=== PATIENT | male | born 1950 | race Two or more races ===

== ENCOUNTER 2020-08-20 16:53 | Emergency (ER) | payer OTHER, SELFPAY ==
[2020-08-20 17:02] VITALS: BP 143/85; PULSE 83; RESP 22; TEMP 37.1; O2SAT 97; BMI 26.6
--- NOTE | 2020-08-20 18:19 | ECG_ITS ---
Test Reason : SOB Blood Pressure : / mmHG Vent. Rate : 081 BPM Atrial Rate : 081 BPM P-R Int : 140 ms QRS Dur : 086 ms QT Int : 398 ms P-R-T Axes : 046 -18 022 degrees QTc Int : 462 ms Normal sinus rhythm Left axis deviation Nonspecific T wave abnormality Borderline ECG When compared with ECG of 07-APR-2020 18:35, Nonspecific T wave abnormality is new Referred By: Gwen Nagel Electronically Signed By:AHMET GUTIÉRREZ MD
--- NOTE | 2020-08-20 18:19 | XR_ITS ---
EXAMINATION: XR CHEST CLINICAL INFORMATION: Shortness of breath and cough COMPARISON: 04/07/2020 TECHNIQUE: Frontal view of the chest was obtained. FINDINGS: Normal symmetric lung volumes. No parenchymal consolidation. No pleural effusion. No pneumothorax. Cardiomediastinal silhouette and pulmonary vascularity are within normal limits. No acute osseous abnormalities. IMPRESSION: Unremarkable examination.
[2020-08-20] MEDS: methylPREDNISolone Sod Succ/PF 125 MG/2 ML VIAL IVPUSH (18:36)
[2020-08-20] MEDS: Magnesium Sulfate/H2O 2 GM/50 ML PIGGYBACK IV (18:36)
[2020-08-20 18:37] LABS: MANUAL DIFF FLAG NO
--- NOTE | 2020-08-20 18:37 | ED_ITS ---
HPI - SOB/Dyspnea General Chief Complaint: Dyspnea Stated Complaint: asthma Time Seen by Provider: 08/20/20 18:12 Source: patient Mode of arrival: ambulatory History of Present Illness HPI Narrative: 69-year-old male with a PMH asthma c/o asthma exacerbation x2 weeks. Reports nonproductive cough, SOB, intermittent chest discomfort. Denies fever, chills, abdominal pain, nausea /vomiting, LE edema, history of cough, sick contacts MD elicited complaint: shortness of breath and cough Pertinent past history: asthma Onset (ago): week(s) Timing: constant Severity: moderate Known history of: asthma Related Data Previous Rx's Medication Instructions Recorded albuterol sulfate 2 puff INHALATION Q4-6H PRN #6.7 g 08/20/20 albuterol sulfate 2.5 mg INHALATION Q4-6H PRN #75 ml 08/20/20 benzonatate [Tessalon Perles] 100 mg PO BID PRN #14 cap 08/20/20 prednisone 40 mg PO DAILY 5 Days #10 tab 08/20/20 Allergies Allergy/AdvReac Type Severity Reaction Status Date / Time No Known Allergies Allergy Verified 08/20/20 17:02 Review of Systems Review of Systems: Constitutional: No Weight loss, No Fever, No Chills, No Night Sweats, No Fatigue, No Malaise ENT/Mouth: No Ear Pain, No Nasal Congestion, No Sinus Pain, No sore throat, No Rhinorrhea, No Swallowing Difficulty Cardiovascular: + Chest Pain, + SOB, + Dyspnea on Exertion, No Orthopnea, No Edema, No Palpitations Respiratory: + Cough, No Sputum, No Wheezing, + Dyspnea Gastrointestinal: No Nausea, No Vomiting, No Diarrhea, No Constipation, No Abdo corrina pain Genitourinary: No Dysuria, No Urinary Frequency, No Hematuria Skin: No Skin Lesions, No rash PMFSH Past Medical History Attestation statement: The following information was validated with the patient. Social History Social History Alcohol intake: never Smoking Status: Never smoker Use of substances other than those prescribed or required for medical reasons: No Advance Directives: No Advance Directives Information Provided: No Physical Exam Vital Signs: Vital Signs: Vital Signs Temp Pulse Resp BP Pulse Ox 08/20/20 20:31 97 08/20/20 19:31 81 17 134/73 96 08/20/20 17:02 98.7 F 83 22 H 143/85 H 97 Body Mass Index 26.6 Const: General: cooperative and healthy appearing Orientation/consciousness: patient oriented x3 Limitations: no limitations HENMT: Head: Yes normal to inspection Ears: hearing grossly normal bilaterally General nose exam: Normal external nose present Face and sinus: Yes normal facial exam Eyes: General: appearance normal, both eyes and all related structures EOM: EOMs intact bilaterally Neck: Neck: Yes normal visual inspection Resp: Effort & Inspection: Actively coughing and no stridor Auscultation: wheezes expiratory wheezes, inspiratory wheezes and throughout and diminished lung sounds ( bibasilar) Cardio: Rate: regular rate Heart sounds: S1 normal heart sound present and S2 normal heart sound present Peripheral pulses: Peripheral pulses 2+ throughout GI: Inspection: Yes normal to inspection Palpation (GI): Soft to palpation, nontender, no guarding and not rigid : General: Yes no CVA tenderness Back/Spine/Pelvis: Back: no CVA tenderness Skin: Wounds: no wounds Neuro: General: patient oriented x3 Extrem: General: Yes normal to inspection and No edema Course Course Course Narrative: - no leukocytosis, BUN higher than baseline, troponin negative CXR unremarkable - on re-evaluation patient reports symptomatic improvement, lungs CTA. Ambulation with pulse ox patient maintained saturations greater than 92% on room air plan for discharge home with PCP follow-up MDM - SOB/Dyspnea MDM Narrative Medical decision making narrative: 69-year-old male with a H asthma c/o asthma exacerbation x2 weeks. Reports nonproductive cough, SOB, intermittent chest discomfort. On exam tachypneic, inspiratory/ expiratory wheeze with decreased BS bibasilarly. Concern for asthma exacerbation vs pneumonia vs viral syndrome. Low concern for COVID-19 Plan: EKG, Labs, CXR, DuoNeb, Solu-Medrol, magnesium, reassess Differential Diagnosis Differential diagnosis: Likely acute exacerbation of chronic obstructive airways disease, congestive heart failure, pneumonia, asthma with exacerbation and pleural effusion Lab Data Result diagrams: 08/20/20 18:27 08/20/20 18:27 Labs: Lab Results 08/20/20 08/20/20 08/20/20 Range/Units 18:27 18:27 18:27 WBC 7.1 (4.8-10.8) X10*3/uL RBC 4.96 (4.60-5.80) X10*6/uL Hgb 14.9 (14.0-18.0) g/dl Hct 45.7 (42-52) % MCV 92.1 (80-98) fL MCH 30.0 (27.0-33.0) pg MCHC 32.6 (31.0-36.0) g/dl RDW 13.5 (11.0-16.0) % Plt Count 212 (160-400) X10*3/uL MPV 10.4 (9.4-12.4) fL Immature Gran % (Auto) 0.1 (0.0-0.4) % Neut % (Auto) 51.2 (45-73) % Lymph % (Auto) 27.2 (20-40) % [place] % (Auto) 8.8 (2-11) % Eos % (Auto) 11.6 H (0-4) % Baso % (Auto) 1.1 (0-2) % Lymph # (Auto) 1.9 (1.2-4.9) X10*3/uL [place] # (Auto) 0.6 (0.1-1.2) X10*3/uL Eos # (Auto) 0.8 H (0.0-0.4) X10*3/uL Baso # (Auto) 0.1 (0.0-0.2) X10*3/uL Abs Immat Gran (auto) 0.01 (0.00-0.03) X10*3/uL Absolute Neuts (auto) 3.6 (2.0-8.3) X10*3/uL Absolute Nucleated RBC 0.000 (0.0-0.012) X10*3/uL Nucleated RBC % (auto) 0.0 (0.0-0.2) /100WBC Hold Blue Top Sodium 138 (135-145) mmol/L Potassium 4.4 (3.3-5.1) mmol/l Chloride 106 (96-108) mmol/L Carbon Dioxide 25 (22-29) mmol/L Anion Gap 11 L (12-20) BUN 24 H (9-16) mg/dL Creatinine 1.19 (0.5-1.4) mg/dL Estim Creat Clear Calc 52.3 Estimated GFR > 60 Random Glucose 102 (60-115) mg/dL Calcium 9.1 (8.4-10.2) mg/dL Troponin I High Sens < 3.5 (<3.5-35.0) ng/L B-Natriuretic Peptide < 10 (<100) pg/mL 08/20/20 Range/Units 18:27 WBC (4.8-10.8) X10*3/uL RBC (4.60-5.80) X10*6/uL Hgb (14.0-18.0) g/dl Hct (42-52) % MCV (80-98) fL MCH (27.0-33.0) pg MCHC (31.0-36.0) g/dl RDW (11.0-16.0) % Plt Count (160-400) X10*3/uL MPV (9.4-12.4) fL Immature Gran % (Auto) (0.0-0.4) % Neut % (Auto) (45-73) % Lymph % (Auto) (20-40) % [place] % (Auto) (2-11) % Eos % (Auto) (0-4) % Baso % (Auto) (0-2) % Lymph # (Auto) (1.2-4.9) X10*3/uL [place] # (Auto) (0.1-1.2) X10*3/uL Eos # (Auto) (0.0-0.4) X10*3/uL Baso # (Auto) (0.0-0.2) X10*3/uL Abs Immat Gran (auto) (0.00-0.03) X10*3/uL Absolute Neuts (auto) (2.0-8.3) X10*3/uL Absolute Nucleated RBC (0.0-0.012) X10*3/uL Nucleated RBC % (auto) (0.0-0.2) /100WBC Hold Blue Top SEE NOTE Sodium (135-145) mmol/L Potassium (3.3-5.1) mmol/l Chloride (96-108) mmol/L Carbon Dioxide (22-29) mmol/L Anion Gap (12-20) BUN (9-16) mg/dL Creatinine (0.5-1.4) mg/dL Estim Creat Clear Calc Estimated GFR Random Glucose (60-115) mg/dL Calcium (8.4-10.2) mg/dL Troponin I High Sens (<3.5-35.0) ng/L B-Natriuretic Peptide (<100) pg/mL Discharge Plan Discharge Clinical Impression: Asthma with exacerbation Patient Disposition: Home, Self-Care Instructions: Asthma (ED) Additional Instructions: continue using at home asthma medications In addition prednisone as a steroid, take as prescribed Tessalon Perles for cough Follow-up with her primary care doctor If symptoms persist/ worsen, you have fever, chest pain, or shortness of breath return to the ED Prescriptions: New prednisone 20 mg tablet 40 mg PO DAILY 5 Days Qty: 10 RF: 0 albuterol sulfate 2.5 mg /3 mL (0.083 %) solution for nebulization 2.5 mg inhalation Q4-6H PRN (Reason: shortness of breath or wheezing) Qty: 75 RF: 0 benzonatate [Tessalon Perles] 100 mg capsule 100 mg PO BID PRN (Reason: cough) Qty: 14 RF: 0 albuterol sulfate 90 mcg/actuation HFA aerosol inhaler 2 puff inhalation Q4-6H PRN (Reason: shortness of breath or wheezing) Qty: 6.7 RF: 0 Referrals: Toyin Mistry MD [Primary Care Provider] - 2 days Print Language: Cuban
[2020-08-20 18:40] LABS: Basophils Absolute Auto 0.1 X10*3/uL (0.0-0.2); Basophils Percent Auto 1.1 % (0-2); Eosinophils Absolute Auto 0.8 X10*3/uL (0.0-0.4); Eosinophils Percent Auto 11.6 % (0-4); Hematocrit 45.7 % (42-52); Hemoglobin 14.9 g/dl (14.0-18.0); Imm Gran Abs Auto 0.01 X10*3/uL (0.00-0.03); Imm Gran Pct Auto 0.1 % (0.0-0.4); Lymphocytes Absolute Auto 1.9 X10*3/uL (1.2-4.9); Lymphocytes Percent Auto 27.2 % (20-40); Mean Corpuscular HGB Conc 32.6 g/dl (31.0-36.0); Mean Corpuscular Volume 92.1 fL (80-98); Mean Platelet Volume 10.4 fL (9.4-12.4); Monocytes Absolute Auto 0.6 X10*3/uL (0.1-1.2); Monocytes Percent Auto 8.8 % (2-11); Neutrophils Absolute Auto 3.6 X10*3/uL (2.0-8.3); Neutrophils Percent Auto 51.2 % (45-73); Platelet Count 212 X10*3/uL (160-400); Red Blood Count 4.96 X10*6/uL (4.60-5.80); Red Cell Distribution Width 13.5 % (11.0-16.0); White Blood Count 7.1 X10*3/uL (4.8-10.8)
[2020-08-20] MEDS: Albuterol/Iprat 2.5/0.5MG 3 ML AMPUL.NEB 10 ML INHALE (18:42)
[2020-08-20 19:05] LABS: Anion Gap 11 (12-20); Blood Urea Nitrogen 24 mg/dL (9-16); Calcium 9.1 mg/dL (8.4-10.2); Carbon Dioxide 25 mmol/L (22-29); Chloride 106 mmol/L (96-108); Creatinine Clr Calc Pharmacy 52.3; Estimated Glomerular Filt Rate > 60; Glucose Random 102 mg/dL (60-115); Potassium 4.4 mmol/l (3.3-5.1); Sodium 138 mmol/L (135-145)
[2020-08-20 19:08] LABS: B Type Natriuretic Peptide < 10 pg/mL (<100); Troponin-I High Sensitivity < 3.5 ng/L (<3.5-35.0)
--- NOTE | 2020-08-20 19:09 | PC.NURSE ---
PT REPORTING 2 WKS OF SOB R/T ASTHMA, NEBULIZER NOT EFFECTIVE. PT INITIALLY HESITANT TO RECEIVE IV MEDICATION AND STEROIDS FOR THIS ISSUE, EXPLAINED IN DEPTH THE PURPOSE OF THESE, PT ACCEPTED. RT AT BEDSIDE. EXP WHEEZING HEARD THROUGHOUT. SPO2 WNL ON RA. MEDICATED PER EMR.
[2020-08-20 19:31] VITALS: BP 134/73; PULSE 81; RESP 17; O2SAT 96
--- NOTE | 2020-08-20 19:31 | PC.NURSE ---
PT REPORTS SIGNIFICANT IMPROVEMENT W WORK OF BREATHING. LUNG SOUNDS CLEAR THROUGHOUT. EKG AT BEDSIDE. VS WNL.
[2020-08-20 20:31] VITALS: O2SAT 97
--- NOTE | 2020-08-20 20:33 | PC.NURSE ---
PT SPO2 REMAINED 92-97% ON ROOM AIR DURING ROAD TEST. HANNAH PATHAK.
== END 2020-08-20 20:59 | disposition home or self-care (01) ==
PROVIDERS: Physician Assistant; Emergency Provider Emergency Medicine Emergency Medical Services; PCP Family Medicine
DX: J45.901 Unspecified asthma with (acute) exacerbation (principal); Z79.899 Other long term (current) drug therapy
CPT/HCPCS: 36415; 71045; 80048; 83880; 84484; 85025; 93005; 96365; 96375; 99284; J2930; J3475

== ENCOUNTER 2020-12-22 08:57 | Outpatient (REF) | payer OTHER, SELFPAY ==
--- NOTE | ~2020-12-22 | XR_ITS ---
EXAMINATION: XR SHOULDER, BILATERAL CLINICAL INFORMATION: Bilateral shoulder pain. COMPARISON: MRI of 10/01/2019 and right shoulder study of 09/01/2019 and left shoulder study of 01/08/2016. TECHNIQUE: 3 views of each shoulder. FINDINGS: 3 views of the right shoulder do not demonstrate any evidence of acute fracture or dislocation. There is narrowing of the inferior aspect of the glenohumeral joint with some increased sclerosis and spurring and adjacent calcification which could represent calcified labral tear fragment. This shows progression since study of 09/01/2019. There is no widening of the coracoclavicular space. There are a few small regions of calcification about the lateral aspect of the humeral head consistent with calcific tendinitis. No significant acromial spur is appreciated. 3 views of the left shoulder do not demonstrate any evidence of acute fracture or dislocation. Calcific tendinitis is evident at site of insertion of the supraspinatus tendon. There is mild spurring of the glenohumeral joint without significant joint space narrowing. There is no widening of the coracoclavicular space. XR/XR shoulder RT min 2V IMPRESSION: Calcific tendinitis of the shoulders bilaterally. Right glenohumeral joint degenerative change with narrowing and spurring and question labral tear.
--- NOTE | ~2020-12-22 | XR_ITS ---
EXAMINATION: XR SHOULDER, BILATERAL CLINICAL INFORMATION: Bilateral shoulder pain. COMPARISON: MRI of 10/01/2019 and right shoulder study of 09/01/2019 and left shoulder study of 01/08/2016. TECHNIQUE: 3 views of each shoulder. FINDINGS: 3 views of the right shoulder do not demonstrate any evidence of acute fracture or dislocation. There is narrowing of the inferior aspect of the glenohumeral joint with some increased sclerosis and spurring and adjacent calcification which could represent calcified labral tear fragment. This shows progression since study of 09/01/2019. There is no widening of the coracoclavicular space. There are a few small regions of calcification about the lateral aspect of the humeral head consistent with calcific tendinitis. No significant acromial spur is appreciated. 3 views of the left shoulder do not demonstrate any evidence of acute fracture or dislocation. Calcific tendinitis is evident at site of insertion of the supraspinatus tendon. There is mild spurring of the glenohumeral joint without significant joint space narrowing. There is no widening of the coracoclavicular space. XR/XR shoulder LT min 2V IMPRESSION: Calcific tendinitis of the shoulders bilaterally. Right glenohumeral joint degenerative change with narrowing and spurring and question labral tear.
== END 2020-12-22 08:58 | disposition home or self-care (01) ==
LOC: HO.HOSX 08:57
PROVIDERS: Visit Provider Orthopaedic Surgery
DX: M25.311 Other instability, right shoulder (principal); M25.512 Pain in left shoulder
CPT/HCPCS: 20610; 73030; 99212; J1100

== ENCOUNTER → 2021-05-08 10:47 | Outpatient (BNVA) | payer OTHER, SELFPAY | PROVIDERS: Visit Provider Orthopaedic Surgery | DX: M75.102 Unspecified rotator cuff tear or rupture of left shoulder, not specified as traumatic (principal); M75.101 Unspecified rotator cuff tear or rupture of right shoulder, not specified as traumatic | CPT/HCPCS: 20610; 99212; J1100 ==

== ENCOUNTER → 2021-07-27 10:37 | Outpatient (BNVA) | payer OTHER, SELFPAY | PROVIDERS: PCP Family Medicine; Visit Provider Orthopaedic Surgery | DX: M77.12 Lateral epicondylitis, left elbow (principal) | CPT/HCPCS: 20550; 20605; 99212; J1100 ==

== ENCOUNTER → 2021-08-03 11:01 | Outpatient (BNVA) | payer OTHER, SELFPAY | PROVIDERS: PCP Family Medicine; Referring Provider Family Medicine; Visit Provider Nurse Practitioner | DX: Z12.11 Encounter for screening for malignant neoplasm of colon (principal); L67.9 Hair color and hair shaft abnormality, unspecified | CPT/HCPCS: Q3014 ==

== ENCOUNTER 2021-11-07 06:48 | Day surgery (SDC) | payer OTHER, SELFPAY ==
[2021-11-07 07:30] VITALS: BP 129/76; PULSE 67; RESP 16; TEMP 36.7; O2SAT 98; BMI 26.9
--- NOTE | 2021-11-07 07:35 | P.CONAN_ITS ---
[facility] Active Problems Active Problems: All Active Problems (Updated 08/03/21 @ 12:02 by MARICEL Monet) Hypopigmentation of hair (Acute) Colon cancer screening (Acute) Left lateral epicondylitis (Acute) Rotator cuff tear, right (Acute) Rotator cuff tear, left (Acute) Past Medical History Medical History Asthma Depression Hypertension Surgical History Surgical History History of hernia surgery History of Problems with Anesthesia: No Social History Social History Alcohol intake: never Patient Tobacco Use Status: Former Tobacco user Quit Date: quit 15 years ago Tobacco use type: Cigarette Use of substances other than those prescribed or required for medical reasons: No Are you DNR?: No Advance Directives: No Advance Directives Information Provided: Yes Current occupational status: disabled Current occupation: left and right handed Meds Allergies Allergy/AdvReac Type Severity Reaction Status Date / Time No Known Allergies Allergy Verified 08/03/21 11:11 Home Medications Medication Instructions Recorded Confirmed Last Taken Type naproxen 500 mg tablet 500 mg PO BID 12/22/20 Unknown History azithromycin 250 mg tablet 250 mg PO DAILY 05/08/21 Unknown History cholecalciferol (vitamin D3) 25 25 mcg PO DAILY 05/08/21 Unknown History mcg (1,000 unit) capsule clonazepam 2 mg tablet 2 mg PO BEDTIME 05/08/21 Unknown History cyanocobalamin (vitamin B-12) 1,000 mcg PO DAILY 05/08/21 Unknown History 1,000 mcg tablet cyanocobalamin (vitamin B-12) 1,000 mcg IM 05/08/21 Unknown History 1,000 mcg/mL injection solution fluoxetine 20 mg capsule 20 mg PO DAILY 05/08/21 Unknown History fluticasone propionate 220 1 puff PO BID 05/08/21 Unknown History mcg/actuation HFA aerosol inhaler loratadine 10 mg tablet 10 mg PO DAILY 05/08/21 Unknown History omeprazole 20 mg capsule,delayed 20 mg PO DAILY PRN 05/08/21 Unknown History release mirtazapine 15 mg tablet 15 mg PO BEDTIME 08/03/21 Unknown History Exam Exam Date and Time: November 07, 2021 0735 Airway Mallampati Class: II TM Dist: >3cm Neck ROM: Full Loose/Missing/Broken Teeth: No Heart: RRR Lungs: CTA Assessment and Plan Assessment Anesthesia Assessment: Anesthesia Plan Discussed and Chart Reviewed Final Anesthetic Review History of Problems with Anesthesia: No NPO: Yes ASA Class: II Final Preanesthetic Review: Meds/Allgs Chart Reviewed, Consent Obtained/Reviewed and Anes Risks/Benef Reviewed Patient Risk: Low Procedure Risk: Low Anesthetic Plan Anesthetic Plan: MAC: Disposition: Standard PACU
[2021-11-07] MEDS: Lactated Ringers 1,000 ML 50 ML IVCONT (08:15)
--- NOTE | 2021-11-07 08:39 | MHC.SHP ---
Pre-Procedural Eval Section A Date of Service: 11/07/21 The patient is an INPATIENT: No The History & Physical has been completed within 30 days and I have reviewed it.: No Section B Chief Complaint: Screening Details of Present Illness: Colon cancer screening Relevant Family History (Specify if Yes): No Relevant Social History: None Present Medications: see Short Stay Collaborative assessment Medical History: Significant History (Asthma Depression Hypertension) History of Previous Operations: Relevant previous surgery/procedure and date(s) (History of hernia surgery) Allergies: Allergies Allergy/AdvReac Type Severity Reaction Status Date / Time No Known Allergies Allergy Verified 08/03/21 11:11 Review of Systems Sugical H&P ROS: Negative: Constitution, Cardiovascular, Respiratory and Gastrointestinal Exam Surgical H&P Exam: Normal: HEENT, Normal: Heart, Normal: Lungs, Normal: Extremities and Normal: Abdomen Plan Diagnosis/Plan: Unchanged I have reviewed the history and physical and performed a pertinent physical examination on my patient. No changes have occurred unless specified.
--- NOTE | 2021-11-07 08:40 | P.BOP_ITS ---
Brief Operative Note Date of Service: 11/07/21 Pre-op diagnosis: Colon cancer screening Post-op diagnosis: other (Colon polyps, diverticulosis and hemorrhoids) Procedure: COLONOSCOPY TILL CECUM WITH BIOPSIES AND SNARE POLYPECTOMY Consent: Indications for the procedure and potential complications of bleeding, perforation, reaction to medications and missed diagnosis were discussed with the patient and informed consent was obtained. Instrument: Olympus PCF H 190 L variable stiffness pediatric colonoscope Monitoring: Vital signs and clinical assessment, intermittent blood pressure monitoring, continuous EKG monitoring, Pulse oximetry and Carbon Dioxide monitoring were done throughout the procedure. Colon withdrawl time was 23 minutes. Procedure: The patient was placed in the left lateral decubitis position and pre-procedure medications were administered. After a digital rectal examination of the ano-rectum, the video colonoscope was inserted into the rectum and advanced through the colon to the cecum. The colonoscope was slowly withdrawn in a retrograde panoramic fashion and the colon mucosa was carefully examined including a retroflexed view of the rectum. Findings and interventions are described below. Procedure Difficulty: Colon was long and tortuous and there was recurrent loop formation Findings: Terminal Ileum: Not evaluated Cecum: A 4-5 mm diminutive appearing polyp removed with a cold bx. Ascending Colon: A 5-6 mm sessile polyp removed with the cold biopsy. Moderate diverticulosis Transverse Colon: A 10 mm sessile polyp removed with the cold snare and moderate diverticulosis Descending Colon: Moderate diverticulosis Sigmoid Colon: A 10 mm polyp versus inverted diverticulum - biopsied. Moderate diverticulosis Rectum: Normal Ano-rectum: Moderate internal hemorrhoids and perianal skin tags Colon preparation: Good after copious irrigation. Impression and Post Procedure Diagnosis: Colonoscopy Findings: Three small to medium sized polyps removed Moderate diverticulosis seen in the entire colon - right > left Moderate hemorrhoids on retroflexed exam. Plan: Await pathology results Patient has an appointment on 11/21/20 in the GI Clinic with Lor Biggs NP. Repeat Colonoscopy interval based on path results - in 3-5 years if polyps are adenomatous and 10 years if polyps are hyperplastic. Above findings were reviewed with the patient and colon polyps and diverticulosis handouts were given in the discharge area Surgeon: Barbie Collins MD Anesthesia: MAC (Katiana Olivo CRNA) Was an Outpatient Facility Physical Therapist used for this Procedure?: Yes Outpatient Facility Physical Therapist: Maury Dela Cruz Estimated blood loss (mL): 0 Pathology: other (A: TRANSVERSE COLON POLYP B- CECAL POLYP C- ASCENDING COLON POLYP D- BX AT 75CM POLYP VS. FOLD) Condition: stable Disposition: PACU
--- NOTE | 2021-11-07 08:44 | PCN2_ITS ---
Brief Operative Note Date of procedure: 11/07/21 Pre-op diagnosis: Colon cancer screening Post-op diagnosis: other (Colon polyps, diverticulosis, hemorrhoids) Procedure: Procedure:? COLONOSCOPY TILL CECUM WITH BIOPSIES AND SNARE POLYPECTOMY Consent: Indications for the procedure and potential complications of bleeding, perforation, reaction to medications and missed diagnosis were discussed with the patient and informed consent was obtained. Instrument: Olympus PCF H 190 L variable stiffness pediatric colonoscope Monitoring: Vital signs and clinical assessment, intermittent blood pressure monitoring, continuous EKG monitoring, Pulse oximetry and Carbon Dioxide monitoring were done throughout the procedure. Colon withdrawl time was 23 minutes. Procedure: The patient was placed in the left lateral decubitis position and pre-procedure medications were administered. After a digital rectal examination of the ano-rectum, the video colonoscope was inserted into the rectum and advanced through the colon to the cecum. The colonoscope was slowly withdrawn in a retrograde panoramic fashion and the colon mucosa was carefully examined including a retroflexed view of the rectum. Findings and interventions are described below. Procedure Difficulty: Colon was long and tortuous and there was recurrent loop formation Findings: Terminal Ileum: Not evaluated Cecum:? A 4-5 mm diminutive appearing polyp removed with a cold bx. Ascending Colon:? A 5-6 mm sessile polyp removed with the cold biopsy.? Moderate diverticulosis Transverse Colon:? A 10 mm sessile polyp removed with the cold snare and moderate diverticulosis Descending Colon:? Moderate diverticulosis Sigmoid Colon:? A 10 mm polyp versus inverted diverticulum - biopsied. Moderate diverticulosis Rectum:? Normal Ano-rectum:? Moderate internal hemorrhoids and perianal skin tags Colon preparation:? Good after copious irrigation. Impression and Post Procedure Diagnosis: Colonoscopy Findings: Three small to medium sized polyps removed Moderate diverticulosis seen in the entire colon - right > left Moderate hemorrhoids on retroflexed exam. Plan: Await pathology results Patient has an appointment on 11/21/20 in the GI Clinic with? Lor Biggs NP. Repeat Colonoscopy interval based on path results - in 3-5 years if polyps are adenomatous and 10 years if polyps are hyperplastic. Colon polyps and diverticulosis handouts were given in the discharge area Surgeon:?Barbie Collins MD Anesthesia:?MAC (Katiana Olivo CRNA) Anesthesia: MAC Surgeon: Barbie Collins Carbonation Equipment Operator: Maury Dela Cruz Estimated blood loss (mL): 0 Pathology: other (A: TRANSVERSE COLON POLYP? B- CECAL POLYP? C- ASCENDING COLON POLYP? D- BX AT 75CM? POLYP VS. FOLD) Condition: stable Disposition: PACU
[2021-11-07 09:47] VITALS: BP 108/69; PULSE 65; RESP 15; TEMP 36.1; O2SAT 96
[2021-11-07 10:06] VITALS: BP 115/65; PULSE 71; RESP 17; TEMP 36.1; O2SAT 97
== END 2021-11-07 10:40 | disposition home or self-care (01) ==
PROVIDERS: PCP Family Medicine; Visit Provider Internal Medicine Gastroenterology
PROC: 0DJD8ZZ Inspection of Lower Intestinal Tract, Via Natural or Artificial Opening Endoscopic (ICD-10-PCS; CPT 45378; principal; 2021-11-07 08:20)
DX: Z12.11 Encounter for screening for malignant neoplasm of colon (principal); D12.2 Benign neoplasm of ascending colon; D12.3 Benign neoplasm of transverse colon; K51.40 Inflammatory polyps of colon without complications; K63.5 Polyp of colon; K57.30 Diverticulosis of large intestine without perforation or abscess without bleeding; K64.8 Other hemorrhoids; K64.4 Residual hemorrhoidal skin tags; K59.04 Chronic idiopathic constipation; I10 Essential (primary) hypertension; J45.909 Unspecified asthma, uncomplicated; F32.9 Major depressive disorder, single episode, unspecified; L67.9 Hair color and hair shaft abnormality, unspecified; Z79.51 Long term (current) use of inhaled steroids; Z79.899 Other long term (current) drug therapy; Z87.891 Personal history of nicotine dependence
CPT/HCPCS: 45385; 45380; 88305

== ENCOUNTER → 2022-04-02 13:10 | Outpatient (BNVA) | payer OTHER, SELFPAY | PROVIDERS: Visit Provider Orthopaedic Surgery | DX: M75.41 Impingement syndrome of right shoulder (principal); M75.42 Impingement syndrome of left shoulder | CPT/HCPCS: 20610; 99212; J1100 ==

== ENCOUNTER → 2022-04-13 14:46 | Outpatient (BNVA) | payer OTHER, SELFPAY | PROVIDERS: PCP Family Medicine; Referring Provider Family Medicine; Visit Provider Nurse Practitioner | DX: D12.3 Benign neoplasm of transverse colon (principal); D12.2 Benign neoplasm of ascending colon; K57.30 Diverticulosis of large intestine without perforation or abscess without bleeding; K64.9 Unspecified hemorrhoids; Z98.890 Other specified postprocedural states | CPT/HCPCS: 99212 ==

== ENCOUNTER 2022-05-04 14:53 | Outpatient (REF) | payer OTHER, SELFPAY ==
--- NOTE | ~2022-05-04 | MR_ITS ---
EXAMINATION: MR BRAIN WITHOUT CONTRAST CLINICAL INFORMATION: Mild cognitive impairment. COMPARISON: Brain MRI dated 12/17/2019. TECHNIQUE: Multiplanar, multisequence imaging of the brain was performed without contrast. Limited study with motion artifacts. FINDINGS: No diffusion abnormalities are identified to suggest an acute infarct. No evidence of hydrocephalus. No mass effect or midline shift is seen. Minimal scattered white matter signal changes are stable. Degree of generalized parenchymal volume loss with mild ex vacuo dilatation of the ventricles is unchanged. No extra-axial fluid collections are seen. The brainstem and cerebellum are normal. The gradient refocused acquisition demonstrates no pathologic magnetic susceptibility artifact to indicate underlying acute or chronic blood products. The craniovertebral junction, marrow signal, and midline structures are normal. The major intracranial flow voids at the level of the [place] of [place] are preserved. The dural venous sinus flow voids are maintained. The mastoid air cells are well aerated. There is mild mucosal thickening in the paranasal sinuses. MR/MR head/brain wo con IMPRESSION: Limited examination with motion artifacts. No acute process. Stable generalized parenchymal volume loss. No hydrocephalus. Minimal scattered white matter signal changes, which may be due to chronic microangiopathy.
== END 2022-05-04 14:54 | disposition home or self-care (01) ==
LOC: HO.MRI 14:53
PROVIDERS: Visit Provider Family Medicine
DX: F03.90 Unspecified dementia, unspecified severity, without behavioral disturbance, psychotic disturbance, mood disturbance, and anxiety (principal)
CPT/HCPCS: 70551

== ENCOUNTER 2022-05-09 12:41 | Emergency (ER) | payer OTHER, SELFPAY ==
--- NOTE | ~2022-05-09 | XR_ITS ---
EXAMINATION: XR SHOULDER, RIGHT CLINICAL INFORMATION: Right shoulder pain COMPARISON: 12/22/2020 TECHNIQUE: AP external rotation, Grashey, scapular Y, and axillary views of the right shoulder. FINDINGS: No acute fracture or dislocation. Small marginal osteophytes along the glenohumeral and acromioclavicular joints. Labral calcifications versus small osseous [employer] redemonstrated. Calcific rotator cuff tendinopathy redemonstrated. XR/XR shoulder RT min 2V IMPRESSION: No acute fracture or dislocation. Chronic and degenerative changes redemonstrated as described.
[2022-05-09 13:18] VITALS: BP 139/88; PULSE 60; RESP 17; TEMP 36.6; O2SAT 98; BMI 27.4
--- NOTE | 2022-05-09 17:26 | ED.EXTPRO ---
HPI - Extremity Problem General Chief complaint: Extremity Problem Stated complaint: right shoulder pain, left leg pain Time Seen by Provider: 05/09/22 16:50 Source: patient Mode of arrival: ambulatory Limitations: no limitations History of Present Illness HPI Narrative: patient comes to the emergency room complaining of right shoulder pain for 2 days. Patient states it is worse with radiation. Patient denies any injuries. Patient states that he takes naproxen for arthritis, but is not controlling the pain at night. Patient does have history of right rotator cuff tear. Related Data Home Medications Medication Instructions Recorded Confirmed naproxen 500 mg tablet 500 mg PO BID 12/22/20 azithromycin 250 mg tablet 250 mg PO DAILY 05/08/21 cholecalciferol (vitamin D3) 25 25 mcg PO DAILY 05/08/21 mcg (1,000 unit) capsule clonazepam 2 mg tablet 2 mg PO BEDTIME 05/08/21 cyanocobalamin (vitamin B-12) 1,000 mcg PO DAILY 05/08/21 1,000 mcg tablet cyanocobalamin (vitamin B-12) 1,000 mcg IM 05/08/21 1,000 mcg/mL injection solution fluoxetine 20 mg capsule 20 mg PO DAILY 05/08/21 fluticasone propionate 220 1 puff PO BID 05/08/21 mcg/actuation HFA aerosol inhaler loratadine 10 mg tablet 10 mg PO DAILY 05/08/21 omeprazole 20 mg capsule,delayed 20 mg PO DAILY PRN 05/08/21 release mirtazapine 15 mg tablet 15 mg PO BEDTIME 08/03/21 Previous Rx's Medication Instructions Recorded albuterol sulfate 2.5 mg (3 mL) inhalation Q4-6H PRN 08/20/20 shortness of breath or wheezing #75 mL albuterol sulfate 90 mcg/actuation 2 puff inhalation Q4-6H PRN 08/20/20 aerosol inhaler shortness of breath or wheezing #6.7 grams benzonatate 100 mg capsule 100 mg PO BID PRN cough #14 caps 08/20/20 (Tessalon Alex) hydrocortisone 2.5 % topical cream 1 appl [place] BID-QID PRN hemorrhoids 04/13/22 with perineal applicator #30 grams (Proctosol HC) tramadol 50 mg tablet 50 mg PO BEDTIME PRN pain #7 tabs 05/09/22 Allergies Allergy/AdvReac Type Severity Reaction Status Date / Time No Known Allergies Allergy Verified 04/13/22 15:11 Review of Systems Review of Systems: Constitutional : No Weight loss, No Fever, No Chills, No Night Sweats, No Fatigue, No Malaise ENT/Mouth : No Hearing loss, No Ear Pain, No Nasal Congestion, No Sinus Pain, No Hoarseness, No sore throat, No Rhinorrhea, No Swallowing Difficulty Eyes: No Eye Pain, No Swelling, No Redness, No Foreign Body, No Discharge, No Vision Changes Cardiovascular : No Chest Pain, No SOB, No Dyspnea on Exertion, No Orthopnea, No Edema, No Palpitations Respiratory : No Cough, No Sputum, No Wheezing, No Smoke Exposure, No Dyspnea Gastrointestinal : No Nausea, No Vomiting, No Diarrhea, No Constipation, No abdominal Pain, No Hematochezia, No Melena Genitourinary : no irregular bleeding, No Dysuria, No Urinary Frequency, No Hematuria, No Urinary Incontinence, No Urgency, No Flank Pain, No Urinary Flow Changes, No Hesitancy Musculoskeletal : Complaining of right shoulder pain, No Myalgias, No Joint Swelling Skin : No Skin Lesions, No rash Neuro : No Weakness, No Numbness, No Paresthesias, No Loss of Consciousness, No Dizziness, No Headache Psych : No Anxiety/Panic, No Depression, No SI/HI/AH/VH, No Social Issues, Heme/Lymph: No Bruising, No Bleeding,No Lymphadenopathy Endocrine : No Polyuria, No Polydipsia, No Temperature Intolerance PMFSH Past Medical History Medical History Asthma Depression Hypertension Surgical History History of hernia surgery Social History Social History Alcohol intake: never Patient Tobacco Use Status: Former Tobacco user Quit Date: quit 15 years ago Tobacco use type: Cigarette Advance Directives: No Advance Directives Information Provided: No Current occupational status: disabled Current occupation: left and right handed Physical Exam Vital Signs: Vital Signs: Last Vital Signs Temp 97.9 F 05/09/22 13:18 Pulse 60 05/09/22 13:18 Resp 17 05/09/22 13:18 BP 139/88 05/09/22 13:18 Pulse Ox 98 06/29/22 13:18 O2 Del Method 05/09/22 13:18 BMI result Body Mass Index 27.4 Const: Other: Appearance: Alert. Oriented X3. No acute distress. Eyes: Pupils equal, round and reactive to light. ENT: Pharynx normal. Neck: Normal inspection. Neck supple. No lymph nodes noted. No crepitus CVS: Normal heart rate and rhythm. Pulses normal. Normal S1 and S2 Respiratory: No respiratory distress. Breath sounds normal. No Wheezing. No rales Abdomen: Soft and nontender. No rigidity. No distention. Skin: Skin warm and dry. Normal skin color. Normal skin turgor. Extremities: No lower extremity edema. patient has normal range of motion, patient able to abduct and adduct the left markedly arm with normal range of motion. No significant pain on palpation over the shoulder Neuro: Oriented X 3. No motor deficit. No sensory deficit. Moving all extremities. No slurred speech. CN 2 through 12 grossly intact Psych: calm, cooperative, normal affect Course Course Course Narrative: x-ray is negative, patient will likely need an MRI, patient does have history of right rotator cuff tear. Patient taking naproxen without significant pain especially at night. Discharge Plan Discharge Clinical Impression: Pain in right shoulder Patient Disposition: Home, Self-Care Instructions: Shoulder Pain (ED) Additional Instructions: Please follow-up with your primary care physician tomorrow. If you have any worsening or new symptoms, please return to the emergency room or call 911 Prescriptions: New tramadol 50 mg tablet 50 mg PO BEDTIME PRN (Reason: pain) Qty: 7 0RF No Action albuterol sulfate 2.5 mg /3 mL (0.083 %) solution for nebulization 2.5 mg inhalation Q4-6H PRN (Reason: shortness of breath or wheezing) Qty: 75 0RF benzonatate [Tessalon Perles] 100 mg capsule 100 mg PO BID PRN (Reason: cough) Qty: 14 0RF albuterol sulfate 90 mcg/actuation HFA aerosol inhaler 2 puff inhalation Q4-6H PRN (Reason: shortness of breath or wheezing) Qty: 6.7 0RF naproxen 500 mg tablet 500 mg PO BID cyanocobalamin (vitamin B-12) 1,000 mcg/mL solution 1,000 mcg IM clonazepam 2 mg tablet 2 mg PO BEDTIME fluoxetine 20 mg capsule 20 mg PO DAILY fluticasone propionate 220 mcg/actuation HFA aerosol inhaler 1 puff PO BID loratadine 10 mg tablet 10 mg PO DAILY cyanocobalamin (vitamin B-12) 1,000 mcg tablet 1,000 mcg PO DAILY azithromycin 250 mg tablet 250 mg PO DAILY omeprazole 20 mg capsule,delayed release(DR/EC) 20 mg PO DAILY PRN cholecalciferol (vitamin D3) 25 mcg (1,000 unit) capsule 25 mcg PO DAILY mirtazapine 15 mg tablet 15 mg PO BEDTIME hydrocortisone [Proctosol HC] 2.5 % cream with perineal applicator 1 appl [place] BID-QID PRN (Reason: hemorrhoids) Qty: 30 3RF
== END 2022-05-09 17:45 | disposition home or self-care (01) ==
PROVIDERS: Emergency Provider Emergency Medicine; PCP Family Medicine
DX: M25.511 Pain in right shoulder (principal); I10 Essential (primary) hypertension; Z87.891 Personal history of nicotine dependence
CPT/HCPCS: 73030; 99282; 99283

== ENCOUNTER → 2022-07-30 12:34 | Outpatient (BNVA) | payer MEDICARE, SELFPAY | PROVIDERS: PCP Family Medicine; Visit Provider Orthopaedic Surgery | DX: M75.101 Unspecified rotator cuff tear or rupture of right shoulder, not specified as traumatic (principal) | CPT/HCPCS: 20610; 99212; J1100 ==

== ENCOUNTER 2022-08-13 15:00 | Outpatient (REF) | payer MEDICARE, SELFPAY ==
--- NOTE | ~2022-08-13 | MR_ITS ---
EXAMINATION: MR SHOULDER WITHOUT CONTRAST, RIGHT CLINICAL INFORMATION: Right shoulder pain, decreased range of motion. Evaluate for rotator cuff tendon tear. COMPARISON: Right shoulder radiographs dated 05/09/2022 and right shoulder MRI dated 10/01/2019. TECHNIQUE: MRI of the shoulder without contrast was performed on a high-field scanner. FINDINGS: ROTATOR CUFF: Near-complete, full-thickness supraspinatus tendon tear measuring approximately 3.1 x 3.0 cm (AP x ML) with retraction of the torn tendon fibers to the humeral head apex. Findings are increased when compared to the prior examination. There are posterior supraspinatus tendon fibers which remain intact. Infraspinatus tendinosis with anterior articular surface fraying, increased when compared to the prior examination. Subscapularis tendinosis with distal articular surface partial tearing measuring 2.7 cm in ML dimension, increased when compared to the prior examination. No muscle atrophy or fatty infiltration. BICEPS: Linear intrasubstance increased T2 signal within the proximal long head biceps tendon, consistent with tendinosis and linear intrasubstance partial tearing, increased when compared to the prior examination. No transverse tendon tear or tendon retraction. CORACOACROMIAL ARCH: The undersurface of the acromion is curved with subacromial spurring. [id number] acromioclavicular osteoarthritis, similar when compared to the prior examination. LABRUM/CAPSULE: Previously seen undersurface fraying of the superior labrum is less evident when compared to the prior examination. Mild irregularity through the periphery of the posterosuperior labrum which could represent peripheral fraying. GLENOHUMERAL JOINT/MARROW: Mild articular cartilage thinning with tiny marginal osteophytes, unchanged. Degenerative cystic change within the greater tuberosity. Moderate joint effusion with synovitis. MR/MR shoulder RT wo con IMPRESSION: 1. Near-complete, full-thickness supraspinatus tendon tear with a few posterior tendon fibers remaining intact. The torn tendon fibers are retracted to the humeral head apex, and tearing is increased when compared to the prior MRI. 2. Infraspinatus tendinosis with anterior articular surface fraying as well as subscapularis tendinosis with distal articular surface partial tearing, increased when compared to the prior MRI. 3. Proximal long head biceps tendinosis with linear intrasubstance partial tearing, new/increased when compared to the prior MRI. 4. [id number] acromioclavicular osteoarthritis with subacromial spurring, unchanged. 5. Fraying through the periphery of the posterosuperior labrum, similar when compared to the prior MRI. Previously seen undersurface fraying/tearing of the superior labrum is not well visualized on the current examination. 6. Minimal glenohumeral arthrosis, unchanged. Moderate joint effusion with synovitis.
== END 2022-08-13 15:01 | disposition home or self-care (01) ==
LOC: HO.MRI 15:00
PROVIDERS: Visit Provider Family Medicine
DX: M75.101 Unspecified rotator cuff tear or rupture of right shoulder, not specified as traumatic (principal); M19.011 Primary osteoarthritis, right shoulder; M25.511 Pain in right shoulder
CPT/HCPCS: 73221

== ENCOUNTER 2023-01-31 11:19 | Emergency (ER) | payer MEDICARE, SELFPAY ==
--- NOTE | ~2023-01-31 | XR_ITS ---
EXAMINATION: XR CHEST CLINICAL INFORMATION: Pain COMPARISON: Chest radiographs 08/20/2020, 04/07/2020 TECHNIQUE: 2 views of the chest were obtained. FINDINGS: Clear lungs. No pneumothorax, airspace consolidation, groundglass opacity, or effusion. The costophrenic sulci are well-defined. The heart is normal in size. Vascularity is normal. The hilar and mediastinal contours are unremarkable. No acute bony abnormality. XR/XR chest 2V IMPRESSION: Unremarkable examination.
[2023-01-31 11:27] VITALS: BP 126/58; PULSE 72; RESP 16; TEMP 36.7; O2SAT 97; BMI 26.9
--- NOTE | 2023-01-31 11:29 | ED.GENADULT ---
HPI - General Adult General Chief complaint: Upper Respiratory Symptoms <Quoc Wang - Last Filed: 01/31/23 11:30> Stated complaint: Cough/Asthma <Quoc Wang - Last Filed: 01/31/23 11:30> Time Seen by Provider: 01/31/23 11:36 <Quoc Wang - Last Filed: 01/31/23 11:30> Source: patient and family <HANNAH Cheema - Last Filed: 01/31/23 14:59> Mode of arrival: ambulatory <HANNAH Cheema - Last Filed: 01/31/23 14:59> History of Present Illness HPI narrative: 72-year-old male with a past medical history of asthma, depression, hypertension, presenting to the ED complaining of dry cough x3 weeks with associated chest tightness and SOB. Reports generalized fatigue. Admits saw PCP last week was given 3 days worth of prednisone which he finished with some improvement. Denies fever, chills, recent travel, pedal edema, sick contacts, chest pain <HANNAH Cheema - Last Filed: 01/31/23 14:59> Onset (ago): week(s) <HANNAH Cheema - Last Filed: 01/31/23 14:59> Related Data Home medications: Home Medications Medication Instructions Recorded Confirmed naproxen 500 mg tablet 500 mg PO BID 12/22/20 azithromycin 250 mg tablet 250 mg PO DAILY 05/08/21 cholecalciferol (vitamin D3) 25 25 mcg PO DAILY 05/08/21 mcg (1,000 unit) capsule clonazepam 2 mg tablet 2 mg PO BEDTIME 05/08/21 cyanocobalamin (vitamin B-12) 1,000 mcg PO DAILY 05/08/21 1,000 mcg tablet cyanocobalamin (vitamin B-12) 1,000 mcg IM 05/08/21 1,000 mcg/mL injection solution fluoxetine 20 mg capsule 20 mg PO DAILY 05/08/21 fluticasone propionate 220 1 puff PO BID 05/08/21 mcg/actuation HFA aerosol inhaler loratadine 10 mg tablet 10 mg PO DAILY 05/08/21 omeprazole 20 mg capsule,delayed 20 mg PO DAILY PRN 05/08/21 release mirtazapine 15 mg tablet 15 mg PO BEDTIME 08/03/21 Previous Rx's Medication Instructions Recorded albuterol sulfate 2.5 mg/3 mL 2.5 mg (3 mL) inhalation Q4-6H PRN 08/20/20 (0.083 %) solution for nebulization shortness of breath or wheezing #75 mL albuterol sulfate 90 mcg/actuation 2 puff inhalation Q4-6H PRN 08/20/20 aerosol inhaler shortness of breath or wheezing #6.7 grams benzonatate 100 mg capsule 100 mg PO BID PRN cough #14 caps 08/20/20 (Tessalon Alex) hydrocortisone 2.5 % topical cream 1 appl NC BID-QID PRN hemorrhoids 04/13/22 with perineal applicator #30 grams (Proctosol HC) tramadol 50 mg tablet 50 mg PO BEDTIME PRN pain #7 tabs 05/09/22 albuterol sulfate 2.5 mg/0.5 mL 5 mg inhalation Q4H PRN shortness 01/31/23 solution for nebulization of breath or wheezing #30 ea benzonatate 100 mg capsule 100 mg PO TID PRN cough #14 caps 01/31/23 prednisone 20 mg tablet 40 mg PO DAILY 4 days #8 tabs 01/31/23 <Quoc Wang - Last Filed: 01/31/23 11:30> Allergies/adverse reactions: Allergies Allergy/AdvReac Type Severity Reaction Status Date / Time No Known Allergies Allergy Verified 01/31/23 11:30 <Quoc Wang - Last Filed: 01/31/23 11:30> Review of Systems Review of Systems: Constitutional: No Fever, No Chills ENT/Mouth: No Ear Pain, No Nasal Congestion, No Sinus Pain, No Hoarseness, No sore throat, No Rhinorrhea, No Swallowing Difficulty Cardiovascular: No Chest Pain, + SOB Respiratory: + Cough, No Sputum, No Wheezing Gastrointestinal: No Nausea, No Vomiting, No Diarrhea, No Constipation, No Abdominal pain Musculoskeletal: No joint pain, No Myalgias, No Joint Swelling Skin: No Skin Lesions, No rash Neuro: No Weakness <HANNAH Cheema - Last Filed: 01/31/23 14:59> Yes all other systems are reviewed and are negative <HANNAH Cheema Last Filed: 01/31/23 14:59> Constitutional: Constitutional: Reports as per HPI <HANNAH Cheema - Last Filed: 01/31/23 14:59> [facility] Past Medical History Attestation statement: The following information was validated with the patient. <HANNAH Cheema - Last Filed: 01/31/23 14:59> Medical History: Medical History Asthma Depression Hypertension <Quoc Wang - Last Filed: 01/31/23 11:30> Surgical History: Surgical History History of hernia surgery <Quoc Wang - Last Filed: 01/31/23 11:30> Social History Social History: Social History Alcohol intake: never Patient Tobacco Use Status: Former Tobacco user Quit Date: quit 15 years ago Tobacco use type: Cigarette Advance Directives: No Advance Directives Information Provided: Yes Current occupational status: disabled Current occupation: left and right handed <Quoc Wang - Last Filed: 01/31/23 11:30> Physical Exam ED Vital Signs: Vital Signs - 24 hr 01/31/23 11:27 01/31/23 13:37 Temperature 98.0 F Pulse Rate 72 66 Respiratory Rate 16 18 Blood Pressure 126/58 L Pulse Oximetry 97 Oxygen Delivery Method Room Air BMI result Body Mass Index 26.9 <Quoc Wang - Last Filed: 01/31/23 11:30> Vital Signs - 24 hr 01/31/23 11:27 01/31/23 13:37 Temperature 98.0 F Pulse Rate 72 66 Respiratory Rate 16 18 Blood Pressure 126/58 L Pulse Oximetry 97 Oxygen Delivery Method Room Air BMI result Body Mass Index 26.9 <HANNAH Cheema - Last Filed: 01/31/23 14:59> Const General: cooperative, healthy appearing and no acute distress <HANNAH Cheema - Last Filed: 01/31/23 14:59> Orientation/consciousness: patient oriented x3 <HANNAH Cheema - Last Filed: 01/31/23 14:59> Limitations: no limitations <Gwen Roque PA - Last Filed: 01/31/23 14:59> HENMT Head: Yes normal to inspection and Yes atraumatic <Gwen Roque PA - Last Filed: 01/31/23 14:59> Ears: hearing grossly normal bilaterally <Gwen Roque PA - Last Filed: 01/31/23 14:59> General nose exam: Normal external nose present <Gwen Roque PA - Last Filed: 01/31/23 14:59> Face and sinus: Yes normal facial exam <Gwen Roque PA - Last Filed: 01/31/23 14:59> Eyes General: appearance normal, both eyes and all related structures <Gwen Roque PA - Last Filed: 01/31/23 14:59> EOM: EOMs intact bilaterally <Gwen Roque PA - Last Filed: 01/31/23 14:59> Neck Neck: Yes normal visual inspection and Yes no meningeal signs <Gwen Roque PA - Last Filed: 01/31/23 14:59> Resp Effort & Inspection: normal respiratory effort and no respiratory distress <Gwen Roque PA - Last Filed: 01/31/23 14:59> Auscultation: clear to auscultation bilaterally, no rales, no rhonchi and no wheezes <Gwen Roque PA - Last Filed: 01/31/23 14:59> Cardio Rate: regular rate <Gwen Roque PA - Last Filed: 01/31/23 14:59> Heart sounds: S1 normal heart sound present and S2 normal heart sound present <Gwen Roque PA - Last Filed: 01/31/23 14:59> GI Inspection: Yes normal to inspection <Gwen Roque PA - Last Filed: 01/31/23 14:59> Skin Rashes: no rashes <Gwen Roque PA - Last Filed: 01/31/23 14:59> Wounds: no wounds <Gwen Roque PA - Last Filed: 01/31/23 14:59> Neuro General: patient oriented x3, tone normal and no meningeal signs <Gwen Roque PA - Last Filed: 01/31/23 14:59> Gait exam (Neuro): Normal gait present <HANNAH Cheema - Last Filed: 01/31/23 14:59> Extrem General: Yes normal to inspection, Yes no pedal edema and Yes no calf tenderness <HANNAH Cheema - Last Filed: 01/31/23 14:59> Course Course Course Narrative: RME- 72-year-old male with history of asthma presents for evaluation of chest tightness, productive cough. He reports the symptoms started 3 weeks ago. He has expiratory wheeze heard best in the right lung field. A chest x-ray and viral panel will be ordered. Patient's vital signs are stable. <Quoc Wang - Last Filed: 01/31/23 11:30> RME- 72-year-old male with history of asthma presents for evaluation of chest tightness, productive cough. He reports the symptoms started 3 weeks ago. He has expiratory wheeze heard best in the right lung field. A chest x-ray and viral panel will be ordered. Patient's vital signs are stable. -COVID-19/influenza/RSV negative XR chest 2V IMPRESSION: Unremarkable examination. Results discussed with patient including worrisome signs and symptoms and strict return precautions, and when to return to the emergency department. They verbalized understanding and feel safe for discharge at this time. <HANNAH Cheema - Last Filed: 01/31/23 14:59> Medications Administered Discontinued Medications Generic Name Dose Route Start Last Admin Trade Name Freq PRN Reason Stop Dose Admin Albuterol Sulfate 2.5 mg 01/31/23 13:06 01/31/23 13:36 Albuterol Sulfate (0.083%) 2.5 Mg/3 Ml Vial.Neb INHALE 01/31/23 13:07 2.5 mg ONCE ONE Administration Prednisone 40 mg 01/31/23 13:06 01/31/23 13:13 Prednisone 20 Mg Tablet PO 01/31/23 13:07 40 mg ONCE ONE Administration <Quoc Wang - Last Filed: 01/31/23 11:30> Medications Administered Discontinued Medications Generic Name Dose Route Start Last Admin Trade Name Freq PRN Reason Stop Dose Admin Albuterol Sulfate 2.5 mg 01/31/23 13:06 01/31/23 13:36 Albuterol Sulfate (0.083%) 2.5 Mg/3 Ml Vial.Neb INHALE 01/31/23 13:07 2.5 mg ONCE ONE Administration Prednisone 40 mg 01/31/23 13:06 01/31/23 13:13 Prednisone 20 Mg Tablet PO 01/31/23 13:07 40 mg ONCE ONE Administration <HANNAH Cheema - Last Filed: 01/31/23 14:59> Medical Decision Making Medical Decision Making MDM Narrative: 72-year-old male with a past medical history of asthma, depression, hypertension, presenting to the ED complaining of dry cough x3 weeks with associated chest tightness and SOB. On exam vital signs stable, NAD, nontoxic appearing, satting 97% on room air, no respiratory distress, lungs CTA, no pedal edema or calf tenderness. Concern for asthma exacerbation vs bronchitis. Rule out pneumonia. Low suspicion for ACS/PE Plan: EKG, CXR, COVID/flu testing, DuoNeb, p.o. prednisone Please refer to course for remaining clinical decision making, interpretation of labs/imaging results, and discussions with consultants and/or family members. <HANNAH Cheema - Last Filed: 01/31/23 14:59> Differential Diagnosis Differential Diagnoses: The differential diagnosis associated with the presentation includes <HANNAH Cheema - Last Filed: 01/31/23 14:59> As above <HANNAH Cheema - Last Filed: 01/31/23 14:59> Admission/Observation Consideration of admission/observation: Escalation of care including admission/observation considered <HANNAH Cheema - Last Filed: 01/31/23 14:59> Lab Data [facility] Lab Attestation statement: I reviewed the patient's lab results. <HANNAH Cheema - Last Filed: 01/31/23 14:59> Labs: Lab Results 01/31/23 Range/Units 11:45 Influenza Type A (PCR) NEGATIVE (Negative) Influenza Type B (PCR) NEGATIVE (Negative) RSV RNA Qual (PCR) NEGATIVE (Negative) SARS-CoV-2 RNA (RT-PCR) NEGATIVE (Negative) <Quoc Wang - Last Filed: 01/31/23 11:30> Lab Results 01/31/23 Range/Units 11:45 Influenza Type A (PCR) NEGATIVE (Negative) Influenza Type B (PCR) NEGATIVE (Negative) RSV RNA Qual (PCR) NEGATIVE (Negative) SARS-CoV-2 RNA (RT-PCR) NEGATIVE (Negative) <HANNAH Cheema - Last Filed: 01/31/23 14:59> Independent Interpretation I performed an independent interpretation of an: EKG <HANNAH Cheema - Last Filed: 01/31/23 14:59> Interpretation: My interpretation is normal sinus rhythm at a rate of 60. QTC 422. No STEMI. No significant change when compared to priors. QRS 80 <HANNAH Cheema - Last Filed: 01/31/23 14:59> Radiology Impression Discussion of test interpretation with radiology: I have reviewed the radiologist's reading. <HANNAH Cheema - Last Filed: 01/31/23 14:59> External Record Review External record reviewed: Inpatient record, Office record, Outpatient record, Prior outpatient labs, Prior outpatient radiology, Primary care record and Outside ED record <HANNAH Cheema - Last Filed: 01/31/23 14:59> Discharge Plan Discharge Clinical Impression: Bronchitis, Asthma exacerbation <Quoc Wang - Last Filed: 01/31/23 11:30> Patient Disposition: Home, Self-Care <Quoc Wang - Last Filed: 01/31/23 11:30> Instructions: Asthma (DC), Acute Bronchitis (ED) <Quoc Wang - Last Filed: 01/31/23 11:30> Additional Instructions: Your x-ray is unremarkable. He tested negative for COVID, flu, RSV. Continue to use your inhalers and machine at home. In addition prednisone as a steroid please take as prescribed Please have close follow-up with her doctor If symptoms persist or worsen return to the emergency department [facility] radiograf?a no tiene nada especial. Isma negativo para COVID, gripe, RSV. Contin?e usando [place] inhaladores y la m?quina en casa. Adem?s, prednisona antonieta esteroide, t?leslye seg?n lo prescrito. Por favor, tenga un seguimiento cercano con [facility] m?dico. Si los s?ntomas persisten o empeoran, regrese al servicio de urgencias. <Quoc Wang - Last Filed: 01/31/23 11:30> Prescriptions: New benzonatate 100 mg capsule 100 mg PO TID PRN (Reason: cough) Qty: 14 0RF albuterol sulfate 2.5 mg/0.5 mL solution for nebulization 5 mg inhalation Q4H PRN (Reason: shortness of breath or wheezing) Qty: 30 0RF prednisone 20 mg tablet 40 mg PO DAILY 4 Days Qty: 8 0RF No Action albuterol sulfate 2.5 mg /3 mL (0.083 %) solution for nebulization 2.5 mg inhalation Q4-6H PRN (Reason: shortness of breath or wheezing) Qty: 75 0RF benzonatate [Tessalon Perles] 100 mg capsule 100 mg PO BID PRN (Reason: cough) Qty: 14 0RF albuterol sulfate 90 mcg/actuation HFA aerosol inhaler 2 puff inhalation Q4-6H PRN (Reason: shortness of breath or wheezing) Qty: 6.7 0RF tramadol 50 mg tablet 50 mg PO BEDTIME PRN (Reason: pain) Qty: 7 0RF naproxen 500 mg tablet 500 mg PO BID cyanocobalamin (vitamin B-12) 1,000 mcg/mL solution 1,000 mcg IM clonazepam 2 mg tablet 2 mg PO BEDTIME fluoxetine 20 mg capsule 20 mg PO DAILY fluticasone propionate 220 mcg/actuation HFA aerosol inhaler 1 puff PO BID loratadine 10 mg tablet 10 mg PO DAILY cyanocobalamin (vitamin B-12) 1,000 mcg tablet 1,000 mcg PO DAILY azithromycin 250 mg tablet 250 mg PO DAILY omeprazole 20 mg capsule,delayed release(DR/EC) 20 mg PO DAILY PRN cholecalciferol (vitamin D3) 25 mcg (1,000 unit) capsule 25 mcg PO DAILY mirtazapine 15 mg tablet 15 mg PO BEDTIME hydrocortisone [Proctosol HC] 2.5 % cream with perineal applicator 1 appl NC BID-QID PRN (Reason: hemorrhoids) Qty: 30 3RF <Quoc Wang - Last Filed: 01/31/23 11:30> Referrals: Toyin Mistry MD [Primary Care Provider] - 3 days <Quoc Wang - Last Filed: 01/31/23 11:30> Interventions: ED Discharge Assessment Last Done: 01/31/23 14:11 <Quoc Wang - Last Filed: 01/31/23 11:30> Discharge Date/Time: 01/31/23 14:11 <Quoc Wang - Last Filed: 01/31/23 11:30> Print Language: Portuguese <Quoc Wang - Last Filed: 01/31/23 11:30>
[2023-01-31 12:28] LABS: Influenza A PCR NEGATIVE (Negative); Influenza B PCR NEGATIVE (Negative); Resp Syncy Virus RNA Qual PCR NEGATIVE (Negative); SARS COV2 PCR INHOUSE NEGATIVE (Negative)
--- NOTE | 2023-01-31 13:06 | ECG_ITS ---
Test Reason : sob Blood Pressure : / mmHG Vent. Rate : 060 BPM Atrial Rate : 060 BPM P-R Int : 146 ms QRS Dur : 080 ms QT Int : 422 ms P-R-T Axes : -06 -06 041 degrees QTc Int : 422 ms Normal sinus rhythm Nonspecific T wave abnormality Abnormal ECG When compared with ECG of 20-AUG-2020 19:33, No significant change was found Referred By: Gwen Roque Electronically Signed By:MIKE DE LA TORRE MD
[2023-01-31] MEDS: predniSONE 20 MG TABLET 40 MG PO (13:13)
[2023-01-31] MEDS: Albuterol Sulfate (0.083%) 2.5 MG/3 ML VIAL.NEB INHALE (13:36)
[2023-01-31 13:37] VITALS: PULSE 66; RESP 18; O2SAT 99
== END 2023-01-31 14:11 | disposition home or self-care (01) ==
PROVIDERS: Physician Assistant; Emergency Provider Student in an Organized Health Care Education/Training Program; PCP Family Medicine
DX: J40 Bronchitis, not specified as acute or chronic (principal); J45.901 Unspecified asthma with (acute) exacerbation; Z20.822 Contact with and (suspected) exposure to COVID-19; Z20.828 Contact with and (suspected) exposure to other viral communicable diseases; I10 Essential (primary) hypertension; Z87.891 Personal history of nicotine dependence; Z79.899 Other long term (current) drug therapy
CPT/HCPCS: 0241U; 71046; 93005; 94640; 99284

== ENCOUNTER 2023-05-24 08:56 | Outpatient (REF) | payer OTHER, SELFPAY ==
[2023-05-24 09:36] LABS: MANUAL DIFF FLAG NO
[2023-05-24 09:48] LABS: Basophils Absolute Auto 0.1 X10*3/uL (0.0-0.2); Basophils Percent Auto 1.1 % (0-2); Eosinophils Absolute Auto 0.3 X10*3/uL (0.0-0.4); Eosinophils Percent Auto 5.6 % (0-4); Hematocrit 44.5 % (42.0-52.0); Hemoglobin 14.5 g/dl (14.0-18.0); Imm Gran Abs Auto 0.02 X10*3/uL (0.00-0.03); Imm Gran Pct Auto 0.4 % (0.0-0.4); Lymphocytes Absolute Auto 1.3 X10*3/uL (1.2-4.9); Mean Corpuscular HGB Conc 32.6 g/dl (31.0-36.0); Mean Corpuscular Hemoglobin 29.6 pg (27.0-33.0); Mean Corpuscular Volume 90.8 fL (80.0-98.0); Mean Platelet Volume 10.4 fL (9.4-12.4); Monocytes Absolute Auto 0.6 X10*3/uL (0.1-1.2); Monocytes Percent Auto 10.6 % (2-11); Neutrophils Absolute Auto 3.3 x10*3/uL (2.0-8.3); Neutrophils Percent Auto 58.3 % (45-73); Platelet Count 203 X10*3/uL (160-400); Red Cell Distribution Width 13.4 % (11.0-16.0); White Blood Count 5.6 X10*3/uL (4.8-10.8)
[2023-05-24 10:30] LABS: Alanine Aminotransferase 16 U/L (0-40); Albumin Level 4.2 g/dL (3.5-5.0); Alkaline Phosphatase 65 U/L (39-117); Anion Gap 12 (12-20); Aspartate Amino Transferase 24 U/L (5-37); Bilirubin Total 0.8 mg/dL (0.0-1.0); Blood Urea Nitrogen 14 mg/dL (9-16); Calcium 9.6 mg/dL (8.4-10.2); Carbon Dioxide 27 mmol/L (22-29); Chloride 105 mmol/L (96-108); Estimated Glomerular Filt Rate > 60; Glucose Random 113 mg/dL (60-115); Potassium 4.1 mmol/L (3.3-5.1); Sodium 140 mmol/L (135-145); Total Protein 7.8 g/dL (6.5-8.0)
[2023-05-24 10:48] LABS: Cholesterol 154 mg/dL; HDL Cholesterol 35 mg/dL; LDL Cholesterol Calculated 98 mg/dl; Triglycerides 108 mg/dL
[2023-05-24 11:04] LABS: Folate 14.1 ng/mL (> or = 4.0); Vitamin B12 472 pg/mL (200-900)
[2023-05-24 11:06] LABS: Reflex LDLD? No
== END 2023-05-24 08:57 | disposition home or self-care (01) ==
LOC: HO.LAB 08:56
PROVIDERS: PCP Family Medicine; Visit Provider Family Medicine
DX: E53.8 Deficiency of other specified B group vitamins (principal); E78.5 Hyperlipidemia, unspecified
CPT/HCPCS: 36415; 80053; 80061; 82607; 82746; 85025

== ENCOUNTER 2023-07-01 14:21 | Emergency (ER) | payer OTHER, SELFPAY ==
[2023-07-01 15:21] VITALS: BP 142/90; PULSE 67; RESP 18; TEMP 36.2; O2SAT 99; BMI 27.1
--- NOTE | 2023-07-01 15:24 | ED_ITS ---
HPI - Eye Problem General Chief complaint: Eye Problems Stated complaint: swollen eye Time Seen by Provider: 07/01/23 16:00 Source: patient, family, RN notes reviewed and old records reviewed Mode of arrival: ambulatory History of Present Illness HPI Narrative: 72-year-old male with past medical history of hemorrhoids, presenting to the ED complaining of swollen erythematous painful left upper eyelid since yesterday. Admits ring glasses, denies contacts. Denies vision change/loss, blurry vision/double vision, drainage from eye, trauma Related Data Home Medications Medication Instructions Recorded Confirmed naproxen 500 mg tablet 500 mg PO BID 12/22/20 azithromycin 250 mg tablet 250 mg PO DAILY 05/08/21 cholecalciferol (vitamin D3) 25 25 mcg PO DAILY 05/08/21 mcg (1,000 unit) capsule clonazepam 2 mg tablet 2 mg PO BEDTIME 05/08/21 cyanocobalamin (vitamin B-12) 1,000 mcg PO DAILY 05/08/21 1,000 mcg tablet cyanocobalamin (vitamin B-12) 1,000 mcg IM 05/08/21 1,000 mcg/mL injection solution fluoxetine 20 mg capsule 20 mg PO DAILY 05/08/21 fluticasone propionate 220 1 puff PO BID 05/08/21 mcg/actuation HFA aerosol inhaler loratadine 10 mg tablet 10 mg PO DAILY 05/08/21 omeprazole 20 mg capsule,delayed 20 mg PO DAILY PRN 05/08/21 release mirtazapine 15 mg tablet 15 mg PO BEDTIME 08/03/21 Previous Rx's Medication Instructions Recorded albuterol sulfate 2.5 mg/3 mL 2.5 mg (3 mL) inhalation Q4-6H PRN 08/20/20 (0.083 %) solution for nebulization shortness of breath or wheezing #75 mL albuterol sulfate 90 mcg/actuation 2 puff inhalation Q4-6H PRN 08/20/20 aerosol inhaler shortness of breath or wheezing #6.7 grams benzonatate 100 mg capsule 100 mg PO BID PRN cough #14 caps 08/20/20 (Tessalelliott Johnson) hydrocortisone 2.5 % topical cream 1 appl [place] BID-QID PRN hemorrhoids 04/13/22 with perineal applicator #30 grams (Proctosol HC) tramadol 50 mg tablet 50 mg PO BEDTIME PRN pain #7 tabs 05/09/22 albuterol sulfate 2.5 mg/0.5 mL 5 mg inhalation Q4H PRN shortness 01/31/23 solution for nebulization of breath or wheezing #30 ea benzonatate 100 mg capsule 100 mg PO TID PRN cough #14 caps 01/31/23 prednisone 20 mg tablet 40 mg PO DAILY 4 days #8 tabs 01/31/23 Allergies Allergy/AdvReac Type Severity Reaction Status Date / Time No Known Allergies Allergy Verified 07/01/23 15:21 Review of Systems Review of Systems: Constitutional: No Fever, No Chills, No Fatigue, No Malaise ENT/Mouth: No Ear Pain, No Nasal Congestion, No Sinus Pain, No Hoarseness, No sore throat, No Rhinorrhea, No Swallowing Difficulty Eyes: + Eye Pain, + Swelling, + Redness, No Foreign Body, No Discharge, No Vision Changes Cardiovascular: No Chest Pain, No SOB Respiratory: No Cough, No Sputum, No Dyspnea Gastrointestinal: No Nausea, No Vomiting, No Abdominal pain Musculoskeletal: No joint pain, No Myalgias, No Joint Swelling Skin: No Skin Lesions, No rash Neuro: No Weakness, No Dizziness, No Headache Yes all other systems are reviewed and are negative Constitutional: Constitutional: Reports as per [facility] Past Medical History Attestation statement: The following information was validated with the patient. Source: old records reviewed Medical History Asthma Depression Hypertension Surgical History History of hernia surgery Social History Social History Alcohol intake: never Patient Tobacco Use Status: Former Tobacco user Quit Date: quit 15 years ago Tobacco use type: Cigarette Advance Directives: No Advance Directives Information Provided: Yes Current occupational status: disabled Current occupation: left and right handed Physical Exam Vital Signs: Vital Signs: Last Vital Signs Temp 97.2 F 07/01/23 15:21 Pulse 67 07/01/23 15:21 Resp 18 07/01/23 15:21 BP 142/90 H 07/01/23 15:21 Pulse Ox 99 07/01/23 15:21 O2 Del Method Room Air 07/01/23 15:21 BMI result Body Mass Index 27.1 Const: General: cooperative, healthy appearing and no acute distress Orientation/consciousness: patient oriented x3 Limitations: no limitations HEENT: Head: Yes normal to inspection and Yes atraumatic Ears: hearing grossly normal bilaterally and external ears normal General nose exam: Normal external nose present Face and sinus: Yes normal facial exam Throat: Yes posterior oropharynx normal, Yes tonsils normal and Yes uvula midline Eyes: Other: Left upper eyelid with internal hordeolum. Noted erythema and swelling. No warmth. Fluorescein used without uptake. General: appearance normal, both eyes and all related structures Periorbital: periorbital findings normal Conjunctivae: conjunctivae normal Corneas: corneas normal and fluorescein used; normal corneas Pupils: Equal, round and reactive pupils present EOM: EOMs intact bilaterally, EOM normal and no movement deficit Direct Ophthalmoscopy: normal light reflex and no photophobia Neck: Neck: Yes normal visual inspection and Yes no meningeal signs Resp: Effort & Inspection: normal respiratory effort and no respiratory distress Cardio: Rate: regular rate Skin: Rashes: no rashes Wounds: no wounds Neuro: General: patient oriented x3, tone normal and no meningeal signs Cranial nerves: Yes CN's II-XII intact bilaterally and Yes Equal, round and reactive pupils present Gait exam (Neuro): Normal gait present Extrem: General: Yes normal to inspection Course Course Course Narrative: This is an RME: Additional HPI, ROS, PE not included below will be deferred to primary provider. This is a 72-year-old male, the past medical history of asthma, depression, hypertension, presenting to the emergency department with complaints of left eye irritation. Denies visual changes. Denies pain. Patient reports that the eye feels irritated. Likely will need more thorough eye examination. Left upper eyelid ?hordeolum Plan: Eye examination and main emergency department. Medications Administered Discontinued Medications Generic Name Dose Route Start Last Admin Trade Name Willianq PRN Reason Stop Dose Admin Fluorescein Sodium 1 strip 07/01/23 16:01 07/01/23 16:06 Fluorescein Sodium Strip EYE-LEFT 07/01/23 16:02 1 strip ONCE ONE Administration Tetracaine HCl 1 drop 07/01/23 16:01 07/01/23 16:06 Tetracaine Hcl/Pf 0.5% Oph Liad 4 Ml Drops EYE-LEFT 07/01/23 16:02 1 drop ONCE ONE Administration Medical Decision Making Medical Decision Making MDM Narrative: 72-year-old male with past medical history of hemorrhoids, presenting to the ED complaining of swollen erythematous painful left upper eyelid since yesterday. On exam vital signs stable, NAD, nontoxic appearing, physical exam as noted above with left upper eyelid internal hordeolum. fluorescein used without uptake. EOMs intact without entrapment. No evidence of preseptal or septal cellulitis. Plan: Visual acuity, tetracaine/staining, PCP/ophthalmology follow-up Results discussed with patient including worrisome signs and symptoms and strict return precautions, and when to return to the emergency department. They verbalized understanding and feel safe for discharge at this time. Differential Diagnosis Differential Diagnoses: The differential diagnosis associated with the presentation includes As above Independent Historian Clinical information obtained from an independent historian. History obtained from or confirmed by: Spouse External Record Review External record reviewed: Inpatient record, Office record, Outpatient record, Prior outpatient labs, Prior outpatient radiology, Primary care record and Outside ED record Tests considered The following testing was considered but not selected: As above Prescription Management I considered prescription management with: Pain Medication and Antibiotic Discharge Plan Discharge Clinical Impression: Hordeolum Patient Disposition: Home, Self-Care Instructions: [place] (ED) Additional Instructions: Please apply warm compresses and lightly massage the area at home Take Tylenol and Motrin Follow-up with her doctor in Ophthalmology as needed If symptoms persist/worsen you develop vision change/loss, drainage from eye return to the ED Aplique compresas tibias y masajee ligeramente el ?marizol en casa. [place] Tylenol y Motrin Seguimiento con krishna m?dico en Oftalmolog?a seg?n sea necesario Si los s?ntomas persisten/empeoran, desarrolla cambios/p?rdida de la visi?n, el drenaje del yaa regresa al servicio de urgencias. Prescriptions: No Action albuterol sulfate 2.5 mg /3 mL (0.083 %) solution for nebulization 2.5 mg inhalation Q4-6H PRN (Reason: shortness of breath or wheezing) Qty: 75 0RF benzonatate [Tessalon Perles] 100 mg capsule 100 mg PO BID PRN (Reason: cough) Qty: 14 0RF albuterol sulfate 90 mcg/actuation HFA aerosol inhaler 2 puff inhalation Q4-6H PRN (Reason: shortness of breath or wheezing) Qty: 6.7 0RF tramadol 50 mg tablet 50 mg PO BEDTIME PRN (Reason: pain) Qty: 7 0RF benzonatate 100 mg capsule 100 mg PO TID PRN (Reason: cough) Qty: 14 0RF albuterol sulfate 2.5 mg/0.5 mL solution for nebulization 5 mg inhalation Q4H PRN (Reason: shortness of breath or wheezing) Qty: 30 0RF prednisone 20 mg tablet 40 mg PO DAILY 4 Days Qty: 8 0RF naproxen 500 mg tablet 500 mg PO BID cyanocobalamin (vitamin B-12) 1,000 mcg/mL solution 1,000 mcg IM clonazepam 2 mg tablet 2 mg PO BEDTIME fluoxetine 20 mg capsule 20 mg PO DAILY fluticasone propionate 220 mcg/actuation HFA aerosol inhaler 1 puff PO BID loratadine 10 mg tablet 10 mg PO DAILY cyanocobalamin (vitamin B-12) 1,000 mcg tablet 1,000 mcg PO DAILY azithromycin 250 mg tablet 250 mg PO DAILY omeprazole 20 mg capsule,delayed release(DR/EC) 20 mg PO DAILY PRN cholecalciferol (vitamin D3) 25 mcg (1,000 unit) capsule 25 mcg PO DAILY mirtazapine 15 mg tablet 15 mg PO BEDTIME hydrocortisone [Proctosol HC] 2.5 % cream with perineal applicator 1 appl [place] BID-QID PRN (Reason: hemorrhoids) Qty: 30 3RF Referrals: Nickie Diaz PA [Physician [employer] Inspector] - James Villavicencio MD [Physician] - Jasson Brock MD [Physician] - Interventions: ED Discharge Assessment Last Done: 07/01/23 16:27 Discharge Date/Time: 07/01/23 16:27 Print Language: English
[2023-07-01] MEDS: Tetracaine HCl/PF 0.5% Oph Sol 4 ML DROPS 1 DROP EYE-LEFT (16:06)
[2023-07-01] MEDS: Fluorescein Sodium STRIP 1 STRIP EYE-LEFT (16:06)
== END 2023-07-01 16:27 | disposition home or self-care (01) ==
PROVIDERS: Emergency Provider Internal Medicine
DX: H00.014 Hordeolum externum left upper eyelid (principal); H57.12 Ocular pain, left eye; Z79.899 Other long term (current) drug therapy
CPT/HCPCS: 99282; 99283

== ENCOUNTER 2023-07-22 12:19 | Emergency (ER) | payer OTHER, SELFPAY ==
--- NOTE | ~2023-07-22 | XR_ITS ---
EXAMINATION: XR CHEST CLINICAL INFORMATION: Cough COMPARISON: Previous chest x-ray most recent January 2023 TECHNIQUE: 2 views of the chest were obtained. FINDINGS: No significant abnormality is noted involving the heart, lungs, mediastinum, bony thorax or soft tissues. Degenerative changes of the spine. XR/XR chest 2V IMPRESSION: Unremarkable examination.
[2023-07-22 12:52] VITALS: BP 106/82; PULSE 73; RESP 20; TEMP 37.1; O2SAT 97; BMI 26.5
--- NOTE | 2023-07-22 12:54 | ED.GENADULT ---
HPI - General Adult General Chief complaint: General Medical Stated complaint: cough and l eye issue Time Seen by Provider: 07/22/23 16:57 Source: patient Mode of arrival: ambulatory Limitations: no limitations History of Present Illness HPI narrative: this is a 72-year-old male who denies past medical history presents to the emergency department with complaints of painful bump to left eye for the past 2 weeks and upper respiratory symptoms for the past 2-3 weeks. Patient reports cough, without production of sputum, fatigue, malaise, worse at night for the past 2-3 weeks, not improving. Patient denies chest pain, shortness of breath, nausea, vomiting, abdominal pain, vision changes, dizziness, weakness, foreign body sensation in eye, painful vision or pain with eye movements. Related Data Home Medications Medication Instructions Recorded Confirmed naproxen 500 mg tablet 500 mg PO BID 12/22/20 azithromycin 250 mg tablet 250 mg PO DAILY 05/08/21 cholecalciferol (vitamin D3) 25 25 mcg PO DAILY 05/08/21 mcg (1,000 unit) capsule clonazepam 2 mg tablet 2 mg PO BEDTIME 05/08/21 cyanocobalamin (vitamin B-12) 1,000 mcg PO DAILY 05/08/21 1,000 mcg tablet cyanocobalamin (vitamin B-12) 1,000 mcg IM 05/08/21 1,000 mcg/mL injection solution fluoxetine 20 mg capsule 20 mg PO DAILY 05/08/21 fluticasone propionate 220 1 puff PO BID 05/08/21 mcg/actuation HFA aerosol inhaler loratadine 10 mg tablet 10 mg PO DAILY 05/08/21 omeprazole 20 mg capsule,delayed 20 mg PO DAILY PRN 05/08/21 release mirtazapine 15 mg tablet 15 mg PO BEDTIME 08/03/21 Previous Rx's Medication Instructions Recorded albuterol sulfate 2.5 mg/3 mL 2.5 mg (3 mL) inhalation Q4-6H PRN 08/20/20 (0.083 %) solution for nebulization shortness of breath or wheezing #75 mL albuterol sulfate 90 mcg/actuation 2 puff inhalation Q4-6H PRN 08/20/20 aerosol inhaler shortness of breath or wheezing #6.7 grams benzonatate 100 mg capsule 100 mg PO BID PRN cough #14 caps 08/20/20 (Reginald Johnson) hydrocortisone 2.5 % topical cream 1 appl [place] BID-QID PRN hemorrhoids 04/13/22 with perineal applicator #30 grams (Proctosol HC) tramadol 50 mg tablet 50 mg PO BEDTIME PRN pain #7 tabs 05/09/22 albuterol sulfate 2.5 mg/0.5 mL 5 mg inhalation Q4H PRN shortness 01/31/23 solution for nebulization of breath or wheezing #30 ea benzonatate 100 mg capsule 100 mg PO TID PRN cough #14 caps 01/31/23 prednisone 20 mg tablet 40 mg (2 x 20 mg) PO DAILY 4 days 01/31/23 #8 tabs albuterol sulfate 90 mcg/actuation 2 inh inhalation Q4-6H PRN 07/22/23 breath activated powder inhaler shortness of breath or wheezing #1 ea doxycycline hyclate 100 mg capsule 100 mg PO BID 10 days #20 caps 07/22/23 erythromycin 5 mg/gram (0.5 %) eye 1 appl ophthalmic (eye) TID 5 days 07/22/23 ointment #3.5 grams prednisone 20 mg tablet 40 mg (2 x 20 mg) PO DAILY 5 days 07/22/23 #10 tabs Allergies Allergy/AdvReac Type Severity Reaction Status Date / Time No Known Allergies Allergy Verified 07/01/23 15:21 Review of Systems Review of Systems: Constitutional : No Weight loss, No Fever, No Chills, + Fatigue, + Malaise ENT/Mouth : No sore throat, No Rhinorrhea, + bump on eye Eyes: No Eye Pain, No Swelling, No Redness Cardiovascular : No Chest Pain, No SOB, No Dyspnea on Exertion, No Orthopnea, No Edema, No Palpitations Respiratory : + Cough, No Sputum, No Wheezing Gastrointestinal : No Nausea, No Vomiting, No Diarrhea, No Constipation, No abdominal Pain, No Hematochezia, No Melena Genitourinary : No Dysuria, No Urinary Frequency, No Hematuria, Musculoskeletal : No joint pain, No Myalgias, No Joint Swelling Skin : No Skin Lesions, No rash Neuro : No Weakness, No Numbness, No Dizziness, No Headache Psych : No Anxiety/Panic, No Depression All other systems reviewed and are negative Yes all other systems are reviewed and are negative [facility] Past Medical History Attestation statement: The following information was validated with the patient. Source: old records reviewed and nursing notes reviewed Medical History Asthma Depression Hypertension Surgical History History of hernia surgery Social History Social History Alcohol intake: never Patient Tobacco Use Status: Former Tobacco user Quit Date: quit 15 years ago Tobacco use type: Cigarette Advance Directives: No Advance Directives Information Provided: Yes Current occupational status: disabled Current occupation: left and right handed Physical Exam ED Vital Signs: Vital Signs - 24 hr 07/22/23 12:52 Temperature 98.7 F Pulse Rate 73 Respiratory Rate 20 Blood Pressure 106/82 Pulse Oximetry 97 Oxygen Delivery Method Room Air BMI result Body Mass Index 26.5 vss Appearance: Alert.? Oriented X3.? No acute distress.? Head: Normocephalic, atraumatic, no step-offs or deformities Eyes: Pupils equal, round and reactive to light.? Extraocular movements intact and pain-free, upper eyelid with hordeolum noted no abscess. No signs of orbital cellulitis. Conjunctiva on the left side injected. ENT: Pharynx normal.? Neck: Normal inspection.? Neck supple.? CVS: Normal heart rate and rhythm.? Pulses normal.? Respiratory: No respiratory distress.? Breath sounds normal.? Abdomen: Soft and nontender.? Skin: Skin warm and dry.? Normal skin color.? Normal skin turgor.? Extremities: No lower extremity edema.? No calf ttp. 5/5 strength to bilateral upper and lower extremities Neuro: Oriented X 3.? No motor deficit.? No sensory deficit. CN 2-12 intact Course Course Course Narrative: RME - 72 yo Czech speaking, nonsmoker, presents to the ER for evaluation of a month of a dry, hacking cough that has been worse at night and not letting him sleep. describes as a whistle sound. No SOB or chest pain. Also reports left upper eyelid pain, swelling and drainage on/off for the last couple of weeks. no vision changes or FB sensation Lab: CXR, viral studies Reevaluation(s) Reevaluation #1: chest x-ray unremarkable. Negative for influenza, COVID and RSV. Educated patient on diagnosis and treatment plan, answered all question, patient verbalizes understanding. At this time patient will be discharged home, advised to return with new or worsening symptoms. Educated on worrisome signs and symptoms and when to return. At this time I feel comfortable discharge home. Time: 18:32 Medical Decision Making Medical Decision Making [facility] Narrative: 1820 72-year-old male presents with left eye with painful bump to upper eyelid x2 weeks and URI symptoms for the past 2-3 weeks. Physical exam significant for Pupils equal, round and reactive to light.? Extraocular movements intact and pain-free, upper eyelid with hordeolum noted no abscess. there is conjunctivitis noted to left eye. No signs of orbital cellulitis. Regular rate and rhythm. Lungs clear. No lower extremity edema. History and physical exam concerning for left eye hordeolum With conjunctivitis to left eye, no signs of abscess. No signs of orbital or periorbital cellulitis. History and physical exam not consistent with wet macular degeneration or acute closed angle glaucoma. Patient has URI symptoms likely bacterial bronchitis based off length of symptoms, unlikely viral at this time. Unlikely pneumonia, history and physical exam with low suspicion for PE. Unlikely ACS as there is no chest pain. No signs of CHF on my examination. No signs of acute respiratory distress. Plan at this time patient to be discharged home with doxycycline, prednisone and albuterol for bronchitis. Will give him erythromycin ointment as I do suspect short EOM with slight conjunctivitis underlying. Differential Diagnosis Differential Diagnoses: The differential diagnosis associated with the presentation includes History and physical exam concerning for left eye hordeolum With conjunctivitis to left eye, no signs of abscess. No signs of orbital or periorbital cellulitis. History and physical exam not consistent with wet macular degeneration or acute closed angle glaucoma. Patient has URI symptoms likely bacterial bronchitis based off length of symptoms, unlikely viral at this time. Unlikely pneumonia, history and physical exam with low suspicion for PE. Unlikely ACS as there is no chest pain. No signs of CHF on my examination. No signs of acute respiratory distress. Admission/Observation Consideration of admission/observation: Escalation of care including admission/observation considered No indication Lab Data [facility] Lab Attestation statement: I reviewed the patient's lab results. Labs: Lab Results 07/22/23 Range/Units 13:41 Influenza Type A (PCR) NEGATIVE (Negative) Influenza Type B (PCR) NEGATIVE (Negative) RSV RNA Qual (PCR) NEGATIVE (Negative) SARS-CoV-2 RNA (RT-PCR) NEGATIVE (Negative) Independent Interpretation I performed an independent interpretation of an: Plain X-Ray (XR/XR chest 2V IMPRESSION: Unremarkable examination.) Radiology Impression Discussion of test interpretation with radiology: I have reviewed the radiologist's reading. Critical Care Time Critical Care Time Critical Care Time: No Discharge Plan Discharge Clinical Impression: Hordeolum, Conjunctivitis, Bronchitis Patient Disposition: Home, Self-Care Instructions: Stye (ED), Acute Bronchitis (ED), Conjunctivitis (ED) Additional Instructions: Take your medications as prescribed. If you were prescribed antibiotics today, it is important that you take your medication to their entirety, do not skip any doses, do not finish them early. Follow-up with your primary care provider this week. Return to the emergency department with new or worsening symptoms. Such as fevers, chills, chest pain, shortness of breath, nausea, vomiting, dizziness, headache, vision changes, lethargy In case of emergency call 911 Prescriptions: New doxycycline hyclate 100 mg capsule 100 mg PO BID 10 Days Qty: 20 0RF erythromycin 5 mg/gram (0.5 %) ointment 1 appl ophthalmic (eye) TID 5 Days Qty: 3.5 0RF albuterol sulfate 90 mcg/actuation aerosol powdr breath activated 2 inh inhalation Q4-6H PRN (Reason: shortness of breath or wheezing) Qty: 1 0RF prednisone 20 mg tablet 40 mg PO DAILY 5 Days Qty: 10 0RF No Action albuterol sulfate 2.5 mg /3 mL (0.083 %) solution for nebulization 2.5 mg inhalation Q4-6H PRN (Reason: shortness of breath or wheezing) Qty: 75 0RF benzonatate [Tessalon Perles] 100 mg capsule 100 mg PO BID PRN (Reason: cough) Qty: 14 0RF albuterol sulfate 90 mcg/actuation HFA aerosol inhaler 2 puff inhalation Q4-6H PRN (Reason: shortness of breath or wheezing) Qty: 6.7 0RF tramadol 50 mg tablet 50 mg PO BEDTIME PRN (Reason: pain) Qty: 7 0RF benzonatate 100 mg capsule 100 mg PO TID PRN (Reason: cough) Qty: 14 0RF albuterol sulfate 2.5 mg/0.5 mL solution for nebulization 5 mg inhalation Q4H PRN (Reason: shortness of breath or wheezing) Qty: 30 0RF prednisone 20 mg tablet 40 mg PO DAILY 4 Days Qty: 8 0RF naproxen 500 mg tablet 500 mg PO BID cyanocobalamin (vitamin B-12) 1,000 mcg/mL solution 1,000 mcg IM clonazepam 2 mg tablet 2 mg PO BEDTIME fluoxetine 20 mg capsule 20 mg PO DAILY fluticasone propionate 220 mcg/actuation HFA aerosol inhaler 1 puff PO BID loratadine 10 mg tablet 10 mg PO DAILY cyanocobalamin (vitamin B-12) 1,000 mcg tablet 1,000 mcg PO DAILY azithromycin 250 mg tablet 250 mg PO DAILY omeprazole 20 mg capsule,delayed release(DR/EC) 20 mg PO DAILY PRN cholecalciferol (vitamin D3) 25 mcg (1,000 unit) capsule 25 mcg PO DAILY mirtazapine 15 mg tablet 15 mg PO BEDTIME hydrocortisone [Proctosol HC] 2.5 % cream with perineal applicator 1 appl [place] BID-QID PRN (Reason: hemorrhoids) Qty: 30 3RF Referrals: Toyin Misrty MD [Primary Care Provider] - 2 days
[2023-07-22 14:26] LABS: Influenza A PCR NEGATIVE (Negative); Influenza B PCR NEGATIVE (Negative); Resp Syncy Virus RNA Qual PCR NEGATIVE (Negative); SARS COV2 PCR INHOUSE NEGATIVE (Negative)
== END 2023-07-22 18:37 | disposition home or self-care (01) ==
PROVIDERS: Physician Assistant; Emergency Provider Emergency Medicine; PCP Family Medicine
DX: H00.014 Hordeolum externum left upper eyelid (principal); J40 Bronchitis, not specified as acute or chronic; R05.9 Cough, unspecified; H57.12 Ocular pain, left eye; Z20.822 Contact with and (suspected) exposure to COVID-19; Z20.828 Contact with and (suspected) exposure to other viral communicable diseases; Z87.891 Personal history of nicotine dependence; Z79.899 Other long term (current) drug therapy
CPT/HCPCS: 0241U; 71046; 99282; 99283

== ENCOUNTER 2023-09-05 10:52 | Outpatient (AMB) | payer OTHER, SELFPAY ==
[2023-09-05 11:12] VITALS: BMI 26.5
--- NOTE | 2023-09-05 11:12 | MHC.OFFVIS ---
Intake Vital Signs 09/05/23 11:12 Height 5 ft 5 in Weight 159 lb BMI 26.5 Intake Visit Reasons: OV- B/L shoulder pain, last inj 07/30/22 Intake Note: Mark is a 72 year old male who presents today for an MRI follow up of his right shoulder. He last had injection done bilaterally on 04/02/22. Allergies No Known Allergies Allergy (Verified 07/01/23 15:21) HPI OV- B/L shoulder pain, last inj 07/30/22 HPI Details Mark is a 72 year old man with a right shoulder chronic RTC tear. He is here for an MRI review. He complains of pain with daily activity, worse with overhead activity and at night. He was last injected on 07/30/22, with good relief. He had a left shoulder injection on 04/02/22. He would like to repeat today if possible. [facility] Medical History Asthma Depression Hypertension Surgical History History of hernia surgery Social History Alcohol intake: never Patient Tobacco Use Status: Former Tobacco user Quit Date: quit 15 years ago Tobacco use type: Cigarette Current occupational status: disabled Current occupation: left and right handed Review of Systems Const All systems reviewed & are unremarkable except as noted in HPI and below Physical Exam Vital Signs: BMI result Body Mass Index 26.5 Const General: no acute distress, alert and awake Orientation/consciousness: patient oriented x3 HEENT Head: Yes normocephalic and Yes atraumatic Eyes EOM: EOMs intact bilaterally Resp Effort & Inspection: normal respiratory effort and able to speak in complete sentences Cardio Jugular venous distension: no JVD Skin General skin exam: turgor normal Rashes: no rashes Neuro General: patient oriented x3 Extrem Other: 4/5 EC +H/N 30/90/130/L5 Psych Appearance: grossly normal Affect: normal affect Attitude: cooperative Office Procedures Joint Injection/Drain Joint Injection/Drain Details: Injected 1 mL of Decadron and 3 mL 1% lidocaine and 3 mL of 0.25% Marcaine. Site was prepped using aseptic technique. Patient tolerated the procedure well. Primary Site: right shoulder Approach Used: posterolateral Coding 58852 - Large joint Procedure code (CPT) selection complete Results Reviewed Results Reviewed: 09/05/23 11:40 BUPivacaine MPF 0.25 % [Sensorcaine-MPF 0.25% 10 ML] 10 ml .ROUTE .STK-MED ONE Lidocaine HCl 2 % MPF [Xylocaine 2 % MPF] 5 ml .ROUTE .STK-MED ONE dexAMETHasone sod phosphate [Decadron] 4 mg .ROUTE .STK-MED ONE 1. Near-complete, full-thickness supraspinatus tendon tear with a few posterior tendon fibers remaining intact. The torn tendon fibers are retracted to the humeral head apex, and tearing is increased when compared to the prior MRI. 2. Infraspinatus tendinosis with anterior articular surface fraying as well as subscapularis tendinosis with distal articular surface partial tearing, increased when compared to the prior MRI. 3. Proximal long head biceps tendinosis with linear intrasubstance partial tearing, new/increased when compared to the prior MRI. 4. Lfza-xe-[id number] acromioclavicular osteoarthritis with subacromial spurring, unchanged. 5. Fraying through the periphery of the posterosuperior labrum, similar when compared to the prior MRI. Previously seen undersurface fraying/tearing of the superior labrum is not well visualized on the current examination. 6. Minimal glenohumeral arthrosis, unchanged. Moderate joint effusion with synovitis. Assessment & Plan Assessment & Plan (1) Rotator cuff tear, right: Code(s): M75.101 - Unspecified rotator cuff tear or rupture of right shoulder, not specified as traumatic Plan: Mark is a 72 year old man presenting with right RTC tear. He has pain with overhead activity which is worse at night. He has good ROM and decent strength. He was last injected on 07/30/22, with good relief of his symptoms. I discussed treatment options, including surgery. He is hesitant to undergo surgery as he is fairly functional and responding well to injections. I recommend he continue his home exercises and activity as tolerated. I injected his right shoulder today, which he tolerated well. He can follow up prn. Coding Level of Care Code Est Pt Level 4 (74020) Diagnoses Rotator cuff tear, right M75.101 CPT Codes Coding - 85977 Large joint: 28150 - Large joint ([id number])
== END 2023-09-05 11:57 | disposition home or self-care (01) ==
PROVIDERS: PCP Family Medicine; Visit Provider Orthopaedic Surgery
DX: M75.101 Unspecified rotator cuff tear or rupture of right shoulder, not specified as traumatic (principal)
CPT/HCPCS: 20610; 99214

== ENCOUNTER → 2023-09-05 10:52 | Outpatient (BNVA) | payer OTHER, SELFPAY | PROVIDERS: PCP Family Medicine; Visit Provider Orthopaedic Surgery | DX: M75.101 Unspecified rotator cuff tear or rupture of right shoulder, not specified as traumatic (principal) | CPT/HCPCS: 20610; 99212; J1100 ==

== ENCOUNTER 2023-11-21 11:07 | Emergency (ER) | payer OTHER, SELFPAY ==
--- NOTE | ~2023-11-21 | XR_ITS ---
EXAMINATION: XR LUMBOSACRAL SPINE CLINICAL INFORMATION: Fall COMPARISON: None available. TECHNIQUE: 3 views FINDINGS: No acute finding. No listhesis or compression injury. No fracture line is seen. Mild scoliosis convex right apex at L2. Some degenerative changes at the disc level with some loss of disc height and spurring in the endplates. Degenerative changes most noted in the posterior elements at L5-S1 greater than L4-5. XR/XR lumbar spine 2-3V IMPRESSION: No acute finding. Moderate degenerative changes in the lower lumbar spine
--- NOTE | ~2023-11-21 | XR_ITS ---
EXAMINATION: XR CHEST CLINICAL INFORMATION: Fall, rib pain. COMPARISON: Previous dated 07/22/2023. TECHNIQUE: 2 views of the chest were obtained. FINDINGS: There is no evidence for pneumothorax or effusion. The lung reyes are grossly clear and comparable to previous exam. The cardiac silhouette is comparable. The hilar regions do not appear pathologically enlarged. No evidence of acute vertebral compression injury. Kclt-qo-wejwvhue degenerative changes are noted. XR/XR chest 2V IMPRESSION: No acute finding. No pneumothorax or effusion. No obvious displaced fracture.
--- NOTE | 2023-11-21 11:49 | ED_ITS ---
HPI - Fall General Chief Complaint: General Medical Stated Complaint: fall back pain Time Seen by Provider: 11/21/23 12:18 Source: patient and sales manager prearranged funerals Mode of arrival: ambulatory Limitations: no limitations History of Present Illness HPI Narrative: 72 year old male with no significant pmhx presents to the ED for evaluation of left rib and left lower back pain s/p fall off chair 3 days ago. Admits to standing on a rolling chair while changing a light bulb in the kitchen when the chair slipped out from under him. Reports falling into the counter on his left side. Denies head strike or LOC. Not on AC. Rates pain 06/20. States he feels like it's more muscular in nature however would like to make sure he does not have a broken bone. No other complaints at present. Has not taken anything for the pain at home. Denies IVDU. Denies bowel or bladder incontinence, saddle anesthesia, numbness/tingling/weakness of extremities. Denies fever, headache, vision changes, N/V, chest pain, SOB, dyspnea. Related Data Home Medications Medication Instructions Recorded Confirmed naproxen 500 mg tablet 500 mg PO BID 12/22/20 azithromycin 250 mg tablet 250 mg PO DAILY 05/08/21 cholecalciferol (vitamin D3) 25 25 mcg PO DAILY 05/08/21 mcg (1,000 unit) capsule clonazepam 2 mg tablet 2 mg PO BEDTIME 05/08/21 cyanocobalamin (vitamin B-12) 1,000 mcg PO DAILY 05/08/21 1,000 mcg tablet cyanocobalamin (vitamin B-12) 1,000 mcg IM 05/08/21 1,000 mcg/mL injection solution fluoxetine 20 mg capsule 20 mg PO DAILY 05/08/21 fluticasone propionate 220 1 puff PO BID 05/08/21 mcg/actuation HFA aerosol inhaler loratadine 10 mg tablet 10 mg PO DAILY 05/08/21 omeprazole 20 mg capsule,delayed 20 mg PO DAILY PRN 05/08/21 release mirtazapine 15 mg tablet 15 mg PO BEDTIME 08/03/21 Previous Rx's Medication Instructions Recorded albuterol sulfate 2.5 mg/3 mL 2.5 mg (3 mL) inhalation Q4-6H PRN 08/20/20 (0.083 %) solution for nebulization shortness of breath or wheezing #75 mL albuterol sulfate 90 mcg/actuation 2 puff inhalation Q4-6H PRN 08/20/20 aerosol inhaler shortness of breath or wheezing #6.7 grams benzonatate 100 mg capsule 100 mg PO BID PRN cough #14 caps 08/20/20 (Tesjuan m Johnson) hydrocortisone 2.5 % topical cream 1 appl MS BID-QID PRN hemorrhoids 04/13/22 with perineal applicator #30 grams (Proctosol HC) tramadol 50 mg tablet 50 mg PO BEDTIME PRN pain #7 tabs 05/09/22 albuterol sulfate 2.5 mg/0.5 mL 5 mg inhalation Q4H PRN shortness 01/31/23 solution for nebulization of breath or wheezing #30 ea benzonatate 100 mg capsule 100 mg PO TID PRN cough #14 caps 01/31/23 prednisone 20 mg tablet 40 mg (2 x 20 mg) PO DAILY 4 days 01/31/23 #8 tabs albuterol sulfate 90 mcg/actuation 2 inh inhalation Q4-6H PRN 07/22/23 breath activated powder inhaler shortness of breath or wheezing #1 ea doxycycline hyclate 100 mg capsule 100 mg PO BID 10 days #20 caps 07/22/23 erythromycin 5 mg/gram (0.5 %) eye 1 appl ophthalmic (eye) TID 5 days 07/22/23 ointment #3.5 grams prednisone 20 mg tablet 40 mg (2 x 20 mg) PO DAILY 5 days 07/22/23 #10 tabs baclofen 5 mg tablet 5 mg PO BEDTIME PRN muscle spasm 11/21/23 #7 tabs lidocaine 5 % topical patch 1 patch topical DAILY #15 ea 11/21/23 (Lidoderm) Allergies Allergy/AdvReac Type Severity Reaction Status Date / Time No Known Allergies Allergy Verified 07/01/23 15:21 Review of Systems Review of Systems: Constitutional: No fever, chills, fatigue, night sweats, weight changes ENT/Mouth: No ear pain, hearing loss, nasal congestion, sinus pain, rhinorrhea, sore throat Eyes: No eye pain, swelling, redness, vision changes, discharge Cardio: No chest pain, palpitations, OWENS, orthopnea, peripheral edema Pulm: No SOB, cough, sputum, wheezing, dyspnea, hemoptysis GI: No nausea, vomiting, hematemesis, abdominal pain, diarrhea, constipation, hematochezia, melena : No irregular bleeding, dysuria, frequency, urgency, hesitancy, hematuria, flank pain, urinary flow changes, urinary incontinence or retention MSK: +back pain, No neck pain, joint pain, myalgias Skin: No lesions, rashes Neuro: No weakness, numbness, paresthesias, LOC, dizziness, headache All other systems reviewed and are negative. [facility] Past Medical History Attestation statement: The following information was validated with the patient. Onset Date is defined in the Problem List Problems that require an onset date and time if occurred within 24 hrs of arrival to the ED Aortic Dissection and Rupture; Neurologic impairment; Cardiopulmonary Arrest; Endotracheal Intubation; Insertion or Replacement of Mechanical Circulatory Assist Device Medical History Asthma Depression Hypertension Surgical History History of hernia surgery Social History Social History Alcohol intake: never Patient Tobacco Use Status: Former Tobacco user Quit Date: quit 15 years ago Tobacco use type: Cigarette Advance Directives: No Current occupational status: disabled Current occupation: left and right handed Physical Exam Vital Signs: Vital Signs: Last Vital Signs Temp 98 F 11/21/23 11:50 Pulse 74 11/21/23 11:50 Resp 19 11/21/23 11:50 BP 121/84 11/21/23 11:50 Pulse Ox 97 11/21/23 11:50 O2 Del Method Room Air 11/21/23 11:50 BMI result Body Mass Index 26.6 Vital signs stable, afebrile Const: General: cooperative, healthy appearing, comfortable, no acute distress, alert, awake and Physically active Orientation/consciousness: patient oriented x3 HEENT: Head: Yes normal to inspection, Yes No palpable skull fracture present, Yes normocephalic and Yes atraumatic Eyes: General: appearance normal, both eyes and all related structures Pupils: Equal, round and reactive pupils present EOM: EOMs intact bilaterally Neck: Other: + no cervical midline spinous tenderness or step-off deformity. Neck: Yes normal visual inspection, Yes full ROM and Yes no meningeal signs Chest: Chest palpation & inspection: normal inspection of the chest and normal palpation of entire chest wall Resp: Effort & Inspection: normal respiratory effort and able to speak in complete sentences Auscultation: clear to auscultation bilaterally Cardio: Rate: regular rate Rhythm: regular rhythm GI: Inspection: Yes normal to inspection and No abdominal wall ecchymosis Palpation (GI): Soft to palpation and nontender : General: Yes no CVA tenderness Back/Spine/Pelvis: Other: No midline spinous tenderness. No paraspinal muscle tenderness. No step off deformity. + healing abrasion left flank, not TTP Back: no CVA tenderness Skin: General skin exam: no rashes or lesions noted Neuro: Other: Strength 5/5 intact throughout.? No saddle anesthesia.? Sensation intact to light touch.? Neurovascular intact distally.? General: patient oriented x3, gait normal and no meningeal signs Cranial nerves: Yes Equal, round and reactive pupils present Gait exam (Neuro): Normal gait present Course Course Course Narrative: Fell 2 days ago. Fell off a stool when reaching for something. Denies dizziness, headache, lightheadedness prior to falling. No headstrike, LOC, confusion after fall. 8/10 pain left ribs and scapula RME: NAD, A&Ox4, LS CTA, HR RRR, healing abrasion left flank, tenderness to palp: right scapula, posterior/anterior left ribs RME completed by Tung clifton DAY CARE AIDE Reevaluation(s) Reevaluation #1: Lumbar xray showing dgenerativ changes, no fracture or subluxtion. CXR unremarkable. No pneumo or obvious fracture. On re-evaluation, patient reports pain improvement with lido and tylenol. Likely muscle contusion. Will send muscle relaxer and lidocaine patches to pharmacy. Patient has remained stable throughout ED visit today. Discussed strict return precautions. All questions answered at this time. Patient is agreeable with disposition and stable for discharge. Medications Administered Discontinued Medications Generic Name Dose Route Start Last Admin Trade Name Freq PRN Reason Stop Dose Admin Acetaminophen 975 mg 11/21/23 13:13 11/21/23 13:26 Acetaminophen 325 Mg Tablet PO 11/21/23 13:14 975 mg ONCE ONE Administration Lidocaine 1 patch 11/21/23 13:13 11/21/23 13:26 Lidocaine 4 % Patch Adh..Patch TRANSDERMA 11/21/23 13:14 1 patch ONCE ONE Administration Protocol Medical Decision Making Medical Decision Making MDM Narrative: 72 year old male with no significant pmhx presents to the ED for evaluation of left rib and left lower back pain s/p fall off chair 3 days ago. Vital signs stable. Patient is nontoxic appearing and in no acute distress. Vital signs stable. Patient nontoxic appearing and in no acute distress. No midline spinous tenderness or step-off deformity. No paraspinal muscle tenderness to palpation. There is a healing abrasion noted to left flank, not tender to palpation. Exam nonfocal. No saddle anesthesia. Ambulating with steady gait. Overall generally healthy. Concern for MSK sprain/strain, fracture, subluxation. Less likely disc herniation, sciatica. Unlikely cord compression, cauda equina, Guillain-De [place], epidural abscess. Plan for imaging and pain control. Differential Diagnosis Differential Diagnoses: The differential diagnosis associated with the presentation includes as above Admission/Observation Not indicated. Independent Interpretation I performed an independent interpretation of an: Plain X-Ray Interpretation: I personally reviewed x-rays and agree with radiologist's interpretation. Radiology Impression Discussion of test interpretation with radiology: I have reviewed the radiologist's reading. Radiologist Impression: XR lumbar spine 2-3V IMPRESSION: No acute finding. Moderate degenerative changes in the lower lumbar spine XR chest 2V IMPRESSION: No acute finding. No pneumothorax or effusion. No obvious displaced fracture. Independent Historian Clinical information obtained from an independent historian. History obtained from or confirmed by: Spouse External Record Review External record reviewed: Inpatient record Prescription Management I considered prescription management with: Pain Medication and Other (Muscle relaxer, steroid) Social Determinants Patient?s care significantly limited by Social Determinants of Health including: Other Social Determinant of Health Discharge Plan Discharge Clinical Impression: Fall (on)(from) incline, initial encounter, Musculoskeletal back pain Patient Disposition: Home, Self-Care Instructions: Fall Prevention for Older Adults (ED), Back Pain (ED) Additional Instructions: Your imaging studies today did not show acute fracture. Your pain is likely musculoskeletal. Avoid bending, lifting, or twisting. Use ice several times per day for 20 minutes at a time for the next 48 hours and then change to heat. Baclofen is a muscle relaxer. Take this at night as it makes you drowsy. Do not drive, drink alcohol, or operate machinery while taking it. Lidoderm patches are numbing patches. Apply to painful areas. In addition you may take Tylenol or ibuprofen at home for pain or discomfort. Follow up with your primary care provider as needed If your pain worsens, if you develop new numbness, tingling, weakness, loss of bowel or bladder function call 911 or return to the ER immediately for evaluation. Naida estudios de imagen de hoy no mostraron fractura aguda. Es probable que krishna dolor sea musculoesquel?abbie. Evite doblarse, levantarse o torcerse. Use hielo varias veces al d?a oniel 20 minutos a la vez oniel las siguientes 48 horas y luego c?mbielo a calor. El baclofeno es un relajante muscular. T?lopez por la noche ya que le produce rafia?o. No conduzca, pamela alcohol ni opere maquinaria mientras lo est? tomando. Los parches de Lidoderm son parches adormecedores. Aplicar en las zonas dolorosas. Adem?s, puede margarita Tylenol o ibuprofeno en casa para el dolor o el malestar. Erin un seguimiento con krishna proveedor de atenci?n primaria seg?n sea necesario Si krishna dolor empeora, si desarrolla nuevo entumecimiento, hormigueo, debilidad, p?rdida de la funci?n intestinal o vesical, llame al 911 o regrese a la isamar de emergencias de inmediato para carlitos evaluaci?n. Prescriptions: New baclofen 5 mg tablet 5 mg PO BEDTIME PRN (Reason: muscle spasm) Qty: 7 0RF lidocaine [Lidoderm] 5 % adhesive patch,medicated 1 patch topical DAILY Qty: 15 0RF Rx Instructions: leave on most painful area for up to 12 hrs No Action albuterol sulfate 2.5 mg /3 mL (0.083 %) solution for nebulization 2.5 mg inhalation Q4-6H PRN (Reason: shortness of breath or wheezing) Qty: 75 0RF benzonatate [Tessalon Perles] 100 mg capsule 100 mg PO BID PRN (Reason: cough) Qty: 14 0RF albuterol sulfate 90 mcg/actuation HFA aerosol inhaler 2 puff inhalation Q4-6H PRN (Reason: shortness of breath or wheezing) Qty: 6.7 0RF tramadol 50 mg tablet 50 mg PO BEDTIME PRN (Reason: pain) Qty: 7 0RF benzonatate 100 mg capsule 100 mg PO TID PRN (Reason: cough) Qty: 14 0RF albuterol sulfate 2.5 mg/0.5 mL solution for nebulization 5 mg inhalation Q4H PRN (Reason: shortness of breath or wheezing) Qty: 30 0RF prednisone 20 mg tablet 40 mg PO DAILY 4 Days Qty: 8 0RF doxycycline hyclate 100 mg capsule 100 mg PO BID 10 Days Qty: 20 0RF erythromycin 5 mg/gram (0.5 %) ointment 1 appl ophthalmic (eye) TID 5 Days Qty: 3.5 0RF albuterol sulfate 90 mcg/actuation aerosol powdr breath activated 2 inh inhalation Q4-6H PRN (Reason: shortness of breath or wheezing) Qty: 1 0RF prednisone 20 mg tablet 40 mg PO DAILY 5 Days Qty: 10 0RF naproxen 500 mg tablet 500 mg PO BID cyanocobalamin (vitamin B-12) 1,000 mcg/mL solution 1,000 mcg IM clonazepam 2 mg tablet 2 mg PO BEDTIME fluoxetine 20 mg capsule 20 mg PO DAILY fluticasone propionate 220 mcg/actuation HFA aerosol inhaler 1 puff PO BID loratadine 10 mg tablet 10 mg PO DAILY cyanocobalamin (vitamin B-12) 1,000 mcg tablet 1,000 mcg PO DAILY azithromycin 250 mg tablet 250 mg PO DAILY omeprazole 20 mg capsule,delayed release(DR/EC) 20 mg PO DAILY PRN cholecalciferol (vitamin D3) 25 mcg (1,000 unit) capsule 25 mcg PO DAILY mirtazapine 15 mg tablet 15 mg PO BEDTIME hydrocortisone [Proctosol HC] 2.5 % cream with perineal applicator 1 appl MS BID-QID PRN (Reason: hemorrhoids) Qty: 30 3RF Referrals: Toyin Mistry MD [Primary Care Provider] - Interventions: ED Discharge Assessment Last Done: 11/21/23 15:15 Discharge Date/Time: 11/21/23 15:16 Print Language: Turkmen
[2023-11-21 11:50] VITALS: BP 121/84; PULSE 74; RESP 19; TEMP 36.6; O2SAT 97; BMI 26.6
[2023-11-21] MEDS: Acetaminophen 325 MG TABLET 975 MG PO (13:26)
[2023-11-21] MEDS: Lidocaine 4 % Patch ADH..PATCH 1 PATCH TRANSDERMA (13:26)
== END 2023-11-21 15:16 | disposition home or self-care (01) ==
PROVIDERS: Emergency Provider Emergency Medicine; PCP Family Medicine
DX: Z04.3 Encounter for examination and observation following other accident (principal); M79.18 Myalgia, other site; M54.50 Low back pain, unspecified; R07.81 Pleurodynia; Z91.81 History of falling
CPT/HCPCS: 71046; 72100; 99283

== ENCOUNTER 2023-12-02 12:15 | Emergency (ER) | payer OTHER, SELFPAY ==
--- NOTE | ~2023-12-02 | XR_ITS ---
EXAMINATION: XR SHOULDER, LEFT CLINICAL INFORMATION: Fall with shoulder pain COMPARISON: shoulder radiographs 12/22/2020 TECHNIQUE: AP external rotation, Grashey, scapular Y, and axillary views of the left shoulder. FINDINGS: Again seen are some minimal degenerative changes at the glenohumeral joint. No fracture. Glenohumeral and acromioclavicular alignment is anatomic. No abnormal soft tissue calcifications. XR/XR shoulder LT min 2V IMPRESSION: 1. No acute fracture or dislocation. 2. Minimal degenerative changes at the glenohumeral joint.
[2023-12-02 12:20] VITALS: BP 126/68; PULSE 98; RESP 17; TEMP 36.6; O2SAT 98; BMI 26.6
--- NOTE | 2023-12-02 12:21 | ED.GENADULT ---
HPI - General Adult General Chief complaint: Upper Respiratory Symptoms Stated complaint: L shoulder pain arm numbness Time Seen by Provider: 12/02/23 14:40 Source: patient and family Mode of arrival: ambulatory Limitations: no limitations History of Present Illness HPI narrative: Patient is a 73-year-old male presenting to the emergency department with complaint of left shoulder pain after a fall onto outstretched arms 11 days ago. He denies any decreased range of motion. Denies any weakness, numbness, tingling to left arm. Did not strike head at time of fall or lose consciousness. Has intermittently taken [id number] medications with good temporary relief of pain. MD complaint: Left shoulder pain Onset (ago): day(s) Location: left and upper extremity Radiation: non-radiation Severity: moderate Quality: aching Pain Consistency: colicky Relieving factors: rest Exacerbating factors: movement Associated symptoms: denies other symptoms Treatments prior to arrival: NSAID Related Data Home Medications Medication Instructions Recorded Confirmed naproxen 500 mg tablet 500 mg PO BID 12/22/20 azithromycin 250 mg tablet 250 mg PO DAILY 05/08/21 cholecalciferol (vitamin D3) 25 25 mcg PO DAILY 05/08/21 mcg (1,000 unit) capsule clonazepam 2 mg tablet 2 mg PO BEDTIME 05/08/21 cyanocobalamin (vitamin B-12) 1,000 mcg PO DAILY 05/08/21 1,000 mcg tablet cyanocobalamin (vitamin B-12) 1,000 mcg IM 05/08/21 1,000 mcg/mL injection solution fluoxetine 20 mg capsule 20 mg PO DAILY 05/08/21 fluticasone propionate 220 1 puff PO BID 05/08/21 mcg/actuation HFA aerosol inhaler loratadine 10 mg tablet 10 mg PO DAILY 05/08/21 omeprazole 20 mg capsule,delayed 20 mg PO DAILY PRN 05/08/21 release mirtazapine 15 mg tablet 15 mg PO BEDTIME 08/03/21 Previous Rx's Medication Instructions Recorded albuterol sulfate 2.5 mg/3 mL 2.5 mg (3 mL) inhalation Q4-6H PRN //20 (0.083 %) solution for nebulization shortness of breath or wheezing #75 mL albuterol sulfate 90 mcg/actuation 2 puff inhalation Q4-6H PRN 10//20 aerosol inhaler shortness of breath or wheezing #6.7 grams benzonatate 100 mg capsule 100 mg PO BID PRN cough #14 caps 08/20/20 (Tessalon Alex) hydrocortisone 2.5 % topical cream 1 appl [place] BID-QID PRN hemorrhoids 04/13/22 with perineal applicator #30 grams (Proctosol HC) tramadol 50 mg tablet 50 mg PO BEDTIME PRN pain #7 tabs 05/09/22 albuterol sulfate 2.5 mg/0.5 mL 5 mg inhalation Q4H PRN shortness 01/31/23 solution for nebulization of breath or wheezing #30 ea benzonatate 100 mg capsule 100 mg PO TID PRN cough #14 caps 01/31/23 prednisone 20 mg tablet 40 mg (2 x 20 mg) PO DAILY 4 days 01/31/23 #8 tabs albuterol sulfate 90 mcg/actuation 2 inh inhalation Q4-6H PRN 07/22/23 breath activated powder inhaler shortness of breath or wheezing #1 ea doxycycline hyclate 100 mg capsule 100 mg PO BID 10 days #20 caps 07/22/23 erythromycin 5 mg/gram (0.5 %) eye 1 appl ophthalmic (eye) TID 5 days 07/22/23 ointment #3.5 grams prednisone 20 mg tablet 40 mg (2 x 20 mg) PO DAILY 5 days 07/22/23 #10 tabs baclofen 5 mg tablet 5 mg PO BEDTIME PRN muscle spasm 11/21/23 #7 tabs lidocaine 5 % topical patch 1 patch topical DAILY #15 ea 11/21/23 (Lidoderm) lidocaine 5 % topical patch 1 patch topical DAILY #15 ea 12/02/23 naproxen 500 mg tablet 500 mg PO BID PRN pain #20 tabs 12/02/23 Allergies Allergy/AdvReac Type Severity Reaction Status Date / Time No Known Allergies Allergy Verified 12/02/23 12:20 Review of Systems Review of Systems: As per HPI. Yes all other systems are reviewed and are negative Constitutional: Constitutional: Reports as per HPI [facility] Past Medical History Medical History Asthma Depression Hypertension Surgical History History of hernia surgery Social History Social History Alcohol intake: never Patient Tobacco Use Status: Former Tobacco user Quit Date: quit 15 years ago Tobacco use type: Cigarette Advance Directives: No Advance Directives Information Provided: Yes Current occupational status: disabled Current occupation: left and right handed Physical Exam ED Vital Signs: Vital Signs - 24 hr 12/02/23 12:20 Temperature 98 F Pulse Rate 98 Respiratory Rate 17 Blood Pressure 126/68 Pulse Oximetry 98 Oxygen Delivery Method Room Air BMI result Body Mass Index 26.6 Vital signs have been reviewed and appear to be correct. Blood pressure normal. Heart rate normal. Respiratory rate normal. Temperature normal. Oxygen saturation normal. Const General: cooperative, healthy appearing and no acute distress Orientation/consciousness: oriented to person, oriented to place, oriented to time and patient oriented x3 Limitations: no limitations HENMT Head: Yes normocephalic and Yes atraumatic Ears: external ears normal General nose exam: Normal external nose present Face and sinus: Yes face symmetric Mouth: oropharynx normal and moist mucous membranes Throat: Yes uvula midline Eyes Pupils: Equal, round and reactive pupils present Neck Neck: Yes normal visual inspection and Yes supple Resp Effort & Inspection: normal respiratory effort and able to speak in complete sentences Auscultation: clear to auscultation bilaterally Cardio Rate: regular rate Rhythm: regular rhythm Heart sounds: S1 normal heart sound present and S2 normal heart sound present GI Palpation (GI): Soft to palpation and nontender Auscultation: normoactive bowel sounds General: Yes no CVA tenderness Back/Spine/Pelvis Back: no CVA tenderness Skin General skin exam: elasticity normal and turgor normal Neuro General: oriented to person, oriented to place, oriented to time, patient oriented x3, moves all extremities, no focal motor deficits and CN's II-XI intact bilaterally Cranial nerves: Yes Equal, round and reactive pupils present Cognition (Neuro): normal cognition Motor exam (neuro): 5/5 motor strength present throughout, Normal motor muscle tone present throughout and Motor abnormalities not present Extrem General: Yes full ROM, Yes no pedal edema and Yes no calf tenderness Left upper extremity: shoulder/upper arm Details: inspection abnormal, tenderness Location: of the proximal humerus, axillary nerve sensory function normal and normal ROM; no swelling, no ecchymosis, no deformity and no unsual warmth Psych Mental Status: mental status grossly normal Affect: normal affect Thought process: Normal thought process present Course Course Course Narrative: RME performed by Janey Guzman PA-C. Patient is a 73 year old assigned male at presenting to the emergency department with left shoulder pain post fall 11 days ago. Detailed physical exam and review of systems are deferred to the combining machine operator. Imaging ordered. Patient placed back in the waiting room pending room availability and results. Medical Decision Making Medical Decision Making [facility] Narrative: Patient is a 73-year-old male presenting to the emergency department with complaint of left shoulder pain after a fall onto outstretched arms 11 days ago. On exam patient is awake, A+Ox3, VS WNL, afebrile, normal neurological exam without focal deficits, physical exam findings as above. Given reported symptoms and physical exam findings, initial differential includes shoulder strain, sprain, fracture. X-ray notable for no acute fracture or dislocation, minimal degenerative changes glenohumeral joint. My interpretation is in agreement with the radiologist's interpretation. Results discussed with patient and all questions answered. Will prescribe naproxen and lidocaine patches. Instructed patient to follow-up with primary care provider. Will refer to Orthopedics for any ongoing symptoms. Return precautions discussed at bedside. Patient verbalized understanding of and agreement with plan. Differential Diagnosis Differential Diagnoses: The differential diagnosis associated with the presentation includes As per MDM. Independent Interpretation I performed an independent interpretation of an: Plain X-Ray Interpretation: No left shoulder fracture dislocation Radiology Impression Discussion of test interpretation with radiology: I have reviewed the radiologist's reading. Radiologist Impression: XR/XR shoulder LT min 2V IMPRESSION: 1. No acute fracture or dislocation. 2. Minimal degenerative changes at the glenohumeral joint. Independent Historian Clinical information obtained from an independent historian. History obtained from or confirmed by: Spouse External Record Review External record reviewed: Inpatient record, Office record and Outpatient record Prescription Management I considered prescription management with: Pain Medication Discharge Plan Discharge Clinical Impression: Left shoulder strain Patient Disposition: Home, Self-Care Instructions: Muscle Strain (DC), R.I.C.E. Treatment (ED) Additional Instructions: You have been evaluated in the emergency department today for shoulder pain. Your evaluation did not find evidence of medical conditions requiring emergent intervention at this time. Please rest and ice your shoulder and resume normal activities as tolerated. You are being prescribed Naproxen for pain as well as topical lidocaine patches. You can also add 650mg Tylenol every 6 hours as needed for pain. Please schedule an appointment for follow-up with your primary care provider this week. Follow-up with orthopedics for any ongoing symptoms, call their office to schedule an appointment. Return to the emergency department if you experience worsening pain, numbness, tingling, change of color in your arm, or any other concerning symptoms. Prescriptions: New naproxen 500 mg tablet 500 mg PO BID PRN (Reason: pain) Qty: 20 0RF lidocaine 5 % adhesive patch,medicated 1 patch topical DAILY Qty: 15 0RF Rx Instructions: leave on most painful area for up to 12 hrs No Action albuterol sulfate 2.5 mg /3 mL (0.083 %) solution for nebulization 2.5 mg inhalation Q4-6H PRN (Reason: shortness of breath or wheezing) Qty: 75 0RF benzonatate [Tessalon Perles] 100 mg capsule 100 mg PO BID PRN (Reason: cough) Qty: 14 0RF albuterol sulfate 90 mcg/actuation HFA aerosol inhaler 2 puff inhalation Q4-6H PRN (Reason: shortness of breath or wheezing) Qty: 6.7 0RF tramadol 50 mg tablet 50 mg PO BEDTIME PRN (Reason: pain) Qty: 7 0RF benzonatate 100 mg capsule 100 mg PO TID PRN (Reason: cough) Qty: 14 0RF albuterol sulfate 2.5 mg/0.5 mL solution for nebulization 5 mg inhalation Q4H PRN (Reason: shortness of breath or wheezing) Qty: 30 0RF prednisone 20 mg tablet 40 mg PO DAILY 4 Days Qty: 8 0RF baclofen 5 mg tablet 5 mg PO BEDTIME PRN (Reason: muscle spasm) Qty: 7 0RF lidocaine [Lidoderm] 5 % adhesive patch,medicated 1 patch topical DAILY Qty: 15 0RF Rx Instructions: leave on most painful area for up to 12 hrs doxycycline hyclate 100 mg capsule 100 mg PO BID 10 Days Qty: 20 0RF erythromycin 5 mg/gram (0.5 %) ointment 1 appl ophthalmic (eye) TID 5 Days Qty: 3.5 0RF albuterol sulfate 90 mcg/actuation aerosol powdr breath activated 2 inh inhalation Q4-6H PRN (Reason: shortness of breath or wheezing) Qty: 1 0RF prednisone 20 mg tablet 40 mg PO DAILY 5 Days Qty: 10 0RF naproxen 500 mg tablet 500 mg PO BID cyanocobalamin (vitamin B-12) 1,000 mcg/mL solution 1,000 mcg IM clonazepam 2 mg tablet 2 mg PO BEDTIME fluoxetine 20 mg capsule 20 mg PO DAILY fluticasone propionate 220 mcg/actuation HFA aerosol inhaler 1 puff PO BID loratadine 10 mg tablet 10 mg PO DAILY cyanocobalamin (vitamin B-12) 1,000 mcg tablet 1,000 mcg PO DAILY azithromycin 250 mg tablet 250 mg PO DAILY omeprazole 20 mg capsule,delayed release(DR/EC) 20 mg PO DAILY PRN cholecalciferol (vitamin D3) 25 mcg (1,000 unit) capsule 25 mcg PO DAILY mirtazapine 15 mg tablet 15 mg PO BEDTIME hydrocortisone [Proctosol HC] 2.5 % cream with perineal applicator 1 appl MN BID-QID PRN (Reason: hemorrhoids) Qty: 30 3RF
== END 2023-12-02 15:36 | disposition home or self-care (01) ==
PROVIDERS: Emergency Provider Emergency Medicine; PCP Family Medicine
DX: S46.912A Strain of unspecified muscle, fascia and tendon at shoulder and upper arm level, left arm, initial encounter (principal); W18.30XA Fall on same level, unspecified, initial encounter; I10 Essential (primary) hypertension; Y93.9 Activity, unspecified; Y92.9 Unspecified place or not applicable; Y99.9 Unspecified external cause status
CPT/HCPCS: 73030; 99282; 99283

== ENCOUNTER 2023-12-06 10:38 | Outpatient (AMB) | payer OTHER, SELFPAY ==
--- NOTE | 2023-12-06 11:05 | MHC.OFFVIS ---
Intake Vital Signs 12/06/23 11:57 Height 5 ft 5 in Weight 160 lb BMI 26.6 Intake Visit Reasons: ov- OV- B/L shoulder pain, last inj 09/05/23 Intake Note: Mark is a 73 year old male who presents today for a follow up of his left shoulder, last injected 09/05/23. He explains that the left shoulder injection was helpful until he had a fall about 1 month ago. Since this fall he has had increased pain in the shoulder particularly in the shoulder blade. Allergies No Known Allergies Allergy (Verified 12/02/23 12:20) HPI ov- OV- B/L shoulder pain, last inj 09/05/23 HPI Details Mark is a 73 year old man with a right shoulder chronic RTC tear, who presents with complaints of worsening pain. He complains of pain with daily activity, worse with overhead activity and at night. He was last seen, and injected, on 09/05/23, and says this was helpful until he fell onto his right shoulder ~1 month ago. He has had worsening pain since the fall and would like a repeat injection today. He had a left shoulder injection on 04/02/22. [facility] Medical History Asthma Depression Hypertension Surgical History History of hernia surgery Social History Alcohol intake: never Patient Tobacco Use Status: Former Tobacco user Quit Date: quit 15 years ago Tobacco use type: Cigarette Current occupational status: disabled Current occupation: left and right handed Review of Systems Const All systems reviewed & are unremarkable except as noted in HPI and below Physical Exam Vital Signs: BMI result Body Mass Index 26.6 Const General: no acute distress, alert and awake Orientation/consciousness: patient oriented x3 HEENT Head: Yes normocephalic and Yes atraumatic Eyes EOM: EOMs intact bilaterally Resp Effort & Inspection: normal respiratory effort and able to speak in complete sentences Cardio Jugular venous distension: no JVD Skin General skin exam: turgor normal Rashes: no rashes Neuro General: patient oriented x3 Extrem Other: crepiutus with overhead left shoulder motion + h/n Psych Appearance: grossly normal Affect: normal affect Attitude: cooperative Office Procedures Joint Injection/Drain Joint Injection/Drain Details: Injected 1 mL of Decadron and 3 mL 1% lidocaine and 3 mL of 0.25% Marcaine. Site was prepped using aseptic technique. Patient tolerated the procedure well. Primary Site: left shoulder Approach Used: posterolateral Coding 42684 - Large joint Procedure code (CPT) selection complete Assessment & Plan Assessment & Plan (1) Rotator cuff tear, left: Code(s): M75.102 - Unspecified rotator cuff tear or rupture of left shoulder, not specified as traumatic Plan: Left shoulder rtc tear Not a surgical candidate Injected left shoulder Plan Prepared for Barrington Comer MD by Pedro Strickland emergency medical service manager, on 12/06/23 at 12:23 PM, EST. Coding Level of Care Code Est Pt Level 3 (55030) Diagnoses Rotator cuff tear, left M75.102 CPT Codes Coding - Large joint: 25475 - Large joint ([id number])
[2023-12-06 11:57] VITALS: BMI 26.6
== END 2023-12-06 12:55 | disposition home or self-care (01) ==
PROVIDERS: PCP Family Medicine; Visit Provider Orthopaedic Surgery
DX: M75.102 Unspecified rotator cuff tear or rupture of left shoulder, not specified as traumatic (principal)
CPT/HCPCS: 20610; 99213

== ENCOUNTER → 2023-12-06 10:38 | Outpatient (BNVA) | payer OTHER, SELFPAY | PROVIDERS: PCP Family Medicine; Visit Provider Orthopaedic Surgery | DX: M75.102 Unspecified rotator cuff tear or rupture of left shoulder, not specified as traumatic (principal) | CPT/HCPCS: 20610; 99212; J0665; J1100 ==

== ENCOUNTER 2023-12-11 10:22 | Outpatient (AMB) | payer OTHER, SELFPAY ==
--- NOTE | 2023-12-11 10:25 | A.OFFVIS_ITS ---
Intake Vital Signs 12/11/23 10:35 Height 5 ft 5 in Weight 161 lb 4 oz BMI 26.8 BP 138/90 H Blood Pressure Location Lt brachial Position Sitting Respiration 16 Pulse 78 Pulse Source Pulse Oximeter Pulse Oximetry (%) 98 Oxygen Delivery Method Room Air Intake Visit Reasons: Shoulder Pain D/t Tear of (L) Rotator Cuff Intake Note: Patient comes in for initial visit was referred by primary care. Reports pain 9/10. Allergies No Known Allergies Allergy (Verified 12/11/23 10:32) HPI HPI Comments History of Present Illness Details Mark is very pleasant Danish-speaking 73 years old gentleman who is referred to my office by primary care physician with complains on pain on posterior left shoulder in the projection of the left scapula. He was under care of Dr. Comer with suprascapular rotator cuff tear. He refused to go for surgery because of good functionality of the left upper extremity. However he reports significant pain in the shoulder, he reports that injections which Dr. Comer provided for him as intra articular steroid injections helped him only for 1 month. He reports that because of his pain he can not sleep normally can not do activities of daily living he can not take care of himself but he can not function normally. He is retired individual and on permanent disability. He reports that pain is alleviated by heat applications and he states that pain is same all day long with score of 8/10. He reports his pain in terms of tissue damage as burning, scalding searing tingling stinging aching and numbing sensati on. He had several images of the left shoulder joint eye MRI demonstrated suprascapular rotator cuff tear. He never had physical therapy he denies chiropractic manipulations. He received intra-articular shoulder injections. He is suffering from asthma and arthritis, he denies surgeries, he denies smoking cigarettes he denies drinking alcohol he denies recreational drugs. [facility] Medical History Asthma Depression Hypertension Surgical History History of hernia surgery Social History Alcohol intake: never Patient Tobacco Use Status: Former Tobacco user Quit Date: quit 15 years ago Tobacco use type: Cigarette Current occupational status: disabled Current occupation: left and right handed Review of Systems Const Reports as per HPI and Reports no additional complaints Eyes Reports no additional complaints ENT Denies neck pain Card Reports as per HPI and Reports no additional complaints Resp Reports as per HPI and Reports no additional complaints GI Reports as per HPI and Reports no additional complaints Musc Details: Shoulder pain Denies no additional complaints, Denies as per HPI, Denies abnormal gait, Denies back pain, Denies myalgias, Denies atrophy, Denies deformity, Denies arthralgias, Denies joint swelling, Denies limited range of motion, Denies loss of height, Denies muscle cramps, Denies muscle weakness, Denies neck pain, Denies numbness, Denies radiating pain into limb, Denies stiffness, Denies tingling and Reports other (bilateral shoulder) Skin/Breast Reports system reviewed and no additional complaints, except as documented Neuro Denies abnormal gait, Denies numbness and Denies tingling Psych Reports no additional complaints Physical Exam Vital Signs: Last Vital Signs Pulse 78 12/11/23 10:35 Resp 16 12/11/23 10:35 BP 138/90 H 12/11/23 10:35 Pulse Ox 98 12/11/23 10:35 Oxygen Delivery Method Room Air 12/11/23 10:35 BMI result Body Mass Index 26.8 Const General: no acute distress, alert and awake Orientation/consciousness: patient oriented x3 HEENT Head: Yes normocephalic and Yes atraumatic Eyes EOM: EOMs intact bilaterally Resp Effort & Inspection: normal respiratory effort and able to speak in complete sentences Cardio Jugular venous distension: no JVD Skin General skin exam: turgor normal Rashes: no rashes Neuro General: patient oriented x3 Extrem Other: crepiutus with overhead left shoulder motion + h/n Psych Appearance: grossly normal Affect: normal affect Attitude: cooperative Assessment & Plan Assessment & Plan (1) Rotator cuff tear, left: Code(s): M75.102 - Unspecified rotator cuff tear or rupture of left shoulder, not specified as traumatic Plan: I offered this patient left suprascapular nerve block to prepare him for sprint PNS. If we will get good results from suprascapular nerve block I will schedule him for sprint PNS. I will see him after the injection and I will explain sprint PNS in suprascapular position for him if the results are encouraging. (2) Left shoulder pain: Code(s): M25.512 - Pain in left shoulder Plan: (3) Chronic pain syndrome: Code(s): G89.4 - Chronic pain syndrome Plan: Coding Level of Care Code New Pt Level 3 (94101) Diagnoses Rotator cuff tear, left M75.102 Left shoulder pain M25.512 Chronic pain syndrome G89.4
[2023-12-11 10:35] VITALS: BP 138/90; PULSE 78; RESP 16; O2SAT 98; BMI 26.8
== END 2023-12-11 10:40 | disposition home or self-care (01) ==
PROVIDERS: PCP Family Medicine; Referring Provider Family Medicine; Visit Provider Anesthesiology
DX: M75.102 Unspecified rotator cuff tear or rupture of left shoulder, not specified as traumatic (principal); M25.512 Pain in left shoulder; G89.4 Chronic pain syndrome
CPT/HCPCS: 99203

== ENCOUNTER → 2023-12-11 10:22 | Outpatient (BNVA) | payer OTHER, SELFPAY | PROVIDERS: PCP Family Medicine; Referring Provider Family Medicine; Visit Provider Anesthesiology | DX: G89.4 Chronic pain syndrome (principal); M75.102 Unspecified rotator cuff tear or rupture of left shoulder, not specified as traumatic | CPT/HCPCS: 99202 ==

== ENCOUNTER 2023-12-12 08:01 | Outpatient (REF) | payer OTHER, SELFPAY ==
--- NOTE | 2023-12-12 08:11 | EMG_ITS ---
Left median and ulnar motor and sensory studies were performed. Left radial and median and lateral antecubital sensory studies were performed and needle examination was performed. IMPRESSION: 1. 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 2. Mild to moderate left median neuropathy across carpal tunnel. MD GILES Nino/BISHOP / [id number]
== END 2023-12-12 08:02 | disposition home or self-care (01) ==
LOC: HO.NEURO 08:01
PROVIDERS: Visit Provider Emergency Medicine
DX: M75.102 Unspecified rotator cuff tear or rupture of left shoulder, not specified as traumatic (principal); R20.0 Anesthesia of skin
CPT/HCPCS: 95886; 95910

== ENCOUNTER 2023-12-18 10:36 | Outpatient (AMB) | payer OTHER, SELFPAY ==
--- NOTE | 2023-12-18 10:47 | A.OFFVIS_ITS ---
Intake Vital Signs 12/18/23 11:10 Height 5 ft 5 in Weight 161 lb BMI 26.8 BP 132/78 Blood Pressure Location Lt brachial Position Sitting Respiration 18 Pulse 71 Pulse Source Pulse Oximeter Pulse Oximetry (%) 98 Oxygen Delivery Method Room Air Intake Visit Reasons: Increasing Pain in (L) Shoulder Intake Note: Patient comes in for increasing left shoulder pain. Reports pain 10/10. Allergies No Known Allergies Allergy (Verified 12/18/23 11:10) HPI HPI Comments History of Present Illness Details Mark bean is back in my office to complain on severe pain in the left shoulder, level of pain 10/10 and inability to sleep. He is in the process of being scheduled for diagnostic left suprascapular injection with possibility of further treatment with sprint PNS. We unfortunately unable to plan the injection any time soon we are waiting for insurance company response. I offered him to help his pain with small dose tramadol medications but he is concerned about tramadol interactions with fluoxetine. Unlikely this small doses will result in serotonin syndrome however I understand his concerns. I offered him to sign opioid contract in submit UDS to become part of chronic opioid program however patient refused. He does not want to be on strong opioid medications. I offered him to help with night sleep to start him on tizanidine 2 mg t.i.d. out of which she can take 1 or 2 or even 3 pills at night if it is necessary for him to rest better at night. Patient agreed. Prior: very pleasant Czech-speaking 73 years old gentleman who is referred to my office by primary care physician with complains on pain on posterior left shoulder in the projection of the left scapula. He was under care of Dr. Comer with suprascapular rotator cuff tear. He refused to go for surgery because of good functionality of the left upper extremity. However he reports significant pain in the shoulder, he reports that injections which Dr. Comer provided for him as intra articular steroid injections helped him only for 1 month. He had several images of the left shoulder joint - MRI demonstrated suprascapular rotator cuff tear. He never had physical therapy he denies chiropractic manipulations. He received intra-articular shoulder injections. [facility] Medical History Asthma Depression Hypertension Surgical History History of hernia surgery Social History Alcohol intake: never Patient Tobacco Use Status: Former Tobacco user Quit Date: quit 15 years ago Tobacco use type: Cigarette Current occupational status: disabled Current occupation: left and right handed Review of Systems Const All systems reviewed & are unremarkable except as noted in HPI and below Physical Exam Vital Signs: Last Vital Signs Pulse 71 12/18/23 11:10 Resp 18 12/18/23 11:10 BP 132/78 12/18/23 11:10 Pulse Ox 98 12/18/23 11:10 Oxygen Delivery Method Room Air 12/18/23 11:10 BMI result Body Mass Index 26.8 Const General: no acute distress, alert and awake Orientation/consciousness: patient oriented x3 HEENT Head: Yes normocephalic and Yes atraumatic Eyes EOM: EOMs intact bilaterally Resp Effort & Inspection: normal respiratory effort and able to speak in complete sentences Cardio Jugular venous distension: no JVD Skin General skin exam: turgor normal Rashes: no rashes Neuro General: patient oriented x3 Extrem Other: crepiutus with overhead left shoulder motion + h/n Psych Appearance: grossly normal Affect: normal affect Attitude: cooperative Assessment & Plan Assessment & Plan (1) Rotator cuff tear, left: Code(s): M75.102 - Unspecified rotator cuff tear or rupture of left shoulder, not specified as traumatic Plan: Still waiting for insurance approval for left suprascapular nerve block to prepare him for sprint PNS. If we will get good results from suprascapular nerve block I will schedule him for sprint PNS. Muscle relaxant to temporize his pain scheduled as below. If any side effects he is instructed to give us a call with concerns. Membership of opioid program was offered to the patient however he refused. (2) Left shoulder pain: Code(s): M25.512 - Pain in left shoulder Plan: (3) Chronic pain syndrome: Code(s): G89.4 - Chronic pain syndrome Plan: Medications: New tizanidine may take 1 pill QHS, 1&1/2 pills QHS or even 2 pills QHS to improve night sleep. 2 mg PO TID 30 days PRN 90 tabs 2RF muscle spasticity Discontinued baclofen Discontinued Reason: Doctor's Order 5 mg PO BEDTIME PRN 7 tabs 0RF muscle spasm Patient Instructions: I here by testify that I spent 38 minutes in conversation with this patient as well as planning his care, evaluating his prior records, organizing this note. Coding Level of Care Code Est Pt Level 4 (54374) Diagnoses Rotator cuff tear, left M75.102 Left shoulder pain M25.512 Chronic pain syndrome G89.4
[2023-12-18 11:10] VITALS: BP 132/78; PULSE 71; RESP 18; O2SAT 98; BMI 26.8
== END 2023-12-18 11:45 | disposition home or self-care (01) ==
PROVIDERS: PCP Family Medicine; Visit Provider Anesthesiology
DX: M75.102 Unspecified rotator cuff tear or rupture of left shoulder, not specified as traumatic (principal); M25.512 Pain in left shoulder; G89.4 Chronic pain syndrome
CPT/HCPCS: 99214

== ENCOUNTER → 2023-12-18 10:36 | Outpatient (BNVA) | payer OTHER, SELFPAY | PROVIDERS: Visit Provider Anesthesiology | DX: M75.102 Unspecified rotator cuff tear or rupture of left shoulder, not specified as traumatic (principal); M25.512 Pain in left shoulder; G89.4 Chronic pain syndrome | CPT/HCPCS: 99212 ==

== ENCOUNTER 2023-12-24 06:12 | Outpatient (REF) | payer OTHER, SELFPAY ==
--- NOTE | ~2023-12-24 | FL_ITS ---
INDICATION: Intraoperative fluoroscopy. FLUOROSCOPY: Fluoroscopy Time: 0.1 seconds Dose/air kerma: 1.28 mGy Images saved: 2 FINDINGS: Multiple intraoperative fluoroscopic images are submitted during injection of the right shoulder. Correlation with operative report. Evaluation is limited secondary to fluoroscopic technique. IMPRESSION: Intra-operative fluoroscopic imaging provided by radiology during injection of the right shoulder. Please refer to operative note for further information.
== END 2023-12-24 06:13 | disposition home or self-care (01) ==
LOC: CF 06:12
PROVIDERS: Visit Provider Anesthesiology
DX: M75.102 Unspecified rotator cuff tear or rupture of left shoulder, not specified as traumatic (principal); G89.4 Chronic pain syndrome
CPT/HCPCS: 64418; J2795; Q9967

== ENCOUNTER 2023-12-24 12:58 | Outpatient (AMB) | payer OTHER, SELFPAY ==
--- NOTE | 2023-12-24 13:50 | A.OFFVIS_ITS ---
Intake Vital Signs 12/24/23 13:51 12/24/23 13:59 Height 5 ft 5 in 5 ft 5 in Weight 161 lb 161 lb BMI 26.8 26.8 BP 138/79 120/78 Blood Pressure Location Lt brachial Lt brachial Position Sitting Sitting Respiration 16 18 Pulse 60 74 Pulse Source Pulse Oximeter Pulse Oximeter Pulse Oximetry (%) 98 97 Oxygen Delivery Method Room Air Room Air Comment pre-op post-op Intake Visit Reasons: LEFT DIAGNOSTIC SUPRASCRAPULAR NERVE BLOCK Allergies No Known Allergies Allergy (Verified 12/24/23 13:50) PFSH Medical History Asthma Depression Hypertension Surgical History History of hernia surgery Social History Alcohol intake: never Patient Tobacco Use Status: Former Tobacco user Quit Date: quit 15 years ago Tobacco use type: Cigarette Current occupational status: disabled Current occupation: left and right handed Physical Exam Vital Signs: Last Vital Signs Pulse 74 12/24/23 13:59 Resp 18 12/24/23 13:59 BP 120/78 12/24/23 13:59 Pulse Ox 97 12/24/23 13:59 Oxygen Delivery Method Room Air 12/24/23 13:59 BMI result Body Mass Index 26.8 Assessment & Plan Assessment & Plan (1) Rotator cuff tear, left: Code(s): M75.102 - Unspecified rotator cuff tear or rupture of left shoulder, not specified as traumatic Plan: Still waiting for insurance approval for left suprascapular nerve block to prepare him for sprint PNS. If we will get good results from suprascapular nerve block I will schedule him for sprint PNS. Muscle relaxant to temporize his pain scheduled as below. If any side effects he is instructed to give us a call with concerns. Membership of opioid program was offered to the patient however he refused. (2) Left shoulder pain: Code(s): M25.512 - Pain in left shoulder Plan: Diagnostic left shoulder suprascapular nerve block. Informed consent was explained to the patient. All questions were explained and answered. The patient was taken inside of the operating room where he was positioned prone on operating table with the left arm alongside the body.. Time- out was performed delineating patient's name and date of , correct site, side, the nature of the procedure, patient's allergy, preoperative antibiotic if needed, need for VT prophylaxis.. All operating room staff was participating in OR time-out procedure. Left upper back of the patient was prepped with ChloraPrep and draped with sterile towels. C-arm was brought over the operating field and picture of left scapula was demonstrated on the screen. Suprascapular notch was demonstrated on the screen. It was chosen as the target of the injection. After that the skin and subcutaneous tissues was anesthetized with 2% lidocaine 2.5 mL. 22 gauge 3. 5 in long needle was inserted through the skin and advanced to the target. When tip of the needle was positioned in suprascapular notch aspiration was performed demonstrating no intravascular position. Injection of the contrast performed demonstrating no intravascular spread. After that 3 cc of ropivacaine 0.5% was injected into the needle. After that needle was withdrawn and sterile Band-Aid was applied. The patient tolerated procedure very well. (3) Chronic pain syndrome: Code(s): G89.4 - Chronic pain syndrome Plan: Orders: Orders FL guidance in treatment room 12/24/23 M25.512 - Pain in left shoulder Coding Level of Care Code Procedure Only Diagnoses Rotator cuff tear, left M75.102 Left shoulder pain M25.512 Chronic pain syndrome G89.4
[2023-12-24 13:51] VITALS: BP 138/79; PULSE 60; RESP 16; O2SAT 98; BMI 26.8
[2023-12-24 13:59] VITALS: BP 120/78; PULSE 74; RESP 18; O2SAT 97; BMI 26.8
== END 2023-12-24 13:47 | disposition home or self-care (01) ==
LOC: HO.PMCPRC 12:58
PROVIDERS: PCP Family Medicine; Visit Provider Anesthesiology
DX: M75.102 Unspecified rotator cuff tear or rupture of left shoulder, not specified as traumatic (principal); M25.512 Pain in left shoulder; G89.4 Chronic pain syndrome
CPT/HCPCS: 64418; 77002

== ENCOUNTER 2024-01-02 09:08 | Outpatient (AMB) | payer OTHER, SELFPAY ==
--- NOTE | 2024-01-02 09:15 | A.OFFVIS_ITS ---
Intake Vital Signs 01/02/24 09:20 Height 5 ft 5 in Weight 162 lb BMI 27.0 BP 138/72 Blood Pressure Location Lt brachial Position Sitting Respiration 16 Pulse 83 Pulse Source Pulse Oximeter Pulse Oximetry (%) 98 Oxygen Delivery Method Room Air Intake Visit Reasons: LEFT DIAGNOSTIC SUPRASCAPULAR NERVE BLOCK Intake Note: Patient comes in for post-op appointment. Allergies No Known Allergies Allergy (Verified 01/02/24 09:20) HPI HPI Comments History of Present Illness Details Mark bean is back in my office after diagnostic suprascapular nerve block on the left. He reports more than 50% pain improvement. He reports better night sleep. We discussed today possibility of treating his pain with sprint PNS. He reported to me that he is more interested in injections. He reported that his pain is getting little bit stronger but still remains within 5/10 number. I explained to him that the injection will be resulting in few weeks of pain relief while sprint PNS can be effective for 8-10 months. Mobility limitations explained to the patient. 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 I explained to him that as long as he keeps his shoulder square he does not have to worry about mobility limitations. He can flex his wrist he can not move his fingers he can flex his elbow and rotate the arm, however he can not lift the arm or avoid abduct the arm. Prior: to complain on severe pain in the left shoulder, level of pain 10/10 and inability to sleep. He is in the process of being scheduled for diagnostic left suprascapular injection with possibility of further treatment with sprint PNS. We unfortunately unable to plan the injection any time soon we are waiting for insurance company response. I offered him to help his pain with small dose tramadol medications but he is concerned about tramadol interactions with fluoxetine. Unlikely this small doses will result in serotonin syndrome however I understand his concerns. I offered him to sign opioid contract in submit UDS to become part of chronic opioid program however patient refused. He does not want to be on strong opioid medications. I offered him to help with night sleep to start him on tizanidine 2 mg t.i.d. out of which she can take 1 or 2 or even 3 pills at night if it is necessary for him to rest better at night. Patient agreed. Prior: very pleasant Albanian-speaking 73 years old gentleman who is referred to my office by primary care physician with complains on pain on posterior left shoulder in the projection of the left scapula. He was under care of Dr. Comer with suprascapular rotator cuff tear. He refused to go for surgery because of good functionality of the left upper extremity. However he reports significant pain in the shoulder, he reports that injections which Dr. Comer provided for him as intra articular steroid injections helped him only for 1 month. He had several images of the left shoulder joint - MRI demonstrated suprascapular rotator cuff tear. He never had physical therapy he denies chiropractic manipulations. He received intra-articular shoulder injections. [facility] Medical History Asthma Depression Hypertension Surgical History History of hernia surgery Social History Alcohol intake: never Patient Tobacco Use Status: Former Tobacco user Quit Date: quit 15 years ago Tobacco use type: Cigarette Current occupational status: disabled Current occupation: left and right handed Review of Systems Const All systems reviewed & are unremarkable except as noted in HPI and below Physical Exam Vital Signs: Last Vital Signs Pulse 83 01/02/24 09:20 Resp 16 01/02/24 09:20 BP 138/72 01/02/24 09:20 Pulse Ox 98 01/02/24 09:20 Oxygen Delivery Method Room Air 01/02/24 09:20 BMI result Body Mass Index 27.0 Const General: no acute distress, alert and awake Orientation/consciousness: patient oriented x3 HEENT Head: Yes normocephalic and Yes atraumatic Eyes EOM: EOMs intact bilaterally Resp Effort & Inspection: normal respiratory effort and able to speak in complete sentences Cardio Jugular venous distension: no JVD Skin General skin exam: turgor normal Rashes: no rashes Neuro General: patient oriented x3 Extrem Other: crepiutus with overhead left shoulder motion + h/n Psych Appearance: grossly normal Affect: normal affect Attitude: cooperative Assessment & Plan Assessment & Plan (1) Rotator cuff tear, left: Code(s): M75.102 - Unspecified rotator cuff tear or rupture of left shoulder, not spe cified as traumatic Plan: Good results of left suprascapular nerve block to prepare him for sprint PNS. I will schedule him for sprint PNS. Limitations of sprint PNS were explained to the patient. Mobility limitations and avoidance of getting the area of insertion with were explained to the patient. Patient agreed to go for the procedure. In the past Membership of opioid program was offered to the patient , he refused. (2) Left shoulder pain: Code(s): M25.512 - Pain in left shoulder Plan: (3) Chronic pain syndrome: Code(s): G89.4 - Chronic pain syndrome Plan: Patient Instructions: I here by testify that I spent 32 minutes in conversation with this patient as well as planning his care and organizing this note. Coding Level of Care Code Est Pt Level 4 (35137) Diagnoses Rotator cuff tear, left M75.102 Left shoulder pain M25.512 Chronic pain syndrome G89.4
[2024-01-02 09:20] VITALS: BP 138/72; PULSE 83; RESP 16; O2SAT 98; BMI 27.0
== END 2024-01-02 09:34 | disposition home or self-care (01) ==
PROVIDERS: PCP Family Medicine; Visit Provider Anesthesiology
DX: M75.102 Unspecified rotator cuff tear or rupture of left shoulder, not specified as traumatic (principal); M25.512 Pain in left shoulder; G89.4 Chronic pain syndrome
CPT/HCPCS: 99214

== ENCOUNTER → 2024-01-02 09:08 | Outpatient (BNVA) | payer OTHER, SELFPAY | PROVIDERS: PCP Family Medicine; Visit Provider Anesthesiology | DX: M75.102 Unspecified rotator cuff tear or rupture of left shoulder, not specified as traumatic (principal); M25.512 Pain in left shoulder; G89.4 Chronic pain syndrome | CPT/HCPCS: 99212 ==

== ENCOUNTER 2024-01-28 06:29 | Outpatient (REF) | payer OTHER, SELFPAY ==
--- NOTE | ~2024-01-28 | FL_ITS ---
EXAMINATION: XR FLUOROSCOPY WITH IMAGES CLINICAL INFORMATION: Left shoulder pain. COMPARISON: None available. TECHNIQUE: Fluoroscopy Supervised By: Dr. Otto Chapman. Fluoroscopy Time: 0.3 minutes. Cumulative Dose: 0.990 mGy. DAP: 0.0172 mGym2. Images: 1. FINDINGS: The submitted image shows a guidewire overlapping the left scapula. FL/FL guidance in treatment room IMPRESSION: Intraoperative fluoroscopic guidance is provided during left shoulder pain management procedure. Please see the patient's Operative Report for full procedural details.
== END 2024-01-28 06:30 | disposition home or self-care (01) ==
LOC: CF 06:29
PROVIDERS: Visit Provider Anesthesiology
DX: M25.512 Pain in left shoulder (principal); G89.4 Chronic pain syndrome
CPT/HCPCS: 64555; C1778

== ENCOUNTER 2024-01-28 10:04 | Outpatient (AMB) | payer OTHER, SELFPAY ==
[2024-01-28 10:25] VITALS: BP 142/90; PULSE 67; RESP 14; O2SAT 98; BMI 27.0
--- NOTE | 2024-01-28 10:25 | MHC.OFFVIS ---
Intake Vital Signs 01/28/24 10:25 01/28/24 11:15 Height 5 ft 5 in 5 ft 5 in Weight 162 lb 162 lb BMI 27.0 27.0 BP 142/90 H 138/86 Blood Pressure Location Lt brachial Lt brachial Position Sitting Sitting Respiration 14 14 Pulse 67 63 Pulse Source Pulse Oximeter Pulse Oximeter Pulse Oximetry (%) 98 99 Oxygen Delivery Method Room Air Room Air Comment pre-op post-op Intake Visit Reasons: LEFT SUPRASCAPULAR SPRINT PNS TRIAL Allergies No Known Allergies Allergy (Verified 01/28/24 11:16) PFSH Medical History Asthma Depression Hypertension Surgical History History of hernia surgery Social History Alcohol intake: never Patient Tobacco Use Status: Former Tobacco user Quit Date: quit 15 years ago Tobacco use type: Cigarette Current occupational status: disabled Current occupation: left and right handed Physical Exam Vital Signs: Last Vital Signs Pulse 63 01/28/24 11:15 Resp 14 01/28/24 11:15 BP 138/86 01/28/24 11:15 Pulse Ox 99 01/28/24 11:15 Oxygen Delivery Method Room Air 01/28/24 11:15 BMI result Body Mass Index 27.0 Office Procedures Details: Suprascapular nerve PNS left Sprint PNS Device: Sprint PNS Device [id number] Percutaneous Peripheral Neuroelectrode Procedure: 73439 - Percutaneous Peripheral Neuroelectrode Procedure code (CPT) selection complete Assessment & Plan Assessment & Plan (1) Left shoulder pain: Code(s): M25.512 - Pain in left shoulder Plan: Sprint PNS suprascapular nerve on the left. Percutaneous implantation of peripheral nerve stimulation Sprint system. After the risks, benefits and alternatives were discussed with the patient and informed consent was obtained, patient was placed in the prone position and padded to foster comfort. Time out was performed delineating correct site and side of the procedure , name and of the patient, patient participated in time out procedure. Sterily draped C-arm was brought over the operating field and clear picture of the picture of the left scapula was delineated on the screen. The the suprascapular notch on the silhouette of the scapula was chosen as a target of the needle tip insertion . After identifying and marking the intended target, the skin around the planned entry point and the subcutaneous tissues were injected with local anesthetic forming skin wheal.. A percutaneous sleeve and stimulating probe lead introduction system were assembled, inserted and advanced through the skin wheal to the point of interest under C-arm view in tunnel vision fashion, the introducer needle was delivered to a location in proximity to the nerve. Multiple stimulation parameters were used to deliver stimulation to the nerve in concert with stimulating at multiple positions around the nerve. nerve target acquisition was confirmed noting generation of in the corresponding to the nerve being stimulated. Various electrical parameter combinations were tested, and the lead location was adjusted (physically relocated) until the patient indicated overlapping the distribution of the patient?s typical region of pain. The stimulating probe was removed from the introducer and a percutaneous lead was guided through the needle and delivered to a location in similar proximity to the nerve. Final location was verified with electrical stimulation. The introducer needle was removed, and the exposed end of the percutaneous lead was attached to an external stimulator unit. At the end of the case various electrical parameter combinations were again tested until the patient indicated paresthesia or muscle tension overlapping the distribution of the patient?s typical region of pain. After confirming that lead impedance was in the normal range, the external unit was detached, the needle was removed, and the lead was anchored at the skin. The lead was threaded into the connector block and electrical continuity and desired patient response was confirmed. The connector block was attached to the external stimulator unit. The site was covered with a sterile occlusive dressing and a image was taken to document final placement. Upon completion of the procedure the patient was taken outside the OR where she recovered uneventfully he went home without immediate complications (2) Chronic pain syndrome: Code(s): G89.4 - Chronic pain syndrome Plan Orders: Orders FL guidance in treatment room Today M25.512 - Pain in left shoulder Coding Level of Care Code Procedure Only Diagnoses Left shoulder pain M25.512 Chronic pain syndrome G89.4 CPT Codes Sprint PNS - Sprint PNS Device: Sprint PNS Device ([id number]) Sprint PNS - SPRINT: 11971 - Percutaneous Peripheral Neuroelectrode ([id number])
[2024-01-28 11:15] VITALS: BP 138/86; PULSE 63; RESP 14; O2SAT 99; BMI 27.0
== END 2024-01-28 11:12 | disposition home or self-care (01) ==
LOC: HO.PMCPRC 10:04
PROVIDERS: PCP Family Medicine; Visit Provider Anesthesiology
DX: M25.512 Pain in left shoulder (principal); G89.4 Chronic pain syndrome
CPT/HCPCS: 64555

== ENCOUNTER 2024-02-03 10:17 | Outpatient (AMB) | payer OTHER, SELFPAY ==
--- NOTE | 2024-02-03 10:22 | A.OFFVIS_ITS ---
Intake Vital Signs 02/03/24 10:33 Height 5 ft 5 in Weight 162 lb BMI 27.0 BP 138/80 Blood Pressure Location Lt brachial Position Sitting Respiration 14 Pulse 66 Pulse Source Pulse Oximeter Pulse Oximetry (%) 100 Oxygen Delivery Method Room Air Intake Visit Reasons: Left Suprascapular Sprint PNS Intake Note: Patient comes in for s/p left Suprascapular Sprint PNS (01/28/2024). Reports pain 0/10. Allergies No Known Allergies Allergy (Verified 01/28/24 11:16) HPI HPI Comments History of Present Illness Details Mark bean is back in my office after trial of sprint PNS insertion on the left suprascapular notch. He reports absence of pain. He reports better mobility better activities of daily living better social interactions. On the background of great improvement of the left shoulder he reports that he feel more of the pain on the right shoulder. In 2021 he had x-ray of the right shoulder performed demonstrating arthritis and calcification of the glenohumeral joint. He is requesting for me to perform injection into glenohumeral joint on the right shoulder. I told him that we better do it after the completion of the trial of sprint PNS and removal of the of the electrode. He agreed to wait until this is completed. Prior: diagnostic suprascapular nerve block on the left >50% pain improvement. He reports better night sleep. Prior: to complain on severe pain in the left shoulder, level of pain 10/10 and inability to sleep. He is in the process of being scheduled for diagnostic left suprascapular injection with possibility of further treatment with sprint PNS. We unfortunately unable to plan the injection any time soon we are waiting for insurance company response. I offered him to help his pain with small dose tramadol medications but he is concerned about tramadol interactions with fluoxetine. Unlikely this small doses will result in serotonin syndrome however I understand his concerns. I offered him to sign opioid contract in submit UDS to become part of chronic opioid program however patient refused. He does not want to be on strong opioid medications. I offered him to help with night sleep to start him on tizanidine 2 mg t.i.d. out of which she can take 1 or 2 or even 3 pills at night if it is necessary for him to rest better at night. Patient agreed. Prior: very pleasant [place] Citizen-speaking 73 years old gentleman who is referred to my office by primary care physician with complains on pain on posterior left shoulder in the projection of the left scapula. He was under care of Dr. Amanda richard with suprascapular rotator cuff tear. He refused to go for surgery because of good functionality of the left upper extremity. However he reports significant pain in the shoulder, he reports that injections which Dr. Comer provided for him as intra articular steroid injections helped him only for 1 month. He had several images of the left shoulder joint - MRI demonstrated suprascapular rotator cuff tear. He never had physical therapy he denies chiropractic manipulations. He received intra-articular shoulder injections. [facility] Medical History Asthma Depression Hypertension Surgical History History of hernia surgery Social History Alcohol intake: never Patient Tobacco Use Status: Former Tobacco user Quit Date: quit 15 years ago Tobacco use type: Cigarette Current occupational status: disabled Current occupation: left and right handed Review of Systems Const All systems reviewed & are unremarkable except as noted in HPI and below Physical Exam Vital Signs: Last Vital Signs Pulse 66 02/03/24 10:33 Resp 14 02/03/24 10:33 BP 138/80 02/03/24 10:33 Pulse Ox 100 02/03/24 10:33 Oxygen Delivery Method Room Air 02/03/24 10:33 BMI result Body Mass Index 27.0 Const General: no acute distress, alert and awake Orientation/consciousness: patient oriented x3 HEENT Head: Yes normocephalic and Yes atraumatic Eyes EOM: EOMs intact bilaterally Resp Effort & Inspection: normal respiratory effort and able to speak in complete sentences Cardio Jugular venous distension: no JVD Skin General skin exam: turgor normal Rashes: no rashes Neuro General: patient oriented x3 Extrem Other: crepiutus with overhead left shoulder motion + h/n Psych Appearance: grossly normal Affect: normal affect Attitude: cooperative Results Reviewed Results Reviewed: XR SHOULDER, RIGHT 05/09/2022 TECHNIQUE: AP external rotation, Grashey, scapular Y, and axillary views of the right shoulder. FINDINGS: No acute fracture or dislocation. Small marginal osteophytes along the glenohumeral and acromioclavicular joints. Labral calcifications versus small osseous Bankart redemonstrated. Calcific rotator cuff tendinopathy redemonstrated. Assessment & Plan Assessment & Plan (1) Left shoulder pain: Code(s): M25.512 - Pain in left shoulder (2) Chronic pain syndrome: Code(s): G89.4 - Chronic pain syndrome (3) Right shoulder pain: Code(s): M25.511 - Pain in right shoulder (4) Degenerative arthritis of right shoulder region: Code(s): M19.011 - Primary osteoarthritis, right shoulder (5) Degenerative arthritis of left shoulder region: Code(s): M19.012 - Primary osteoarthritis, left shoulder Plan Continue trial sprint PNS. Right shoulder is hurting now more on background of significant alleviation of the pain on the left shoulder. Intra-articular right shoulder injection I preferred to do after we will remove electrodes from the left shoulder suprascapular notch position. Possibility of treatment of the pain with permanent placement of the wire in the suprascapular notch position was discussed with the patient today very briefly. The of the patient will be changing his dressing until the end of the trial. He will come to the office for the trial electrode removal. After that we will decide on the injection in the right shoulder. Patient Instructions: I here by testify that I spent 32 minutes in conversation with this patient as well as evaluating his prior records and images planning his care and organizing his note. Coding Level of Care Code Est Pt Level 4 (00507) Diagnoses Left shoulder pain M25.512 Chronic pain syndrome G89.4 Right shoulder pain M25.511 Degenerative arthritis of right shoulder region M19.011 Degenerative arthritis of left shoulder region M19.012
[2024-02-03 10:33] VITALS: BP 138/80; PULSE 66; RESP 14; O2SAT 100; BMI 27.0
== END 2024-02-03 10:37 | disposition home or self-care (01) ==
PROVIDERS: PCP Family Medicine; Visit Provider Anesthesiology
DX: M25.512 Pain in left shoulder (principal); G89.4 Chronic pain syndrome; M25.511 Pain in right shoulder; M19.011 Primary osteoarthritis, right shoulder; M19.012 Primary osteoarthritis, left shoulder
CPT/HCPCS: 99024

== ENCOUNTER → 2024-02-03 10:17 | Outpatient (BNVA) | payer OTHER, SELFPAY | PROVIDERS: PCP Family Medicine; Visit Provider Anesthesiology | DX: M25.512 Pain in left shoulder (principal); M25.511 Pain in right shoulder; M19.011 Primary osteoarthritis, right shoulder; M19.012 Primary osteoarthritis, left shoulder; G89.4 Chronic pain syndrome | CPT/HCPCS: 99212 ==

== ENCOUNTER 2024-03-23 09:58 | Outpatient (AMB) | payer OTHER, SELFPAY ==
--- NOTE | 2024-03-23 10:18 | A.OFFVIS_ITS ---
Vital Signs 03/23/24 10:35 Height 5 ft 5 in Weight 160 lb 2 oz BMI 26.6 BP 122/70 Blood Pressure Location Lt brachial Position Sitting Respiration 14 Pulse 74 Pulse Source Pulse Oximeter Pulse Oximetry (%) 97 Oxygen Delivery Method Room Air Intake Visit Reasons: LEFT SUPRASCAPULAR SPRINT PNS REMOVAL Intake Note: Patient comes in for Sprint PNS removal. Reports pain 0/10. Allergies No Known Allergies Allergy (Verified 03/23/24 10:37) HPI Comments Details: Mark bean is back in my office after trial of sprint PNS insertion on the left suprascapular notch. He reports absence of pain. He reports better mobility better activities of daily living better social interactions. On the background of great improvement of the left shoulder he reports that he feel more of the pain on the right shoulder. He also inquiring today about the results of his IMG as send him for. He is diagnosed with cubital as well as carpal tunnel. Both of them are on the left. I will schedule him for Dr. Burch hand surgeon appointment. The follow-up about left shoulder pain is discussed with the patient. The conversation was facilitated by special forces warrant officer Vee Lopez. She is certified air pumper. Prior: diagnostic suprascapular nerve block on the left >50% pain improvement. He reports better night sleep. Prior: to complain on severe pain in the left shoulder, level of pain 10/10 and inability to sleep. He is in the process of being scheduled for diagnostic left suprascapular injection with possibility of further treatment with sprint PNS. We unfortunately unable to plan the injection any time soon we are waiting for insurance company response. I offered him to help his pain with small dose tramadol medications but he is concerned about tramadol interactions with fluoxetine. Unlikely this small doses will result in serotonin syndrome however I understand his concerns. I offered him to sign opioid contract in submit UDS to become part of chronic opioid program however patient refused. He does not want to be on strong opioid medications. I offered him to help with night sleep to start him on tizanidine 2 mg t.i.d. out of which she can take 1 or 2 or even 3 pills at night if it is necessary for him to rest better at night. Patient agreed. Prior: very pleasant [place]-speaking 73 years old gentleman who is referred to my office by primary care physician with complains on pain on posterior left shoulder in the projection of the left scapula. He was under care of Dr. Comer with suprascapular rotator cuff tear. He refused to go for surgery because of good functionality of the left upper extremity. However he reports significant pain in the shoulder, he reports that injections which Dr. Comer provided for him as intra articular steroid injections helped him only for 1 month. He had several images of the left shoulder joint - MRI demonstrated suprascapular rotator cuff tear. He never had physical therapy he denies chiropractic manipulations. He received intra-articular shoulder injections. [facility] Medical History Asthma Depression Hypertension Surgical History History of hernia surgery Social History Alcohol intake: never Patient Tobacco Use Status: Former Tobacco user Quit Date: quit 15 years ago Tobacco use type: Cigarette Current occupational status: disabled Current occupation: left and right handed Review of Systems Const All systems reviewed & are unremarkable except as noted in HPI and below Physical Exam Vital Signs: Last Vital Signs Pulse 74 03/23/24 10:35 Resp 14 03/23/24 10:35 BP 122/70 03/23/24 10:35 Pulse Ox 97 03/23/24 10:35 Oxygen Delivery Method Room Air 03/23/24 10:35 BMI result Body Mass Index 26.6 Const General: no acute distress, alert and awake Orientation/consciousness: patient oriented x3 HEENT Head: Yes normocephalic and Yes atraumatic Eyes EOM: EOMs intact bilaterally Resp Effort & Inspection: normal respiratory effort and able to speak in complete sentences Cardio Jugular venous distension: no JVD Skin General skin exam: turgor normal Rashes: no rashes Neuro General: patient oriented x3 Extrem Other: crepiutus with overhead left shoulder motion + h/n Psych Appearance: grossly normal Affect: normal affect Attitude: cooperative Assessment & Plan Assessment & Plan (1) Left shoulder pain: Code(s): M25.512 - Pain in left shoulder Category: Medical (2) Chronic pain syndrome: Code(s): G89.4 - Chronic pain syndrome Category: Medical (3) Right shoulder pain: Code(s): M25.511 - Pain in right shoulder Category: Medical (4) Degenerative arthritis of right shoulder region: Code(s): M19.011 - Primary osteoarthritis, right shoulder Category: Medical (5) Degenerative arthritis of left shoulder region: Code(s): M19.012 - Primary osteoarthritis, left shoulder Category: Medical (6) Carpal tunnel syndrome of left wrist: Code(s): G56.02 - Carpal tunnel syndrome, left upper limb Category: Medical (7) Cubital tunnel syndrome on left: Code(s): G56.22 - Lesion of ulnar nerve, left upper limb Category: Medical Plan Sprint PNS trials are completed. The patient is doing very well with shoulder pain. He was diagnosed with left carpal tunnel and cubital tunnel by EMG with Dr. Denton. I will send him to Dr. Burch for evaluation for possible treatment, possible surgery. Right steroid shoulder injection resulted in good pain relief. The patient will be seen as needed, if pain will come back in 4 months from now we can repeat sprint PNS for the patient. Orders: Referrals Hand Surgery Referral G56.02 - Carpal tunnel syndrome, left upper limb, G56.22 - Lesion of ulnar nerve, left upper limb Patient Instructions: I here by testify that I spent 30 minutes in conversation with this patient as well as planning his care and organizing this note. Coding Level of Care Code Est Pt Level 4 (58730) Diagnoses Left shoulder pain M25.512 Chronic pain syndrome G89.4 Right shoulder pain M25.511 Degenerative arthritis of right shoulder region M19.011 Degenerative arthritis of left shoulder region M19.012 Carpal tunnel syndrome of left wrist G56.02 Cubital tunnel syndrome on left G56.22
[2024-03-23 10:35] VITALS: BP 122/70; PULSE 74; RESP 14; O2SAT 97; BMI 26.6
== END 2024-03-23 10:32 | disposition home or self-care (01) ==
PROVIDERS: PCP Family Medicine; Visit Provider Anesthesiology
DX: M25.512 Pain in left shoulder (principal); G89.4 Chronic pain syndrome; M25.511 Pain in right shoulder; M19.011 Primary osteoarthritis, right shoulder; M19.012 Primary osteoarthritis, left shoulder; G56.02 Carpal tunnel syndrome, left upper limb; G56.22 Lesion of ulnar nerve, left upper limb
CPT/HCPCS: 99214

== ENCOUNTER → 2024-03-23 09:58 | Outpatient (BNVA) | payer OTHER, SELFPAY | PROVIDERS: PCP Family Medicine; Visit Provider Anesthesiology | DX: M25.512 Pain in left shoulder (principal); M25.511 Pain in right shoulder; M19.011 Primary osteoarthritis, right shoulder; M19.012 Primary osteoarthritis, left shoulder; G56.02 Carpal tunnel syndrome, left upper limb; G56.22 Lesion of ulnar nerve, left upper limb; G89.4 Chronic pain syndrome | CPT/HCPCS: 99212 ==

== ENCOUNTER 2024-04-14 08:18 | Outpatient (REF) | payer OTHER, SELFPAY ==
[2024-04-14 11:46] LABS: MANUAL DIFF FLAG NO
[2024-04-14 11:48] LABS: Basophils Absolute Auto 0.1 X10*3/uL (0.0-0.2); Basophils Percent Auto 0.8 % (0-2); Eosinophils Absolute Auto 0.5 X10*3/uL (0.0-0.4); Hematocrit 43.4 % (42.0-52.0); Hemoglobin 14.1 g/dl (14.0-18.0); Imm Gran Abs Auto 0.03 X10*3/uL (0.00-0.03); Imm Gran Pct Auto 0.4 % (0.0-0.4); Lymphocytes Absolute Auto 1.6 X10*3/uL (1.2-4.9); Lymphocytes Percent Auto 20.3 % (20-40); Mean Corpuscular HGB Conc 32.5 g/dl (31.0-36.0); Mean Corpuscular Hemoglobin 30.7 pg (27.0-33.0); Mean Corpuscular Volume 94.3 fL (80.0-98.0); Mean Platelet Volume 10.6 fL (9.4-12.4); Monocytes Percent Auto 12.3 % (2-11); Neutrophils Absolute Auto 4.6 x10*3/uL (2.0-8.3); Neutrophils Percent Auto 59.2 % (45-73); Platelet Count 204 X10*3/uL (160-400); Red Cell Distribution Width 14.1 % (11.0-16.0); White Blood Count 7.7 X10*3/uL (4.8-10.8)
[2024-04-14 12:02] LABS: Estimated Average Glucose 117 mg/dL; Hemoglobin A1c % 5.7 % (<6.0)
[2024-04-14 12:55] LABS: Alanine Aminotransferase 17 U/L (0-40); Albumin Level 3.9 g/dL (3.5-5.0); Alkaline Phosphatase 68 U/L (39-117); Anion Gap 10 (12-20); Aspartate Amino Transferase 21 U/L (5-37); Bilirubin Total 0.3 mg/dL (0.0-1.0); Blood Urea Nitrogen 15 mg/dL (9-16); Calcium 9.3 mg/dL (8.4-10.2); Carbon Dioxide 27 mmol/L (22-29); Chloride 107 mmol/L (96-108); Cholesterol 174 mg/dL (<200); Estimated Glomerular Filt Rate > 60; Glucose Random 95 mg/dL (60-115); HDL Cholesterol 41 mg/dL (>40); LDL Cholesterol Calculated 106 mg/dL (<100); Potassium 4.2 mmol/L (3.3-5.1); Sodium 140 mmol/L (135-145); Total Protein 7.2 g/dL (6.5-8.0); Triglycerides 135 mg/dL (<150)
[2024-04-14 13:00] LABS: TSH reflex Free T4 1.86 uIU/mL (0.32-4.0); Vitamin D 25-OH Total 33.3 ng/mL (>30)
[2024-04-14 13:08] LABS: Folate 12.5 ng/mL (> or = 4.0); Vitamin B12 299 pg/mL (200-900)
[2024-04-14 14:22] LABS: Reflex LDLD? No
== END 2024-04-14 08:19 | disposition home or self-care (01) ==
LOC: HO.HHCL 08:18
PROVIDERS: Visit Provider Family Medicine
DX: I10 Essential (primary) hypertension (principal); E78.5 Hyperlipidemia, unspecified; E53.8 Deficiency of other specified B group vitamins; E55.9 Vitamin D deficiency, unspecified
CPT/HCPCS: 36415; 80053; 80061; 82306; 82607; 82746; 83036; 84443; 85025

== ENCOUNTER 2024-09-24 13:54 | Outpatient (REF) | payer OTHER, SELFPAY ==
[2024-09-25 08:27] LABS: ~HepC Num1 0.39 S/CO (0.00-0.79); ~Hepatitis C Antibody Nonreactive (Nonreactive)
== END 2024-09-24 13:55 | disposition home or self-care (01) ==
LOC: HO.HHCL 13:54
PROVIDERS: Visit Provider Nurse Practitioner
DX: Z13.9 Encounter for screening, unspecified (principal)
CPT/HCPCS: 36415; 86803

== ENCOUNTER 2024-09-29 13:40 | Outpatient (REF) | payer OTHER, SELFPAY ==
--- NOTE | ~2024-09-29 | XR_ITS ---
EXAMINATION: XR CHEST CLINICAL INFORMATION: chonic cough after covid 3 weeks ago COMPARISON: 07/22/2023 TECHNIQUE: 2 views of the chest were obtained. FINDINGS: No significant abnormality is noted involving the heart, lungs, mediastinum, or soft tissues. Thoracic spine degenerative changes. XR/XR chest 2V IMPRESSION: No acute cardiopulmonary disease or interval change. Electronically signed by: Leonor Christianson MD 09/29/2024 04:27 PM [facility]
== END 2024-09-29 13:41 | disposition home or self-care (01) ==
LOC: HO.HHCX 13:40
PROVIDERS: Visit Provider Family Medicine
DX: U07.1 COVID-19 (principal); R05.9 Cough, unspecified
CPT/HCPCS: 71046

== ENCOUNTER 2024-10-26 12:47 | Emergency (ER) | payer OTHER, SELFPAY ==
--- NOTE | ~2024-10-26 | CT_ITS ---
EXAMINATION: CT ANGIOGRAM CHEST CLINICAL INFORMATION: EXAMINATION: CT ANGIOGRAM OF THE CHEST WITH AND WITHOUT CONTRAST (CT PULMONARY ANGIOGRAM FOR PE) CLINICAL INFORMATION: SOB COMPARISON: X-ray chest 10/26/2024 TECHNIQUE: Prior to contrast administration, noncontrast localization images were obtained. Subsequently, multidetector volumetric imaging was performed from the thoracic inlet to below the diaphragms following the administration of 65 mL Omnipaque 350 intravenous contrast. No contrast reaction reported Sagittal, coronal, and MIP oblique sagittal reformatted images were obtained on the CT workstation, uploaded to PACS, and reviewed. This CT examination was performed using dose optimization techniques as appropriate, variously including the following: *Automated exposure control *Adjustment of mA and/or kV according to patient size (this includes techniques or standardized protocols for targeted exams where dose is matched to indication/reason for exam; i.e. extremities or head) *Use of iterative reconstruction technique Total exam dose-length product of 40 mGy-cm FINDINGS: QUALITY OF STUDY/CONTRAST BOLUS: Satisfactory. PULMONARY ARTERIES: No evidence of filling defects in the central, lobar and segmental vessels to suggest pulmonary embolism. THORACIC AORTA: No aneurysm. LUNG: Mild dependent changes in the posterior aspect of the right lower lung. 5 mm nodule adjacent to the left fissure (7:2 28). Trachea and central airway are patent. PLEURA: No pleural effusion or pneumothorax. MEDIASTINUM: Normal heart size. No pericardial effusion. No hilar or mediastinal lymphadenopathy. No evidence of septal bowing or right heart strain. CORONARY ARTERY CALCIFICATION: None visualized on this study. CHEST WALL/AXILLA: No axillary or internal mammary lymphadenopathy. OSSEOUS STRUCTURES: No acute or suspicious osseous abnormality. Degeneration in the spine. UPPER ABDOMEN: Right renal cyst, partially imaged. No reflux of contrast into the hepatic veins to suggest elevated right heart pressures. CT/CT angio chest PE protocol IMPRESSION: No evidence of filling defects to suggest central or segmental pulmonary emboli. Left lower lobe 5 mm nodule. According to the UPDATED 2017 Fleischner Society recommendations, the advised follow-up imaging for solid nodules < 6 mm is: LOW RISK PATIENT: No routine follow-up. HIGH RISK PATIENT: Optional CT at 12 months. VTE: negative Fleischner guidelines were followed. Electronically signed by: Jd Alanis MD 10/26/2024 06:13 OSCAR PERLA RP
--- NOTE | ~2024-10-26 | XR_ITS ---
EXAMINATION: XR CHEST CLINICAL INFORMATION: SOB COMPARISON: 11/21/2023, 07/22/2023, 01/31/2023. TECHNIQUE: 2 views of the chest were obtained. FINDINGS: The cardiac, hilar, and mediastinal contours are normal. The lungs are mildly hyperaerated, however clear bilaterally. There is no pneumothorax or pleural effusion. There is no focal osseous or soft tissue abnormality. XR/XR chest 2V IMPRESSION: No active pulmonary disease. Electronically signed by: Familia Fraga MD 10/26/2024 02:26 PM [facility]
[2024-10-26 13:13] VITALS: BP 126/78; PULSE 74; RESP 18; TEMP 36.9; O2SAT 98; BMI 26.1
--- NOTE | 2024-10-26 13:13 | ED_ITS ---
HPI - SOB/Dyspnea General Chief Complaint: Dyspnea Stated Complaint: asthma Time Seen by Provider: 10/26/24 15:56 History of Present Illness ED Provider: Dr. Carias HPI Narrative: 73 y/o M patient presents from home reporting two months of shortness of breath that is worse at night. He reports associated non-productive cough. He has been using Albuterol inhalers without significant relief of symptoms. He otherwise denies: fever or chills, nausea/vomiting, abdominal pain. Patient did smoke when he was much younger, but is not a current smoker. Related Data Home Medications ?Medication ?Instructions ?Recorded ?Confirmed cholecalciferol (vitamin D3) 25 25 mcg PO DAILY 05/08/21 mcg (1,000 unit) capsule clonazepam 2 mg tablet 2 mg PO BEDTIME 05/08/21 cyanocobalamin (vitamin B-12) 1,000 mcg PO DAILY 05/08/21 1,000 mcg tablet cyanocobalamin (vitamin B-12) 1,000 mcg IM 05/08/21 1,000 mcg/mL injection solution fluoxetine 20 mg capsule 20 mg PO DAILY 05/08/21 fluticasone propionate 220 1 puff PO BID 05/08/21 mcg/actuation HFA aerosol inhaler loratadine 10 mg tablet 10 mg PO DAILY 05/08/21 omeprazole 20 mg capsule,delayed 20 mg PO DAILY PRN 05/08/21 release mirtazapine 15 mg tablet 15 mg PO BEDTIME 08/03/21 Previous Rx's ?Medication ?Instructions ?Recorded hydrocortisone 2.5 % topical cream 1 appl [place] BID-QID PRN hemorrhoids 04/13/22 with perineal applicator #30 grams (Proctosol HC) albuterol sulfate 2.5 mg/0.5 mL 5 mg inhalation Q4H PRN shortness 01/31/23 solution for nebulization of breath or wheezing #30 ea albuterol sulfate 90 mcg/actuation 2 inh inhalation Q4-6H PRN 07/22/23 breath activated powder inhaler shortness of breath or wheezing #1 ea erythromycin 5 mg/gram (0.5 %) eye 1 appl ophthalmic (eye) TID 5 days 07/22/23 ointment #3.5 grams lidocaine 5 % topical patch 1 patch topical DAILY #15 ea 12/02/23 naproxen 500 mg tablet 500 mg PO BID PRN pain #20 tabs 12/02/23 tizanidine 2 mg tablet 2 mg PO TID PRN muscle spasticity 06/12/24 30 days #90 tabs Allergies Allergy/AdvReac Type Severity Reaction Status Date / Time No Known Allergies Allergy Verified 10/26/24 13:14 Review of Systems 2 Review of Systems: Yes all other systems are reviewed and are negative PMFSH Past Medical History Attestation statement: The following information was validated with the patient. Source: old records reviewed Medical History Asthma Depression Hypertension Surgical History History of hernia surgery Social History Social History Alcohol intake: never Patient Tobacco Use Status: Former Tobacco user Tobacco use type: Cigarette Smoked in Last 30 Days: No Use of substances other than those prescribed or required for medical reasons: No Advance Directives: No Advance Directives Information Provided: No Do you have a plan to hurt others: No Plan Current occupational status: disabled Current occupation: left and right handed Physical Exam 2 Vital Signs: Vital Signs: Last Vital Signs Temp 98.3 F 10/26/24 17:49 Pulse 68 10/26/24 17:49 Resp 16 10/26/24 17:49 BP 139/83 10/26/24 17:49 Pulse Ox 97 10/26/24 17:49 O2 Del Method Room Air 10/26/24 17:49 BMI result Body Mass Index 26.1 Patient is afebrile and hemodynamically stable. Const: General: cooperative HEENT: Head: Yes normal to inspection and Yes atraumatic Eyes: General: appearance normal, both eyes and all related structures Neck: Neck: Yes normal visual inspection, Yes full ROM, Yes supple and No tender Chest: Chest palpation & inspection: normal inspection of the chest and normal palpation of entire chest wall Resp: Effort & Inspection: normal respiratory effort, able to speak in complete sentences, no cough and no respiratory distress Auscultation: clear to auscultation bilaterally Cardio: Rate: regular rate Rhythm: regular rhythm Peripheral pulses: P eripheral pulses 2+ throughout GI: Inspection: Yes normal to inspection, No Abdominal wall edema and No distended Palpation (GI): Soft to palpation, not firm, nontender, no guarding and not rigid Auscultation: normal bowel sounds Back/Spine/Pelvis: Back: No back tenderness Course Course Course Narrative: This is an RME: Additional HPI, ROS, PE not included below will be deferred to primary provider. RME assessment and note performed by: Liz Richards PA-C This is a [id number]-male who presents to the ER with complaints of SOB x 2 months. Reports worsens at night. No CP. Reporting productive cough. Plan: Labs, EKG, CXR, viral swabs Reevaluation(s) Reevaluation #1: Patient is afebrile and hemodynamically stable. Reviewed work up ordered in triage. Labs reviewed. No leukocytosis. Troponin negative. BNP negative. COVID/Flu/RSV negative. CXR unremarkable. CTA Chest with 5mm LLL nodule, otherwise unremarkable. Plan: Discharge to home with PCP and Pulmonology follow up Return precautions given Medications Administered Discontinued Medications Generic Name Dose Route Start Last Admin Trade Name Freq PRN Reason Stop Dose Admin Iohexol 65 ml 10/26/24 16:34 10/26/24 16:34 Iohexol 350 Mg/Ml 100 Ml Infus..Btl IV 10/26/24 16:35 65 ml ONCE ONE Administration Medical Decision Making Lab Data 10/26/24 13:43 10/26/24 13:43 Labs: Lab Results 10/26/24 10/26/24 Range/Units 13:43 16:23 WBC 6.4 (4.8-10.8) X10*3/uL RBC 4.60 (4.60-5.80) X10*6/uL Hgb 13.9 L (14.0-18.0) g/dl Hct 42.8 (42.0-52.0) % MCV 93.0 (80.0-98.0) fL MCH 30.2 (27.0-33.0) pg MCHC 32.5 (31.0-36.0) g/dl RDW 13.9 (11.0-16.0) % Plt Count 224 (160-400) X10*3/uL MPV 10.0 (9.4-12.4) fL Immature Gran % (Auto) 0.3 (0.0-0.4) % Neut % (Auto) 63.9 (45-73) % Lymph % (Auto) 20.6 (20-40) % [place] % (Auto) 8.3 (2-11) % Eos % (Auto) 6.0 H (0-4) % Baso % (Auto) 0.9 (0-2) % Lymph # (Auto) 1.3 (1.2-4.9) X10*3/uL [place] # (Auto) 0.5 (0.1-1.2) X10*3/uL Eos # (Auto) 0.4 (0.0-0.4) X10*3/uL Baso # (Auto) 0.1 (0.0-0.2) X10*3/uL Abs Immat Gran (auto) 0.02 (0.00-0.03) X10*3/uL Absolute Neuts (auto) 4.1 (2.0-8.3) x10*3/uL Absolute Nucleated RBC 0.000 (0.0-0.012) X10*3/uL Nucleated RBC % (auto) 0.0 (0.0-0.2) /100WBC D-Dimer High Sensitivty 307 NG/ML Sodium 142 (135-145) mmol/L Potassium 3.9 (3.3-5.1) mmol/L Chloride 109 H (96-108) mmol/L Carbon Dioxide 27 (22-29) mmol/L Anion Gap 10 L (12-20) BUN 20 H (9-16) mg/dL Creatinine 0.87 (0.5-1.4) mg/dL Estim Creat Clear Calc 67.7 Estimated GFR > 60 Random Glucose 118 H (60-115) mg/dL Calcium 8.6 D (8.4-10.2) mg/dL Magnesium 2.2 (1.6-2.6) mg/dL Total Bilirubin 0.3 (0.0-1.0) mg/dL Direct Bilirubin 0.1 (0.0-0.5) mg/dL AST 31 (5-37) U/L ALT 26 (0-40) U/L Alkaline Phosphatase 73 (39-117) U/L Troponin I High Sens < 2.7 (<3.5-35.0) ng/L B-Natriuretic Peptide 13 (<100) pg/mL Total Protein 7.3 (6.5-8.0) g/dL Albumin 4.0 (3.5-5.0) g/dL Influenza Type A (PCR) NEGATIVE (Negative) Influenza Type B (PCR) NEGATIVE (Negative) RSV RNA Qual (PCR) NEGATIVE (Negative) SARS-CoV-2 RNA (RT-PCR) NEGATIVE (Negative) Independent Interpretation I performed an independent interpretation of an: EKG Interpretation: NSR 71BPM without ischemic changes, normal intervals. Radiology Impression Discussion of test interpretation with radiology: I have reviewed the radiologist's reading. Radiologist Impression: EXAMINATION: XR CHEST CLINICAL INFORMATION: SOB COMPARISON: 11/21/2023, 07/22/2023, 01/31/2023. TECHNIQUE: 2 views of the chest were obtained. FINDINGS: The cardiac, hilar, and mediastinal contours are normal. The lungs are mildly hyperaerated, however clear bilaterally. There is no pneumothorax or pleural effusion. There is no focal osseous or soft tissue abnormality. XR/XR chest 2V IMPRESSION: No active pulmonary disease. Electronically signed by: Familia Fraga MD 10/26/2024 02:26 PM [facility] EXAMINATION: CT ANGIOGRAM CHEST CLINICAL INFORMATION: EXAMINATION: CT ANGIOGRAM OF THE CHEST WITH AND WITHOUT CONTRAST (CT PULMONARY ANGIOGRAM FOR PE) CLINICAL INFORMATION: SOB COMPARISON: X-ray chest 10/26/2024 TECHNIQUE: Prior to contrast administration, noncontrast localization images were obtained. Subsequently, multidetector volumetric imaging was performed from the thoracic inlet to below the diaphragms following the administration of 65 mL Omnipaque 350 intravenous contrast. No contrast reaction reported Sagittal, coronal, and MIP oblique sagittal reformatted images were obtained on the CT workstation, uploaded to PACS, and reviewed. This CT examination was performed using dose optimization techniques as appropriate, variously including the following: *Automated exposure control *Adjustment of mA and/or kV according to patient size (this includes techniques or standardized protocols for targeted exams where dose is matched to indication/reason for exam; i.e. extremities or head) *Use of iterative reconstruction technique Total exam dose-length product of 40 mGy-cm FINDINGS: QUALITY OF STUDY/CONTRAST BOLUS: Satisfactory. PULMONARY ARTERIES: No evidence of filling defects in the central, lobar and segmental vessels to suggest pulmonary embolism. THORACIC AORTA: No aneurysm. LUNG: Mild dependent changes in the posterior aspect of the right lower lung. 5 mm nodule adjacent to the left fissure (7:2 28). Trachea and central airway are patent. PLEURA: No pleural effusion or pneumothorax. MEDIASTINUM: Normal heart size. No pericardial effusion. No hilar or mediastinal lymphadenopathy. No evidence of septal bowing or right heart strain. CORONARY ARTERY CALCIFICATION: None visualized on this study. CHEST WALL/AXILLA: No axillary or internal mammary lymphadenopathy. OSSEOUS STRUCTURES: No acute or suspicious osseous abnormality. Degeneration in the spine. UPPER ABDOMEN: Right renal cyst, partially imaged. No reflux of contrast into the hepatic veins to suggest elevated right heart pressures. CT/CT angio chest PE protocol IMPRESSION: No evidence of filling defects to suggest central or segmental pulmonary emboli. Left lower lobe 5 mm nodule. According to the UPDATED 2017 Fleischner Society recommendations, the advised follow-up imaging for solid nodules < 6 mm is: LOW RISK PATIENT: No routine follow-up. HIGH RISK PATIENT: Optional CT at 12 months. VTE: negative Fleischner guidelines were followed. Electronically signed by: Jd Alanis MD 10/26/2024 06:13 PM [facility] Discharge Plan Discharge Clinical Impression: Chronic dyspnea Patient Disposition: Home, Self-Care Instructions: Dyspnea (ED) Additional Instructions: You were seen for shortness of breath. Your work up in the emergency department was reassuring. Your CT scan showed a small 5mm nodule on the lower left side - make sure you have a repeat CT scan in 1 year time. Call to follow up with the business quality assurance analyst within the next 1 - 2 weeks. Return to the emergency department for: Difficulty breathing Chest pain Passing out Prescriptions: No Action tizanidine 2 mg tablet 2 mg PO TID PRN (Reason: muscle spasticity) 30 Days Qty: 90 2RF Rx Instructions: may take 1 pill QHS, 1&1/2 pills QHS or even 2 pills QHS to improve night sleep. albuterol sulfate 2.5 mg/0.5 mL solution for nebulization 5 mg inhalation Q4H PRN (Reason: shortness of breath or wheezing) Qty: 30 0RF naproxen 500 mg tablet 500 mg PO BID PRN (Reason: pain) Qty: 20 0RF lidocaine 5 % adhesive patch,medicated 1 patch topical DAILY Qty: 15 0RF Rx Instructions: leave on most painful area for up to 12 hrs erythromycin 5 mg/gram (0.5 %) ointment 1 appl ophthalmic (eye) TID 5 Days Qty: 3.5 0RF albuterol sulfate 90 mcg/actuation aerosol powdr breath activated 2 inh inhalation Q4-6H PRN (Reason: shortness of breath or wheezing) Qty: 1 0RF cyanocobalamin (vitamin B-12) 1,000 mcg/mL solution 1,000 mcg IM clonazepam 2 mg tablet 2 mg PO BEDTIME fluoxetine 20 mg capsule 20 mg PO DAILY fluticasone propionate 220 mcg/actuation HFA aerosol inhaler 1 puff PO BID loratadine 10 mg tablet 10 mg PO DAILY cyanocobalamin (vitamin B-12) 1,000 mcg tablet 1,000 mcg PO DAILY omeprazole 20 mg capsule,delayed release(DR/EC) 20 mg PO DAILY PRN cholecalciferol (vitamin D3) 25 mcg (1,000 unit) capsule 25 mcg PO DAILY mirtazapine 15 mg tablet 15 mg PO BEDTIME hydrocortisone [Proctosol HC] 2.5 % cream with perineal applicator 1 appl [place] BID-QID PRN (Reason: hemorrhoids) Qty: 30 3RF Referrals: [facility] [Provider Group] - 1 week Print Language: [place]
[2024-10-26 13:49] LABS: MANUAL DIFF FLAG NO
[2024-10-26 13:53] LABS: Basophils Absolute Auto 0.1 X10*3/uL (0.0-0.2); Basophils Percent Auto 0.9 % (0-2); Eosinophils Absolute Auto 0.4 X10*3/uL (0.0-0.4); Hematocrit 42.8 % (42.0-52.0); Hemoglobin 13.9 g/dl (14.0-18.0); Imm Gran Abs Auto 0.02 X10*3/uL (0.00-0.03); Imm Gran Pct Auto 0.3 % (0.0-0.4); Lymphocytes Absolute Auto 1.3 X10*3/uL (1.2-4.9); Lymphocytes Percent Auto 20.6 % (20-40); Mean Corpuscular HGB Conc 32.5 g/dl (31.0-36.0); Mean Corpuscular Hemoglobin 30.2 pg (27.0-33.0); Monocytes Absolute Auto 0.5 X10*3/uL (0.1-1.2); Monocytes Percent Auto 8.3 % (2-11); Neutrophils Absolute Auto 4.1 x10*3/uL (2.0-8.3); Neutrophils Percent Auto 63.9 % (45-73); Platelet Count 224 X10*3/uL (160-400); Red Cell Distribution Width 13.9 % (11.0-16.0); White Blood Count 6.4 X10*3/uL (4.8-10.8)
[2024-10-26 14:08] LABS: Alanine Aminotransferase 26 U/L (0-40); Alkaline Phosphatase 73 U/L (39-117); Anion Gap 10 (12-20); Aspartate Amino Transferase 31 U/L (5-37); Bilirubin Direct 0.1 mg/dL (0.0-0.5); Bilirubin Total 0.3 mg/dL (0.0-1.0); Blood Urea Nitrogen 20 mg/dL (9-16); Calcium 8.6 mg/dL (8.4-10.2); Carbon Dioxide 27 mmol/L (22-29); Chloride 109 mmol/L (96-108); Creatinine Clr Calc Pharmacy 67.7; Estimated Glomerular Filt Rate > 60; Glucose Random 118 mg/dL (60-115); Magnesium 2.2 mg/dL (1.6-2.6); Potassium 3.9 mmol/L (3.3-5.1); Sodium 142 mmol/L (135-145); Total Protein 7.3 g/dL (6.5-8.0)
[2024-10-26 14:12] LABS: B Type Natriuretic Peptide 13 pg/mL (<100)
[2024-10-26 14:17] LABS: Troponin-I High Sensitivity < 2.7 ng/L (<3.5-35.0)
[2024-10-26 14:28] LABS: Influenza A PCR NEGATIVE (Negative); Influenza B PCR NEGATIVE (Negative); Resp Syncy Virus RNA Qual PCR NEGATIVE (Negative); SARS COV2 PCR INHOUSE NEGATIVE (Negative)
--- NOTE | 2024-10-26 16:05 | ECG_ITS ---
Test Reason : SOB Blood Pressure : / mmHG Vent. Rate : 071 BPM Atrial Rate : 071 BPM P-R Int : 146 ms QRS Dur : 082 ms QT Int : 424 ms P-R-T Axes : 067 004 066 degrees QTc Int : 460 ms Sinus rhythm with marked sinus arrhythmia Otherwise normal ECG When compared with ECG of 31-JAN-2023 13:23, No significant change was found Referred By: Aliya Carias Electronically Signed By:RYAN LAM
[2024-10-26] MEDS: iohexoL 350 MG/ML 100 ML INFUS..BTL 65 ML IV (16:34)
[2024-10-26 16:36] LABS: D Dimer High Sensitivity 307 NG/ML
[2024-10-26 17:49] VITALS: BP 139/83; PULSE 68; RESP 16; TEMP 36.8; O2SAT 97
[2024-10-26 18:56] VITALS: BP 130/70; PULSE 80; RESP 14; TEMP 36.8; O2SAT 98
== END 2024-10-26 18:58 | disposition home or self-care (01) ==
PROVIDERS: Physician Assistant Medical; Emergency Provider Emergency Medicine; PCP Family Medicine
DX: R06.02 Shortness of breath (principal); J45.909 Unspecified asthma, uncomplicated; R05.9 Cough, unspecified; I49.8 Other specified cardiac arrhythmias; Z79.899 Other long term (current) drug therapy; Z03.818 Encounter for observation for suspected exposure to other biological agents ruled out
CPT/HCPCS: 0241U; 36415; 71046; 71275; 80048; 80076; 83735; 83880; 84484; 85025; 85379; 93005; 99284; Q9967

== ENCOUNTER → 2024-10-26 13:21 | Outpatient (BNV) | payer OTHER, SELFPAY | PROVIDERS: PCP Family Medicine; Visit Provider Radiology Diagnostic Radiology | DX: R06.02 Shortness of breath (principal) | CPT/HCPCS: 71046 ==

== ENCOUNTER → 2024-10-26 16:05 | Outpatient (BNV) | payer OTHER, SELFPAY | PROVIDERS: Emergency Provider Emergency Medicine; PCP Family Medicine; Visit Provider Internal Medicine | DX: R06.02 Shortness of breath (principal) | CPT/HCPCS: 93010 ==

== ENCOUNTER 2024-11-15 18:21 | Emergency (ER) | payer OTHER, SELFPAY ==
--- NOTE | ~2024-11-15 | XR_ITS ---
CLINICAL HISTORY: pneumonia EXAM: One view chest x-ray COMPARISON: CT/SR - CT ANGIO CHEST PE PROTOCOL - 10/26/24 16:26 EST FINDINGS: Normal cardiac, mediastinal, and hilar contours. Normal heart size. No pleural effusion or pneumothorax. Lungs are clear. No acute bone finding. IMPRESSION: 1. No acute cardiopulmonary process demonstrated. This document has been electronically signed by: Buddy Kuhn MD on 11/15/2024 19:37:05
--- NOTE | 2024-11-15 18:25 | ECG_ITS ---
Test Reason : CHEST PAIN Blood Pressure : / mmHG Vent. Rate : 076 BPM Atrial Rate : 076 BPM P-R Int : 134 ms QRS Dur : 072 ms QT Int : 384 ms P-R-T Axes : 049 -13 021 degrees QTc Int : 432 ms Normal sinus rhythm Nonspecific T wave abnormality Abnormal ECG When compared with ECG of 26-OCT-2024 17:24, No significant change was found Referred By: Generic ED Physician Electronically Signed By:RYAN LAM
[2024-11-15 19:04] VITALS: BP 133/61; PULSE 77; RESP 18; TEMP 37.1; O2SAT 97; BMI 25.8
--- NOTE | 2024-11-15 19:11 | ED.GENADULT ---
HPI - General Adult General Chief complaint: General Medical Stated complaint: Chest Pains Time Seen by Provider: 11/15/24 21:26 Source: patient Mode of arrival: ambulatory Limitations: no limitations History of Present Illness ED Provider: HPI narrative: Patient's history of asthma, hypotension comes here for increased shortness of breath for last few days yesterday patient while having increased shortness a breath stopped breathing for about 30 seconds was pale check the pulse was pulseless started CPR patient has regained full consciousness and 30 seconds had similar episode about 2 weeks ago no fever no chills has mostly dry cough no chest pain no cardiac history in the past no seizure Related Data Home Medications ?Medication ?Instructions ?Recorded ?Confirmed cholecalciferol (vitamin D3) 25 25 mcg PO DAILY 05/08/21 mcg (1,000 unit) capsule clonazepam 2 mg tablet 2 mg PO BEDTIME 05/08/21 cyanocobalamin (vitamin B-12) 1,000 mcg PO DAILY 05/08/21 1,000 mcg tablet cyanocobalamin (vitamin B-12) 1,000 mcg IM 05/08/21 1,000 mcg/mL injection solution fluoxetine 20 mg capsule 20 mg PO DAILY 05/08/21 fluticasone propionate 220 1 puff PO BID 05/08/21 mcg/actuation HFA aerosol inhaler loratadine 10 mg tablet 10 mg PO DAILY 05/08/21 omeprazole 20 mg capsule,delayed 20 mg PO DAILY PRN 05/08/21 release mirtazapine 15 mg tablet 15 mg PO BEDTIME 08/03/21 Previous Rx's ?Medication ?Instructions ?Recorded hydrocortisone 2.5 % topical cream 1 appl CA BID-QID PRN hemorrhoids 04/13/22 with perineal applicator #30 grams (Proctosol HC) albuterol sulfate 2.5 mg/0.5 mL 5 mg inhalation Q4H PRN shortness 01/31/23 solution for nebulization of breath or wheezing #30 ea albuterol sulfate 90 mcg/actuation 2 inh inhalation Q4-6H PRN 07/22/23 breath activated powder inhaler shortness of breath or wheezing #1 ea erythromycin 5 mg/gram (0.5 %) eye 1 appl ophthalmic (eye) TID 5 days 07/22/23 ointment #3.5 grams lidocaine 5 % topical patch 1 patch topical DAILY #15 ea 12/02/23 naproxen 500 mg tablet 500 mg PO BID PRN pain #20 tabs 12/02/23 tizanidine 2 mg tablet 2 mg PO TID PRN muscle spasticity 06/12/24 30 days #90 tabs Allergies Allergy/AdvReac Type Severity Reaction Status Date / Time No Known Allergies Allergy Verified 11/15/24 19:05 Review of Systems Review of Systems: Yes all other systems are reviewed and are negative [facility] Past Medical History Medical History Asthma Depression Hypertension Surgical History History of hernia surgery Social History Social History Alcohol intake: never Patient Tobacco Use Status: Former Tobacco user Tobacco use type: Cigarette Advance Directives: No Advance Directives Information Provided: No Current occupational status: disabled Current occupation: left and right handed Physical Exam ED Vital Signs: Vital Signs - 24 hr 11/15/24 19:04 11/15/24 21:26 Temperature 98.7 F 98.4 F Pulse Rate 77 75 Respiratory Rate 18 23 H Blood Pressure 133/61 121/76 Pulse Oximetry 97 94 Oxygen Delivery Method Room Air Room Air BMI result Body Mass Index 25.8 Appearance: Alert. Oriented X3. No acute distress. Eyes: PERRLA, No Nystagmus ENT: Pharynx normal. Oral Mucosa moist Neck: Normal inspection. Neck supple. CVS: Normal heart rate and rhythm. Pulses normal. Respiratory: No respiratory distress. Equal air entry bilateral, bilateral prolonged expiration with wheezing no rales Abdomen: Soft and nontender. Bowel sounds are present, no mass palpable, no CVA tenderness Skin: Skin warm and dry. Normal skin color. Normal skin turgor. Extremities: No lower extremity edema. No calf tenderness Neuro: Oriented X 3. No motor deficit. No sensory deficit.No cerebellar signs , cranial nerves II-XII intact Course Course Course Narrative: RME: 73-year-old male presents to ED for shortness of breath chest pain and URI symptoms. As per yesterday patient after coughing had a syncopal episode that she started do CPR. She believes he has no pulse. Patient resuscitated immediately after CPR but refused to come to the ED yesterday. This morning called primary care provider who informed patient he must come to the ED. Labs EKG chest x-ray ordered. Charge nurse made aware. Reevaluation(s) Reevaluation #1: Patient has eloped from the ER without breathing treatment was with him Time: 22:15 Medical Decision Making Medical Decision Making [facility] Narrative: Patient with unresponsive episodes 2 times in last 2 weeks with increased shortness a breath etiology not clear will like to admit for further management and evaluation patient is refusing to stay in the hospital will give him nebulizing treatment and p.o. prednisone for now discussed with him to stay Lab Data [facility] Lab Attestation statement: I reviewed the patient's lab results. 11/15/24 19:25 11/15/24 19:25 Labs: Lab Results 11/15/24 Range/Units 19:25 WBC 6.0 (4.8-10.8) X10*3/uL RBC 4.86 (4.60-5.80) X10*6/uL Hgb 14.6 (14.0-18.0) g/dl Hct 44.5 (42.0-52.0) % MCV 91.6 (80.0-98.0) fL MCH 30.0 (27.0-33.0) pg MCHC 32.8 (31.0-36.0) g/dl RDW 13.7 (11.0-16.0) % Plt Count 175 (160-400) X10*3/uL MPV 9.9 (9.4-12.4) fL Immature Gran % (Auto) 0.2 (0.0-0.4) % Neut % (Auto) 54.5 (45-73) % Lymph % (Auto) 25.6 (20-40) % Grimes % (Auto) 9.8 (2-11) % Eos % (Auto) 8.7 H (0-4) % Baso % (Auto) 1.2 (0-2) % Lymph # (Auto) 1.5 (1.2-4.9) X10*3/uL Grimes # (Auto) 0.6 (0.1-1.2) X10*3/uL Eos # (Auto) 0.5 H (0.0-0.4) X10*3/uL Baso # (Auto) 0.1 (0.0-0.2) X10*3/uL Abs Immat Gran (auto) 0.01 (0.00-0.03) X10*3/uL Absolute Neuts (auto) 3.3 (2.0-8.3) x10*3/uL Absolute Nucleated RBC 0.000 (0.0-0.012) X10*3/uL Nucleated RBC % (auto) 0.0 (0.0-0.2) /100WBC PT 13.4 H (10.9-12.4) SEC INR 1.2 H (0.9-1.1) APTT 32.7 (26.0-36.8) SEC Sodium 143 (135-145) mmol/L Potassium 4.2 (3.3-5.1) mmol/L Chloride 109 H (96-108) mmol/L Carbon Dioxide 27 (22-29) mmol/L Anion Gap 11 L (12-20) BUN 16 (9-16) mg/dL Creatinine 0.86 (0.5-1.4) mg/dL Estim Creat Clear Calc 68.5 Estimated GFR > 60 Random Glucose 94 (60-115) mg/dL Calcium 9.3 D (8.4-10.2) mg/dL Total Bilirubin 0.3 (0.0-1.0) mg/dL AST 35 (5-37) U/L ALT 26 (0-40) U/L Alkaline Phosphatase 77 (39-117) U/L Troponin I High Sens < 2.7 (<3.5-35.0) ng/L B-Natriuretic Peptide < 10 (<100) pg/mL Total Protein 7.5 (6.5-8.0) g/dL Albumin 4.1 (3.5-5.0) g/dL Influenza Type A (PCR) NEGATIVE (Negative) Influenza Type B (PCR) NEGATIVE (Negative) RSV RNA Qual (PCR) NEGATIVE (Negative) SARS-CoV-2 RNA (RT-PCR) NEGATIVE (Negative) Independent Interpretation I performed an independent interpretation of an: EKG Interpretation: Normal sinus rhythm heart rate 76 beats per minute normal interval normal axis no acute ST-T changes no acute ischemia Discharge Plan Discharge Clinical Impression: Asthma exacerbation Patient Disposition: Left W/O Completing Treatment Prescriptions: No Action tizanidine 2 mg tablet 2 mg PO TID PRN (Reason: muscle spasticity) 30 Days Qty: 90 2RF Rx Instructions: may take 1 pill QHS, 1&1/2 pills QHS or even 2 pills QHS to improve night sleep. albuterol sulfate 2.5 mg/0.5 mL solution for nebulization 5 mg inhalation Q4H PRN (Reason: shortness of breath or wheezing) Qty: 30 0RF naproxen 500 mg tablet 500 mg PO BID PRN (Reason: pain) Qty: 20 0RF lidocaine 5 % adhesive patch,medicated 1 patch topical DAILY Qty: 15 0RF Rx Instructions: leave on most painful area for up to 12 hrs erythromycin 5 mg/gram (0.5 %) ointment 1 appl ophthalmic (eye) TID 5 Days Qty: 3.5 0RF albuterol sulfate 90 mcg/actuation aerosol powdr breath activated 2 inh inhalation Q4-6H PRN (Reason: shortness of breath or wheezing) Qty: 1 0RF cyanocobalamin (vitamin B-12) 1,000 mcg/mL solution 1,000 mcg IM clonazepam 2 mg tablet 2 mg PO BEDTIME fluoxetine 20 mg capsule 20 mg PO DAILY fluticasone propionate 220 mcg/actuation HFA aerosol inhaler 1 puff PO BID loratadine 10 mg tablet 10 mg PO DAILY cyanocobalamin (vitamin B-12) 1,000 mcg tablet 1,000 mcg PO DAILY omeprazole 20 mg capsule,delayed release(DR/EC) 20 mg PO DAILY PRN cholecalciferol (vitamin D3) 25 mcg (1,000 unit) capsule 25 mcg PO DAILY mirtazapine 15 mg tablet 15 mg PO BEDTIME hydrocortisone [Proctosol HC] 2.5 % cream with perineal applicator 1 appl CA BID-QID PRN (Reason: hemorrhoids) Qty: 30 3RF Discharge Date/Time: 11/15/24 22:34
[2024-11-15 19:32] LABS: MANUAL DIFF FLAG NO
[2024-11-15 19:34] LABS: Basophils Absolute Auto 0.1 X10*3/uL (0.0-0.2); Basophils Percent Auto 1.2 % (0-2); Eosinophils Absolute Auto 0.5 X10*3/uL (0.0-0.4); Eosinophils Percent Auto 8.7 % (0-4); Hematocrit 44.5 % (42.0-52.0); Hemoglobin 14.6 g/dl (14.0-18.0); Imm Gran Abs Auto 0.01 X10*3/uL (0.00-0.03); Imm Gran Pct Auto 0.2 % (0.0-0.4); Lymphocytes Absolute Auto 1.5 X10*3/uL (1.2-4.9); Lymphocytes Percent Auto 25.6 % (20-40); Mean Corpuscular HGB Conc 32.8 g/dl (31.0-36.0); Mean Corpuscular Volume 91.6 fL (80.0-98.0); Mean Platelet Volume 9.9 fL (9.4-12.4); Monocytes Absolute Auto 0.6 X10*3/uL (0.1-1.2); Monocytes Percent Auto 9.8 % (2-11); Neutrophils Absolute Auto 3.3 x10*3/uL (2.0-8.3); Neutrophils Percent Auto 54.5 % (45-73); Platelet Count 175 X10*3/uL (160-400); Red Blood Count 4.86 X10*6/uL (4.60-5.80); Red Cell Distribution Width 13.7 % (11.0-16.0)
[2024-11-15 19:39] LABS: INTERNATIONAL NORM RATIO 1.2 (0.9-1.1); Prothrombin Time 13.4 SEC (10.9-12.4)
[2024-11-15 19:41] LABS: Partial Thromboplastin Time 32.7 SEC (26.0-36.8)
--- NOTE | 2024-11-15 19:47 | MHC.EDTECH ---
Provider cancelled second EKG that was ordered at 19:10
[2024-11-15 19:53] LABS: B Type Natriuretic Peptide < 10 pg/mL (<100)
[2024-11-15 19:54] LABS: Alanine Aminotransferase 26 U/L (0-40); Albumin Level 4.1 g/dL (3.5-5.0); Alkaline Phosphatase 77 U/L (39-117); Anion Gap 11 (12-20); Aspartate Amino Transferase 35 U/L (5-37); Bilirubin Total 0.3 mg/dL (0.0-1.0); Blood Urea Nitrogen 16 mg/dL (9-16); Calcium 9.3 mg/dL (8.4-10.2); Carbon Dioxide 27 mmol/L (22-29); Chloride 109 mmol/L (96-108); Creatinine Clr Calc Pharmacy 68.5; Estimated Glomerular Filt Rate > 60; Glucose Random 94 mg/dL (60-115); Potassium 4.2 mmol/L (3.3-5.1); Sodium 143 mmol/L (135-145); Total Protein 7.5 g/dL (6.5-8.0)
[2024-11-15 20:04] LABS: Troponin-I High Sensitivity < 2.7 ng/L (<3.5-35.0)
[2024-11-15 20:11] LABS: Influenza A PCR NEGATIVE (Negative); Influenza B PCR NEGATIVE (Negative); Resp Syncy Virus RNA Qual PCR NEGATIVE (Negative); SARS COV2 PCR INHOUSE NEGATIVE (Negative)
[2024-11-15 21:26] VITALS: BP 121/76; PULSE 75; RESP 23; TEMP 36.9; O2SAT 94
--- NOTE | 2024-11-15 22:33 | PC.NURSE ---
MD at bedside, pt reports SOB from asthma. MD ordered resp treatment and iv meds. pt refused and walked out
== END 2024-11-15 22:34 | disposition left against medical advice (07) ==
PROVIDERS: Physician Assistant; Emergency Provider Internal Medicine; PCP Family Medicine
DX: J45.901 Unspecified asthma with (acute) exacerbation (principal); R07.89 Other chest pain; R06.02 Shortness of breath; Z03.818 Encounter for observation for suspected exposure to other biological agents ruled out; Z79.899 Other long term (current) drug therapy
CPT/HCPCS: 0241U; 36415; 71045; 80053; 83880; 84484; 85025; 85610; 85730; 93005; 96365; 96375; 99284

== ENCOUNTER → 2024-11-15 18:25 | Outpatient (BNV) | payer OTHER, SELFPAY | PROVIDERS: Emergency Provider Internal Medicine; PCP Family Medicine; Visit Provider Internal Medicine | DX: R94.31 Abnormal electrocardiogram [ECG] [EKG] (principal) | CPT/HCPCS: 93010 ==

== ENCOUNTER → 2024-11-15 19:09 | Outpatient (BNV) | payer OTHER, SELFPAY | PROVIDERS: Visit Provider Radiology Diagnostic Radiology | DX: J18.9 Pneumonia, unspecified organism (principal) | CPT/HCPCS: 71045 ==

== ENCOUNTER 2024-12-08 10:14 | Outpatient (AMB) | payer OTHER, SELFPAY ==
--- NOTE | 2024-12-08 10:23 | MHC.OFFVIS ---
Vital Signs 12/08/24 10:24 Height 5 ft 5 in Weight 158 lb 11.725 oz BMI 26.4 BP 120/68 Blood Pressure Location Rt brachial Position Sitting Pulse 83 Pulse Source Pulse Oximeter Pulse Oximetry (%) 99 Oxygen Delivery Method Room Air Intake Visit Reasons: moderate asthma Allergies No Known Allergies Allergy (Verified 11/15/24 19:05) HPI Comments Details: The patient is here for a pulmonary evaluation. The patient is a 74-year-old gentleman known severe persistent asthma with multiple exacerbations. He is here for evaluation and management. The patient states that he has had frequent exacerbations requiring prednisone. He has come to the ER here. The last time in October he did have blood work demonstrating significant eosinophilia and also had a CT scan of the chest which ruled out pulmonary emboli and did see significant mosaic pattern suggesting of small airways disease in her trapping. The patient does respond to prednisone. In the meantime he has tried multiple inhalers for maintenance in the past. He does not do well with powdered inhalers such as Trelegy because it bothers him. He has also been on Symbicort which does not feel like he works well for him. He has been on in the nebulizer in the seems to work a little better for him. He is open to trying new inhalers. I will send him Aleta to the pharmacy to maximize his respiratory therapy. If he continues to be symptomatic even on maximum respiratory therapy he will be a great candidate for biologics. He has significant chronic rhinitis he also has significant asthma all related to the eosinophilia. Therefore an IL 5 inhibitor will be very effective in improving symptoms if he continues to be symptomatic. Will have him try the breast treat for a month or 2 and have pulmonary function studies and will review the PFTs and discuss any additional therapies then. In regards of pulmonary nodule. The nodules are small and would benefit from a follow-up in a year's time. [facility] Medical History (Updated 12/08/24 @ 19:48 by Valente Toure MD) Asthma-COPD overlap syndrome Pulmonary nodule Asthma Depression Hypertension Surgical History History of hernia surgery Social History Alcohol intake: never Patient Tobacco Use Status: Former Tobacco user Tobacco use type: Cigarette Current occupational status: disabled Current occupation: left and right handed Review of Systems Const Denies fever(s) Eyes Reports no additional complaints ENT Reports nasal congestion and Reports nasal discharge Card Denies chest pain Resp Reports cough and Reports wheezing GI Reports no additional complaints Musc Reports no additional complaints Skin/Breast Denies rash Neuro Reports no additional complaints Ponce/Lymph Reports no additional complaints Aller/Immun Reports wheezing Physical Exam Vital Signs: Last Vital Signs Pulse 83 12/08/24 10:24 BP 120/68 12/08/24 10:24 Pulse Ox 99 12/08/24 10:24 Oxygen Delivery Method Room Air 12/08/24 10:24 BMI result Body Mass Index 26.4 Patient is afebrile and hemodynamically stable. Const General: cooperative HEENT Head: Yes normal to inspection and Yes atraumatic Eyes General: appearance normal, both eyes and all related structures Neck Neck: Yes normal visual inspection, Yes full ROM, Yes supple and No tender Chest Chest palpation & inspection: normal inspection of the chest Resp Effort & Inspection: normal respiratory effort Auscultation: diminished lung sounds Cardio Rate: regular rate Rhythm: regular rhythm GI Palpation (GI): Soft to palpation Back/Spine/Pelvis Back: No back tenderness Skin General skin exam: no rashes or lesions noted Extrem General: Yes no clubbing, cyanosis or edema Assessment & Plan Assessment & Plan (1) Asthma: Code(s): J45.909 - Unspecified asthma, uncomplicated Category: Medical Qualifiers: Asthma severity: moderate Asthma persistence: persistent Asthma complication type: uncomplicated Qualified Code(s): J45.40 - Moderate persistent asthma, uncomplicated (2) Pulmonary nodule: Code(s): R91.1 - Solitary pulmonary nodule Category: Medical (3) Asthma-COPD overlap syndrome: Code(s): J44.89 - Other specified chronic obstructive pulmonary disease Category: Medical Plan Start Breztri VIKTORIYA as needed continue singulair Consider Fasenra if no better PFTs F/U 6-8 weeks Orders: Orders PFT pulmonary function test Today J45.909 - Unspecified asthma, uncomplicated Medications: New [id number] 160-9-4.8 mcg/actuation (Breztri Aerosphere) 2 inhalations inhalation BID 10.7 grams 10RF 30 days Coding Level of Care Code New Pt Level 4 (92577) Diagnoses Moderate persistent asthma without complication J45.40 Asthma severity: moderate Asthma persistence: persistent Asthma complication type: uncomplicated Pulmonary nodule R91.1 Asthma-COPD overlap syndrome J44.89 Time Spent (min) 36
[2024-12-08 10:24] VITALS: BP 120/68; PULSE 83; O2SAT 99; BMI 26.4
--- OUTSIDE RECORDS SUMMARY | 2024-12-08 11:06 | XMS_ITS | Encounter Summary ---
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 Name Role Phone Toyin Mistry MD Primary Care Provider [phone] Reason for Visit * Reason Onset Date Comments FYI 11/16/2024 Durable Medical Equipment 11/16/2024 Encounter Details Date Type Department Care Team ([facility] st Contact Info) Description 11/16/2024 Telephone [facility] MEDICINE [address], [place] [phone] Toyin Mistry MD [address], [place] [phone] FYI; Durable Medical Equipment Social History Tobacco Use Types Packs/Day Years Used Date Smoking Tobacco: Former Cigarettes Passive Smoke Exposure: Past Smokeless Tobacco: Never Alcohol Use Standard Drinks/Week Comments Never 0 (1 standard drink = 0.6 oz pur e alcohol) Depression Answer Date Recorded Patient Health Questionnaire-9 Score 4 08/31/2024 Patient Health Questionnaire-9 Score 4 08/31/2024 Last PHQ-9: Questionnaire Data Not on file 1 Housing Stability Answer Date Recorded What is your housing situation today? I have juli bates 04/13/[address] you li ve. Do you have problems with any of the following? None of the above 04/13/2024 Food Insecurity Answer Date Recorded Within the past 12 months, y ou worried that your food would run out before you got money to buy more: Never True 04/13/2024 Within the past 12 months,th e food you bought just didn't last and you didn't have enough money to get more: Never True 01/2024 Transportation Answer Date Recorded In the past 12 months, has l ack of transportation kept you from medical appts, meetings, work or from getting things needed for daily living? No 04/13/2024 Utilities Answer Date Recorded In the past 12 months, has t he electric, gas, oil or water company threatened to shut off services in your home? No 04/13/2024 Depression Answer Date Recorded Patient Health Questionnaire-2 Score 1 08/31/2024 Sex and Gender Information Value Date Recorded Sex Assigned at Male 09/10/2022 10:14 AM EDT Legal Sex Male 10:14 AM EDT Gender Identity Male 09/10/2022 10:14 AM EDT Sexual Orientation Straight 09/10/2022 10 :14 AM EDT documented as of this encounter Miscellaneous Notes * Telephone Encounter - Verónica Martinez - 11/16/2024 2:16 PM EST Tc from [facility] with [facility] to report pt was on EM 11/16, has cough and asthma also requesting nebulizer. documented in this encounter Plan of Treatment Upcoming Encounters Date Type Department Care Team (Late st Contact Info) Description 12/08/2024 3:00 PM EST Office Visit [facility] MEDICINE [address] [place] [phone] Toyin Mistry MD [address] [place] [phone] 12/31/2024 10:00 AM EST Nurse Only [facility] MEDICINE [address] [place] [phone] documented as of this encounter Visit Diagnoses Not on filedocumented in this encounter Additional Health Concerns Assessment Noted Time PHQ-9 Depression Total Score: 4 08/31/20 24 10:34 AM EDT documented as of this encounter Care Teams Lith[employer] Feeder Relationship Specialty Start Date End Date Toyin Mistry MD [address] [place] [phone] PCP - General Family Medicine 11/11/18 documented as of this encounter
--- OUTSIDE RECORDS SUMMARY | 2024-12-08 11:06 | XMS_ITS | Clinical Summary ---
Author Organization [employer] Address [address] [place] [address] Care Team Providers Care Surveillance Sensor Officer Name Role Phone Toyin Mistry MD Primary Care Provider [phone] Allergies No known active allergies Medications cholecalciferol (Vitamin D-3) 25 MCG (1000 UT) tablet Take 2 tablets by mouth 1 (one) time each day. 09/06/20 20 Active clonazePAM (KlonoPIN) 2 MG tablet Take 1 tablet by mouth at bed time. Active cyanocobalamin (Vitamin B-12) 1000 MCG tablet Take 1 tablet by mouth 1 (one) time each day. 02/29/20 21 Active mirtazapine (Remeron) 15 MG tablet Take 1 tablet by mouth if needed at bedtime. Active alclometasone (Aclovate) 0.05 % ointment PLEASE SEE ATTACHED FOR DETAILED DIRECTIONS 05/21/20 23 Active betamethasone dipropionate 0.05 % cream PLEASE SEE ATTACHED FOR DETAILED DIRECTIONS 05/21/20 23 Active FLUoxetine (PROzac) 40 MG capsule Take 40 mg by mouth in the morning. 07/22/20 23 Active tacrolimus (Protopic) 0.1 % ointment APPLY TO SCALP, FOREHEAD, AND GROIN TWICE DAILY 05/21/20 23 Active Opzelura 1.5 % cream 08/23/20 23 Active temazepam (Restoril) 15 MG capsule 10/21/20 23 Active Spacer/Aero-Holdin g Chambers (OptiChamber Zoey) misc 1 each every 4 (four) hours if needed (asthma). 1 each 04/01/20 24 Active albuterol 108 (90 Base) MCG/ACT inhaler Inhale 2 puffs every 4 (four) hours. Every 4-6 hours as needed for difficulty breathing, 4 times/day 18 g 3 04/13/20 24 Active montelukast (Singulair) 10 MG tablet Take 1 tablet (10 mg) by mouth Once per day. 90 tablet 3 04/13/20 24 025 Active rosuvastatin (Crestor) 5 MG tablet Take 1 tablet (5 mg) by mouth Once per day. 90 tablet 3 04/13/20 24 025 Active cyanocobalamin (Vitamin B-12) 1000 MCG/ML injectionIndicatio ns:Vitamin B12 deficiency INJECT 1 MILLILITER BY INTRAMUSCULAR ROUTE MONTHLY 5 mL 3 08/31/20 24 Active naproxen (Naprosyn) 500 MG tabletIndications: Primary osteoarthritis involving multiple joints TAKE 1 TABLET BT MOUTH TWICE A DAY WITH FOOD IF NEEDED 60 tablet 3 08/31/20 24 Active loratadine (Claritin) 10 MG tabletIndications: Asthma, unspecified asthma severity, unspecified whether complicated, unspecified whether persistent TOME PALOMA TABLETA TODOS LOS WHYTE 90 tablet 3 08/31/20 24 Active fluticasone (Flovent) 110 MCG/ACT inhalerIndications :Acute cough Inhale 1 puff in the morning and at bedtime. Rinse mouth with water after use to reduce aftertaste and incidence of candidiasis. Do not swallow. 12 g 1 09/24/20 24 025 Active predniSONE (Deltasone) 20 MG tabletIndications: COVID-19 2 tabs po daily for 5 days 10 tablet 09/29/20 24 Active albuterol (2.5 MG/3ML) 0.083% nebulizer solution Take 3 mL (2.5 mg) by nebulization every 4 (four) hours if needed for wheezing or shortness of breath (Maximum 4 treatments per day). 75 mL 1 11/24/19 25 026 Active Hospital, Clinic, or Other Facility Administered Medication Ordered Dose Route Frequency Start Date End Date Status cyanocobalamin (Vitamin B-12) injection 1,000 mcgIndications:Vitamin B12 deficiency 1000 mcg IM Every 30 days 11/02/2024 09/28/2025 Active Active Problems Problem Noted Date Diagnosed Date COVID-19 09/29/2024 Assessment & Plan (09/29/2024 1:35 PM EST): Persistent cough for months. Today's presentation consistent with Asthma like exacerbation. - Start azithromycin (Zithromax) 250 MG tablet 09/29/24 - Start predniSONE (Deltasone) 20 MG tablet 09/29/24 - Ordered X-Ray 09/29/24 - ER precautions discussed. - Seek medical attention for worsening symptoms. Chronic back pain 09/06/2024 Assessment & Plan (09/06/2024 2:11 PM EDT): - since a fall - continue non-pharmacological measures: massage; stretching; heat - continue judicious use of medications Rotator cuff tear 11/14/2023 Assessment & Plan (04/13/2024 12:09 PM EDT): - following with [facility] - last MRI in Aug 2022 - last steroid injection right side in Nov 2023. -Evaluated by painter and decorator apprentice. -Received left scapular nerve block on 12/24/23 -Removal of Sprint PNS left suprascapular notch in March 2024 - Follow up as needed with specialist Assessment & Plan (11/15/2023 4:30 PM EST): - following with [facility] - last MRI in Aug 2022 - last steroid injection right side in Aug 2023, left side in March 2022 Vitiligo 07/24/2023 Age-related cataract of both eyes 02/18/2023 Assessment & Plan (02/18/2023 11:21 AM EDT): -Completed right cataract surgery, scheduled for left cataract surgery Vitamin B12 deficiency 02/18/2023 Assessment & Plan (08/31/2024 7:04 PM EDT): Was started on cyanocobalamin (Vitamin B-12) 1000 MCG/ML injection, refilled today 08/31/24 Assessment & Plan (04/13/2024 12:10 PM EDT): - Will check labs, patient usually does not have anemia Assessment & Plan (11/15/2023 4:33 PM EST): -Receiving vitamin B12 at clinic monthly -Continue Assessment & Plan (07/24/2023 10:12 AM EDT): -Receiving vitamin B12 at clinic today, will Rx refill -will check lab Assessment & Plan (02/18/2023 11:21 AM EDT): -Receiving vitamin B12 at clinic today, will Rx refill -will check lab Psychophysiological insomnia 10/24/202202/2024 Overview (11/14/2023): Last Assessment & Plan: Condition: stable Follow up in: one month Continue all medications as prescribed, keep follow up appointments with specialists and PCPs. Assessment & Plan (11/15/2023 4:24 PM EST): - multifactorial - following with psychiatrist and therapist - continue current medication prescribed by psychiatrist - improve sleep hygiene Dementia 10/08/2022 Overview (11/14/2023): Last Assessment & Plan: Condition: stable Follow up in: one month Continue all medications as prescribed, keep follow up appointments with specialists and PCPs. Assessment & Plan (09/06/2024 2:03 PM EDT): - suggestive of pseudodementia - normal MRI in 2021 - recommended to follow treatment plan per psych Tubular adenoma of colon 10/08/2022 Vitamin D deficiency 11/05/2018 Overview (11/14/2023): Last Assessment & Plan: Condition: stable Follow up in: one month Continue all medications as prescribed, keep follow up appointments with specialists and PCPs. Anxiety 09/20/2015 Overview (11/14/2023): Last Assessment & Plan: Condition: stable Follow up in: one month Continue all medications as prescribed, keep follow up appointments with specialists and PCPs. Chronic recurrent major depressive disorder 09/1111/14/2023 Overview (09/06/2024): >>OVERVIEW FOR RECURRENT MAJOR DEPRESSIVE DISORDER, IN PARTIAL REMISSION ([facility]) WRITTEN ON 11/14/2023 9:01 AM BY JONI LEBLANC Last Assessment & Plan: Condition: stable Never seen by mental health provider. Advised to discuss it with PCP Medications: Taking medications as prescribed If taking medications, do not stop treatment without consulting healthcare provider. If symptoms worsen or do not improve/stabilize, notify health care provider right away. If thoughts of harming self or others notify health care provider immediately &/or seek urgent/emergent care including calling Suicide Hotline (023 or ) or 911. Follow up in one month with PCP Assessment & Plan (08/31/2024 7:04 PM EDT): Connected with [facility] Continue medication as prescribed Assessment & Plan (11/15/2023 4:34 PM EST): Connected with [facility] Continue medication as prescribed Assessment & Plan (07/24/2023 10:08 AM EDT): Connected with [facility] Continue medication as prescribed Essential hypertension 09/20/2015 Overview (11/14/2023): Last Assessment & Plan: Condition: stable Discussed target blood pressure. Continue medication as prescribed from PCP/specialist. Take medications at the same time every day. Lifestyle modification advised: DASH diet, reduce stress/anxiety, discussed health weight management, activity as tolerated or advised from PCP, try to avoid alcohol and nicotine. Follow up in: one month Assessment & Plan (08/31/2024 7:02 PM EDT): -Goal BP < 150/90 per JNC-8 and < 130/80 per ACC/AHA guideline (Treatment threshold >= 130 ) -BP at goal -Continue working on lifestyle modifications -Recommended self-monitoring BP. -Patient declines to take a medication -Treatment Hx: previously prescribed hydrochlorothiazide and lisinopril, but patient was not adherent and refused to take it -Follow up in 4 mo, sooner if any problem arises Assessment & Plan (04/13/2024 12:05 PM EDT): -Goal BP < 150/90 per JNC-8 and < 130/80 per ACC/AHA guideline (Treatment threshold >= 130 ) -Borderline BP -Continue working on lifestyle modifications -Recommended self-monitoring BP. -Patient declines to take a medication -Treatment Hx: previously prescribed hydrochlorothiazide and lisinopril, but patient was not adherent and refused to take it -Follow up in 4 mo, sooner if any problem arises Assessment & Plan (11/15/2023 4:29 PM EST): -Goal BP < 150/90 per JNC-8 and < 130/80 per ACC/AHA guideline (Treatment threshold >= 130 ) -Borderline BP -Continue working on lifestyle modifications -Recommended self-monitoring BP. -Patient declines to take a medication -Treatment Hx: previously prescribed hydrochlorothiazide and lisinopril, but patient was not adherent and refused to take it -Follow up in 3-6 mo, sooner if any problem arises Assessment & Plan (07/24/2023 10:11 AM EDT): Patient refused to take medication. BP elevated possibly due to steroid use Shoulder pain 09/20/2015 Assessment & Plan (08/31/2024 7:03 PM EDT): Multifactorial, both rotator cuff tear and osteoarthritis. -pt requesting another injection from orthopedics -recommended trying Naproxen prior. -start Naproxen 500 MG PRN for pain. Assessment & Plan (04/13/2024 12:09 PM EDT): Multifactorial, both rotator cuff tear and osteoarthritis. Assessment & Plan (11/15/2023 4:32 PM EST): - rotator cuff tear and osteoarthritis - following with [facility], last seen in Aug 2023 - periodic steroid injection, right side in Aug 2023, left side in March 2022 - activity modification, home therapeutic exercise for shoulder Dyslipidemia 06/09/2015 Overview (11/14/2023): Last Assessment & Plan: Condition: stable Follow up in: one month Continue all medications as prescribed, keep follow up appointments with specialists and PCPs. Assessment & Plan (09/06/2024 2:05 PM EDT): - last lipid profile in April 2024 - Current medication: rosuvastatin 5 mg at bedtime since April 2024 -Continue working on lifestyle modifications Assessment & Plan (04/13/2024 12:05 PM EDT): Last Lipid Profile: 05/24/23 - TC 154; TG 207; HDL 35; LDL 98 - Pt agrees to starting statin therapy. Will start Crestor 5 mg. -Will check LFTs in 1 month -Continue working on lifestyle modifications Assessment & Plan (11/15/2023 4:33 PM EST): Last Lipid Profile: 05/24/23 - TC 154; TG 207; HDL 35; LDL 98 -Pt refused to take medication -Continue working on lifestyle modifications Assessment & Plan (07/24/2023 10:09 AM EDT): Last Lipid Profile: 05/24/23 - TC 154; TG 207; HDL 35; LDL 98 -Pt refused to take medication -Continue working on lifestyle modifications Overweight 11/06/2012 Overview (11/14/2023): Last Assessment & Plan: Condition: stable Follow up in: one month Continue all medications as prescribed, keep follow up appointments with specialists and PCPs. Cobalamin deficiency 11/06/2012 11/14/2023 Overview (11/14/2023): Last Assessment & Plan: Condition: stable Follow up in: one month Continue all medications as prescribed, keep follow up appointments with specialists and PCPs. Allergic rhinitis 07/09/2012 Overview (11/14/2023): Last Assessment & Plan: Condition: stable Follow up in: one month Continue all medications as prescribed, keep follow up appointments with specialists and PCPs. Assessment & Plan (04/13/2024 12:03 PM EDT): Continue Claritin. Pt declines Flonase nasal spray. Will add Singulair. Asthma 07/09/2012 Overview (11/14/2023): Last Assessment & Plan: Condition: stable Reviewed trigger avoidance and reviewed proper use of inhalers and rescue medications. Reviewed concerning signs/symptoms and ER precautions. Follow up in: one month Assessment & Plan (08/31/2024 7:01 PM EDT): Pt reported using an inhaler twice daily. Reminded him that he was switched from Flovent to Arnuity 200 mcg which is ONLY one puff daily. -Cont Albuterol inhaler and nebulizer as needed -Most recent exacerbation 04/01/24 Tx with Prednisone. -Cont Singulair for both Allergy and Asthma -Follow up in 4 mo or sooner prn Assessment & Plan (04/13/2024 12:03 PM EDT): -Switched Flovent to Arnuity 200 mcg one puff daily. Advised patient to picking crew supervisor Arnuity from pharmacy. -Cont Albuterol inhaler and nebulizer as needed -Most recent exacerbation 04/01/24 Tx with Prednisone. -Will add Singulair for both Allergy and Asthma -Follow up in 4 mo or sooner prn Assessment & Plan (11/15/2023 4:26 PM EST): -Switch Flovent to Arnuity 200 mcg one puff daily -Cont Albuterol inhaler and nebulizer as needed -Most recent exacerbation 07/22/23, Tx with Prednisone and Antibiotics. Neg covid -Follow up in 4 mo or sooner prn Assessment & Plan (07/24/2023 10:08 AM EDT): -Cont Flovent 220 microgram 2 puff, twice daily -Cont Albuterol inhaler and nebulizer as needed -Most recent exacerbation 07/22/23, Tx with Prednisone and Antibiotics. Neg covid -Pt request a new nebulizer machine; Will Rx Nebulizer machine and accessories Assessment & Plan (02/25/2023 9:37 PM EDT): -Cont Flovent 220 microgram 2 puff, twice daily -Cont Albuterol inhaler and nebulizer as needed -Most recent exacerbation 01/2023, Tx with Prednisone. Neg covid -Pt request a new nebulizer machine; Will Rx Nebulizer machine and accessories Osteoarthritis 07/09/2012 Overview (11/14/2023): Last Assessment & Plan: Condition: stable Follow up in: one month Continue all medications as prescribed, keep follow up appointments with specialists and PCPs. Assessment & Plan (08/31/2024 7:02 PM EDT): Continue all medications as prescribed, keep follow up appointments with specialists and PCP. Resolved Problems Problem Noted Date Diagnosed Date Resolved Date Pre-op evaluation 01/11/2023 02/18/2023 Assessment & Plan (01/11/2023 10:09 AM EST): Cataract Surgery right eye 01/15/2023. Pt acceptable for surgery. No cardiac risk stratification needed. Encounter by telehealth for suspected COVID-19 10/08/2022 02/18/2023 Chest pain 02/10/2021 11/14/2023 09/06/2024 Dyspnea 02/10/2021 11/14/2023 11/15/2023 Moderate persistent asthma 09/20/2015 0 07/24/2023 Cobalamin deficiency 11/06/2012 023 Encounters Date Type Department Care Team Description 12/03/2024 11:15 AM EST Nurse Only [facility] [address] [place] [address] Michelle Snyder LPN B12 deficiency 12/03/2024 Travel 2024 Orders Only [facility] [address] [place] [address] Toyin Mistry MD 2024 Telephone [facility] [address] [place] [address] Toyin Mistry MD Med Refill 11/17/2024 Telephone [facility] [address] [place] [address] Marguerite Robles RN Plan of Care 11/16/2024 Telephone [facility] [address] [place] [address] Toyin Mistry MD FYI; Durable Medical Equipment 11/16/2024 Telephone [facility] [address] [place] [address] Toyin Mistry MD Med Refill 11/02/2024 9:00 AM EST Nurse Only [facility] [address] [place] [address] Michelle Snyder LPN B12 deficiency 11/02/2024 Orders Only [facility] [address] [place] [address] Esther Hicks, RN Vitamin B12 deficiency 10/29/2024 Orders Only [facility] [address] [place] [address] Toyin Mistry MD Moderate persistent asthma without complication (Primary Dx) 10/29/2024 Telephone [facility] [address] [place] [address] Toyin Mistry MD Referral 10/29/2024 Telephone [facility] [address] [place] [address] Toyin Mistry MD 10/27/[address] [place] [address] Toyin Mistry MD Referral 10/26/2024 Orders Only [facility] External Provider, [facility] 10/05/2024 10:00 AM EST Nurse Only [address] [place] [address] Michelle Snyder LPN B12 deficiency [E53.8] 10/05/2024 Travel 09/30/2024 Telephone [facility] [address] [place] [id number] Moon Dawn, RN Results 09/29/2024 2:20 PM EST Office Visit [facility] [address] [place] [id number] Sneha Clark MD COVID-19 (Primary Dx) 09/28/2024 Telephone [facility] [address] [address] Gema White [place] 09/24/2024 1:20 PM EST [facility] [address] [address] Vanda Palacios, JIMMY Acute cough (Primary Dx); Encounter for health-related screening from Last 3 Months Immunizations Name Administration Dates Next Due Hep B, adult 03/29/1999,02/16/1999 Influenza High-dose Quadriva lent Preservative Free 07/24/2023 Influenza injectable quadriv alent IIV4 with preservative 07/26/2016,09/20/2015 Influenza injectable quadriv alent preservative free 11/13/2021 Influenza, IIV3, injectable 10/14/2003, 0 Influenza, Split (incl. shelbie fied surface antigen) 07/09/2012 Pfizer Covid-19 Vaccine 12+ 11/14/2023, 2,05/08/2022 Pfizer Covid-19 Vaccine 12+ carlin-sucrose ([place] Cap) 06/27/2022,05/08/2022 Pneumococcal Conjugate PCV 13 11/05/2018 Pneumococcal Polysaccharide PPSV23 01/18/2020, TD (adult), 2 Lf tetanus tox oid, preservative free, adsorbed 10/09/2000 Tdap 11/14/2023,01/07/2013,07/09/2012 Zoster, live 06/17/2015 Social History Tobacco Use Types Packs/Day Years Used Date Smoking Tobacco: Former Cigarettes Passive Smoke Exposure: Past Smokeless Tobacco: Never Tobacco Cessation:Counseling Given: Not Answered Alcohol Use Standard Drinks/Week Comments Never 0 [...] Orientation Straight 09/10/2022 10 :14 AM EDT Last Filed Vital Signs Vital Sign Reading Time Taken Comments Blood Pressure 158/78 09/29/2024 1:12 PM EST Pulse 80 09/29/2024 1:12 PM EST Temperature 36.3 ??C (97.4 ??F) 09/29/2024 1:12 PM ES T Respiratory Rate 19 09/29/2024 1:12 PM EST Oxygen Saturation 99% 09/29/2024 1:12 PM EST Inhaled Oxygen Concentration - - Weight 70.9 kg (156 lb 3.2 oz) 09/29/2024 1:12 P M EST Height 168.8 cm (5' 6.46 ) 04/13/2024 11:37 AM E DT Body Mass Index 24.87 04/13/2024 11:37 AM EDT Plan of Treatment Upcoming Encounters Date Type Department Care Team (Late st Contact Info) Description 12/08/2024 3:00 PM EST Office Visit [facility] [address] [place] [address] Toyin Mistry MD [address] [place], [place] [id number] 12/31/2024 10:00 AM EST Nurse Only [facility] [address] [place] [address] Health Maintenance Due Date Last Done Comments CT Colonography 1950 FIT DNA/Cologuard 1950 FIT 1950 FOBT 1950 Sigmoidoscopy 1950 Alcohol/Substance Use Screening 1962 Hepatitis B Vaccines (3 of 3 - 19+ 3-dose series) 08/18/1999 03/29/1999, 02/16/1999 RSV Patients and Patients Aged 60 years or older (1 - Risk 60-74 years 1-dose series) 2012 Zoster Vaccines (2 of 3) 08/12/2015 06/17/2015 COVID-19 Vaccine ( season) 2024 11/14/2023, 06/27/2022, 06/27/2022, Additional history exists Influenza Vaccine (#1) 2024 , 11/13/2021, 07/26/2016, Additional history exists Colonoscopy 11/07/2024 11/07/2021 Colorectal Cancer Screening 11/07/2024 SDOH Screening 04/13/2025 04/13/2024 Diabetes: Hemoglobin A1C 04/14/2025 024, 04/18/2022, 08/16/2020 Depression Screening 08/31/2025 08/31/2024, 08/31/20 24 Tobacco Screening 09/29/2025 09/29/2024 Lipid Panel 04/14/2029 04/14/2024, 07/02/2023, 04/18/2022, Additional history exists DTaP/Tdap/Td Vaccines (4 - Td or Tdap) 11/14/2033 11/14/2023, 01/07/2013, 07/09/2012, Additional history exists Pneumococcal Vaccine: 65+ Years Completed 01/18/2020, 11/05/2018, 03/13/2007 Hepatitis C Screening Completed 09/24/2024 HIB Vaccines Aged Out No longer eligi ble based on patient's age to complete this topic HPV Vaccines Aged Out No longer eligi ble based on patient's age to complete this topic Hepatitis A Vaccines Aged Out No long er eligible based on patient's age to complete this topic IPV Vaccines Aged Out No longer eligi ble based on patient's age to complete this topic Meningococcal Vaccine Aged Out No jennifer toshia eligible based on patient's age to complete this topic RSV under 20 months Aged Out No longe r eligible based on patient's age to complete this topic Rotavirus Vaccines Aged Out No longer eligible based on patient's age to complete this topic Procedures Procedure Name Priority Date/Time Associated Diagnosis Comments CTA CHEST PE PROTOCAL Routine 10/26/2024 4:26 PM EST D DIMER HIGH SENSITIVITY Routine 10/26/2024 4:23 PM EST HIGH SENSITIVITY TROPONIN I Routine 10/26/2024 1:43 PM EST B TYPE NATRIURETIC PEPTIDE (BNP) Routine 10/26/2024 1:43 PM EST MAGNESIUM Routine 10/26/2024 1:43 PM EST BASIC METABOLIC PANEL Routine 10/26/2024 1:43 PM EST HEPATIC FUNCTION PANEL Routine 10/26/2024 1:43 PM EST CBC WITH AUTO DIFFERENTIAL Routine 10/26/2024 1:43 PM EST SARS COV2/INFLUENZA A/B AND RSV RNA QL NAAT Routine 10/26/2024 1:43 PM EST XR CHEST 2 VIEWS Routine 10/26/2024 1:40 PM EST XR CHEST 2 VIEWS Routine 09/29/2024 1:40 PM EST COVID-19 POCT INFLUENZA B (ID NOW RAPID MOLECULAR) Routine 09/29/2024 1:33 PM EST COVID-19 POCT INFLUENZA A (ID NOW RAPID MOLECULAR) Routine 09/29/2024 1:33 PM EST COVID-19 POCT RAPID COVID ANTIGEN Routine 09/29/2024 1:33 PM EST COVID-19 HEPATITIS C AB W/REFL TO HCV RNA, QN, PCR Routine 09/24/2024 1:57 PM EST Encounter for health-related screening HEMOGLOBIN A1C Routine 04/14/2024 8:20 AM EDT Essential hypertension LIPID PANEL WITH REFLEX TO DIRECT LDL Routine 04/14/2024 8:20 AM EDT Essential hypertension HM COLONOSCOPY Routine 11/07/2021 from Last 3 Months or Most Recently Relevant to Health Maintenance Results * CTA Chest PE Protocal (10/26/2024 4:26 PM EST) Anatomical Region Laterality Modality Body, Chest Computed Tomogra phy 10/26/2024 4:26 PM EST Narrative 10/26/2024 6:16 PM EST ? [facility] ?[address] ?[place] [address] ? CT Scan Report ? Signed ? Patient: Braden,Mark ?MR#: [id number] ?? 5 ? : 1950 ?Acct:[id number] ? Age/Sex: 73 / M ?ADM Date: 12/16/24 ? Loc: HO.ED ? Attending Dr: ? Ordering Physician: Aliya Carias MD ?? Date of Service: 10/26/24 ?? Procedure(s): CT angio chest PE protocol ?? Accession Number(s): [id number] ? cc: Aliya Carias MD; Toyin Mistry MD ? EXAMINATION: ?? CT ANGIOGRAM CHEST ? CLINICAL INFORMATION: ?? EXAMINATION: ?? CT ANGIOGRAM OF THE CHEST WITH AND WITHOUT CONTRAST (CT PULMONARY ?? ANGIOGRAM FOR PE) ? CLINICAL INFORMATION: ?? SOB ? COMPARISON: ?? X-ray chest 10/26/2024 ? TECHNIQUE: ?? Prior to contrast administration, noncontrast localization images were ?? obtained. ?? Subsequently, multidetector volumetric imaging was ?? performed from the thoracic inlet to below the diaphragms following the ?? administration of 65 mL Omnipaque 350 intravenous contrast. ?? No contrast reaction reported ?? Sagittal, coronal, and MIP oblique sagittal reformatted images were ?? obtained on the CT workstation, uploaded to PACS, and reviewed. ? This CT examination was performed using dose optimization techniques as ?? appropriate, variously including the following: ?? *Automated exposure control ?? *Adjustment of mA and/or kV according to patient size (this includes ?? techniques or standardized protocols for targeted exams where dose is ?? matched to indication/reason for exam; i.e. extremities or head) ?? *Use of iterative reconstruction technique ? Total exam dose-length product of 40 mGy-cm ? FINDINGS: ? QUALITY OF STUDY/CONTRAST BOLUS: Satisfactory. ? PULMONARY ARTERIES: No evidence of filling defects in the central, ?? lobar and segmental vessels to suggest pulmonary embolism. ? THORACIC AORTA: No aneurysm. ? LUNG: Mild dependent changes in the posterior aspect of the right lower ?? lung. 5 mm nodule adjacent to the left fissure (7:2 28). ?? Trachea and central airway are patent. ? PLEURA: No pleural effusion or pneumothorax. ? MEDIASTINUM: Normal heart size. ??No pericardial effusion. ??No hilar or ?? mediastinal lymphadenopathy. ??No evidence of septal bowing or right ?? heart strain. ? CORONARY ARTERY CALCIFICATION: None visualized on this study. ? CHEST WALL/AXILLA: No axillary or internal mammary lymphadenopathy. ? OSSEOUS STRUCTURES: No acute or suspicious osseous abnormality. ? Degeneration in the spine. ? UPPER ABDOMEN: Right renal cyst, partially imaged. ??No reflux of ?? contrast into the hepatic veins to suggest elevated right heart ?? pressures. ? CT/CT angio chest PE protocol ?? IMPRESSION: ?? No evidence of filling defects to suggest central or segmental ?? pulmonary emboli. ? Left lower lobe 5 mm nodule. ?? According to the UPDATED 2017 Fleischner Society recommendations, the ?? advised follow-up imaging for solid nodules < 6 mm is: ? LOW RISK PATIENT: No routine follow-up. ? HIGH RISK PATIENT: Optional CT at 12 months. ? VTE: negative ? Fleischner guidelines were followed. ? Electronically signed by: ??Jd Alanis MD ??10/26/2024 06:13 PM EST ?? RP ? Dictated By: ?Jd Alanis MD ? Signed By: ?<Electronically signed by Jd Alanis MD in OV> ?10/26/24 1813 ? DD/ 1626 ? TD/TT: 10/26/24 1703 ? Tobacco Prevention Health Educator: HB ? Procedure Note [place], Image - 10/26/[address] [place] [address] [address] Scan Report Signed Patient: Mark FelicianoMR#: [id number] 5 : 3Acct:[id number] Age/Sex: 73 / MADM Date: 10/26/24 Loc: HO.ED Attending Dr: Ordering Physician: Aliya Carias MD Date of Service: 10/26/24 Procedure(s): CT angio chest PE protocol Accession Number(s): [id number] cc: Aliya Carias MD; Toyin Mistry MD EXAMINATION: CT ANGIOGRAM CHEST CLINICAL INFORMATION: EXAMINATION: CT ANGIOGRAM OF THE CHEST WITH AND WITHOUT CONTRAST (CT PULMONARY ANGIOGRAM FOR PE) CLINICAL INFORMATION: SOB COMPARISON: X-ray chest 10/26/2024 TECHNIQUE: Prior to contrast administration, noncontrast localization images were obtained. Subsequently, multidetector volumetric imaging was performed from the thoracic inlet to below the diaphragms following the administration of 65 mL Omnipaque 350 intravenous contrast. No contrast reaction reported Sagittal, coronal, and MIP oblique sagittal reformatted images were obtained on the CT workstation, uploaded to PACS, and reviewed. This CT examination was performed using dose optimization techniques as appropriate, variously including the following: *Automated exposure control *Adjustment of mA and/or kV according to patient size (this includes techniques or standardized protocols for targeted exams where dose is matched to indication/reason for exam; i.e. extremities or head) *Use of iterative reconstruction technique Total exam dose-length product of 40 mGy-cm FINDINGS: QUALITY OF STUDY/CONTRAST BOLUS: Satisfactory. PULMONARY ARTERIES: No evidence of filling defects in the central, lobar and segmental vessels to suggest pulmonary embolism. THORACIC AORTA: No aneurysm. LUNG: Mild dependent changes in the posterior aspect of the right lower lung. 5 mm nodule adjacent to the left fissure (7:2 28). Trachea and central airway are patent. PLEURA: No pleural effusion or pneumothorax. MEDIASTINUM: Normal heart size. No pericardial effusion. No hilar or mediastinal lymphadenopathy. No evidence of septal bowing or right heart strain. CORONARY ARTERY CALCIFICATION: None visualized on this study. CHEST WALL/AXILLA: No axillary or internal mammary lymphadenopathy. OSSEOUS STRUCTURES: No acute or suspicious osseous abnormality. Degeneration in the spine. UPPER ABDOMEN: Right renal cyst, partially imaged. No reflux of contrast into the hepatic veins to suggest elevated right heart pressures. CT/CT angio chest PE protocol IMPRESSION: No evidence of filling defects to suggest central or segmental pulmonary emboli. Left lower lobe 5 mm nodule. According to the UPDATED 2017 Fleischner Society recommendations, the advised follow-up imaging for solid nodules < 6 mm is: LOW RISK PATIENT: No routine follow-up. HIGH RISK PATIENT: Optional CT at 12 months. VTE: negative Fleischner guidelines were followed. Electronically signed by: Jd Alanis MD 10/26/2024 06:13 PM [facility] Dictated By: Jd Alanis MD Signed By: <Electronically signed by Jd Alanis MD in OV> 10/26/24 1813 DD/ 1626 TD/TT: 10/26/24 1703 Tobacco Prevention Health Educator: KISH[facility] External Provider IMG CT PROCEDURES Edited Result - Final * D Dimer High Sensitivity (10/26/2024 4:23 PM EST) [facility] D Dimer High Sensitivity 307 NG/ML [facility] Comment:D-DIMER HS REFERENCE RANGENote: Our assay reports D-Dimer Units (D- DU).The cut-off value for venous thromboembolic (VTE) disease is230 ng/mL. This value has a very high negative predictivevalue when the patient has a low to moderate clinicalprobability of VTE.The upper limit of normal is 243 ng/mL. 10/26/2024 4:23 PM EST 10/26/2024 4:25 PM EST Generic External Data Provider LAB BLOOD ORDERAB LES Final Result Performing Organization Address [facility] Co de Phone Number [facility] [address] [place] [phone] * High Sensitivity Troponin I (10/26/2024 1:43 PM EST) [facility] TROPONIN I HIGH SENSITIVITY <2.7 <3.5 - 35.0 ng/L [facility] Comment:The Cardona high sens itivity Troponin-I results should beused in conjunction with other diagnostic information suchas ECG, clinical observations and information, and patientsymptoms to aid in the diagnosis of NV. 10/26/2024 1:43 PM EST 10/26/2024 1:48 PM EST Generic External Data Provider LAB BLOOD ORDERAB LES Final Result Performing Organization Address [facility] Co de Phone Number [facility] [address] [place] [phone] * SARS-CoV-2 RNA, Influenza A/B, and RSV RNA, Ql NAAT (10/26/2024 1:43 PM EST) [facility] Influenza A PCR NEGATIVE Negative [facility] Influenza B PCR NEGATIVE Negative [facility] Resp Syncy Virus RNA Qual PCR NEGATIVE Negative [facility] SARS COV2 PCR NEGATIVE Negative [facility] Comment:All test results mus t be correlated with clinical findings.Negative results do not preclude SARS-CoV2, influenza Avirus, influenza B virus and/or RSV infectionand should not be used as the sole basis for treatment orother patient management decisions. Negative results must becombined with clinical observations, patient history, andepidemiological information.This test has not been evaluated for monitoring treatment ofinfection.This test has been authorized by the FDA under an EmergencyUse Authorization (EUA) for use by authorized laboratories.Testing performed on the [employer] GeneXpert utilizingreal-time RT-PCR.All SARS CoV2 and positive influenza A/B results arereported to [facility]. 10/26/2024 1:43 PM EST 10/26/2024 1:48 PM EST Generic External Data Provider LAB MICROBIOLOGY - GENERAL ORDERABLES Final Result [facility] [address] [place] [phone] * (ABNORMAL) CBC auto differential (10/26/2024 1:43 PM EST) White Blood Count 6.4 4.8 - 10.8 X10*3/uL [facility] Red Blood Count 4.60 4.60 - 5.80 X10*6/uL [facility] Hemoglobin 13.9(L) 14.0 - 18.0 g/dl [facility] Hematocrit 42.8 42.0 - 52.0 % [facility] Mean Corpuscular Volume 93.0 80.0 - 98.0 fL [facility] Mean Corpuscular Hemoglobin 30.2 27.0 - 33.0 pg [facility] Mean Corpuscular HGB Conc 32.5 31.0 - 36.0 g/dl [facility] Red Cell Distribution Width 13.9 11.0 - 16.0 % [facility] Platelet Count 224 160 - 400 X10*3/uL [facility] Mean Platelet Volume 10.0 9.4 - 12.4 fL [facility] Neutrophils Percent Auto 63.9 45 - 73 % [facility] Imm Gran Pct Auto 0.3 0.0 - 0.4 % [facility] Lymphocytes Percent Auto 20.6 20 - 40 % [facility] Monocytes Percent Auto 8.3 2 - 11 % [facility] Eosinophils Percent Auto 6.0(H) 0 - 4 % [facility] Basophils Percent Auto 0.9 0 - 2 % [facility] NRBC Pct Auto 0.0 0.0 - 0.2 /100WBC [facility] Neutrophils Absolute Auto 4.1 2.0 - 8.3 x10*3/uL [facility] Imm Gran Abs Auto 0.02 0.00 - 0.03 X10*3/uL [facility] Lymphocytes Absolute Auto 1.3 1.2 - 4.9 X10*3/uL [facility] Monocytes Absolute Auto 0.5 0.1 - 1.2 X10*3/uL [facility] Eosinophils Absolute Auto 0.4 0.0 - 0.4 X10*3/uL [facility] Basophils Absolute Auto 0.1 0.0 - 0.2 X10*3/uL [facility] NRBC Abs Auto 0.000 0.0 - 0.012 X10*3/uL [facility] 10/26/2024 1:43 PM EST 10/26/2024 1:48 PM EST us Generic External Data Provider LAB BLOOD ORDERAB LES Final Result [facility] [address] [place] [phone] * B Type Natriuretic Peptide (BNP) (10/26/2024 1:43 PM EST) B Type Natriuretic Peptide 13 <100 pg/mL [facility] Comment:For those patients w ho are being treated with Natrecor(nesiritide, recombinant BNP), BNP testing should beperformed at least two hours post treatment in order toensure that only endogenous levels of BNP are detected. 10/26/2024 1:43 PM EST 10/26/2024 1:48 PM EST us Generic External Data Provider LAB BLOOD ORDERAB LES Final Result Performing Organization Address [facility]/ZIP Co de Phone Number [facility] [address] [place] [address] [phone] * Magnesium (10/26/2024 1:43 PM EST) Pathologist [facility] Magnesium 2.2 1.6 - 2.6 mg/dL [facility] 10/26/2024 1:43 PM EST 10/26/2024 1:48 PM EST us Generic External Data Provider LAB BLOOD ORDERAB LES Final Result Performing Organization Address [facility] Co me Phone Number [facility] [address] [place] [address] [phone] * Hepatic Function Panel (10/26/2024 1:43 PM EST) Bilirubin, Total 0.3 0.0 - 1.0 mg/dL [facility] Bilirubin, Direct 0.1 0.0 - 0.5 mg/dL [facility] Aspartate Amino Transferase 31 5 - 37 U/L [facility] Alanine Aminotransferase 26 0 - 40 U/L [facility] Total Protein 7.3 6.5 - 8.0 g/dL [facility] Albumin Level 4.0 3.5 - 5.0 g/dL [facility] Alkaline Phosphatase 73 39 - 117 U/L [facility] 10/26/2024 1:43 PM EST 10/26/2024 1:48 PM EST us Generic External Data Provider LAB BLOOD ORDERAB LES Final Result Performing Organization Address City/[facility]/ZIP Co de Phone Number [facility] [address] [place] [phone] * (ABNORMAL) Basic Metabolic Panel (10/26/2024 1:43 PM EST) Sodium 142 135 - 145 mmol/L [facility] Potassium 3.9 3.3 - 5.1 mmol/L [facility] Chloride 109(H) 96 - 108 mmol/L [facility] Carbon Dioxide 27 22 - 29 mmol/L [facility] Anion Gap 10(L) 12 - 20 [facility] Urea Nitrogen (BUN) 20(H) 9 - 16 mg/dL [facility] Creatinine, Serum 0.87 0.5 - 1.4 mg/dL [facility] Creatinine Clr Calc Pharmacy 67.7 [facility] Comment:eGFR (calculated fro m the MDRD study equation) and eCrCl(calculated from the Cockcroft-Gault equation) are based ondifferent parameters and may not yield comparable results.If eCrCl result is absurd, please check patient'sheight/weight. Estimated Glomerular Filt Rate >60 [facility] Comment:Chronic Kidney Disea se: Estimated GFR < 60 mL/min/[id number] Kidney Disease: Estimated GFR < 15 mL/min/1.73m2 Glucose 118(H) 60 - 115 mg/dL [facility] Calcium 8.6 8.4 - 10.2 mg/dL [facility] 10/26/2024 1:43 PM EST 10/26/2024 1:48 PM EST us Generic External Data Provider LAB BLOOD ORDERAB LES Final Result [facility] [address] [place] [phone] * XR Chest 2 Views (10/26/2024 1:40 PM EST) Only the most recent of2 resultswithin the time period is included. Anatomical Region Laterality Modality Chest Radiographic Tomeka ging 10/26/2024 1:40 PM EST Narrative 10/26/2024 2:28 PM EST ? [facility] ?[address] ?[place] [address] ?XRay Report ? Signed ? Patient: Braden,Mark ?MR#: [id number] ?? 5 ? : 1950 ?Acct:[id number] ? Age/Sex: 73 / M ?ADM Date: 10/26/24 ? Loc: HO.ED ? Attending Dr: ? Ordering Physician: Liz Richards ?? Date of Service: 10/26/24 ?? Procedure(s): XR chest 2V ?? Accession Number(s): [id number] ? cc: Liz Richards; Toyin Mistry MD ? EXAMINATION: ?? XR CHEST ? CLINICAL INFORMATION: ?? SOB ? COMPARISON: ?? 11/21/2023, 07/22/2023, 01/31/2023. ? TECHNIQUE: ?? 2 views of the chest were obtained. ? FINDINGS: ?? The cardiac, hilar, and mediastinal contours are normal. ? The lungs are mildly hyperaerated, however clear bilaterally. There is ?? no pneumothorax or pleural effusion. ? There is no focal osseous or soft tissue abnormality. ? XR/XR chest 2V ?? IMPRESSION: ?? No active pulmonary disease. ? Electronically signed by: ??Familia Fraga MD ??10/26/2024 02:26 PM EST RP ? Dictated By: ?Familia Fraga MD ? Signed By: ?<Electronically signed by Familia Fraga MD in OV> ?10/26/24 1426 ? DD/ 1340 ? TD/TT: 10/26/24 1344 ? Tobacco Prevention Health Educator: ? Procedure Note Joaquín Lazaro - 10/26/[address] [address] XRay Report Signed Patient: Mark FelicianoMR#: [id number] 5 : 3Acct:[id number] Age/Sex: 73 / MADM Date: 10/26/24 Loc: HO.ED Attending Dr: Ordering Physician: Liz Richards Date of Service: 10/26/24 Procedure(s): XR chest 2V Accession Number(s): [id number] cc: Liz Richards; Toyin Mistry MD EXAMINATION: XR CHEST CLINICAL INFORMATION: SOB COMPARISON: 11/21/2023, 07/22/2023, 01/31/2023. TECHNIQUE: 2 views of the chest were obtained. FINDINGS: The cardiac, hilar, and mediastinal contours are normal. The lungs are mildly hyperaerated, however clear bilaterally. There is no pneumothorax or pleural effusion. There is no focal osseous or soft tissue abnormality. XR/XR chest 2V IMPRESSION: No active pulmonary disease. Electronically signed by: Familia Fraga MD 10/26/2024 02:26 PM EST RP Dictated By: Familia Fraga MD Signed By: <Electronically signed by Familia Fraga MD in OV> 10/26/24 1426 DD/ 1340 TD/TT: 10/26/24 1344 Tobacco Prevention Health Educator: [facility] External Provider IMG XR PROCEDURES Edited Result - Final * Influenza B (ID NOW Rapid Molecular) (09/29/2024 1:33 PM EST) [facility] Influenza B Negative Negative, Indeterminate [facility] Swab 09/29/2024 1:33 PM EST Sneha Clark MD POINT OF CARE TEST ENTER/E DIT ORDERABLES Final Result [facility] [address] [place] [address] [phone] * Influenza A (ID NOW Rapid Molecular) (09/29/2024 1:33 PM EST) Pathologist [facility] Influenza A Negative Negative, Indeterminate [facility] Swab 09/29/2024 1:33 PM EST Sneha Clark MD POINT OF CARE TEST ENTER/E DIT ORDERABLES Final Result Performing Organization Address [facility]/ZIP Co de Phone Number [facility] [address] [place] [phone] * (ABNORMAL) POCT Rapid COVID Ag (09/29/2024 1:33 PM EST) Rapid COVID Ag Positive [facility] Swab 09/29/2024 1:33 PM EST Sneha Clark MD POINT OF CARE TEST ENTER/E DIT ORDERABLES Final Result Performing Organization Address [facility] Co de Phone Number [facility] [address] [place] [phone] * Hepatitis C Antibody with Reflex to HCV, RNA, Quantitative, Real-Time PCR (09/24/2024 1:57 PM EST) Hepatitis C Antibody Nonreactive Nonreactive [facility] Comment:Antibodies to HCV no t detected; does not exclude early acuteHCV infection. Blood Venous blood specimen / Unknown 09/24/2024 1:57 PM EST 09/24/2024 4:04 PM EST us Vanda Palacios NP LAB BLOOD ORDERABLES Final Resu lt Performing Organization Address [facility] Co de Phone Number [facility] [address] [place] [address] [phone] * (ABNORMAL) Lipid Panel with Reflex to Direct LDL (04/14/2024 8:20 AM EDT) Triglycerides 135 <150 mg/dL [facility] Comment:Desirable Triglyceri de: less than 150 mg/dLBorderline High Triglyceride 150-199 mg/dLHigh Triglyceride: 200-499 mg/dLVery High Triglyceride: greater than or equal to 5OO mg/dL Cholesterol 174 <200 mg/dL [facility] Comment:Desirable Cholestero l: less than 200 mg/dLBorderline High Cholesterol: 200-239 mg/dLHigh Cholesterol: greater than 239 mg/dL LDL Cholesterol Calculated 106(H) <100 mg/dL [facility] Comment:Desirable LDL: less than 100 mg/dLNear Optimal/Above Optimal LDL: 110- 129 mg/dLBorderline High LDL: 130-159 mg/dLHigh LDL: 160-189 mg/dLVery High LDL: greater than or equal to 190 mg/dL HDL Cholesterol 41 >40 mg/dL [facility] Comment:Desirable HDL: great er than 40 mg/dL Note: This HDL assay may give artificially low results in patients with liver disease. Blood 04/14/2024 8:20 AM EDT 04/14/2024 11:51 AM EDT Toyin Mistry MD LAB BLOOD ORDERABLES Final Resul t Performing Organization Address [facility] Co de Phone Number [facility] [address] [place] [address] [phone] * Hemoglobin A1c (04/14/2024 8:20 AM EDT) Hemoglobin A1c 5.7 <6.0 % [facility] Comment:Hemoglobin A1C Refer ence Range Adults: 4.8 - 6.0 % Non diabetic: < 6.0 % Goal: < 7.0 %Additional Action Suggested: > 8.0 %Note: Hemoglobin A1c results are invalid for patients with abnormal amounts of HbF. Blood transfusions may impact the HbA1c concentration in the patient sample. Estimated Average Glucose 117 mg/dL [facility] Comment:eAG = Estimated ave rage glucose which is %A1C expressed asaverage glucose, using the formula of the V8G-RevllxpNzpffsj Glucose study (ADAG), Diabetes Care, Vol.31,#8,2007 Blood Venous blood specimen / Unknown 04/14/2024 8:20 AM EDT 04/14/2024 11:42 AM EDT us Toyin Mistry MD LAB BLOOD ORDERABLES Final Resul t Performing Organization Address City/[facility] Co de Phone Number [facility] [address] [place] [phone] * Hm Colonoscopy (11/07/2021) Colonoscopy Normal Normal [facility] External Provider HEALTH MAINTENANCE Edited Result - Final from Last 3 Months or Most Recently Relevant to Health Maintenance Insurance [facility] Care Teams Surveillance Sensor Officer Relationship Specialty Start Date End Date Toyin Mistry MD [address] [place] [phone] PCP - General Family Medicine 11/11/18
--- OUTSIDE RECORDS SUMMARY | 2024-12-08 11:06 | XMS_ITS | Encounter Summary ---
Author Organization [employer] Address [address] [facility] [address] [place] [address] Care Team Providers Care Marine Chronometer Assembler Name Role Phone Toyin Mistry MD Primary Care Provider [phone] Encounter Details Date Type Department Care Team ([facility] st Contact Info) Description 2024 Orders Only [facility] [address] [place], [place] [phone] Toyin Mistyr MD [address] [place], [place] [phone] Social History Tobacco Use Types Packs/Day Years [...] AM EDT documented as of this encounter Plan of Treatment Upcoming Encounters Date Type Department Care Team (Late st Contact Info) Description 12/08/2024 3:00 PM EST Office Visit [facility] [address] [place] [phone] Toyin Mistry MD [address] [place] [phone] 12/31/2024 10:00 AM EST Nurse Only [facility] [address] [place] [phone] documented as of this encounter Visit Diagnoses Not on filedocumented in this encounter Additional Health Concerns Assessment Noted Time PHQ-9 Depression Total Score: 4 08/31/20 24 10:34 AM EDT documented as of this encounter Care Teams Marine Chronometer Assembler Relationship Specialty Start Date End Date Toyin Mistry MD [address] [place] [phone] PCP - General Family Medicine 11/11/18 documented as of this encounter
--- OUTSIDE RECORDS SUMMARY | 2024-12-08 11:06 | XMS_ITS | Encounter Summary ---
Author Organization [employer] Address [address] [facility] 7t [place] [address] Care Team Providers Care Internship Coordinator Name Role Phone Toyin Mistry MD Primary Care Provider [phone] Encounter Details Date Type Department Care Team ([facility] st Contact Info) Description 12/03/2024 11:15 AM EST Nurse Only [facility] [address] [place], [place] [phone] Michelle Snyder LPN B12 deficiency Social History Tobacco Use Types Packs/Day Years [...] AM EDT documented as of this encounter Progress Notes * Michelle Snyder LPN - 12/03/2024 11:15 AM EST SUBJECTIVE: Mark Feliciano is a 74 y.o. year old male who presents for No chief complaint on file. Preferred language for medical information: Management Development Specialist needed: Yes Standing Ordered verified: Yes, standing order expiration date: 09/28/2025 Mark Feliciano denies any difficulties with previous injection that was received. No Known Allergies OBJECTIVE: B-12 injection given in Right Deltoid, medication was tolerated well. ASSESSMENT: Vitamin B12 deficiency PLAN: Mark Feliciano will return for next injection on 12/31/2024 . [x] Advised to monitor injection site for any increased redness or swelling [x] Next appointment given Mark Feliciano agrees with plan of care and verbalized understanding of instructions/education. Michelle Snyder LPN documented in this encounter Plan of Treatment Upcoming Encounters Date Type Department Care Team (Late st Contact Info) Description 12/08/2024 3:00 PM EST Office Visit [facility] [address] [place] [phone] Toyin Mistry MD [address] [place] [phone] 12/31/2024 10:00 AM EST Nurse Only [facility] [address] [place] [phone] documented as of this encounter Visit Diagnoses Diagnosis B12 deficiency documented in this encounter Administered Medications Active Administered Medications - up to 3 most recent administrations Medication Order MAR Action Action Date Dose Rate Site cyanocobalamin (Vitamin B-12) injection 1,000 mcg 1,000 mcg, Intramuscular, Every 30 days, First dose on Sat11/02/24 at 1200, For 11 dosesIndications:Vitamin B12 deficiency Given 12/03/2024 9:00 AM EST 1,000 mcg Right Deltoid Given 11/02/2024 12:00 PM EST 1,000 mcg L eft Deltoid documented in this encounter Additional Health Concerns Assessment Noted Time PHQ-9 Depression Total Score: 4 08/31/20 24 10:34 AM EDT documented as of this encounter Care Teams Internship Coordinator Relationship Specialty Start Date End Date Toyin Mistry MD [address] [place] [address] PCP - General Family Medicine 11/11/18 documented as of this encounter
--- OUTSIDE RECORDS SUMMARY | 2024-12-08 11:06 | XMS_ITS | Encounter Summary ---
Author Organization [employer] Address [address] [facility] 7t [place] [address] Care Team Providers Care Professor Of Kinesiology Name Role Phone Toyin Mistry MD Primary Care Provider [phone] Reason for Visit * Reason Onset Date Comments Med Refill 2024 Encounter Details Date Type Department Care Team ([facility] st Contact Info) Description 2024 Telephone [facility] [address] [place], [place] [phone] Toyin Mistry MD [address] [place], [place] [phone] Med Refill Social History Tobacco Use Types Packs/Day Years [...] encounter Miscellaneous Notes * Telephone Encounter - Talya Smart LPN - 2024 3:52 PM EST Please review request no solution on active med list. * Telephone Encounter - Gamal Feliciano - 2024 3:16 PM EST Tc from pt requesting a Nebulizer Solution documented in this encounter Plan of Treatment Upcoming Encounters Date Type Department Care Team (Late st Contact Info) Description 12/08/2024 3:00 PM EST Office Visit [facility] [address] [place] [phone] Toyin Mistry MD [address] [place] [phone] 12/31/2024 10:00 AM EST Nurse Only [facility] [address] [place] [phone] documented as of this encounter Visit Diagnoses Not on filedocumented in this encounter Additional Health Concerns Assessment Noted Time PHQ-9 Depression Total Score: 4 08/31/20 10:34 AM EDT documented as of this encounter Care Teams Professor Of Kinesiology Relationship Specialty Start Date End Date Toyin Mistry MD [address] [place] [address] PCP - General Family Medicine 11/11/18 documented as of this encounter
--- OUTSIDE RECORDS SUMMARY | 2024-12-08 11:06 | XMS_ITS | Encounter Summary ---
Author Organization [employer] Address [address] [facility] 7t [place] [address] Care Team Providers Care Early Education Teacher Name Role Phone Toyin Mistry MD Primary Care Provider [phone] Reason for Visit * Reason Onset Date Comments Plan of Care 11/17/2024 Encounter Details Date Type Department Care Team ([facility] st Contact Info) Description 11/17/2024 Telephone [facility] [address] [place] [address] Marguerite Robles RN Plan of Care Social History Tobacco Use Types Packs/Day Years [...] encounter Miscellaneous Notes * Telephone Encounter - Karrie Majano RN - 11/20/2024 9:44 AM EST TC placed to pt to f/u on [facility] visit from 11/17/24 for the symptoms of cough, shortness of breath and wheezing. The pt was evaluated and given a course of prednisone and a nebulizer. Pt states that the symptoms have improved and denied any current difficulty breathing or audible wheeze. The pt was agreeable to scheduling a f/u to this [facility] visit with PCP on 12/08/24. Pt advised that if symptoms continue or worsen before appt to call the office. Pt agreeable to this plan of care and stated understanding. * Telephone Encounter - Esther Hicks RN - 11/19/2024 9:55 AM EST Pt seen by [facility]. They advised he go to the ED. Refused x3. They gave Rx for prednisone and neb solution. Telephone call placed to pt for status check and to book appt. No answer, left v/m. * Telephone Encounter - Marguerite Robles RN - 11/17/2024 2:27 PM EST Call returned to patient. Upon chart review, noted that patient was evaluated by [facility] and [facility] ED on 11/15/2024. Paramedics advised ambulance transfer to ED. Patient declined, but eventually allowed his to drive him. Patient was reporting increasing shortness of breath and cough. Per ED paperwork, patient's family also reported 2 syncopal episodes within the last 2 weeks. One of which Mark's reports she had to do CPR which resulted in his spontaneous arousal. They did not go to ED at this time. Unfortunately, patient eloped from ED despite provider recommendation to be admitted. Mark reports he did leave the ED because it was so busy he felt like he was going to there. Advised patient that his syncopal episodes are very concerning, as a work-up and diagnosis was not able to be completed. Additionally, his 's report of Mark being pulseless for 30 seconds several days ago is of major concern. Patient reports he understands and he is concerned but does not like waiting in the ED. Advised patient that it is crucial he be re-evaluated to determine what is causing his symptoms. Patient refuses to go back to ED at this time. Patient eventually agreeable to have [facility] paramedics return to his home to evaluate him. Advised patient that they may also advise that he return to the ED. Patient verbalizes understanding and agreement with plan of care at this time. All questions answered. Will task for RN status check later in week. [employer] language [email or web address] interpretor [place] [email or web address] [id number] documented in this encounter Plan of Treatment Upcoming Encounters Date Type Department Care Team (Late st Contact Info) Description 12/08/2024 3:00 PM EST Office Visit [facility] [address] [place] [phone] Toyin Mistry MD [address] [place] [phone] 12/31/2024 10:00 AM EST Nurse Only [facility] [address] [place] [phone] documented as of this encounter Visit Diagnoses Not on filedocumented in this encounter Additional Health Concerns Assessment Noted Time PHQ-9 Depression Total Score: 4 08/31/20 24 10:34 AM EDT documented as of this encounter Care Teams Early Education Teacher Relationship Specialty Start Date End Date Toyin Mistry MD [address] [place] [address] PCP - General Family Medicine 11/11/18 documented as of this encounter
--- OUTSIDE RECORDS SUMMARY | 2024-12-08 11:06 | XMS_ITS | Encounter Summary ---
Author Organization [email or web address] Address [address] [facility] [address] [place] [address] Care Team Providers Care Airborne And Air Delivery Specialist Name Role Phone Toyin Mistry MD Primary Care Provider [phone] Encounter Details Date Type Department Care Team (Late st Contact Info) Description 10/12/2022 Orders Only [facility] [address] [place] [phone] Esther Hicks RN [address] [place] [phone] Social History Tobacco Use Types Packs/Day Years Used Date Smoking Tobacco: Never Assessed Sex and Gender Information Value Date Recorded Sex Assigned at Male 09/10/2022 10:14 AM EDT Legal Sex Male 10:14 AM EDT Gender Identity Male 09/10/2022 10:14 AM EDT Sexual Orientation Straight 09/10/2022 10 :14 AM EDT documented as of this encounter Plan of Treatment Upcoming Encounters Date Type Department Care Team (Late st Contact Info) Description 12/08/2024 3:00 PM EST Office Visit [facility] [address] [place] [phone] Toyin Mistry MD [address] [place] [address] [phone] 12/31/2024 10:00 AM EST Nurse Only [facility] [address] [place] [address] [phone] documented as of this encounter Visit Diagnoses Not on filedocumented in this encounter Care Teams Airborne And Air Delivery Specialist Relationship Specialty Start Date End Date Toyin Mistry MD [address] [place] [phone] PCP - General Family Medicine 11/11/18 documented as of this encounter
--- OUTSIDE RECORDS SUMMARY | 2024-12-08 11:06 | XMS_ITS | Encounter Summary ---
Author Organization [employer] Address [address] [facility] 7t [place] [address] Care Team Providers Care Hide And Skin Fleshing Machine Operator Name Role Phone Toyin Mistry MD Primary Care Provider [phone] Reason for Visit * Reason Onset Date Comments Med Refill 11/16/2024 Encounter Details Date Type Department Care Team ([facility] st Contact Info) Description 11/16/2024 Telephone [facility] [address] [place], [place] [phone] Toyin Mistry MD [address] [place], [place] [phone] Med Refill Social History Tobacco Use Types [...] encounter Miscellaneous Notes * Telephone Encounter - Marguerite Robles RN - 11/17/2024 1:30 PM EST Call returned to patient. Patient reports he needs medications for his cough refilled. He recalls prednisone and a medication for his nebulizer. Per chart review - 5 days of prednisone ordered on 09/29/2024. Advised patient that there is not refills on the prednisone script. Patient reports an ongoing and persistent cough. This RN advised patient that call will be returned shortly after chart review. Patient verbalizes understanding and agreement with plan [place] [id number] Gómez * Telephone Encounter - Verónica Martinez - 11/16/2024 2:11 PM EST TC from pt requesting medication refill. Medications needing refill : - predniSONE (Deltasone) 20 MG tablet To be sent to: [id number] [place] - [address] [place] [address] documented in this encounter Plan of Treatment Upcoming Encounters Date Type Department Care Team (Late st Contact Info) Description 12/08/2024 3:00 PM EST Office Visit [facility] [address] [place], [place] [phone] Toyin Mistry MD [address] [place] [address] 12/31/2024 10:00 AM EST Nurse Only [facility] [place] [address] documented as of this encounter Visit Diagnoses Not on filedocumented in this encounter Additional Health Concerns Assessment Noted Time PHQ-9 Depression Total Score: 4 08/31/20 24 10:34 AM EDT documented as of this encounter Care Teams Hide And Skin Fleshing Machine Operator Relationship Specialty Start Date End Date Toyin Mistry MD [facility] [place] [address] PCP - General Family Medicine 11/11/18 documented as of this encounter
--- OUTSIDE RECORDS SUMMARY | 2024-12-08 11:07 | XMS_ITS | Continuity of Care Document ---
Author Organization [employer] Address [address] [place] [address] Care Team Providers Care Lining Presser Name Role Phone [facility] Primary Care Provider HIM CCA OTHER Assessment Encounter Date Assessment Date Assessment LastModified by Organization Details LastModified Time 11/15/2024 11/15/2024 I have reviewed and agree with the assessment and plan as documented by the sash assembler. I provided real time medical direction for this encounter and was immediately available to provide additional phone based assistance as needed. History as noted by sash assembler. Pt with history of asthma and chronic cough. History and evaluation today performed with help of phone lang interpreter. Pt was reportedly seen in the ED 3 weeks ago with an asthma exacerbation but is reporting that he still feels poorly with cough and SOB. Pt and family report that twice in the last 2 weeks, the pt had a syncopal event while getting a nebulizer treatment at home, most recently this occurred yesterday. Pt did not immediately wake up after the syncopal event yesterday, so the family reports that they performed CPR for about 1 minute until the pt woke up. They did not call 911 and the pt did not go to the ED for evaluation. Today the pt continues to feel unwell with cough and SOB. He reports anterior CP with cough. On exam, pt with mild resp distress and increased WOB. O2 sat normal. Lungs with diffuse b/l exp wheezing. EKG: NSR with non specific T wave changes, no ischemic ST changes. Impression: Pt with persistent exacerbation of his asthma, but of more concern are his 2 recent syncopal events. Pt required about 1 minute of CPR by his family yesterday after an episode of syncope. Pt is reporting CP only with coughing today and still has SOB with increased WOB on exam with wheezing. I discuss with the patient and his family at length, with the help of lang interpreter, that he needs an urgent evaluation in the ED to assess for intermittent cardiac arrhythmias or ACS event from yesterday. The pt initially refuses to go to the ED but then states that he will go to the ED. He refuses an ambulance transport and his states that she will drive him to the [place] ED in about 30 mins. I discuss with the pt and his that ambulance transport would be safer and faster, but they refuse this and state that he will only go to the ED via private car. Pt is medicated with a Duoneb treatment by sash assembler. I have called an expect to the [facility] ED [facility]. [facility] 11/15/2024 17:56:17 Plan of Treatment Reminders Order Date Submit Date Provider Last Modified By Organization Details Last Modified Time Details Appointments None recorded. Lab None recorded. Referral None recorded. Procedures None recorded. Surgeries None recorded. Imaging electrocard iogram 2024 025 [facility], [address] [place] [address], [phone], 17:26:24 Medication Orders ipratropium 0.5 mg-albutero l 3 mg (2.5 mg base)/3 mL nebulizatio n soln 2024 025 [id number], [address] [place], [address], 17:26:24 Patient TargetsNo targets recorded. Patient InstructionsNo instructions recorded. Reason for Referral None Reported. Results Created Date Observation Date Name Description Value Unit Range Abnormal Flag Note LastModifiedBy Organization Detail LastModifiedTime 11/15/1911/15/2024 elect meche cejagr am No observ ation record ed. [address], [address], 11/15/2024 17:25:31 11/17/19 25 11/18/2024 elect meche cejagr am No observ ation record ed. [email or web address] [address], [address], 11/18/2024 08:57:59 Result Notes None recorded. Procedures Surgical History None recorded. Imaging Results Imaging Date Name Status LastModified by Organization Details LastModified Time 11/15/2024 electrocardiogram completed [address], [place], [address], 11/15/2024 17:25:31 Procedure Notes None recorded. Medical Equipment None Reported. Allergies No known drug allergies Medications Name Sig Start Date Stop Date Status Note LastModified by Organization Details LastModified Time fluoxetine 40 mg capsule active Not Available Not Available Not Available prednisone 10 mg tablet PLEASE SEE ATTACHED FOR DETAILED DIRECTIONS active Not Available Not Available N ot Available ipratropium 0.5 mg-albuterol 3 mg (2.5 mg base)/3 mL nebulization soln Inhale 3 mL by nebulizatio n route. 2024 active Not Available Not Available Not Avai lable tizanidine 2 mg tablet PLEASE SEE ATTACHED FOR DETAILED DIRECTIONS active Not Available Not Available N ot Available albuterol sulfate 2.5 mg/3 mL (0.083 %) solution for nebulization PLEASE SEE ATTACHED FOR DETAILED DIRECTIONS active Not Available Not Available N ot Available azithromycin 250 mg tablet TOME 2 TABLETAS V A ORAL HOY, LUEGO TOME 1 TABLETA DIARIAMENTE PHILLIP 4 D SEG N LAS INDICACIONE S active Not Available Not Available No t Available prednisone 20 mg tablet Take 2 tablets by oral route. 2024 active Not Available Not Available Not Avai lable temazepam 15 mg capsule active Not Available Not Available N ot Available cyanocobalam in (vit B-12) 1,000 mcg/mL injection solution INJECT 1 ML INTRAMUSCUL LESLYE EVERY MONTH active Not Available Not Available No t Available clonazepam 2 mg tablet active Not Available Not Available No t Available montelukast 10 mg tablet TAKE 1 TABLET (10 MG) BY MOUTH ONCE PER DAY. active Not Available Not Available No t Available fluoxetine 20 mg capsule active Not Available Not Available Not Available loratadine 10 mg tablet TOME 1 TABLETA POR V A ORAL TODOS LOS D active Not Available Not Available No t Available fluticasone propionate 110 mcg/actuatio n HFA aerosol inhaler INHALE 1 PUFF TWICE DAILY IN THE MORNING AND AT BEDTIME. RINSE MOUTH AFTER USING. DO NOT SWALLOW active Not Available Not Available Not Available naproxen 500 mg tablet TAKE 1 TABLET BT MOUTH TWICE A DAY WITH FOOD IF NEEDED active Not Available Not Available No t Available Ventolin HFA 90 mcg/actuatio n aerosol inhaler INHALE 2 PUFFS EVERY 4-6 HOURS NEEDED FOR DIFFICULTY BREATHING, 4 TIMES/DAY active Not Available Not Available Not Available rosuvastatin 5 mg tablet TAKE 1 TABLET (5 MG) BY MOUTH ONCE PER DAY. active Not Available Not Available No t Available diclofenac 1 % topical gel APPLY 1 G TOPICALLY IF NEEDED IN THE MORNING, AT NOON, AND AT BEDTIME (FOR LEFT SHOULDER PAIN). active Not Available Not Available No t Available [facility] spacer USE WITH INHALER DIRECTED active Not Available Not Available No t Available Arnuity Ellipta 200 mcg/actuatio n powder for inhalation PLEASE SEE ATTACHED FOR DETAILED DIRECTIONS active Not Available Not Available N ot Available baclofen 5 mg tablet TOME PALOMA TABLETA TODOS LOS D AL ACOSTARSE PARA EL ESPASMO MUSCULAR CUANDO SEA NECESARIO active Not Available Not Available No t Available Opzelura 1.5 % topical cream APPLY TO AFFECTED AREA ON SCALP, FACE, AND HAND DOS VECES AL D A active Not Available Not Available No t Available Vitals Date Recorded Body height Oxygen saturation Oxygen saturation in Arterial blood by Pulse oximetry Body temperature Body weight Respiratory rate Heart rate Systolic blood pressure Diastolic blood pressure Provider Name and Address Organization Details Last Updated DateTime 5 165.1 cm 97 % 97 % 98.6 [degF] 99153.7 6 g 20 /min 82 /min 136 mm[Hg] 81 mm[Hg] Not Available [facility] - production 17:12:05 Social History None recorded. Functional Status None recorded. Mental Status None recorded. Family History Nothing Reported. Medical History No medical history recorded. Past Encounters Encounter ID Performer Location Encounter Start Date Encounter Closed Date Diagnosis/Indication Diagnosis SNOMED-CT Code Diagnosis ICD10 Code Diagnosis Note [id number] Boni Deras MD [facility] [address] [place] [address] 11/15/2024 17:11:56 11/16/2024 00:21:22 Syncope and collapse 587294172 R55 Exacerbati on of moderate persistent asthma 993102194 J45.41 Health Concerns Section Related Observation LastModified by Organization Detai ls LastModified Time None Recorded Concern Status LastModified by Organization Details LastModified Time None Recorded Payers Encounter Date Sequence Insurance Name Policy Number Policy Mora Covered Member ID Mora Member ID Guarantor Name 11/15/2024 1 [facility] - DOS ON OR AFTER 2023 - DUAL ELIGIBLE - FDC OPTIONS AND ONE CARE (MEDICARE REPLACEMENT/ADV ANTAGE - HMO) Mark Feliciano [id number] Mark Felipeyes Notes Date Note Type Note Provider Name and Address Organization Details Recorded Time 11/15/2024 text/html This was a supervised home visit with sash assembler Dominic Rice. [facility] Nurse Triage Notes ([facility] - RN): Reason For Request: Pt's spouse Venessa took mbr to ER 3 weeks ago for asthma flare up>pt was referred to a research director, appointment is 12/08/24Spouse notes while administering breathing treatments yesterday, the mbr fainted and lost consciousness, cpr was administered and member became conscious 1 minute after event. Patient Reports: History of asthma, increased use of inhaler; Sputum increase ; Cough; Shortness of breath with exertionDenies: Increased work of breathing/labored ? with or without fever Unable to speak in full sentences without distress Discoloration of skin -cyanosis Needs to sleep sitting up, can? t catch breath Shortness of breath in setting of confusion Cough, fever greater than 2 days Lower extremity swelling COPD Pain with inspiration Chief Complaints: AsthmaPMH: AsthmaComments: Cartridge Assembler verified the Pt.'s name//address and phone number. Education provided on the response time and the Pt. was advised to monitor reported s/s and seek emergency treatment if needed. Pt was seen in the ER 3 weeks ago for asthma symptoms and cough/cold - Referred to [facility] and an appointment is scheduled for 12/08 - CG reports the pt had a syncopal episode yesterday during the breathing treatment- Family did CPR on the pt. yesterday for 1 minute - No EMS was contacted - CG reports the pt continues to feel unwell with SOB and coughing - Requesting medical assistance - Advised to contact 911 for ER treatment - Pt is declining /refusing. Pt is speaking full sentences at this time - Chest pain only reported when coughing. Link Cutter Organization Information for Dominic Rice Legal Name: [employer]Address: [address] [place] [address], [place] [address], Medical Director: Buddy Sanchez MDCLIA No.: [id number] Link Cutter POC Test Results from Dominic Rice EKG (17:09:05)EKG test performed.Attachment s uploaded as part of this test result can be found under Documents section. .................... .................... .................... .................... .................... .................... .................... . Link Cutter Note From Dominic Rice: [facility] makes pt contact. He is found seated on the sofa. He smiles at [facility] and says hello. He is not in acute distress. No stridor or sonorous respirations are noted, he is not tripoding or drooling. No slurred speech, facial droop, or one sided weakness are noted and pt is not bleeding anywhere. He stands on [facility] approach and offers a chair. Event Mgr services are obtained via cell phone for assessment and hx. Pt's tells [facility] the pt had two syncopal episode sin the past week during his breathing treatments. The first one was about a week ago and the most recent one was last night. She reports starting CPR on the pt last night and he woke up after about a minute of chest compressions. Pt does not remember the events. He tells [facility] he has been having a lot of asthma lately and feels like he can't catch his breath. He also endorses a cough that causes pain in my lungs . Pt also endorses feeling as though there is sputum he is unable to expectorate due to the asthma. He consents to evaluation and treatment today.[facility] obtains pt consent and uploads. Vital signs are obtained and pt is physically assessed. Lung sounds reveal diffuse insp/exp wheezes throughout. Remaining physical exam is unremarkable. [facility] obtains a 12-lead EKG and contacts [facility] to discuss the above findings. Based on hx given of two syncopal events during breathing treatments and the current arrhythmia w/ lack of old EKG for comparison, [facility] recommends pt be transported to the ED for further evaluation. [facility] informs pt and of the recommendation and pt refuses. Event Mgr services are obtained and patched in to call w/ [facility] and [facility] encourages pt to allow transport to the ED, stating the pt could pass out again and at home. Pt continues to refuse transport to the ED, but eventually consents to go, but does not want to go by ambulance. says she will drive him to [facility]. [facility] orders [facility] to administer a duoneb prior to the pt going to hospital. [facility] administers 3mg albuterol and 0.5mg atrovent via pt's SVN and a nebulizer mask. Pt tolerates breathing treatment well and lung sounds are clear post treatment. Pt and thank [facility] for coming.[facility] is clear. Report completed by ISABELLE Rice [id number]. .................... .................... .................... .................... .................... .................... .................... . [facility] Consulted: Boni Deras .................... .................... .................... .................... .................... .................... .................... . Disposition: Fulfilled Boni Deras MD [address] [facility],[address], [place], [address], TARIQ ESCAMILLA 11/15/2024 19:52:44
--- OUTSIDE RECORDS SUMMARY | 2024-12-08 11:07 | XMS_ITS | Encounter Summary ---
Author Organization [employer] Address [address] [facility] [address] [place] [address] Care Team Providers Care Jet Worker Name Role Phone Toyin Mistry MD Primary Care Provider [phone] Encounter Details Date Type Department Care Team ([facility] st Contact Info) Description 11/02/2024 9:00 AM EST Nurse Only [facility] MEDICINE [address] [place], [place] [phone] Michelle Snyder LPN B12 deficiency Social History [...] Progress Notes * Michelle Snyder LPN - 11/02/2024 9:00 AM EST SUBJECTIVE: Mark Feliciano is a 73 y.o. year old male who presents for No chief complaint on file. Preferred language for medical information: Concrete Boom Operator needed: Yes Standing Ordered verified: Yes, standing order expiration date: 09/04/2025 Mark Feliciano denies any difficulties with previous injection that was received. No Known Allergies OBJECTIVE: B-12 injection given in Left Deltoid, medication was tolerated well. ASSESSMENT: Vitamin B12 deficiency PLAN: Mark Feliciano will return for next injection on 12/03/2024 . [x] Advised to monitor injection site for any increased redness or swelling [x] Next appointment given Mark Feliciano agrees with plan of care and verbalized understanding of instructions/education. Michelle Snyder LPN documented in this encounter Plan of Treatment Upcoming Encounters Date Type Department Care Team (Late st Contact Info) Description 12/08/2024 3:00 PM EST Office Visit [facility] MEDICINE [address] [place] [phone] Toyin Mistry MD [address] [place] [phone] 12/31/2024 10:00 AM EST Nurse Only [facility]INE [address] [place] [phone] documented as of this encounter Visit Diagnoses [...] documented as of this encounter Care Teams Jet Worker Relationship Specialty Start Date End Date Toyin Mistry MD [address] [place] [address] PCP - General Family Medicine 11/11/18 documented as of this encounter
--- OUTSIDE RECORDS SUMMARY | 2024-12-08 11:07 | XMS_ITS | Encounter Summary ---
Author Organization [employer] Address [address] [facility] [address] [place] [address] Care Team Providers Care Acquisitions Logistics Analyst Name Role Phone Toyin Mistry MD Primary Care Provider [phone] Encounter Details Date Type Department Care Team (Late st Contact Info) Description 12/06/2022 Orders Only [facility] MEDICINE [address] [place] [phone] Wendie Cochran LPN Social History Tobacco Use Types Packs/Day Years [...] Description 12/08/2024 3:00 PM EST Office Visit [facility] MEDICINE [address] [place] [phone] Toyin Mistry MD [address] [place] [address] 12/31/2024 10:00 AM EST Nurse Only [facility] MEDICINE [address] [place] [address] [phone] documented as of this encounter Visit Diagnoses Not on filedocumented in this encounter Care Teams Acquisitions Logistics Analyst Relationship Specialty Start Date End Date Toyin Mistry MD [address] [place] [phone] PCP - General Family Medicine 11/11/18 documented as of this encounter
--- OUTSIDE RECORDS SUMMARY | 2024-12-08 11:07 | XMS_ITS | Encounter Summary ---
Author Organization [employer] Address [address] [facility] [address] [place] [address] Care Team Providers Care Transportation Maintenance Supervisor Name Role Phone Toyin Mistry MD Primary Care Provider [phone] Encounter Details Date Type Department Care Team (Latest Contact Info) Description 12/03/2024 Travel Social History Tobacco Use Types Packs/Day Years [...] Description 12/08/2024 3:00 PM EST Office Visit [facility] MEDICINE [address] [place] [phone] Toyin Mistry MD [address] [place] [phone] 12/31/2024 10:00 AM EST Nurse Only [address] [address] documented as of this encounter Visit Diagnoses Not on filedocumented in this encounter Additional Health Concerns Assessment Noted Time PHQ-9 Depression Total Score: 4 08/31/20 24 10:34 AM EDT documented as of this encounter Care Teams Transportation Maintenance Supervisor Relationship Specialty Start Date End Date Toyin Mistry MD [address] [place] [phone] PCP - General Family Medicine 11/11/18 documented as of this encounter
--- OUTSIDE RECORDS SUMMARY | 2024-12-08 11:07 | XMS_ITS | Encounter Summary ---
Author Organization [employer] Address [address] [facility] [address] [place] [address] Care Team Providers Care Gas Analyst Name Role Phone Toyin Mistry MD Primary Care Provider [phone] Encounter Details Date Type Department Care Team (Late st Contact Info) Description 01/10/2023 Telephone [facility] MEDICINE [address] [place] [address] [phone] Toyin Mistry MD [address] [place] [address] [phone] Social History Tobacco Use Types Packs/Day Years Used Date Smoking Tobacco: Never Assessed Sex and Gender Information Value Date Recorded Sex Assigned at Male 09/10/2022 10:14 AM EDT Legal Sex Male 10:14 AM EDT Gender Identity Male 09/10/2022 10:14 AM EDT Sexual Orientation Straight 09/10/2022 10 :14 AM EDT COVID-19 Exposure Response Date Recorded In the last 10 days, have yo u been in contact with someone who was confirmed or suspected to have Coronavirus/COVID-19? No / Unsure 01/11/2023 9:30 AM EST documented as of this encounter Plan of Treatment Upcoming Encounters Date Type Department Care Team (Late st Contact Info) Description 12/08/2024 3:00 PM EST Office Visit [facility] MEDICINE [address] [place] [address] [phone] Toyin Mistry MD [address] [place] [phone] 12/31/2024 10:00 AM EST Nurse Only [facility] MEDICINE [address] [place] [address] documented as of this encounter Visit Diagnoses Not on filedocumented in this encounter Care Teams Gas Analyst Relationship Specialty Start Date End Date Toyin Mistry MD [address] [place] [address] PCP - General Family Medicine 11/11/18 documented as of this encounter
--- OUTSIDE RECORDS SUMMARY | 2024-12-08 11:07 | XMS_ITS | Continuity of Care Document ---
Author Organization [facility] [employer] [facility] [place] [facility] Address [address] [place] [phone] Care Team Providers Care Chainstitch Seat Joiner Name Role Phone [facility] Primary Care Provider [phone] HIM [facility] OTHER Assessment No assessment recorded. Plan of Treatment Reminders Order Date Submit Date Provider Last Modified By Organization Details Last Modified Time Details Appointments None recorded. Lab None recorded. Referral None recorded. Procedures None recorded. Surgeries None recorded. Imaging electrocard iogram [address], [address] [place] [address], [phone], 17:29:49 Medication Orders albuterol sulfate 2.5 mg/3 mL (0.083 %) solution for nebulizatio n [address]/Pharmacy #[id number], [address] [place], [address], 5 17:30:02 prednisone 20 mg tablet [address]/Pharmacy #[id number], [address] [place], [address], 5 17:29:55 prednisone 10 mg tablet 2024 025 [facility]/Pharmacy #[id number], [address] [place], [address], 5 17:28:42 Patient TargetsNo targets recorded. Patient InstructionsNo instructions recorded. Reason for Referral None Reported. Results Created Date Observation Date Name Description Value Unit Range Abnormal Flag Note LastModifiedBy Organization Detail LastModifiedTime 11/15/1911/15/2024 ricky javier am No observ ation record ed. [facility] Main - [address], [address], 11/15/2024 17:25:31 11/17/19 25 11/18/2024 ricky javier am No observ ation record ed. [email or web address] [address], [address], 11/18/2024 08:57:59 Result Notes None recorded. Procedures Surgical History None recorded. Imaging Results Imaging Date Name Status LastModified by Organization Details LastModified Time 11/18/2024 electrocardiogram completed [address], [phone], 11/18/2024 08:57:59 Procedure Notes None recorded. Medical Equipment None [...] Not Available No t Available Rai Greer [facility] spacer USE WITH INHALER DIRECTED active [...] t Available Vitals Date Recorded Body height Respiratory rate Heart rate Oxygen saturation Oxygen saturation in Arterial blood by Pulse oximetry Body temperature Body weight Systolic blood pressure Diastolic blood pressure Provider Name and Address Organization Details Last Updated DateTime 5 167.64 cm 18 /min 77 /min 96 % 96 % 98 [degF] 52824.8 g 126 mm[Hg] 85 mm[Hg] Not Available [facility] - production 5 17:05:45 Social History None recorded. Functional Status None recorded. Mental Status None recorded. Family History Nothing Reported. Medical History No medical history recorded. Past Encounters Encounter ID Performer Location Encounter Start Date Encounter Closed Date Diagnosis/Indication Diagnosis SNOMED-CT Code Diagnosis ICD10 Code Diagnosis Note [id number] Boni Deras MD Main - [address] [phone] 11/15/2024 17:11:56 11/16/2024 00:21:22 Syncope and collapse 742155697 R55 Exacerbati on of moderate persistent asthma 123505033 J45.41 [id number] Quoc Saunders MD Main - [address] [address] 11/17/2024 17:05:43 11/18/2024 22:22:27 Exacerbation of moderate persistent asthma 724166598 J45.41 As noted, we were called to see this patient regarding concerns of cough and wheezing with two apparent syncopal episodes. Evaluation in the field was performed by my loftsman/woman colleague, as noted above, I provided real-time direction and supervisio n for this visit. The evaluation revealed reassuring VS and a story most c/w asthma flare or reactive airways vs subacute cough. Of note, he reported feeling he needed prednisone but not getting it. Additional ly, as noted he's had two syncopal episodes, seemingly related to the coughing though the history varied. He was seen in ED but left without being seen due to wait. Exam notable for wheezes.EK G shows no acute ischemic stigmata and incomplete RBBB Impression :Unclear what's going on here. I think it seems like a subacute asthma/rad /bronchiol itis, less likely post-viral cough. Due to wheezes and patient's report the he thinks he would benefit from steroid, I think this is worth trying. With regard to the syncope, we discussed the need for workup. Given the lack of overt cardiac sx and the reassuring EKG, I did not think there was an urgent need to re-refer to the ED, but discussed that leaving during evaluation carried some risks and would not be unreasonab le to represent for workup. Instead he can also contact his PCP for urgent appointmen t. Plan:[facility] edStrongly advised to call PCP to be seen sooner. Primary care, consider urgent visit to evaluate syncope Dispositio n: We discussed the diagnostic uncertaint y of home visits and the risk associated with this. In this case, the patient and I felt this to be an acceptable and reasonable amount of risk given the benefit of avoiding an ED visit. We discussed the need to seek care urgently/e mergently in the setting of any new or worsening serious symptoms, particular ly palpitaito ns, syncope, exertional chest pain Health Concerns Section Related Observation LastModified by Organization Detai ls LastModified Time None Recorded Concern Status LastModified by Organization Details LastModified Time None Recorded Payers Encounter Date Sequence Insurance Name Policy Number Policy Mora Covered Member ID Mora Member ID Guarantor Name 11/17/2024 1 [facility] - DOS ON OR AFTER 2023 - DUAL ELIGIBLE - [employer] AND ONE [employer] (MEDICARE REPLACEMENT/ADV ANTAGE - HMO) Mark Feliciano [id number] Mark Feliciano Notes Date Note Type Note Provider Name and Address Organization Details Recorded Time 11/17/2024 text/html HPI: Pt with persistent cough months causing chest pain. Also having SOB. 2 syncopal episodes in the past 2 weeks. Went to ED yesterday 11/16/24 but left AMA. Refusing to go back. .................... .................... .................... .................... .................... .................... .................... . [facility] Nurse Triage Notes (Heidi Webb - RN): Chief Complaints: Cough PMH: Asthma, Dementia (e.g., Alzheimer's Disease), Hypertension PMH Reviewed at 11/17/2024 14:34 Allergies Reviewed at 11/17/2024 14:34 Career Coach Organization Information for Zeus Torres Sevar Consult Legal Name: [facility] Address: [address] [place] [address], [place]ONNE Qureshi [address], Visual Merchandising Coordinator: Mich GALE No.: [id number] Career Coach POC Test Results from Zeus Torres - [facility] EKG (17:15:47) EKG test performed. Attachments uploaded as part of this test result can be found under Documents section. .................... .................... .................... .................... .................... .................... .................... . Career Coach Note From Zeus Torres: Patient complains of frequent nonproductive cough for more than two months. Patient was seen at ED yesterday after two episodes syncope in the last week. Patient pbx repairer reports patient became unconscious time 30 seconds during nebulizer treatment yesterday. When he woke up again, he was confused. Patient left AMA. Patient request prednisone and albuterol solution. Patient reports he requested a sick appointment with his PCP today, booked for December. Patient advised to return to hospital for further work up and evaluation at MD? s request. Patient refuses times three. Patient denies chest pain, nausea, vomiting, diarrhea, headache, shortness of breath, urinary symptoms, changes in appetite or elimination. Patient reports he uses albuterol MDI one puff one time per day. Patient also has albuterol, nebulizer, uses once a day with relief. Patient denies other medications. Patient pink warm dry, secondary exam unremarkable, wheeze, Rhonchii throughout lungs. Negative work of breathing, positive full sentences, patient ambulates with an even steady gait. Patient has poor skin TURGOR. Patient reports he doesn? t drink a lot of water. ECG to [facility]. [facility] order albuterol nebulizer times one now, prednisone 60 mg PO now, and will prescribe more albuterol and prednisone to patient local pharmacy. Medication administered using five rights without complications. Patient reports some relief of difficulty breathing symptoms after nebulizer. Wheezes and bronchi on right side remain. Patient advised to call PCP back to report what treatment patient received today. Red flags, patient, education, what to expect and supportive care discuss with patient. Patient, patient caregiver, and a third family on the phone demonstrate understanding of care and plan. .................... .................... .................... .................... .................... .................... .................... . [facility] Consulted: Bertrand Saunders .................... .................... .................... .................... .................... .................... .................... . Disposition: Fulfilled Quoc Saunders MD [address] [facility],[address], [place], [address], YVONNE - TARIQ GAO 11/18/2024 20:51:16
--- OUTSIDE RECORDS SUMMARY | 2024-12-08 11:07 | XMS_ITS | Encounter Summary ---
Author Organization [facility] [employer] Address [address] [facility] [address] [place] [address] Care Team Providers Care Body Masker Name Role Phone Toyin Mistry MD Primary Care Provider [phone] Reason for Referral * Consultation (Routine) - Authorized Specialty Diagnoses / Procedures Referred By Contac t Referred To Contact Pulmonary Disease Diagnoses Moderate persistent asthma without complication Toyin Mistry MD [address] [place] [address] Phone: tel: fax: [facility] Pulmonary [address] [place], [place] Phone: tel: fax: Referral ID Status Reason Start Date Expiration Date Visits Requested Visits Authorized [id number] Authorized Specialty Services Required 4 10/29/2025 1 1 Encounter Details Date Type Department Care Team (Late st Contact Info) Description 10/29/2024 Orders Only [facility] [address] [place], [place] [phone] Toyin Mistry MD [address] [place] [address] Moderate persistent asthma without complication (Primary Dx) Social History Tobacco Use Types Packs/Day Years [...] 3:00 PM EST Office Visit [facility] [address] [place] [phone] Toyin Mistry MD [address] [place] [phone] 12/31/2024 10:00 AM EST Nurse Only [facility] [address] [place] [phone] Scheduled Referrals Name Type Priority Associated Diagnoses Orde r Schedule Referral to Pulmonology Outpatient Referral Routine Moderate persistent asthma without complication Expected: 10/29/2024 (Approximate), Expires: 10/29/2025 documented as of this encounter Visit Diagnoses Diagnosis Moderate persistent asthma without complication- Primary documented in this encounter Additional Health Concerns Assessment Noted Time PHQ-9 Depression Total Score: 4 08/31/20 24 10:34 AM EDT documented as of this encounter Care Teams Body Masker Relationship Specialty Start Date End Date Toyin Mistry MD [address] [place] [address] PCP - General Family Medicine 11/11/18 documented as of this encounter
--- OUTSIDE RECORDS SUMMARY | 2024-12-08 11:07 | XMS_ITS | Encounter Summary ---
Author Organization [employer] Address [address] [facility] [address] [place] [address] Care Team Providers Care Hat Ironer Name Role Phone Toyin Mistry MD Primary Care Provider [phone] Reason for Visit * Reason Comments Med Refill Encounter Details Date Type Department Care Team ([facility] st Contact Info) Description 07/17/2024 Refill [facility] [address] [place], [place] [phone] Anthony Nelson MD [address] [place], [place] [phone] Social History Tobacco Use Types Packs/Day Years Used Date Smoking Tobacco: Former Cigarettes Passive Smoke Exposure: Past Smokeless Tobacco: Never Alcohol Use Standard Drinks/Week Comments Never 0 (1 standard drink = 0.6 oz pur e alcohol) Depression Answer Date Recorded Patient Health Questionnaire-9 Score 0 07/24/2023 Housing Stability Answer Date Recorded What is [...] Answer Date Recorded Patient Health Questionnaire-2 Score 0 07/24/2023 Sex and Gender Information Value Date Recorded Sex Assigned at Male 09/10/2022 10:14 AM EDT Legal Sex Male 10:14 AM EDT Gender Identity Male 09/10/2022 10:14 AM EDT Sexual Orientation Straight 09/10/2022 10 :14 AM EDT documented as of this encounter Plan of Treatment Upcoming Encounters Date Type Department Care Team (Late st Contact Info) Description 12/08/2024 3:00 PM EST Office Visit [facility] [address] [place] [phone] Toyin Mistry MD [address] [place] [address] 12/31/2024 10:00 AM EST Nurse Only [address] [address] documented as of this encounter Visit Diagnoses Not on filedocumented in this encounter Additional Health Concerns Assessment Noted Time PHQ-9 Depression Total Score: 0 07/24/20 23 9:25 AM EDT documented as of this encounter Care Teams Hat Ironer Relationship Specialty Start Date End Date Toyin Mistry MD [address] [place] [phone] PCP - General Family Medicine 11/11/18 documented as of this encounter
--- OUTSIDE RECORDS SUMMARY | 2024-12-08 11:07 | XMS_ITS | Data Portability ---
Author Organization [employer] Address [address] [place] [address] Care Team Providers Care Dye Boarding Machine Operator Name Role Phone [facility] Primary Care Provider HIM CCA OTHER Assessment Encounter Date Assessment Date Assessment LastModified by Organization Details LastModified Time 11/15/2024 11/15/2024 I have reviewed and agree with the assessment and plan as documented by the labor service representative. I provided real time medical direction for this encounter and was immediately available to provide additional phone based assistance as needed. History as noted by labor service representative. Pt with history of asthma and chronic cough. History and evaluation today performed with help of phone park interpreter. Pt was reportedly seen in the [...] family at length, with the help of automotive parts interpreter, that he needs an urgent evaluation in the ED to assess for intermittent cardiac arrhythmias or ACS event from yesterday. The pt initially refuses to go to the ED but then states that he will go to the ED. He refuses an ambulance transport and his states that she will drive him to the [facility] ED in about 30 mins. I discuss with the pt and his that ambulance transport would be safer and faster, but they refuse this and state that he will only go to the ED via private car. Pt is medicated with a Duoneb treatment by labor service representative. I have called an expect to the [facility] ED PA. [email or web address] Not available 11/15/2024 17:56:17 Plan of Treatment Reminders Order Date Submit Date Provider Last Modified By Organization Details Last Modified Time Details Appointments None recorded. Lab None recorded. Referral None recorded. Procedures None recorded. Surgeries None recorded. [facility] [address] [place] [address], [phone], 17:26:24 electrocard iogram [email or web address] [place] [address], [address] [place] [address], [phone], 17:29:49 Medication Orders ipratropium 0.5 mg-albutero l 3 mg (2.5 mg base)/3 mL nebulizatio n soln [id number] [address] [place], [address], 17:26:24 albuterol sulfate 2.5 mg/3 mL (0.083 %) solution for [facility]bulizatio n 2024 025 [id number] [address] [place], [address], 5 17:30:02 prednisone 20 mg tablet 2024 025 [id number] [address] [place], [address], 17:29:55 prednisone 10 mg tablet 2024 025 [id number], [address] [place], [address], 17:28:42 Patient TargetsNo targets recorded. Patient InstructionsNo instructions recorded. Reason for Referral None Reported. Results Created Date Observation Date Name Description Value Unit Range Abnormal Flag Note LastModifiedBy Organization Detail LastModifiedTime 11/15/19 25 11/15/2024 elect meche cejagr am No observ ation record ed. [address], [address], 11/15/2024 17:25:31 11/17/19 25 11/18/2024 elect meche cejagr am No observ ation record ed. [email or web address] [address], [address], 11/18/2024 08:57:59 Result Notes None recorded. Procedures Surgical History None recorded. Imaging Results Imaging Date Name Status LastModified by Organization Details LastModified Time 11/15/2024 electrocardiogram completed [address], [address], 11/15/2024 17:25:31 11/18/2024 electrocardiogram completed [email or web address] [address], [address], 11/18/2024 08:57:59 Procedure Notes None recorded. Medical [...] Not Available No t Available Rai Greer [facility] spacer USE WITH INHALER DIRECTED active [...] and Address Organization Details Last Updated DateTime 165.1 cm 97 % 97 % 98.6 [degF] 72941.7 6 g 20 /min 82 /min 136 mm[Hg] 81 mm[Hg] Not Available [employer] 17:12:05 Date Recorded Body height Respiratory rate Heart rate Oxygen saturation Oxygen saturation in Arterial blood by Pulse oximetry Body temperature Body weight Systolic blood pressure Diastolic blood pressure Provider Name and Address Organization Details Last Updated DateTime 167.64 cm 18 /min 77 /min 96 % 96 % 98 [degF] 48901.8 g 126 mm[Hg] 85 mm[Hg] Not Available [employer] 17:05:45 Social History None recorded. Functional Status None recorded. Mental Status None recorded. Family History Nothing Reported. Medical History No medical history recorded. Past Encounters Encounter ID Performer Location Encounter Start Date Encounter Closed Date Diagnosis/Indication Diagnosis SNOMED-CT Code Diagnosis ICD10 Code Diagnosis Note [id number] Boni Deras MD [facility] [address] [place] [phone] 11/15/2024 17:11:56 11/16/2024 00:21:22 Syncope and collapse 755093592 R55 Exacerbati on of moderate persistent asthma 734817734 J45.41 [id number] Quoc Saunders MD [facility] [address] [place] [phone] 11/17/2024 17:05:43 11/18/2024 22:22:27 Exacerbation of moderate persistent asthma 291439790 J45.41 As noted, we were called to see this patient regarding concerns of cough and wheezing with two apparent syncopal episodes. Evaluation in the field was performed by my labor service representative colleague, as noted above, I provided real-time [...] contact his PCP for urgent appointmen t. Plan:[facility] edStrongly advised to call PCP to be [...] by Organization Details LastModified Time None Recorded Advance Directives Directive None Recorded Payers Encounter Date Sequence Insurance Name Policy Number Policy Mora Covered Member ID Mora Member ID Guarantor Name 11/15/2024 1 [facility] - DOS ON OR AFTER 2023 - DUAL ELIGIBLE - INTERMEDIATE OPTIONS AND ONE CARE (MEDICARE REPLACEMENT/ADV ANTAGE - HMO) Mark Feliciano [id number] Mark Feliciano 11/17/2024 1 [facility] - DOS ON OR AFTER 2023 - DUAL ELIGIBLE - INTERMEDIATE OPTIONS AND ONE CARE (MEDICARE REPLACEMENT/ADV ANTAGE - HMO) Mark Feliciano [id number] Mark Feliciano Notes Date Note Type Note Provider Name and Address Organization Details Recorded Time 11/15/2024 text/html This was a supervised home visit with labor service representative Dominic Rice. CRC Nurse Triage Notes (Evens Enamorado - RN): Reason For Request: Pt's spouse Venessa took mbr to ER 3 weeks ago for asthma flare up>pt was referred to a contact center agent, appointment is 12/08/24Spouse notes while administering breathing [...] Pain with inspiration Chief Complaints: AsthmaPMH: AsthmaComments: Energy Systems Laboratory Director verified the Pt.'s name//address and phone number. Education provided on the response time and the Pt. was advised to monitor reported s/s and seek emergency treatment if needed. Pt was seen in the ER 3 weeks ago for asthma symptoms and cough/cold - Referred to Tailing Machine Operator and an appointment is scheduled for 12/08 [...] - Chest pain only reported when coughing. Stock Broker Organization Information for Dominic Rice Legal Name: [employer].?Address: [address] [place] [address], USMedical Director: Buddy Sanchez [facility] No.: [id number] Stock Broker POC Test Results from Dominic Rice - ALS EKG (17:09:05)EKG test performed.Attachment s uploaded as part of this test result can be found under Documents section. .................... .................... .................... .................... .................... .................... .................... . Stock Broker Note From Dominic Rice: [facility] makes pt contact. He is found seated on the sofa. He smiles at [facility] and says hello. He is not in acute distress. No stridor or sonorous respirations are noted, he is not tripoding or drooling. No slurred speech, facial droop, or one sided weakness are noted and pt is not bleeding anywhere. He stands on [facility] approach and offers a chair. Shipping And Receiving services are obtained via cell phone for assessment and hx. Pt's tells [facility] the pt had two syncopal episode sin the past week during his breathing treatments. The first one was about a week ago and the most recent one was last night. She reports starting CPR on the pt last night and he woke up after about a minute of chest compressions. Pt does not remember the events. He tells [facility] he has been having a lot of asthma lately and feels like he can't catch his breath. He also endorses a cough that causes pain in my lungs . Pt also endorses feeling as though there is sputum he is unable to expectorate due to the asthma. He consents to evaluation and treatment today.[facility] obtains pt consent and uploads. Vital signs are obtained and pt is physically assessed. Lung sounds reveal diffuse insp/exp wheezes throughout. Remaining physical exam is unremarkable. [facility] obtains a 12-lead EKG and contacts [facility] to discuss the above findings. Based on hx given of two syncopal events during breathing treatments and the current arrhythmia w/ lack of old EKG for comparison, [facility] recommends pt be transported to the ED for further evaluation. [facility] informs pt and of the recommendation and pt refuses. Shipping And Receiving services are obtained and patched in to call w/ [facility] and [facility] encourages pt to allow transport to the ED, stating the pt could pass out again and at home. Pt continues to refuse transport to the ED, but eventually consents to go, but does not want to go by ambulance. says she will drive him to [facility]. [facility] orders [facility] to administer a duoneb prior to the pt going to hospital. [facility] administers 3mg albuterol and 0.5mg atrovent via pt's SVN and a nebulizer mask. Pt tolerates breathing treatment well and lung sounds are clear post treatment. Pt and thank [facility] for coming.[facility] is clear. Report completed by ISABELLE Rice [id number]. .................... .................... .................... .................... .................... .................... .................... . [facility] Consulted: Boni Deras .................... .................... .................... .................... .................... .................... .................... . Disposition: Fulfilled Boni Deras MD [address] [facility],[address], [place], [address], [employer] 11/15/2024 19:52:44 11/17/2024 text/html HPI: Pt with persistent cough [...] Alzheimer's Disease), Hypertension PMH Reviewed at 11/17/2024 - 14:34 Allergies Reviewed at 11/17/2024 - 14:34 Stock Broker Organization Information for Zeus Torres [employer] Legal Name: [facility] Transportation Address: [address] [place] [address], [place] [address], Yard Cleaner: Mich Hendricks MD CLIA No.: [id number] Stock Broker POC Test Results from Zeus Torres EKG (17:15:47) EKG test performed. Attachments uploaded as part of this test result can be found under Documents section. .................... .................... .................... .................... .................... .................... .................... . Stock Broker Note From Zeus Torres: Patient complains of frequent nonproductive cough for more than two months. Patient was seen at ED yesterday after two episodes syncope in the last week. Patient life science technical officer reports patient became unconscious time 30 seconds [...] drink a lot of water. ECG to [facility]. [facility] order albuterol nebulizer times one now, prednisone [...] .................... .................... .................... .................... .................... .................... . [facility] Consulted: Bertrand Saunders .................... .................... .................... .................... .................... .................... .................... . Disposition: Fulfilled Quoc Saunders MD [address] [facility],[address], [place], [address], [employer], [employer] 11/18/2024 20:51:16
--- OUTSIDE RECORDS SUMMARY | 2024-12-08 11:07 | XMS_ITS | Encounter Summary ---
Author Organization [employer] Address [address] [facility] [address] [place] [address] Care Team Providers Care Treasury Associate Name Role Phone Toyin Mistry MD Primary Care Provider [phone] Encounter Details Date Type Department Care Team (Late st Contact Info) Description 12/26/2022 Orders Only [facility] [address] [place] [address] [phone] Toyin Mistry MD [address] [place] [address] [phone] Vitiligo (Primary Dx) Social History Tobacco Use Types [...] suspected to have Coronavirus/COVID-19? No / Unsure 12/26/2022 12:55 PM EST documented as of this encounter Plan of Treatment Upcoming Encounters Date Type Department Care Team (Late st Contact Info) Description 12/08/2024 3:00 PM EST Office Visit [facility] [address] [place] [address] [phone] Toyin Mistry MD [address] [place] [address] [phone] 12/31/2024 10:00 AM EST Nurse Only [facility] [address] [place] [address] documented as of this encounter Visit Diagnoses Diagnosis Vitiligo- Primary documented in this encounter Care Teams Treasury Associate Relationship Specialty Start Date End Date Toyin Mistry MD [address] [place] [address] PCP - General Family Medicine 11/11/18 documented as of this encounter
--- OUTSIDE RECORDS SUMMARY | 2024-12-08 11:07 | XMS_ITS | Encounter Summary ---
Author Organization [employer] Address [address] [facility] [address] [place] [address] Care Team Providers Care Electric Blasting Cap Assembler Name Role Phone Toyin Mistry MD Primary Care Provider [phone] Encounter Details Date Type Department Care Team (Late st Contact Info) Description 08/22/2023 Abstract [facility] [address] [place], [place] [phone] Toyin Mistry MD [address] [place], [place] [phone] Social History Tobacco Use Types Packs/Day Years Used Date Smoking Tobacco: Former Cigarettes Passive Smoke Exposure: Past Smokeless Tobacco: Never Depression Answer Date Recorded Patient Health Questionnaire-9 Score 0 07/24/2023 Housing Stability Answer Date Recorded What is your housing situation today? I have juli bates 08/26/[address] you li ve. Do you have problems with any of the following? None of the above 08/26/2023 Food Insecurity Answer Date Recorded Within the past 12 months, y ou worried that your food would run out before you got money to buy more: Never True 08/26/2023 Within the past 12 months,th e food you bought just didn't last and you didn't have enough money to get more: Never True Transportation Answer Date Recorded In the past 12 months, has l ack of transportation kept you from medical appts, meetings, work or from getting things needed for daily living? No 08/26/2023 Utilities Answer Date Recorded In the past 12 months, has t he electric, gas, oil or water company threatened to shut off services in your home? No 08/26/2023 Depression Answer Date Recorded Patient Health Questionnaire-2 [...] Description 12/08/2024 3:00 PM EST Office Visit [facility] [address] [place] [phone] Toyin Mistry MD [address] [place] [address] [phone] 12/31/2024 10:00 AM EST Nurse Only [address] [phone] documented as of this encounter Procedures Procedure Name Priority Date/Time Associated Diagnosis Comments COLONOSCOPY Routine 11/07/2021 documented in this encounter Results * Colonoscopy (11/07/2021) Colonoscopy Normal Normal [facility] External Provider HEALTH MAINTENANCE Edited Result - Final documented in this encounter Visit Diagnoses Not on filedocumented in this encounter Additional Health Concerns Assessment Noted Time PHQ-9 Depression Total Score: 0 07/24/20 23 9:25 AM EDT documented as of this encounter Care Teams Electric Blasting Cap Assembler Relationship Specialty Start Date End Date Toyin Mistry MD [address] [place] [address] [phone] PCP - General Family Medicine 11/11/18 documented as of this encounter
== END 2024-12-08 10:58 | disposition home or self-care (01) ==
PROVIDERS: PCP Family Medicine; Visit Provider Hospitalist
DX: J45.40 Moderate persistent asthma, uncomplicated (principal); R91.1 Solitary pulmonary nodule; J44.89 Other specified chronic obstructive pulmonary disease
CPT/HCPCS: 99204

== ENCOUNTER → 2024-12-08 10:14 | Outpatient (BNVA) | payer OTHER, SELFPAY | PROVIDERS: PCP Family Medicine; Visit Provider Hospitalist | DX: J45.50 Severe persistent asthma, uncomplicated (principal); R91.1 Solitary pulmonary nodule; J44.89 Other specified chronic obstructive pulmonary disease; Z87.891 Personal history of nicotine dependence | CPT/HCPCS: 99202 ==

== ENCOUNTER 2025-02-15 14:35 | Outpatient (AMB) | payer OTHER, SELFPAY ==
[2025-02-15 14:39] VITALS: BP 124/72; PULSE 74; O2SAT 96; BMI 26.4
--- NOTE | 2025-02-15 14:39 | A.OFFVIS_ITS ---
Vital Signs 02/15/25 14:39 Height 5 ft 5 in Weight 158 lb 11.725 oz BMI 26.4 BP 124/72 Blood Pressure Location Rt brachial Position Sitting Pulse 74 Pulse Source Pulse Oximeter Pulse Oximetry (%) 96 Oxygen Delivery Method Room Air Intake Visit Reasons: moderate asthma Allergies No Known Allergies Allergy (Verified 11/15/24 19:05) HPI Comments Details: The patient is a 74-year-old gentleman known severe persistent asthma with multiple exacerbations. He is here for evaluation and management. The patient states that he has had frequent exacerbations requiring prednisone. He has come to the ER here. The last time in October he did have blood work demonstrating significant eosinophilia and also had a CT scan of the chest which ruled out pulmonary emboli and did see significant mosaic pattern suggesting of small airways disease in her trapping. The patient does respond to prednisone. In the meantime he has tried multiple inhalers for maintenance in the past. He does not do well with powdered inhalers such as Trelegy because it bothers him. He has also been on Symbicort which does not feel like he works well for him. He has been on in the nebulizer in the seems to work a little better for him. He is open to trying new inhalers. I will send him Breztri to the pharmacy to maximize his respiratory therapy. If he continues to be symptomatic even on maximum respiratory therapy he will be a great candidate for biologics. He has significant chronic rhinitis he also has significant asthma all related to the eosinophilia. Therefore an IL 5 inhibitor will be very effective in improving symptoms if he continues to be symptomatic. Will have him try the breast treat for a month or 2 and have pulmonary function studies and will review the PFTs and discuss any additional therapies then. In regards of pulmonary nodule. The nodules are small and would benefit from a follow-up in a year's time. 02/15/2025 the patient is here for a pulmonary follow-up visit. The patient continues have significant wheezing and chest tightness. He did start the new inhaler, Breztri and is been partially helpful. Although not completely. He still needs a rescue inhaler on a daily basis. He is feeling worsening chest tightness specially now going to the spring. He does have wheezing on exam. He will need additional prednisone. We did talk about his severe asthma in the fact that he has significant eosinophilia on his laboratory suggest that he will be a great candidate for biologic. I do Fasenra be a very good option for him. I did talk to him about the medication he is agreeable to starting the process. In the meantime the patient will need additional prednisone for his ongoing wheezing. He will continue his current respiratory therapy will reassess in 4 months. If he has any issues prior to that he will call for an earlier assessment. [facility] Medical History (Updated 02/15/25 @ 16:18 by Valente Toure MD) Asthma-COPD overlap syndrome Pulmonary nodule Asthma Depression Hypertension Surgical History History of hernia surgery Social History Alcohol intake: never Patient Tobacco Use Status: Former Tobacco user Tobacco use type: Cigarette Current occupational status: disabled Current occupation: left and right handed Review of Systems Const Denies fever(s) Eyes Reports no additional complaints ENT Reports nasal congestion and Reports nasal discharge Card Denies chest pain Resp Reports cough and Reports wheezing GI Reports no additional complaints Musc Reports no additional complaints Skin/Breast Denies rash Neuro Reports no additional complaints Ponce/Lymph Reports no additional complaints Aller/Immun Reports wheezing Physical Exam Vital Signs: Last Vital Signs Pulse 74 02/15/25 14:39 BP 124/72 02/15/25 14:39 Pulse Ox 96 02/15/25 14:39 Oxygen Delivery Method Room Air 02/15/25 14:39 BMI result Body Mass Index 26.4 Patient is afebrile and hemodynamically stable. Const General: cooperative HEENT Head: Yes normal to inspection and Yes atraumatic Eyes General: appearance normal, both eyes and all related structures Neck Neck: Yes normal visual inspection, Yes full ROM, Yes supple and No tender Chest Chest palpation & inspection: normal inspection of the chest Resp Effort & Inspection: normal respiratory effort and prolonged expiratory phase Auscultation: wheezes and diminished lung sounds Cardio Rate: regular rate Rhythm: regular rhythm GI Palpation (GI): Soft to palpation Back/Spine/Pelvis Back: No back tenderness Skin General skin exam: no rashes or lesions noted Extrem General: Yes no clubbing, cyanosis or edema Assessment & Plan Assessment & Plan (1) Asthma: Code(s): J45.909 - Unspecified asthma, uncomplicated Category: Medical Qualifiers: Asthma complication type: uncomplicated Asthma persistence: persistent Asthma severity: severe Qualified Code(s): J45.50 - Severe persistent asthma, uncomplicated (2) Pulmonary nodule: Code(s): R91.1 - Solitary pulmonary nodule Category: Medical (3) Asthma-COPD overlap syndrome: Code(s): J44.89 - Other specified chronic obstructive pulmonary disease Category: Medical Plan continue Breztri VIKTORIYA as needed continue singulair start Fasenra PFTs Prednisone taper F/U 4-6 weeks Medications: New prednisone PO daily; Take 6 tabs daily x 3 days, then 5 tabs x 3 days, then 4 tabs x 3 days, then 3 tabs x 3 days, then 2 tabs daily x 3 days, then 1 tab x 3 days to complete. 63 tabs 0RF 18 days Coding Level of Care Code Est Pt Level 4 (76926) Complex EM visit Add On G2211 Diagnoses Severe persistent asthma without complication J45.50 Asthma complication type: uncomplicated Asthma persistence: persistent Asthma severity: severe Pulmonary nodule R91.1 Asthma-COPD overlap syndrome J44.89 Time Spent (min) 17
--- OUTSIDE RECORDS SUMMARY | 2025-02-15 17:25 | XMS_ITS | Encounter Summary ---
Author Organization [employer] Address [address] [facility] [address]t [place] [address] Care Team Providers Care Tube Mill Operator Name Role Phone Toyin Mistry MD Primary Care Provider [phone] Encounter Details Date Type Department Care Team ([facility] st Contact Info) Description 2024 Orders Only [facility] [address] [place], [place] [phone] Toyin Mistry MD [address] [place], [place] [phone] Social History Tobacco Use Types Packs/Day Years [...] Care Team (Late st Contact Info) Description 03/03/2025 10:00 AM EDT Nurse Only [facility] [address] [place] [address] documented as of this encounter Visit Diagnoses Not on filedocumented in this encounter Additional Health Concerns Assessment Noted Time PHQ-9 Depression Total Score: 4 08/31/20 24 10:34 AM EDT documented as of this encounter Care Teams Tube Mill Operator Relationship Specialty Start Date End Date Toyin Mistry MD [address] [place] [address] PCP - General Family Medicine 11/11/18 documented as of this encounter
--- OUTSIDE RECORDS SUMMARY | 2025-02-15 17:25 | XMS_ITS | Clinical Summary ---
Author Organization [employer] Address [address] [facility] 7t [place] [address] Care Team Providers Care Library Consultant Name Role Phone Toyin Mistry MD Primary Care Provider [phone] Allergies No known active allergies Medications cholecalciferol [...] (04/13/2024 12:09 PM EDT): - following with [facility] - last MRI in Aug 2022 - last steroid injection right side in Nov 2023. -Evaluated by apprentice painter brush. 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 Follow up in [...] cuff tear and osteoarthritis - following with [facility], last seen in Aug 2023 - [...] mcg one puff daily. Advised patient to scrap picker Arnuity from pharmacy. -Cont Albuterol inhaler and [...] Encounters Date Type Department Care Team Description 02/04/2025 Telephone [facility] [address] [place] [address] [phone] Toyin Mistry MD Durable Medical Equipment 01/28/2025 10:00 AM EDT Nurse Only [facility] [address] [place] [address] [phone] Karrie Biswas RN B12 deficiency (Primary Dx) 12/31/2024 10:00 AM EST Nurse Only [facility] [address] [place] [phone] Karrie Biswas RN B12 deficiency (Primary Dx) 12/31/2024 Travel 12/03/2024 11:15 AM EST Nurse Only [facility] [address] [place] [address] [phone] Michelle Snyder LPN B12 deficiency 12/03/2024 Travel 2024 Orders Only [facility] [address] [place] [address] [phone] Toyin Mistry MD 2024 Telephone [facility] [address] [place] [address] [phone] Toyin Mistry MD Med Refill 11/17/2024 Telephone [facility] [address] [place] [address] [phone] Marguerite Robles RN Plan of Care from Last 3 Months Immunizations Name Administration Dates Next Due Hep B, adult 03/29/1999,02/16/1999 Influenza High-dose Quadriva lent Preservative Free 07/24/2023 Influenza injectable quadriv alent IIV4 with preservative 07/26/2016,09/20/2015 Influenza injectable quadriv alent preservative free 11/13/2021 Influenza, IIV3, injectable 10/14/2003, 0 Influenza, Split (incl. shelbie fied surface antigen) 07/09/2012 Pfizer Covid-19 Vaccine 12+ 11/14/2023,,05/08/2022 Pfizer Covid-19 Vaccine 12+ carlin-sucrose (Stallworth Cap) [...] Description 03/03/2025 10:00 AM EDT Nurse Only [facility] [address] [place] [address] Health Maintenance Due Date Last Done Comments [...] Screening 09/29/2025 09/29/2024 Lipid Panel 04/14/2029 04/14/2024, 0702/2023, 04/18/2022, Additional history exists DTaP/Tdap/Td Vaccines (4 - Td or Tdap) 11/14/2033 11/14/2023, 01/07/2013, 07/09/2012, Additional history exists Pneumococcal Vaccine: 50+ Years Completed 01/18/2020, 11/05/2018, 03/13/2007 Hepatitis C [...] Procedure Name Priority Date/Time Associated Diagnosis Comments HEPATITIS C AB W/REFL TO HCV RNA, QN, PCR Routine 09/24/2024 1:57 PM EST Encounter for health-related screening HEMOGLOBIN A1C Routine 04/14/2024 8:20 AM EDT Essential hypertension LIPID PANEL WITH REFLEX TO DIRECT LDL Routine 04/14/2024 8:20 AM EDT Essential hypertension HM COLONOSCOPY Routine 11/07/2021 from Last 3 Months or Most Recently Relevant to Health Maintenance Results * Hepatitis C Antibody with Reflex to HCV, RNA, Quantitative, Real-Time PCR (09/24/2024 1:57 PM EST) Hepatitis C Antibody Nonreactive Nonreactive [facility] Comment:Antibodies to HCV no t detected; does not exclude early acuteHCV infection. Blood Venous blood specimen / Unknown 09/24/2024 1:57 PM EST 09/24/2024 4:04 PM EST Vanda Palacios TALENT DEVELOPMENT CONSULTANT LAB BLOOD ORDERABLES Final Resu lt Performing Organization Address City/[facility] Co de Phone Number [facility] [address] [place] [address] [phone] * (ABNORMAL) Lipid Panel with Reflex to Direct LDL (04/14/2024 8:20 AM EDT) Triglycerides 135 <150 mg/dL [facility] Comment:Desirable Triglyceri de: less than 150 mg/dLBorderline High Triglyceride 150-199 mg/dLHigh Triglyceride: 200-499 mg/dLVery High Triglyceride: greater than or equal to 5OO mg/dL Cholesterol 174 <200 mg/dL [facility] Comment:Desirable Cholestero l: less than 200 mg/dLBorderline High Cholesterol: 200-239 mg/dLHigh Cholesterol: greater than 239 mg/dL LDL Cholesterol Calculated 106(H) <100 mg/dL [facility] Comment:Desirable LDL: less than 100 mg/dLNear Optimal/Above Optimal LDL: 110- 129 mg/dLBorderline High LDL: 130-159 mg/dLHigh LDL: 160-189 mg/dLVery High LDL: greater than or equal to 190 mg/dL HDL Cholesterol 41 >40 mg/dL [facility] Comment:Desirable HDL: great er than 40 mg/dL Note: This HDL assay may give artificially low results in patients with liver disease. Blood 04/14/2024 8:20 AM EDT 04/14/2024 11:51 AM EDT us Toyin Mistry MD LAB BLOOD ORDERABLES Final Resul t Performing Organization Address [facility] Co de Phone Number [facility] [address] [place] [phone] [phone] * Hemoglobin A1c (04/14/2024 8:20 AM EDT) Hemoglobin A1c 5.7 <6.0 % [facility] Comment:Hemoglobin A1C Refer ence Range Adults: 4.8 - 6.0 % Non diabetic: < 6.0 % Goal: < 7.0 %Additional Action Suggested: > 8.0 %Note: Hemoglobin A1c results are invalid for patients with abnormal amounts of HbF. Blood transfusions may impact the HbA1c concentration in the patient sample. Estimated Average Glucose 117 mg/dL [facility] Comment:eAG = Estimated ave rage glucose which is %A1C expressed asaverage glucose, using the formula of the [id number] Glucose study (ADAG), Diabetes Care, Vol.31,#8,Jun. 2007 Blood Venous blood specimen / Unknown 04/14/2024 8:20 AM EDT 04/14/2024 11:42 AM EDT Toyin Mistry MD LAB BLOOD ORDERABLES Final Resul t [facility] [address] [place] [address] [phone] * Hm Colonoscopy (11/07/2021) Colonoscopy Normal Normal [facility] External Provider HEALTH MAINTENANCE Edited Result - Final from Last 3 Months or Most Recently Relevant to Health Maintenance Insurance [facility] Care Teams Library Consultant Relationship Specialty Start Date End Date Toyin Mistry MD [address] [place] [phone] PCP - General Family Medicine 11/11/18
--- OUTSIDE RECORDS SUMMARY | 2025-02-15 17:25 | XMS_ITS | Encounter Summary ---
Author Organization [employer] Address [address] [facility] [address] [place] [address] Care Team Providers Care Motorcycle Deliverer Name Role Phone Toyin Mistry MD Primary Care Provider [phone] Encounter Details Date Type Department Care Team (Late st Contact Info) Description 10/12/2022 Orders Only [facility] [address] [place] [address] Esther Hicks, RN [address] [place] [address] Social History Tobacco Use Types Packs/Day Years [...] Description 03/03/2025 10:00 AM EDT Nurse Only [facility] [address] [place] [address] documented as of this encounter Visit Diagnoses Not on filedocumented in this encounter Care Teams Motorcycle Deliverer Relationship Specialty Start Date End Date Toyin Mistry MD [address] [place] [address] PCP - General Family Medicine 11/11/18 documented as of this encounter
--- OUTSIDE RECORDS SUMMARY | 2025-02-15 17:25 | XMS_ITS | Encounter Summary ---
Author Organization [employer] Address [address] [facility] 7t [place] [address] Care Team Providers Care Wildlife Conservation Professor Name Role Phone Toyin Mistry MD Primary Care Provider [phone] Reason for Visit * Reason Onset Date Comments Med Refill 2024 Encounter Details Date Type Department Care Team ([facility] st Contact Info) Description 2024 Telephone [facility] [address] [place], [place] [phone] Toyin Mistry MD [address] [place], [place] [phone] Med Refill Social History Tobacco Use Types [...] Description 03/03/2025 10:00 AM EDT Nurse Only [facility] [address] [place] [address] documented as of this encounter Visit Diagnoses Not on filedocumented in this encounter Additional Health Concerns Assessment Noted Time PHQ-9 Depression Total Score: 4 08/31/20 24 10:34 AM EDT documented as of this encounter Care Teams Wildlife Conservation Professor Relationship Specialty Start Date End Date Toyin Mistry MD [address] [place] [address] PCP - General Family Medicine 11/11/18 documented as of this encounter
--- OUTSIDE RECORDS SUMMARY | 2025-02-15 17:25 | XMS_ITS | Encounter Summary ---
Author Organization [employer] Address [address] [facility] 7t [place] [address] Care Team Providers Care Mutual Fund Sales Agent Name Role Phone Toyin Mistry MD Primary Care Provider [phone] Reason for Visit * Reason Onset Date Comments FYI 11/16/2024 Durable Medical Equipment 11/16/2024 Encounter Details Date Type Department Care Team ([facility] st Contact Info) Description 11/16/2024 Telephone [facility] MED[facility] [address] [place], [place] [phone] Toyin Mistry MD [address] [place], [place] [phone] FYI; Durable Medical Equipment Social History Tobacco [...] - 11/16/2024 2:16 PM EST Tc from [facility] with [facility] to report pt was on EM 11/16, has cough and asthma also requesting nebulizer. documented in this encounter Plan of Treatment Upcoming Encounters Date Type Department Care Team (Late st Contact Info) Description 03/03/2025 10:00 AM EDT Nurse Only [facility] [address] [place] [address] documented as of this encounter Visit Diagnoses Not on filedocumented in this encounter Additional Health Concerns Assessment Noted Time PHQ-9 Depression Total Score: 4 08/31/20 24 10:34 AM EDT documented as of this encounter Care Teams Mutual Fund Sales Agent Relationship Specialty Start Date End Date Toyin Mistry MD [address] [place] [address] PCP - General Family Medicine 11/11/18 documented as of this encounter
--- OUTSIDE RECORDS SUMMARY | 2025-02-15 17:26 | XMS_ITS | Encounter Summary ---
Author Organization [email or web address] Address [address] [facility] 7t [place] [address] Care Team Providers Care Pie Crimping Machine Operator Name Role Phone Toyin Mistry MD Primary Care Provider [phone] Reason for Visit * Reason Onset Date Comments Durable Medical Equipment 02/04/2025 Encounter Details Date Type Department Care Team ([facility] st Contact Info) Description 02/04/2025 Telephone [facility] [address] [place], [place] [phone] Toyin Mistry MD [address] [place], [place] [phone] Durable Medical Equipment Social History Tobacco Use [...] encounter Miscellaneous Notes * Telephone Encounter - Maurice Ruiz - 02/04/2025 11:15 AM EDT Tc from pt requesting a DME script for a Vaporizer. Pt states has been getting a lot of Asthma. Contact pt at [phone] documented in this encounter Plan of Treatment Upcoming Encounters Date Type Department Care Team (Late st Contact Info) Description 03/03/2025 10:00 AM EDT Nurse Only [facility] [address] [place] [address] documented as of this encounter Visit Diagnoses Not on filedocumented in this encounter Additional Health Concerns Assessment Noted Time PHQ-9 Depression Total Score: 4 08/31/20 24 10:34 AM EDT documented as of this encounter Care Teams Pie Crimping Machine Operator Relationship Specialty Start Date End Date Toyin Mistry MD [address] [place] [address] PCP - General Family Medicine 11/11/18 documented as of this encounter
--- OUTSIDE RECORDS SUMMARY | 2025-02-15 17:26 | XMS_ITS | Encounter Summary ---
Author Organization [employer] Address [address] [facility] [address] [place] [address] Care Team Providers Care Crop Roller Name Role Phone Toyin Mistry MD Primary Care Provider Encounter Details Date Type Department Care Team (Late st Contact Info) Description 12/06/2022 Orders Only [facility]INE [address] [place] [address] Wendie Cochran LPN Social History Tobacco Use [...] Description 03/03/2025 10:00 AM EDT Nurse Only [facility] [address] [place] [address] documented as of this encounter Visit Diagnoses Not on filedocumented in this encounter Care Teams Crop Roller Relationship Specialty Start Date End Date Toyin Mistry MD [address] [place] [address] PCP - General Family Medicine 11/11/18 documented as of this encounter
--- OUTSIDE RECORDS SUMMARY | 2025-02-15 17:26 | XMS_ITS | Encounter Summary ---
Author Organization [employer] Address [address] [facility] [address] [place] [address] Care Team Providers Care Research Project Coordinator Name Role Phone Toyin Mistry MD Primary Care Provider [phone] Encounter Details Date Type Department Care Team (Late st Contact Info) Description 01/10/2023 Telephone [facility] MEDICINE [address] [place] [address] [phone] Toyin Mistry MD [address] [place], [place] [phone] Social History Tobacco Use Types Packs/Day Years [...] Description 03/03/2025 10:00 AM EDT Nurse Only [facility] MEDICINE [address] [place] [address] [phone] documented as of this encounter Visit Diagnoses Not on filedocumented in this encounter Care Teams Research Project Coordinator Relationship Specialty Start Date End Date Toyin Mistry MD [address] [place] [address] PCP - General Family Medicine 11/11/18 documented as of this encounter
--- OUTSIDE RECORDS SUMMARY | 2025-02-15 17:26 | XMS_ITS | Encounter Summary ---
Author Organization [employer] Address [address] [facility] 7t [place] [address] Care Team Providers Care Television Installer Helper Name Role Phone Toyin Mistry MD Primary Care Provider [phone] Encounter Details Date Type Department Care Team (Late st Contact Info) Description 08/22/2023 Abstract [facility] MEDICINE [address] [place], [place] [phone] Toyin Mistry MD [address] [place], [place] [phone] Social History Tobacco Use Types Packs/Day Years [...] Description 03/03/2025 10:00 AM EDT Nurse Only [facility] [address] [place] [address] documented as of this encounter Procedures Procedure Name Priority Date/Time Associated Diagnosis Comments COLONOSCOPY Routine 11/07/2021 documented in this encounter Results * Colonoscopy (11/07/2021) Colonoscopy Normal Normal [facility] External Provider HEALTH MAINTENANCE Edited Result - Final documented in this encounter Visit Diagnoses Not on filedocumented in this encounter Additional Health Concerns Assessment Noted Time PHQ-9 Depression Total Score: 0 07/24/20 23 9:25 AM EDT documented as of this encounter Care Teams Television Installer Helper Relationship Specialty Start Date End Date Toyin Mistry MD [address] [place] [address] PCP - General Family Medicine 11/11/18 documented as of this encounter
--- OUTSIDE RECORDS SUMMARY | 2025-02-15 17:26 | XMS_ITS | Encounter Summary ---
Author Organization [employer] Address [address] [facility] 7t [place] [address] Care Team Providers Care Casting Operator Name Role Phone Toyin Mistry MD Primary Care Provider [phone] Reason for Referral * Consultation (Routine) - Closed Specialty Diagnoses / Procedures Referred By Contjanice t Referred To Contact Pulmonary Disease Diagnoses Moderate persistent asthma without complication Toyin Mistry MD [address] [place] [address] Phone: tel: fax: [facility] Pulmonary [address] [place], [place] Phone: tel: fax: Referral ID Status Reason Start Date Expiration Date V isits Requested Visits Authorized [id number] Closed Specialty Services Required 10/29/2024 10/29/2025 1 1 Encounter Details Date Type Department Care Team (Late st Contact Info) Description 10/29/2024 Orders Only [facility] [address] [place], [place] [phone] Toyin Mistry MD [address] [place], [place] [phone] Moderate persistent asthma without complication (Primary Dx) [...] Description 03/03/2025 10:00 AM EDT Nurse Only [facility] [address] [place] [phone] Scheduled Referrals Name Type Priority Associated Diagnoses [...] documented as of this encounter Care Teams Casting Operator Relationship Specialty Start Date End Date Toyin Mistry MD [address] [place] [address] PCP - General Family Medicine 11/11/18 documented as of this encounter
--- OUTSIDE RECORDS SUMMARY | 2025-02-15 17:26 | XMS_ITS | Encounter Summary ---
Author Organization [employer] Address [address] [facility] 7t [place] [address] Care Team Providers Care Area Counselor Name Role Phone Toyin Msitry MD Primary Care Provider [phone] Encounter Details Date Type Department Care Team (Late st Contact Info) Description 12/26/2022 Orders Only [facility] MEDICINE [address] [place] [address] [phone] Toyin Mistry MD [address] [place] [address] [phone] Vitiligo (Primary Dx) Social History Tobacco Use [...] Description 03/03/2025 10:00 AM EDT Nurse Only [facility] [address] [place] [address] [phone] documented as of this encounter Visit Diagnoses Diagnosis Vitiligo- Primary documented in this encounter Care Teams Area Counselor Relationship Specialty Start Date End Date Toyin Mistry MD [address] [place] [address] PCP - General Family Medicine 11/11/18 documented as of this encounter
--- OUTSIDE RECORDS SUMMARY | 2025-02-15 17:26 | XMS_ITS | Encounter Summary ---
Author Organization [employer] Address [address] [facility] 7t [place] [address] Care Team Providers Care Actuarial Assistant Name Role Phone Toyin Mistry MD Primary Care Provider [phone] Reason for Visit * Reason Comments Med Refill Encounter Details Date Type Department Care Team ([facility] st Contact Info) Description 07/17/2024 Refill [facility] [address] [place], [place] [phone] Anthony [place] MD [address] [place], [place] [phone] Social History Tobacco Use Types Packs/Day Years [...] Description 03/03/2025 10:00 AM EDT Nurse Only [facility] MEDICINE [address] [place] [address] documented as of this encounter Visit Diagnoses Not on filedocumented in this encounter Additional Health Concerns Assessment Noted Time PHQ-9 Depression Total Score: 0 07/24/20 23 9:25 AM EDT documented as of this encounter Care Teams Actuarial Assistant Relationship Specialty Start Date End Date Toyin Mistry MD [address] [place] [address] PCP - General Family Medicine 11/11/18 documented as of this encounter
--- OUTSIDE RECORDS SUMMARY | 2025-02-15 17:26 | XMS_ITS | Data Portability ---
Author Organization [employer] Address [address] [place] [address] Care Team Providers Care Lozenge Maker Name Role Phone [facility] Primary Care Provider [phone] HIM CCA OTHER Assessment Encounter Date Assessment Date Assessment LastModified by Organization Details LastModified Time 11/15/2024 11/15/2024 I have reviewed and agree with the assessment and plan as documented by the roll capper. I provided real time medical direction for this encounter and was immediately available to provide additional phone based assistance as needed. History as noted by roll capper. Pt with history of asthma and chronic cough. History and evaluation today performed with help of phone epidemiologist. Pt was reportedly seen in the ED [...] family at length, with the help of construction producer, that he needs an urgent evaluation in the ED to assess for intermittent cardiac arrhythmias or ACS event from yesterday. The pt initially refuses to go to the ED but then states that he will go to the ED. He refuses an ambulance transport and his states that she will drive him to the [facility] in about 30 mins. I discuss with the pt and his that ambulance transport would be safer and faster, but they refuse this and state that he will only go to the ED via private car. Pt is medicated with a Duoneb treatment by roll capper. I have called an expect to the [facility] ED PA. btils Not available 11/15/2024 17:56:17 Plan of Treatment Reminders Order Date Submit Date Provider Last Modified By Organization Details Last Modified Time Details Appointments None recorded. Lab None recorded. Referral None recorded. Procedures None recorded. Surgeries None recorded. Imaging electrocard iogram [address] [place] [address], [phone] 17:29:49 electrocard iogram 2024 025 btils [facility] - [address], [phone] 17:26:24 Medication Orders albuterol sulfate 2.5 mg/3 mL (0.083 %) solution for nebulizatio n 2024 025 dhenderso n89 [facility][id number], [address] [place], [address], 17:30:02 prednisone 20 mg tablet 2024 025 dhenders[address] n89 [facility], [address] [place], [address], 5 17:29:55 prednisone 10 mg tablet 2024 025 AXEL [id number], [address] [place], [address], 17:28:42 ipratropium 0.5 mg-albutero l 3 mg (2.5 mg base)/3 mL nebulizatio n soln [address] [id number], [address] [place], [address], 17:26:24 Patient TargetsNo targets recorded. Patient InstructionsNo instructions recorded. Reason for Referral None Reported. Results Created Date Observation Date Name Description Value Unit Range Abnormal Flag Note LastModifiedBy Organization Detail LastModifiedTime 11/15/1911/15/2024 elect rocar diogr am No observ ation record ed. [facility] Main - [facility] [address] [place] [address], [phone] 11/15/2024 17:25:31 11/17/19 25 11/18/2024 elect rocar diogr am No observ ation record ed. [place] [address], [phone] 11/18/2024 08:57:59 Result Notes None recorded. Procedures Surgical History None recorded. Imaging Results Imaging Date Name Status LastModified by Organization Details LastModified Time 11/15/2024 electrocardiogram completed [facility] [address] [place] [address], [phone] 11/15/2024 17:25:31 11/18/2024 electrocardiogram completed [place] [address] [facility] - [facility] [address] [place] [address], [phone] 11/18/2024 08:57:59 Procedure Notes None recorded. Medical [...] Not Available Not Available No t Available [employer] Zoey C spacer USE WITH INHALER DIRECTED active Not [...] cm 97 % 97 % 98.6 [degF] 53842.7 6 g 20 /min 82 /min 136 mm[Hg] 81 mm[Hg] Not Available [facility] production 17:12:05 Date Recorded Body height Respiratory rate Heart rate Oxygen saturation Oxygen saturation in Arterial blood by Pulse oximetry Body temperature Body weight Systolic blood pressure Diastolic blood pressure Provider Name and Address Organization Details Last Updated DateTime 167.64 cm 18 /min 77 /min 96 % 96 % 98 [degF] 72458.8 g 126 mm[Hg] 85 mm[Hg] Not Available [facility] - production 17:05:45 Social History None recorded. Functional Status None recorded. Mental Status None recorded. Family History Nothing Reported. Medical History No medical history recorded. Past Encounters Encounter ID Performer Location Encounter Start Date Encounter Closed Date Diagnosis/Indication Diagnosis SNOMED-CT Code Diagnosis ICD10 Code Diagnosis Note [id number] Boni Deras MD [facility] - [address] [phone] 11/15/2024 17:11:56 11/16/2024 00:21:22 Syncope and collapse 463976258 R55 Exacerbati on of moderate persistent asthma 740118657 J45.41 [id number] Quoc Saunders MD [facility] - [address] [address] 11/17/2024 17:05:43 11/18/2024 22:22:27 Exacerbation of moderate persistent asthma 561888020 J45.41 As noted, we were called to see this patient regarding concerns of cough and wheezing with two apparent syncopal episodes. Evaluation in the field was performed by my roll capper colleague, as noted above, I provided real-time [...] contact his PCP for urgent appointmen t. Plan:[facility] edStrongly advised to call PCP to be [...] Mora Member ID Guarantor Name 11/15/2024 1 [facility] - DOS ON OR AFTER 2023 - DUAL ELIGIBLE - ALF OPTIONS AND ONE CARE (MEDICARE REPLACEMENT/ADV ANTAGE - HMO) Mark Feliciano [id number] Mark Feliciano 11/17/2024 1 [facility] - DOS ON OR AFTER 2023 - DUAL ELIGIBLE - ALF OPTIONS AND ONE CARE (MEDICARE REPLACEMENT/ADV ANTAGE - HMO) Mark Feliciano [id number] Mark Feliciano Notes Date Note Type Note Provider Name and Address Organization Details Recorded Time 11/15/2024 text/html This was a supervised home visit with roll capper Sujathamichael Rice. [facility] Nurse Triage Notes (Evens Enamorado - RN): Reason For Request: Pt's spouse Venessa took mbr to ER 3 weeks ago for asthma flare up>pt was referred to a ui designer, appointment is 12/08/24Spouse notes while administering breathing [...] Pain with inspiration Chief Complaints: AsthmaPMH: AsthmaComments: Guard Supervisor verified the Pt.'s name//address and phone number. Education provided on the response time and the Pt. was advised to monitor reported s/s and seek emergency treatment if needed. Pt was seen in the ER 3 weeks ago for asthma symptoms and cough/cold - Referred to Dealer Card Room and an appointment is scheduled for 12/08 [...] - Chest pain only reported when coughing. Diesel Engine Mechanic Apprentice Organization Information for Dominic Rice Lupillo Legal Name: [employer]Address: [address] [place] [address], [place] [address], Medical Director: Buddy Sanchez [facility] No.: [id number] Diesel Engine Mechanic Apprentice POC Test Results from Dominic Rice MIRIAN EKG (17:09:05)EKG test performed.Attachment s uploaded as part of this test result can be found under Documents section. .................... .................... .................... .................... .................... .................... .................... . Diesel Engine Mechanic Apprentice Note From Dominic Rice: [facility] makes pt contact. He is found seated on the sofa. He smiles at [facility] and says hello. He is not in acute distress. No stridor or sonorous respirations are noted, he is not tripoding or drooling. No slurred speech, facial droop, or one sided weakness are noted and pt is not bleeding anywhere. He stands on [facility] approach and offers a chair. Patient Office Rep services are obtained via cell phone for assessment and hx. Pt's tells [facility] the pt had two syncopal episode sin the past week during his breathing treatments. The first one was about a week ago and the most recent one was last night. She reports starting CPR on the pt last night and he woke up after about a minute of chest compressions. Pt does not remember the events. He tells [facility] he has been having a lot of asthma lately and feels like he can't catch his breath. He also endorses a cough that causes pain in my lungs . Pt also endorses feeling as though there is sputum he is unable to expectorate due to the asthma. He consents to evaluation and treatment today.[facility] obtains pt consent and uploads. Vital signs are obtained and pt is physically assessed. Lung sounds reveal diffuse insp/exp wheezes throughout. Remaining physical exam is unremarkable. [facility] obtains a 12-lead EKG and contacts [facility] to discuss the above findings. Based on hx given of two syncopal events during breathing treatments and the current arrhythmia w/ lack of old EKG for comparison, [facility] recommends pt be transported to the ED for further evaluation. [facility] informs pt and of the recommendation and pt refuses. Patient Office Rep services are obtained and patched in to call w/ [facility] and [facility] encourages pt to allow transport to the ED, stating the pt could pass out again and at home. Pt continues to refuse transport to the ED, but eventually consents to go, but does not want to go by ambulance. says she will drive him to [facility]. [facility] orders [facility] to administer a duoneb prior to the pt going to hospital. [facility] administers 3mg albuterol and 0.5mg atrovent via pt's SVN and a nebulizer mask. Pt tolerates breathing treatment well and lung sounds are clear post treatment. Pt and thank [facility] for coming.[facility] is clear. Report completed by ISABELLE Rice [id number]. .................... .................... .................... .................... .................... .................... .................... . [facility] Consulted: Boni Deras .................... .................... .................... .................... .................... .................... .................... . Disposition: Chris Deras MD [address] [facility],[address], [place], [address], TARIQ ESCAMILLA 11/15/2024 19:52:44 11/17/2024 text/html HPI: Pt with [...] (e.g., Alzheimer's Disease), Hypertension PMH Reviewed at 11/17/2024:34 Allergies Reviewed at 11/17/2024:34 Diesel Engine Mechanic Apprentice Organization Information for Zeus Torres [employer] Legal Name: [facility] Address: [address] [place] [address], [place] [address], Comb Machine Operator: Mich Hendricks MD CLIA No.: [id number] Diesel Engine Mechanic Apprentice POC Test Results from Zeus Torres EKG (17:15:47) EKG test performed. Attachments uploaded as part of this test result can be found under Documents section. .................... .................... .................... .................... .................... .................... .................... . Diesel Engine Mechanic Apprentice Note From Zeus Torres: Patient complains of frequent nonproductive cough for more than two months. Patient was seen at ED yesterday after two episodes syncope in the last week. Patient grouter helper reports patient became unconscious time 30 seconds [...] drink a lot of water. ECG to [facility]. [facility] order albuterol nebulizer times one now, prednisone [...] .................... .................... .................... .................... .................... .................... . [facility] Consulted: Bertrand Saunders .................... .................... .................... .................... .................... .................... .................... . Disposition: Fulfilled Quoc Saunders MD [address] [facility],[address], [place], [address], TARIQ ESCAMILLA 11/18/2024 20:51:16
== END 2025-02-15 15:04 | disposition home or self-care (01) ==
LOC: HO.HPS 14:36
PROVIDERS: PCP Family Medicine; Visit Provider Hospitalist
DX: J45.50 Severe persistent asthma, uncomplicated (principal); R91.1 Solitary pulmonary nodule; J44.89 Other specified chronic obstructive pulmonary disease
CPT/HCPCS: 99214; G2211

== ENCOUNTER → 2025-02-15 14:35 | Outpatient (BNVA) | payer OTHER, SELFPAY | PROVIDERS: PCP Family Medicine; Visit Provider Hospitalist | DX: J45.50 Severe persistent asthma, uncomplicated (principal); J44.89 Other specified chronic obstructive pulmonary disease; R91.1 Solitary pulmonary nodule; Z87.891 Personal history of nicotine dependence | CPT/HCPCS: 99212 ==

== ENCOUNTER 2025-03-22 10:59 | Emergency (ER) | payer OTHER, SELFPAY ==
--- NOTE | ~2025-03-22 | XR_ITS ---
EXAMINATION: XR CHEST 2 VIEWS HISTORY: shortness of breath COMPARISON: Comparison is made with the prior examination dated 11/15/2024. FINDINGS: PA and lateral views of the chest are submitted. The lungs are expanded and clear. There is no pleural effusion, pneumothorax, or pulmonary vascular congestion. The heart is normal in size. There is degenerative disc disease of the spine. XR/XR chest 2V IMPRESSION: No acute cardiopulmonary abnormality. Electronically signed by: Bobo Mendez MD 03/22/2025 11:31 AM EDT
[2025-03-22 11:08] VITALS: BP 118/71; PULSE 78; RESP 18; TEMP 36.8; O2SAT 98; BMI 26.2
--- NOTE | 2025-03-22 11:10 | ED.GENADULT ---
HPI - General Adult General Chief complaint: Upper Respiratory Symptoms Stated complaint: Asthma SOB Time Seen by Provider: 03/22/25 11:40 Source: patient, family, RN notes reviewed, old records reviewed and transfer professor Mode of arrival: ambulatory Limitations: language barrier History of Present Illness ED Provider: Medina HPI narrative: Patient is a 74-year-old [place]-speaking male with history of asthma COPD overlap syndrome, pulmonary nodule presenting to the emergency department with complaint of fatigue, nonproductive cough, shortness of breath and coryza for the past 2 days. States he had to left over prednisone which he took with some improvement. Denies fevers. Denies chest pain or palpitations. Complains of feeling lightheaded after extended coughing episodes. Feels as though he has sputum to clear but has not coughed up any sputum thus far. Using his home inhalers and nebulizer with little improvement. Denies sore throat, abdominal pain, nausea, vomiting, diarrhea. In-person concrete grinder operator was utilized for all interactions, assessments, and discussions. MD complaint: cough Onset (ago): day(s) Related Data Home Medications ?Medication ?Instructions ?Recorded ?Confirmed cholecalciferol (vitamin D3) 25 25 mcg PO DAILY 05/08/21 mcg (1,000 unit) capsule clonazepam 2 mg tablet 2 mg PO BEDTIME 05/08/21 cyanocobalamin (vitamin B-12) 1,000 mcg PO DAILY 05/08/21 1,000 mcg tablet cyanocobalamin (vitamin B-12) 1,000 mcg IM 05/08/21 1,000 mcg/mL injection solution fluoxetine 20 mg capsule 20 mg PO DAILY 05/08/21 fluticasone propionate 220 1 puff PO BID 05/08/21 mcg/actuation HFA aerosol inhaler loratadine 10 mg tablet 10 mg PO DAILY 05/08/21 omeprazole 20 mg capsule,delayed 20 mg PO DAILY PRN 05/08/21 release mirtazapine 15 mg tablet 15 mg PO BEDTIME 08/03/21 Previous Rx's ?Medication ?Instructions ?Recorded hydrocortisone 2.5 % topical cream 1 appl OR BID-QID PRN hemorrhoids 04/13/22 with perineal applicator #30 grams (Proctosol HC) albuterol sulfate 2.5 mg/0.5 mL 5 mg inhalation Q4H PRN shortness 01/31/23 solution for nebulization of breath or wheezing #30 ea albuterol sulfate 90 mcg/actuation 2 inh inhalation Q4-6H PRN 07/22/23 breath activated powder inhaler shortness of breath or wheezing #1 ea erythromycin 5 mg/gram (0.5 %) eye 1 appl ophthalmic (eye) TID 5 days 07/22/23 ointment #3.5 grams lidocaine 5 % topical patch 1 patch topical DAILY #15 ea 12/02/23 naproxen 500 mg tablet 500 mg PO BID PRN pain #20 tabs 12/02/23 tizanidine 2 mg tablet 2 mg PO TID PRN muscle spasticity 06/12/24 30 days #90 tabs budesonide 160 mcg-glycopyr 9 2 inh inhalation BID 30 days #10.7 12/08/24 mcg-formot 4.8 mcg/actuation HFA grams inhaler (Breztri Aerosphere) prednisone 10 mg tablet See Rx Instructions PO DAILY 18 02/15/25 days #63 tabs azithromycin 250 mg tablet See Rx Instructions PO .COMPLEX #6 03/22/25 tabs prednisone 20 mg tablet 20 mg PO DAILY #5 tabs 03/22/25 Allergies Allergy/AdvReac Type Severity Reaction Status Date / Time No Known Allergies Allergy Verified 03/22/25 11:12 Review of Systems Review of Systems: As per HPI Yes all other systems are reviewed and are negative Constitutional: Constitutional: Reports as per HPI [facility] Past Medical History Medical History (Updated 03/22/25 @ 14:54 by Sabrina Haney NP) Asthma-COPD overlap syndrome Pulmonary nodule Asthma Depression Hypertension Surgical History History of hernia surgery Social History Social History Alcohol intake: former Patient Tobacco Use Status: Former Tobacco user Tobacco use type: Cigarette Smoked in Last 30 Days: No Use of substances other than those prescribed or required for medical reasons: No Advance Directives: No Advance Directives Information Provided: Yes Do you have a plan to hurt others: No Plan Current occupational status: disabled Current occupation: left and right handed Physical Exam ED Vital Signs: Vital Signs - 24 hr 03/22/25 11:08 03/22/25 11:46 03/22/25 12:16 Temperature 98.3 F 97.9 F 97.8 F Pulse Rate 78 81 74 Respiratory Rate 18 22 H 18 Blood Pressure 118/71 119/69 123/74 Pulse Oximetry 98 98 96 Oxygen Delivery Method Room Air Room Air Room Air 03/22/25 14:00 03/22/25 14:36 Temperature 98.4 F Pulse Rate 67 71 Respiratory Rate 14 18 Blood Pressure 120/80 Pulse Oximetry 94 Oxygen Delivery Method Room Air BMI result Body Mass Index 26.2 Vital signs have been reviewed and appear to be correct. Blood pressure normal. Heart rate normal. Respiratory rate normal. Temperature normal. Oxygen saturation normal. Const General: cooperative, healthy appearing and no acute distress Orientation/consciousness: oriented to person, oriented to place, oriented to time and patient oriented x3 Limitations: no limitations HENMT Head: Yes normocephalic and Yes atraumatic Ears: external ears normal General nose exam: Normal external nose present Face and sinus: Yes face symmetric Mouth: oropharynx normal and moist mucous membranes Throat: Yes uvula midline Eyes Pupils: Equal, round and reactive pupils present Neck Neck: Yes normal visual inspection and Yes supple Resp Effort & Inspection: normal respiratory effort and able to speak in complete sentences Auscultation: clear to auscultation bilaterally and wheezes expiratory wheezes and throughout Cardio Rate: regular rate Rhythm: regular rhythm Heart sounds: S1 normal heart sound present and S2 normal heart sound present GI Palpation (GI): Soft to palpation and nontender Auscultation: normoactive bowel sounds General: Yes no CVA tenderness Back/Spine/Pelvis Back: no CVA tenderness Skin General skin exam: elasticity normal and turgor normal Neuro General: oriented to person, oriented to place, oriented to time, patient oriented x3, moves all extremities, no focal motor deficits and CN's II-XI intact bilaterally Cranial nerves: Yes Equal, round and reactive pupils present Cognition (Neuro): normal cognition Extrem General: Yes full ROM, Yes no pedal edema and Yes no calf tenderness Psych Mental Status: mental status grossly normal Affect: normal affect Thought process: Normal thought process present Course Course Course Narrative: RME, this is a rapid medical exam performed by Bertrand Wang please refer to primary provider for complete H&P- 74 year old male with history of asthma and hypertension presenting for evaluation of shortness of breath and chest tightness. He feels no improvement from prednisone which he started 2 days ago and was leftover from a previous prescription. He reports no improvement with nebulizers. Plan for labs, viral swabs, chest x-ray. Vitals are stable in triage Medications Administered Discontinued Medications Generic Name Dose Route Start Last Admin Trade Name Dewayne PRN Reason Stop Dose Admin Albuterol Sulfate 2.5 mg/ 0 mg 03/22/25 14:34 03/22/25 14:35 Albuterol/Ipratropium 3 ml INHALE 03/22/25 14:35 1 dose ONCE ONE Administration Medical Decision Making Medical Decision Making [facility] Narrative: Patient is a 74-year-old [place]-speaking male with history of asthma COPD overlap syndrome, pulmonary nodule presenting to the emergency department with complaint of fatigue, nonproductive cough, shortness of breath and coryza for the past 2 days. On exam patient is awake, A+Ox3, VS WNL, afebrile, normal neurological exam without focal deficits, physical exam findings as above. Given reported symptoms and physical exam findings, initial differential includes but is not limited to COPD/asthma exacerbation, viral illness, covid, flu, rsv, pneumonia. Labs notable for no leukocytosis, grossly within normal limits. Viral panel negative. X-ray chest notable for no evidence of pneumonia. My interpretation is in agreement with the radiologist's interpretation. Patient reports improvement in symptoms after breathing treatment given in the ED. will treat for COPD exacerbation with short course of prednisone and azithromycin. Instructed patient to follow up with PCP. Return precautions discussed. Patient verbalized understanding of and agreement with plan. In-person concrete grinder operator was utilized for all interactions, assessments, and discussions. Differential Diagnosis Differential Diagnoses: The differential diagnosis associated with the presentation includes as per [facility] Admission/Observation Consideration of admission/observation: Escalation of care including admission/observation considered Patient would have been admitted to the hospital had their work up had any findings where hospital admission was appropriate and their clinical presentation warranted hospital admission. Lab Data [facility] Lab Attestation statement: I reviewed the patient's lab results. as per [facility] 03/22/25 11:39 03/22/25 11:39 Labs: Lab Results 03/22/25 03/22/25 Range/Units 11:39 12:27 WBC 5.1 (4.8-10.8) X10*3/uL RBC 4.66 (4.60-5.80) X10*6/uL Hgb 14.1 (14.0-18.0) g/dl Hct 42.8 (42.0-52.0) % MCV 91.8 (80.0-98.0) fL MCH 30.3 (27.0-33.0) pg MCHC 32.9 (31.0-36.0) g/dl RDW 13.7 (11.0-16.0) % Plt Count 183 (160-400) X10*3/uL MPV 10.1 (9.4-12.4) fL Immature Gran % (Auto) 0.2 (0.0-0.4) % Neut % (Auto) 67.7 (45-73) % Lymph % (Auto) 21.5 (20-40) % [place] % (Auto) 10.4 (2-11) % Eos % (Auto) 0.0 (0-4) % Baso % (Auto) 0.2 (0-2) % Lymph # (Auto) 1.1 L (1.2-4.9) X10*3/uL [place] # (Auto) 0.5 (0.1-1.2) X10*3/uL Eos # (Auto) 0.0 (0.0-0.4) X10*3/uL Baso # (Auto) 0.0 (0.0-0.2) X10*3/uL Abs Immat Gran (auto) 0.01 (0.00-0.03) X10*3/uL Absolute Neuts (auto) 3.5 (2.0-8.3) x10*3/uL Absolute Nucleated RBC 0.000 (0.0-0.012) X10*3/uL Nucleated RBC % (auto) 0.0 (0.0-0.2) /100WBC Sodium 141 (135-145) mmol/L Potassium 3.8 (3.3-5.1) mmol/L Chloride 106 (96-108) mmol/L Carbon Dioxide 26 (22-29) mmol/L Anion Gap 13 (12-20) BUN 20 H (9-16) mg/dL Creatinine 0.84 (0.5-1.4) mg/dL Estim Creat Clear Calc 69.1 Estimated GFR > 60 Random Glucose 102 (60-115) mg/dL Calcium 9.4 (8.4-10.2) mg/dL Magnesium 2.0 (1.6-2.6) mg/dL Total Bilirubin 0.4 (0.0-1.0) mg/dL AST 42 H (5-37) U/L ALT 30 (0-40) U/L Alkaline Phosphatase 76 (39-117) U/L B-Natriuretic Peptide 44 (<100) pg/mL Total Protein 7.7 (6.5-8.0) g/dL Albumin 4.2 (3.5-5.0) g/dL Lipase 13 (8-78) U/L Urine Color Dark Yellow Urine Appearance Clear Urine pH 6.0 (5.0-9.0) Ur Specific [place] >= 1.030 H (1.005-1.025) Urine Protein Trace (Neg-Trace) mg/dL Urine Glucose (UA) Negative (Negative) mg/dL Urine Ketones Trace (Negative) mg/dL Urine Blood Negative (Negative) Urine Nitrite Negative (Negative) Ur Leukocyte Esterase Small (1+) H (Negative) Urine RBC 0-2 (0-2) /HPF Urine WBC 6-10 H (0-5) /HPF Ur Squamous Epith Cells 0-2 (0-2) /HPF Urine Bacteria None Seen (None Seen) Hyaline Casts 0-2 (0-2) /LPF Influenza Type A (PCR) NEGATIVE (Negative) Influenza Type B (PCR) NEGATIVE (Negative) RSV RNA Qual (PCR) NEGATIVE (Negative) SARS-CoV-2 RNA (RT-PCR) NEGATIVE (Negative) Independent Interpretation I performed an independent interpretation of an: EKG (normal sinus rhythm, rate 77bpm, normal OR interval, QTc) and Plain X-Ray Interpretation: No evidence of pneumonia on chest x-ray Radiology Impression Discussion of test interpretation with radiology: I have reviewed the radiologist's reading. Radiologist Impression: EXAMINATION: XR CHEST 2 VIEWS HISTORY: shortness of breath COMPARISON: Comparison is made with the prior examination dated 11/15/2024. FINDINGS: PA and lateral views of the chest are submitted. The lungs are expanded and clear. There is no pleural effusion, pneumothorax, or pulmonary vascular congestion. The heart is normal in size. There is degenerative disc disease of the spine. XR/XR chest 2V IMPRESSION: No acute cardiopulmonary abnormality. External Record Review External record reviewed: Inpatient record, Office record and Outpatient record Prescription Management I considered prescription management with: Antibiotic and Other Discharge Plan Discharge Clinical Impression: COPD exacerbation Patient Disposition: Home, Self-Care Instructions: COPD (Chronic Obstructive Pulmonary Disease) (DC), Wheezing (ED) Additional Instructions: You were evaluated in the emergency department today for cough, wheezing and shortness of breath. You are being treated for a COPD exacerbation with a short course of steroids to decrease inflammation. You are being prescribed an antibiotic, complete the full course as prescribed. Please follow-up with your primary care provider this week. Return to the emergency department if you develop worsening shortness of breath, difficulty breathing, chest pain, fever not improved with Tylenol or ibuprofen, or any other concerning symptoms. Prescriptions: New prednisone 20 mg tablet 20 mg PO DAILY Qty: 5 0RF azithromycin 250 mg tablet See Rx Instructions .ROUTE .COMPLEX Qty: 6 0RF Rx Instructions: For 250 mg dose pack: take 500 mg today (day 1), then 250 mg for 4 days (days 2-5) No Action tizanidine 2 mg tablet 2 mg PO TID PRN (Reason: muscle spasticity) 30 Days Qty: 90 2RF Rx Instructions: may take 1 pill QHS, 1&1/2 pills QHS or even 2 pills QHS to improve night sleep. albuterol sulfate 2.5 mg/0.5 mL solution for nebulization 5 mg inhalation Q4H PRN (Reason: shortness of breath or wheezing) Qty: 30 0RF naproxen 500 mg tablet 500 mg PO BID PRN (Reason: pain) Qty: 20 0RF lidocaine 5 % adhesive patch,medicated 1 patch topical DAILY Qty: 15 0RF Rx Instructions: leave on most painful area for up to 12 hrs erythromycin 5 mg/gram (0.5 %) ointment 1 appl ophthalmic (eye) TID 5 Days Qty: 3.5 0RF albuterol sulfate 90 mcg/actuation aerosol powdr breath activated 2 inh inhalation Q4-6H PRN (Reason: shortness of breath or wheezing) Qty: 1 0RF cyanocobalamin (vitamin B-12) 1,000 mcg/mL solution 1,000 mcg IM clonazepam 2 mg tablet 2 mg PO BEDTIME fluoxetine 20 mg capsule 20 mg PO DAILY fluticasone propionate 220 mcg/actuation HFA aerosol inhaler 1 puff PO BID loratadine 10 mg tablet 10 mg PO DAILY cyanocobalamin (vitamin B-12) 1,000 mcg tablet 1,000 mcg PO DAILY omeprazole 20 mg capsule,delayed release(DR/EC) 20 mg PO DAILY PRN cholecalciferol (vitamin D3) 25 mcg (1,000 unit) capsule 25 mcg PO DAILY mirtazapine 15 mg tablet 15 mg PO BEDTIME hydrocortisone [Proctosol HC] 2.5 % cream with perineal applicator 1 appl OR BID-QID PRN (Reason: hemorrhoids) Qty: 30 3RF Breztri Aerosphere 160-9-4.8 mcg/actuation HFA aerosol inhaler 2 inh inhalation BID 30 Days Qty: 10.7 10RF prednisone 10 mg tablet See Rx Instructions PO DAILY 18 Days Qty: 63 0RF Rx Instructions: PO daily; Take 6 tabs daily x 3 days, then 5 tabs x 3 days, then 4 tabs x 3 days, then 3 tabs x 3 days, then 2 tabs daily x 3 days, then 1 tab x 3 days to complete. Print Language: [place]
--- NOTE | 2025-03-22 11:13 | ECG_ITS ---
Test Reason : sob Blood Pressure : */* mmHG Vent. Rate : 77 BPM Atrial Rate : 77 BPM P-R Int : 128 ms QRS Dur : 78 ms QT Int : 352 ms P-R-T Axes : 65 2 84 degrees QTcB Int : 398 ms Normal sinus rhythm Nonspecific T wave abnormality Abnormal ECG When compared with ECG of 15-Nov-2024 18:28, Nonspecific T wave abnormality now evident in Anterior leads Referred By: Quoc Wang Electronically Signed By: MIKE DE LA TORRE MD
[2025-03-22 11:43] LABS: Basophils Percent Auto 0.2 % (0-2); Hematocrit 42.8 % (42.0-52.0); Hemoglobin 14.1 g/dl (14.0-18.0); Imm Gran Abs Auto 0.01 X10*3/uL (0.00-0.03); Imm Gran Pct Auto 0.2 % (0.0-0.4); Lymphocytes Absolute Auto 1.1 X10*3/uL (1.2-4.9); Lymphocytes Percent Auto 21.5 % (20-40); MANUAL DIFF FLAG NO; Mean Corpuscular HGB Conc 32.9 g/dl (31.0-36.0); Mean Corpuscular Hemoglobin 30.3 pg (27.0-33.0); Mean Corpuscular Volume 91.8 fL (80.0-98.0); Mean Platelet Volume 10.1 fL (9.4-12.4); Monocytes Absolute Auto 0.5 X10*3/uL (0.1-1.2); Monocytes Percent Auto 10.4 % (2-11); Neutrophils Absolute Auto 3.5 x10*3/uL (2.0-8.3); Neutrophils Percent Auto 67.7 % (45-73); Platelet Count 183 X10*3/uL (160-400); Red Blood Count 4.66 X10*6/uL (4.60-5.80); Red Cell Distribution Width 13.7 % (11.0-16.0); White Blood Count 5.1 X10*3/uL (4.8-10.8)
[2025-03-22 11:46] VITALS: BP 119/69; PULSE 81; RESP 22; TEMP 36.6; O2SAT 98
[2025-03-22 12:05] LABS: B Type Natriuretic Peptide 44 pg/mL (<100)
[2025-03-22 12:07] LABS: Alanine Aminotransferase 30 U/L (0-40); Albumin Level 4.2 g/dL (3.5-5.0); Anion Gap 13 (12-20); Aspartate Amino Transferase 42 U/L (5-37); Bilirubin Total 0.4 mg/dL (0.0-1.0); Blood Urea Nitrogen 20 mg/dL (9-16); Calcium 9.4 mg/dL (8.4-10.2); Carbon Dioxide 26 mmol/L (22-29); Chloride 106 mmol/L (96-108); Creatinine Clr Calc Pharmacy 69.1; Estimated Glomerular Filt Rate > 60; Glucose Random 102 mg/dL (60-115); Lipase 13 U/L (8-78); Potassium 3.8 mmol/L (3.3-5.1); Sodium 141 mmol/L (135-145); Total Protein 7.7 g/dL (6.5-8.0)
[2025-03-22 12:16] VITALS: BP 123/74; PULSE 74; RESP 18; TEMP 36.6; O2SAT 96
[2025-03-22 12:19] LABS: Influenza A PCR NEGATIVE (Negative); Influenza B PCR NEGATIVE (Negative); Resp Syncy Virus RNA Qual PCR NEGATIVE (Negative); SARS COV2 PCR INHOUSE NEGATIVE (Negative)
[2025-03-22 12:23] LABS: Alkaline Phosphatase 76 U/L (39-117)
--- OUTSIDE RECORDS SUMMARY | 2025-03-22 12:41 | XMS_ITS | Data Portability ---
Author Organization [employer] [place] [facility] [place] Address [address] [place] [address] Care Team Providers Care Injection Maintenance Technician Name Role Phone [facility] Primary Care Provider [phone] HIM CCA OTHER Assessment Encounter Date Assessment Date Assessment LastModified by Organization Details LastModified Time 11/15/2024 11/15/2024 I have reviewed and agree with the assessment and plan as documented by the pharmacy operations specialist. I provided real time medical direction for this encounter and was immediately available to provide additional phone based assistance as needed. History as noted by pharmacy operations specialist. Pt with history of asthma and chronic cough. History and evaluation today performed with help of phone director emergency. Pt was reportedly seen in the ED [...] family at length, with the help of landscape painter, that he needs an urgent evaluation in the ED to assess for intermittent cardiac arrhythmias or ACS event from yesterday. The pt initially refuses to go to the ED but then states that he will go to the ED. He refuses an ambulance transport and his states that she will drive him to the [place] ED in about 30 mins. I discuss with the pt and his that ambulance transport would be safer and faster, but they refuse this and state that he will only go to the ED via private car. Pt is medicated with a Duoneb treatment by pharmacy operations specialist. I have called an expect to the [facility] ED [place]. btils Not available 11/15/2024 17:56:17 Plan of Treatment Reminders Order Date Submit Date Provider Last Modified By Organization Details Last Modified Time Details Appointments None recorded. Lab None recorded. Referral None recorded. Procedures None recorded. Surgeries None recorded. Imaging electrocard iogram [address] [place] [address], [phone] 17:29:49 electrocard iogram 2024 025 btils [facility] - [address], [phone] 17:26:24 Medication Orders albuterol sulfate 2.5 mg/3 mL (0.083 %) solution for nebulizatio n 2024 025 dhenderso n89 [facility]/Pharmacy #[id number], [address] [place], [address], 17:30:02 prednisone 20 mg tablet 2024 025 dhenderso n89 [id number], [address] [place], [address], 5 17:29:55 prednisone 10 mg tablet 2024 025 AXEL [id number], [address] [place], [address], 17:28:42 ipratropium 0.5 mg-albutero l 3 mg (2.5 mg base)/3 mL nebulizatio n soln 2024 025 [facility]/Pharmacy #[id number], [address] [place], [address], 17:26:24 Patient TargetsNo targets recorded. Patient InstructionsNo instructions recorded. Reason for Referral None Reported. Results Created Date Observation Date Name Description Value Unit Range Abnormal Flag Note LastModifiedBy Organization Detail LastModifiedTime 11/15/1911/15/2024 elect rocar diogr am No observ ation record ed. [facility] Main - [facility] [address] [place] [address], [phone] 11/15/2024 17:25:31 11/17/19 25 11/18/2024 elect rocar diogr am No observ ation record ed. [place] [address], [phone] 11/18/2024 08:57:59 Result Notes None recorded. Procedures Surgical History None recorded. Imaging Results Imaging Date Name Status LastModified by Organization Details LastModified Time 11/15/2024 electrocardiogram completed [facility] [address] [place] [address], [phone] 11/15/2024 17:25:31 11/18/2024 electrocardiogram completed [place] [address] Main - [facility] [address] [place] [address], [phone] 11/18/2024 08:57:59 Procedure Notes None recorded. Medical [...] ORAL HOY, LUEGO TOME 1 TABLETA DIARIAMENTE PHLILIP 4 D SEG N LAS INDICACIONE S [...] cm 97 % 97 % 98.6 [degF] 41709.7 6 g 20 /min 82 /min 136 [...] /min 96 % 96 % 98 [degF] 92194.8 g 126 mm[Hg] 85 mm[Hg] Not Available [facility] - production 17:05:45 Social History None recorded. Functional Status None recorded. Mental Status None recorded. Family History Nothing Reported. Medical History No medical history recorded. Past Encounters Encounter ID Performer Location Encounter Start Date Encounter Closed Date Diagnosis/Indication Diagnosis SNOMED-CT Code Diagnosis ICD10 Code Diagnosis Note [id number] Boni Deras MD [facility] - [address] [phone] 11/15/2024 17:11:56 11/16/2024 00:21:22 Syncope and collapse 165920504 R55 Exacerbati on of moderate persistent asthma 339530668 J45.41 [id number] Quoc Saunders MD [facility] - [address] [address] 11/17/2024 17:05:43 11/18/2024 22:22:27 Exacerbation of moderate persistent asthma 449275034 J45.41 As noted, we were called to see this patient regarding concerns of cough and wheezing with two apparent syncopal episodes. Evaluation in the field was performed by my pharmacy operations specialist colleague, as noted above, I provided real-time [...] his PCP for urgent appointmen t. Plan:[facility] edStrongly advised to call PCP to [...] Recorded Advance Directives Directive None Recorded Payers Insurance Date Sequence Insurance Name Policy Number Policy Mora Covered Member ID Mora Member ID Guarantor Name 11/15/2024 1 [facility] - DOS ON OR AFTER 2023 - DUAL ELIGIBLE - HALF-WAY OPTIONS AND ONE CARE (MEDICARE REPLACEMENT/ADV ANTAGE - HMO) Mark Feliciano [id number] Mark Feliciano Notes Date Note Type Note Provider Name and Address Organization Details Recorded Time 11/15/2024 text/html This was a supervised home visit with pharmacy operations specialist Dominic Rice. [facility] Nurse Triage Notes (Evens Enamorado - JONATHAN): Reason For Request: Pt's spouse Venessa took mbr to ER 3 weeks ago for asthma flare up>pt was referred to a peanut sheller, appointment is 12/08/24Spouse notes while administering breathing [...] Pain with inspiration Chief Complaints: AsthmaPMH: AsthmaComments: Feeder Operator Automatic verified the Pt.'s name//address and phone number. Education provided on the response time and the Pt. was advised to monitor reported s/s and seek emergency treatment if needed. Pt was seen in the ER 3 weeks ago for asthma symptoms and cough/cold - Referred to Daycare Teacher and an appointment is scheduled for 12/08 [...] - Chest pain only reported when coughing. Firer Ret[employer] Organization Information for Dominic Rice Lupillo Legal Name: [employer].?Address: [address] [place] [address], Medical Director: Buddy [facility] No[facility] [id number] [employer] POC Test Results from Dominic Rice MIRIAN EKG (17:09:05)EKG test performed.Attachment s uploaded as part of this test result can be found under Documents section. .................... .................... .................... .................... .................... .................... .................... . Firer Retort Note From Dwayne Shannablaze: [facility] makes pt contact. He is found seated on the sofa. He smiles at [facility] and says hello. He is not in acute distress. No stridor or sonorous respirations are noted, he is not tripoding or drooling. No slurred speech, facial droop, or one sided weakness are noted and pt is not bleeding anywhere. He stands on [facility] approach and offers a chair. Flight Engineer Inspector services are obtained via cell phone for assessment and hx. Pt's tells [facility] the pt had two syncopal episode sin the past week during his breathing treatments. The first one was about a week ago and the most recent one was last night. She reports starting CPR on the pt last night and he woke up after about a minute of chest compressions. Pt does not remember the events. He tells [facility] he has been having a lot of asthma lately and feels like he can't catch his breath. He also endorses a cough that causes pain in my lungs . Pt also endorses feeling as though there is sputum he is unable to expectorate due to the asthma. He consents to evaluation and treatment today.[facility] obtains pt consent and uploads. Vital signs are obtained and pt is physically assessed. Lung sounds reveal diffuse insp/exp wheezes throughout. Remaining physical exam is unremarkable. [facility] obtains a 12-lead EKG and contacts [facility] to discuss the above findings. Based on hx given of two syncopal events during breathing treatments and the current arrhythmia w/ lack of old EKG for comparison, [facility] recommends pt be transported to the ED for further evaluation. [facility] informs pt and of the recommendation and pt refuses. Flight Engineer Inspector services are obtained and patched in to call w/ [facility] and [facility] encourages pt to allow transport to the ED, stating the pt could pass out again and at home. Pt continues to refuse transport to the ED, but eventually consents to go, but does not want to go by ambulance. says she will drive him to [facility]. [facility] orders [facility] to administer a duoneb prior to the pt going to hospital. [facility] administers 3mg albuterol and 0.5mg atrovent via pt's SVN and a nebulizer mask. Pt tolerates breathing treatment well and lung sounds are clear post treatment. Pt and thank [facility] for coming.MIH is clear. Report completed by ISABELLE Rice [id number]. .................... .................... .................... .................... .................... .................... .................... . [facility] Consulted: Boni Deras .................... .................... .................... .................... .................... .................... .................... . Disposition: Fulfilled Boni Deras MD [address] [facility],[address], [place], [address], [employer] 11/15/2024 19:52:44 11/17/2024 text/html HPI: Pt with persistent cough months causing chest pain. Also having SOB. 2 syncopal episodes in the past 2 weeks. Went to ED yesterday 11/16/24 but left AMA. Refusing to go back. .................... .................... .................... .................... .................... .................... .................... . [facility] Nurse Triage Notes (Heidi Webb - RN): Chief Complaints: Cough PMH: Asthma, Dementia (e.g., Alzheimer's Disease), Hypertension PMH Reviewed at 11/17/2024:34 Allergies Reviewed at 11/17/2024:34 [employer] Organization Information for Zeus Torres [employer] Legal Name: [facility] Address: [address] [place] [address], Computator: Mich Hendricks MD [facility] No.: [id number] [employer] POC Test Results from Zeus Torres EKG (17:15:47) EKG test performed. Attachments uploaded as part of this test result can be found under Documents section. .................... .................... .................... .................... .................... .................... .................... . Firer Retort Note From Zeus Torres: Patient complains of frequent nonproductive cough for more than two months. Patient was seen at ED yesterday after two episodes syncope in the last week. Patient gaming associate reports patient became unconscious time 30 seconds [...] drink a lot of water. ECG to [facility]. [facility] order albuterol nebulizer times one now, prednisone [...] .................... .................... .................... .................... .................... .................... . [facility] Consulted: Bertrand Saunders .................... .................... .................... .................... .................... .................... .................... . Disposition: Fulfilled Quoc Saunders MD [address] [facility],[address], [place], [address], TAR[employer] ESCAMILLA 11/18/2024 20:51:16
--- OUTSIDE RECORDS SUMMARY | 2025-03-22 12:41 | XMS_ITS | Encounter Summary ---
Author Organization [employer] Address [address] [facility] [address] [place] [address] Care Team Providers Care Manager Strategy & Account Name Role Phone Toyin Mistry MD Primary Care Provider [phone] Encounter Details Date Type Department Care Team (Late st Contact Info) Description 10/12/2022 Orders Only [facility] [address] [place] [address] Esther Hicks, RN [address] [place] [address] Social History Tobacco Use Types Packs/Day Years [...] Care Team (Late st Contact Info) Description 04/02/2025 10:00 AM EDT Clinical Support [facility] [address] [place] [address] documented as of this encounter Visit Diagnoses Not on filedocumented in this encounter Care Teams Manager Strategy & Account Relationship Specialty Start Date End Date Toyin Mistry MD [address] [place] [phone] PCP - General Family Medicine 11/11/18 documented as of this encounter
--- OUTSIDE RECORDS SUMMARY | 2025-03-22 12:41 | XMS_ITS | Encounter Summary ---
Author Organization [employer] Address [address] [facility] [address] [place] [address] Care Team Providers Care Chute Worker Name Role Phone Toyin Mistry MD Primary Care Provider [phone] Encounter Details Date Type Department Care Team (Late st Contact Info) Description 03/22/2025 Orders Only [facility] External Provider, [facility] Social History Tobacco Use Types Packs/Day Years [...] Description 04/02/2025 10:00 AM EDT Clinical Support [facility] [address] [place] [address] documented as of this encounter Procedures Procedure Name Priority Date/Time Associated Diagnosis Comments SARS COV2/INFLUENZA A/B AND RSV RNA QL NAAT Routine 03/22/2025 11:39 AM EDT CBC WITH AUTO DIFFERENTIAL Routine 03/22/2025 11:39 AM EDT B TYPE NATRIURETIC PEPTIDE (BNP) Routine 03/22/2025 11:39 AM EDT MAGNESIUM Routine 03/22/2025 11:39 AM EDT LIPASE Routine 03/22/2025 11:39 AM EDT COMPREHENSIVE METABOLIC PANEL Routine 03/22/2025 11:39 AM EDT XR CHEST 2 VIEWS Routine 03/22/2025 11:1 3 AM EDT documented in this encounter Results * SARS-CoV-2 RNA, Influenza A/B, and RSV RNA, Ql NAAT (03/22/2025 11:39 AM EDT) Influenza A PCR NEGATIVE Negative [facility] Influenza B PCR NEGATIVE Negative [facility] Resp Syncy Virus RNA Qual PCR NEGATIVE Negative [facility] SARS COV2 PCR NEGATIVE Negative [facility] Comment:All test results mus t [...] use by authorized laboratories.Testing performed on the Medivo GeneXpert utilizingreal-time RT-PCR.All SARS CoV2 and positive influenza A/B results arereported to [facility]. 03/22/2025 11:3 9 AM EDT 03/22/2025 11:40 AM EDT Generic External Data Provider LAB MICROBIOLOGY - GENERAL ORDERABLES Final Result Performing Organization Address [facility] Phone Number [facility] [address] [place] [phone] * Lipase (03/22/2025 11:39 AM EDT) Lipase 13 8 - 78 U/L [facility] 03/22/2025 11:3 9 AM EDT 03/22/2025 11:40 AM EDT Generic External Data Provider LAB BLOOD ORDERAB LES Final Result Performing Organization Address [facility] Phone Number [facility] [address] [place] [phone] * Magnesium (03/22/2025 11:39 AM EDT) Magnesium 2.0 1.6 - 2.6 mg/dL [facility] 03/22/2025 11:3 9 AM EDT 03/22/2025 11:40 AM EDT Generic External Data Provider LAB BLOOD ORDERAB LES Final Result Performing Organization Address [facility] de Phone Number [facility] [address] [place] [phone] [phone] * (ABNORMAL) Comprehensive Metabolic Panel (03/22/2025 11:39 AM EDT) Sodium 141 135 - 145 mmol/L [facility] Potassium 3.8 3.3 - 5.1 mmol/L [facility] Chloride 106 96 - 108 mmol/L [facility] Carbon Dioxide 26 22 - 29 mmol/L [facility] Anion Gap 13 12 - 20 [facility] Urea Nitrogen (BUN) 20(H) 9 - 16 mg/dL [facility] Creatinine, Serum 0.84 0.5 - 1.4 mg/dL [facility] Creatinine Clr Calc Pharmacy 69.1 [facility] Comment:eGFR (calculated fro m the MDRD study equation) and eCrCl(calculated from the Cockcroft-Gault equation) are based ondifferent parameters and may not yield comparable results.If eCrCl result is absurd, please check patient'sheight/weight. Estimated Glomerular Filt Rate >60 [facility] Comment:Chronic Kidney Disea se: Estimated GFR < 60 mL/min/1.25u2Cffxug Kidney Disease: Estimated GFR < 15 mL/min/1.73m2 Glucose 102 60 - 115 mg/dL [facility] Calcium 9.4 8.4 - 10.2 mg/dL [facility] Bilirubin, Total 0.4 0.0 - 1.0 mg/dL [facility] Aspartate Amino Transferase 42(H) 5 - 37 U/L [facility] Alanine Aminotransferase 30 0 - 40 U/L [facility] Total Protein 7.7 6.5 - 8.0 g/dL [facility] Albumin Level 4.2 3.5 - 5.0 g/dL [facility] Alkaline Phosphatase 76 39 - 117 U/L [facility] 03/22/2025 11:3 9 AM EDT 03/22/2025 11:40 AM EDT us Generic External Data Provider LAB BLOOD ORDERAB LES Final Result [facility] [address] [place] [phone] [phone] * B Type Natriuretic Peptide (BNP) (03/22/2025 11:39 AM EDT) [facility] B Type Natriuretic Peptide 44 <100 pg/mL [facility] 03/22/2025 11:3 9 AM EDT 03/22/2025 11:40 AM EDT us Generic External Data Provider LAB BLOOD ORDERAB LES Final Result Performing Organization Address [facility] Co de Phone Number [facility] [address] [place] [address] [phone] * (ABNORMAL) CBC auto differential (03/22/2025 11:39 AM EDT) [facility] White Blood Count 5.1 4.8 - 10.8 X10*3/uL [facility] Red Blood Count 4.66 4.60 - 5.80 X10*6/uL [facility] Hemoglobin 14.1 14.0 - 18.0 g/dl [facility] Hematocrit 42.8 42.0 - 52.0 % [facility] Mean Corpuscular Volume 91.8 80.0 - 98.0 fL [facility] Mean Corpuscular Hemoglobin 30.3 27.0 - 33.0 pg [facility] Mean Corpuscular HGB Conc 32.9 31.0 - 36.0 g/dl [facility] Red Cell Distribution Width 13.7 11.0 - 16.0 % [facility] Platelet Count 183 160 - 400 X10*3/uL [facility] Mean Platelet Volume 10.1 9.4 - 12.4 fL [facility] Neutrophils Percent Auto 67.7 45 - 73 % [facility] Imm Gran Pct Auto 0.2 0.0 - 0.4 % [facility] Lymphocytes Percent Auto 21.5 20 - 40 % [facility] Monocytes Percent Auto 10.4 2 - 11 % [facility] Eosinophils Percent Auto 0.0 0 - 4 % [facility] Basophils Percent Auto 0.2 0 - 2 % [facility] NRBC Pct Auto 0.0 0.0 - 0.2 /100WBC [facility] Neutrophils Absolute Auto 3.5 2.0 - 8.3 x10*3/uL [facility] Imm Gran Abs Auto 0.01 0.00 - 0.03 X10*3/uL [facility] Lymphocytes Absolute Auto 1.1(L) 1.2 - 4.9 X10*3/uL [facility] Monocytes Absolute Auto 0.5 0.1 - 1.2 X10*3/uL [facility] Eosinophils Absolute Auto 0.0 0.0 - 0.4 X10*3/uL [facility] Basophils Absolute Auto 0.0 0.0 - 0.2 X10*3/uL [facility] NRBC Abs Auto 0.000 0.0 - 0.012 X10*3/uL [facility] 03/22/2025 11:3 9 AM EDT 03/22/2025 11:40 AM EDT us Generic External Data Provider LAB BLOOD ORDERAB LES Final Result Performing Organization Address City/State/[facility] Co de Phone Number [facility] [address] [place] [address] [phone] * XR Chest 2 Views (03/22/2025 11:13 AM EDT) Anatomical Region Laterality Modality Chest Radiographic Tomeka ging 03/22/2025 11:1 3 AM EDT Narrative 03/22/2025 11:33 AM EDT ? [facility] ?[address] ?[place] [address] ?XRay Report ? Signed ? Patient: Braden,Mark ?MR#: [id number] ?? 5 ? : 1950 ?Acct:[id number] ? Age/Sex: 74 / M ?ADM Date: 05/12/25 ? Loc: HO.ED ? Attending Dr: ? Ordering Physician: Quoc Wang ?? Date of Service: 03/22/25 ?? Procedure(s): XR chest 2V ?? Accession Number(s): [id number] ? cc: Quoc Wang; Toyin Mistry MD ? EXAMINATION: ??XR CHEST 2 VIEWS ? HISTORY: shortness of breath ? COMPARISON: Comparison is made with the prior examination dated ?? 11/15/2024. ? FINDINGS: ??PA and lateral views of the chest are submitted. The lungs ?? are expanded and clear. ??There is no pleural effusion, pneumothorax, or ?? pulmonary vascular congestion. ??The heart is normal in size. ??There is ?? degenerative disc disease of the spine. ? XR/XR chest 2V ?? IMPRESSION: ?? No acute cardiopulmonary abnormality. ? Electronically signed by: ??Bobo Mendez MD ??03/22/2025 11:31 AM EDT ? Dictated By: ?Bobo Mendez MD ? Signed By: ?<Electronically signed by Bobo Mendez MD in OV> ?03/22/25 1131 ? DD/ 1113 ? TD/TT: 03/22/25 1128 ? Trumpet Player: ? Procedure Note Joaquín Lazaro - 03/22/2025 [place] [address] XRay Report Signed Patient: Mark FelicianoMR#: [id number] 5 : 3Acct:[id number] Age/Sex: 74 / MADM Date: 03/22/25 Loc: HO.ED Attending Dr: Ordering Physician: Quoc Wang Date of Service: 03/22/25 Procedure(s): XR chest 2V Accession Number(s): [id number] cc: Quoc Wang; Toyin Mistry MD EXAMINATION: XR CHEST 2 VIEWS HISTORY: shortness of breath COMPARISON: Comparison is made with the prior examination dated 11/15/2024. FINDINGS: PA and lateral views of the chest are submitted. The lungs are expanded and clear. There is no pleural effusion, pneumothorax, or pulmonary vascular congestion. The heart is normal in size. There is degenerative disc disease of the spine. XR/XR chest 2V IMPRESSION: No acute cardiopulmonary abnormality. Electronically signed by: Bobo Mendez MD 03/22/2025 11:31 AM EDT RP Dictated By: Bobo Mendez MD Signed By: <Electronically signed by Bobo Mendez MD in OV> 03/22/25 1131 DD/ 1113 TD/TT: 03/22/25 1128 Trumpet Player: [facility] External Provider IMG XR PROCEDURES Final Result documented in this encounter Visit Diagnoses Not on filedocumented in this encounter Additional Health Concerns Assessment Noted Time PHQ-9 Depression Total Score: 4 08/31/20 24 10:34 AM EDT documented as of this encounter Care Teams Chute Worker Relationship Specialty Start Date End Date Toyin Mistry MD [address] [place] [phone] PCP - General Family Medicine 11/11/18 documented as of this encounter
--- OUTSIDE RECORDS SUMMARY | 2025-03-22 12:41 | XMS_ITS | Encounter Summary ---
Author Organization [employer] Address 75 [facility] 7t [place] [address] Care Team Providers Care Coater Name Role Phone Toyin Mistry MD Primary Care Provider [phone] Reason for Visit * Reason Onset Date Comments Med Refill 2024 Encounter Details Date Type Department Care Team ([facility] st Contact Info) Description 2024 Telephone [facility] [address] [place], [place] [phone] Toyin Mistry MD [address] [place], [place] [phone] Med Refill Social History Tobacco Use Types [...] Description 04/02/2025 10:00 AM EDT Clinical Support [facility] [address] [place] [address] documented as of this encounter Visit Diagnoses Not on filedocumented in this encounter Additional Health Concerns Assessment Noted Time PHQ-9 Depression Total Score: 4 08/31/20 24 10:34 AM EDT documented as of this encounter Care Teams Coater Relationship Specialty Start Date End Date Toyin Mistry MD [address] [place] [address] PCP - General Family Medicine 11/11/18 documented as of this encounter
--- OUTSIDE RECORDS SUMMARY | 2025-03-22 12:41 | XMS_ITS | Encounter Summary ---
Author Organization [employer] Address 75 [facility] 7t [place] [address] Care Team Providers Care Legal Mediator Name Role Phone Toyin Mistry MD Primary Care Provider [phone] Reason for Visit * Reason Onset Date Comments FYI 11/16/2024 Durable Medical Equipment 11/16/2024 Encounter Details Date Type Department Care Team ([facility] st Contact Info) Description 11/16/2024 Telephone [facility] 230 [place], [place] [phone] Toyin Mistry MD 230 [place], [place] [phone] FYI; Durable Medical Equipment Social History Tobacco [...] - 11/16/2024 2:16 PM EST Tc from [facility] with [facility] to report pt was on EM 11/16, has cough and asthma also requesting nebulizer. documented in this encounter Plan of Treatment Upcoming Encounters Date Type Department Care Team (Late st Contact Info) Description 04/02/2025 10:00 AM EDT Clinical Support [facility] 230 [place] [address] documented as of this encounter Visit Diagnoses Not on filedocumented in this encounter Additional Health Concerns Assessment Noted Time PHQ-9 Depression Total Score: 4 08/31/20 24 10:34 AM EDT documented as of this encounter Care Teams Legal Mediator Relationship Specialty Start Date End Date Toyin Mistry MD [address] [place] [address] PCP - General Family Medicine 11/11/18 documented as of this encounter
--- OUTSIDE RECORDS SUMMARY | 2025-03-22 12:41 | XMS_ITS | Clinical Summary ---
Author Organization [employer] Address 75 [facility] 7t [place] [address] Care Team Providers Care Linoleum Installer Name Role Phone Toyin Mistry MD Primary Care Provider [phone] Allergies No known active allergies Medications cholecalciferol [...] (04/13/2024 12:09 PM EDT): - following with [facility] - last MRI in Aug 2022 - last steroid injection right side in Nov 2023. -Evaluated by lead painter. -Received left scapular nerve block on 12/24/23 -Removal of Sprint PNS left suprascapular notch in March 2024 - Follow up as needed with specialist Assessment & Plan (11/15/2023 4:30 PM EST): - following with [facility] - last MRI in Aug 2022 [...] RECURRENT MAJOR DEPRESSIVE DISORDER, IN PARTIAL REMISSION ([facility]) WRITTEN ON 11/14/2023 9:01 AM BY JONI [...] seek urgent/emergent care including calling Suicide Hotline (230 or ) or 861. Follow up in one month with PCP [...] cuff tear and osteoarthritis - following with [facility], last seen in Aug 2023 - [...] mcg one puff daily. 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 -Cont Albuterol inhaler and [...] Encounters Date Type Department Care Team Description 03/22/2025 Orders Only [facility] External Provider, [facility] 03/03/2025 10:00 AM EDT Nurse Only [facility] 230 [place] [address] Karrie Biswas RN B12 deficiency 02/04/2025 Telephone [facility] [address] [place] [address] Toyin Mistry MD Durable Medical Equipment (DME Request: Vaporizer) 01/28/2025 10:00 AM EDT Nurse Only [facility] 230 [place] [address] Karrie Biswas RN B12 deficiency (Primary Dx) 12/31/2024 10:00 AM EST Nurse Only [address] [phone] Karrie Biswas RN B12 deficiency (Primary Dx) 12/31/2024 Travel from Last 3 Months Immunizations Name Administration [...] Description 04/02/2025 10:00 AM EDT Clinical Support [address] [address] Health Maintenance Due Date Last Done Comments [...] Procedure Name Priority Date/Time Associated Diagnosis Comments LIPASE Routine 03/22/2025 11:39 AM EDT MAGNESIUM Routine 03/22/2025 11:39 AM EDT COMPREHENSIVE METABOLIC PANEL Routine 03/22/2025 11:39 AM EDT B TYPE NATRIURETIC PEPTIDE (BNP) Routine 03/22/2025 11:39 AM EDT CBC WITH AUTO DIFFERENTIAL Routine 03/22/2025 11:39 AM EDT SARS COV2/INFLUENZA A/B AND RSV RNA QL NAAT Routine 03/22/2025 11:39 AM EDT XR CHEST 2 VIEWS Routine 03/22/2025 11:1 3 AM EDT HEPATITIS C AB W/REFL TO HCV RNA, QN, PCR Routine 09/24/2024 1:57 PM EST Encounter for health-related screening HEMOGLOBIN A1C Routine 04/14/2024 8:20 AM EDT Essential hypertension LIPID PANEL WITH REFLEX TO DIRECT LDL Routine 04/14/2024 8:20 AM EDT Essential hypertension HM COLONOSCOPY Routine 11/07/2021 from Last 3 Months or Most Recently Relevant to Health Maintenance Results * SARS-CoV-2 RNA, Influenza A/B, and RSV RNA, Ql NAAT (03/22/2025 11:39 AM EDT) Pathologist [facility] Influenza A PCR NEGATIVE Negative [facility] Influenza B PCR NEGATIVE Negative [facility] Resp Syncy Virus RNA Qual PCR NEGATIVE Negative [facility] SARS COV2 PCR NEGATIVE Negative [facility] Comment:All test results mus t [...] use by authorized laboratories.Testing performed on the MEDNAXXpert utilizingreal-time RT-PCR.All SARS CoV2 and positive influenza A/B results arereported to [facility]. 03/22/2025 11:3 9 AM EDT 03/22/2025 11:40 AM EDT us Generic External Data Provider LAB MICROBIOLOGY - GENERAL ORDERABLES Final Result [facility] [address] [place] [phone] * (ABNORMAL) CBC auto differential (03/22/2025 11:39 AM EDT) Pathologist [facility] White Blood Count 5.1 4.8 - 10.8 X10*3/uL [facility] Red Blood Count 4.66 4.60 - 5.80 X10*6/uL [facility] Hemoglobin 14.1 14.0 - 18.0 g/dl [facility] Hematocrit 42.8 42.0 - 52.0 % [facility] Mean Corpuscular Volume 91.8 80.0 - 98.0 fL [facility] Mean Corpuscular Hemoglobin 30.3 27.0 - 33.0 pg [facility] Mean Corpuscular HGB Conc 32.9 31.0 - 36.0 g/dl [facility] Red Cell Distribution Width 13.7 11.0 - 16.0 % [facility] Platelet Count 183 160 - 400 X10*3/uL [facility] Mean Platelet Volume 10.1 9.4 - 12.4 fL [facility] Neutrophils Percent Auto 67.7 45 - 73 % [facility] Imm Gran Pct Auto 0.2 0.0 - 0.4 % [facility] Lymphocytes Percent Auto 21.5 20 - 40 % [facility] Monocytes Percent Auto 10.4 2 - 11 % [facility] Eosinophils Percent Auto 0.0 0 - 4 % [facility] Basophils Percent Auto 0.2 0 - 2 % [facility] NRBC Pct Auto 0.0 0.0 - 0.2 /100WBC [facility] Neutrophils Absolute Auto 3.5 2.0 - 8.3 x10*3/uL [facility] Imm Gran Abs Auto 0.01 0.00 - 0.03 X10*3/uL [facility] Lymphocytes Absolute Auto 1.1(L) 1.2 - 4.9 X10*3/uL [facility] Monocytes Absolute Auto 0.5 0.1 - 1.2 X10*3/uL [facility] Eosinophils Absolute Auto 0.0 0.0 - 0.4 X10*3/uL [facility] Basophils Absolute Auto 0.0 0.0 - 0.2 X10*3/uL [facility] NRBC Abs Auto 0.000 0.0 - 0.012 X10*3/uL [facility] 03/22/2025 11:3 9 AM EDT 03/22/2025 11:40 AM EDT us Generic External Data Provider LAB BLOOD ORDERAB LES Final Result [facility] [address] [place] [phone] [phone] * B Type Natriuretic Peptide (BNP) (03/22/2025 11:39 AM EDT) [facility] B Type Natriuretic Peptide 44 <100 pg/mL [facility] 03/22/2025 11:3 9 AM EDT 03/22/2025 11:40 AM EDT Generic External Data Provider LAB BLOOD ORDERAB LES Final Result Performing Organization Address [facility] Co de Phone Number [facility] [address] [place] [phone] * Magnesium (03/22/2025 11:39 AM EDT) [facility] Magnesium 2.0 1.6 - 2.6 mg/dL [facility] 03/22/2025 11:3 9 AM EDT 03/22/2025 11:40 AM EDT Generic External Data Provider LAB BLOOD ORDERAB LES Final Result Performing Organization Address [facility] Co de Phone Number [facility] [address] [place] [phone] * Lipase (03/22/2025 11:39 AM EDT) [facility] Lipase 13 8 - 78 U/L [facility] 03/22/2025 11:3 9 AM EDT 03/22/2025 11:40 AM EDT Generic External Data Provider LAB BLOOD ORDERAB LES Final Result Performing Organization Address [facility] de Phone Number [facility] [address] [place] [phone] * (ABNORMAL) Comprehensive Metabolic Panel (03/22/2025 11:39 AM EDT) [facility] Sodium 141 135 - 145 mmol/L [facility] Potassium 3.8 3.3 - 5.1 mmol/L [facility] Chloride 106 96 - 108 mmol/L [facility] Carbon Dioxide 26 22 - 29 mmol/L [facility] Anion Gap 13 12 - 20 [facility] Urea Nitrogen (BUN) 20(H) 9 - 16 mg/dL [facility] Creatinine, Serum 0.84 0.5 - 1.4 mg/dL [facility] Creatinine Clr Calc Pharmacy 69.1 [facility] Comment:eGFR (calculated fro m the MDRD study equation) and eCrCl(calculated from the Cockcroft-Gault equation) are based ondifferent parameters and may not yield comparable results.If eCrCl result is absurd, please check patient'sheight/weight. Estimated Glomerular Filt Rate >60 [facility] Comment:Chronic Kidney Disea se: Estimated GFR < 60 mL/min/1.40a8Jupgrh Kidney Disease: Estimated GFR < 15 mL/min/1.73m2 Glucose 102 60 - 115 mg/dL [facility] Calcium 9.4 8.4 - 10.2 mg/dL [facility] Bilirubin, Total 0.4 0.0 - 1.0 mg/dL [facility] Aspartate Amino Transferase 42(H) 5 - 37 U/L [facility] Alanine Aminotransferase 30 0 - 40 U/L [facility] Total Protein 7.7 6.5 - 8.0 g/dL [facility] Albumin Level 4.2 3.5 - 5.0 g/dL [facility] Alkaline Phosphatase 76 39 - 117 U/L [facility] 03/22/2025 11:3 9 AM EDT 03/22/2025 11:40 AM EDT us Generic External Data Provider LAB BLOOD ORDERAB LES Final Result [facility] [address] [place], [place] [phone] * XR Chest 2 Views (03/22/2025 11:13 AM EDT) Anatomical Region Laterality Modality Chest Radiographic Tomeka ging 03/22/2025 11:1 3 AM EDT Narrative 03/22/2025 11:33 AM EDT ? [facility] ?[address] ?[place] [address] ?XRay Report ? Signed ? Patient: Braden,Mark ?MR#: [id number] ?? 5 ? : 1950 ?Acct:[id number] ? Age/Sex: 74 / M ?ADM Date: 03/22/25 ? Loc: HO.ED ? Attending Dr: ? Ordering Physician: Quoc Wang ?? Date of Service: 03/22/25 ?? Procedure(s): XR chest 2V ?? Accession Number(s): [id number] ? cc: Quoc Wang; Toyin Mistry MD [...] ??Bobo Mendez MD ??03/22/2025 11:31 AM EDT ?? RP ? Dictated By: ?Bobo Mendez MD ? Signed By: ?<Electronically signed by Bobo Mendez MD in OV> ?03/22/25 1131 ? DD/ 1113 ? TD/TT: 03/22/25 1128 ? [employer] Lieutenant: ? Procedure Note Joaquín Lazaro - 03/22/[address] [address] XRay Report Signed Patient: Mark FelicianoMR#: [id number] 5 : 3Acct:[id number] Age/Sex: 74 / MADM Date: 03/22/25 Loc: HO.ED Attending Dr: Ordering Physician: Quoc Wang Date of Service: 03/22/25 Procedure(s): XR chest 2V Accession Number(s): [id number] cc: Quoc Wang; Toyin Mistry MD EXAMINATION: [...] 03/22/25 1131 DD/ 1113 TD/TT: 03/22/25 1128 [employer] Lieutenant: [facility] External Provider IMG XR PROCEDURES Final Result * Hepatitis C Antibody with Reflex to HCV, RNA, Quantitative, Real-Time PCR (09/24/2024 1:57 PM EST) Hepatitis C Antibody Nonreactive Nonreactive [facility] Comment:Antibodies to HCV no t detected; does not exclude early acuteHCV infection. Blood Venous blood specimen / Unknown 09/24/2024 1:57 PM EST 09/24/2024 4:04 PM EST Vanda Palacios SHIP CLEANER LAB BLOOD ORDERABLES Final Resu lt [facility] [address] [place] [phone] * (ABNORMAL) Lipid Panel with Reflex to Direct LDL (04/14/2024 8:20 AM EDT) Triglycerides 135 <150 mg/dL [facility] Comment:Desirable Triglyceri de: less than 150 mg/dLBorderline High Triglyceride 150-199 mg/dLHigh Triglyceride: 200-499 mg/dLVery High Triglyceride: greater than or equal to 5OO mg/dL Cholesterol 174 <200 mg/dL [facility] Comment:Desirable Cholestero l: less than 200 mg/dLBorderline High Cholesterol: 200-239 mg/dLHigh Cholesterol: greater than 239 mg/dL LDL Cholesterol Calculated 106(H) <100 mg/dL [facility] Comment:Desirable LDL: less than 100 mg/dLNear Optimal/Above Optimal LDL: 110- 129 mg/dLBorderline High LDL: 130-159 mg/dLHigh LDL: 160-189 mg/dLVery High LDL: greater than or equal to 190 mg/dL HDL Cholesterol 41 >40 mg/dL [facility] Comment:Desirable HDL: great er than 40 mg/dL Note: This HDL assay may give artificially low results in patients with liver disease. Blood 04/14/2024 8:20 AM EDT 04/14/2024 11:51 AM EDT us Toyin Mistry MD LAB BLOOD ORDERABLES Final Resul t [facility] [address] [place] [phone] * Hemoglobin A1c (04/14/2024 8:20 AM EDT) Hemoglobin A1c 5.7 <6.0 % [facility] Comment:Hemoglobin A1C Refer ence Range Adults: 4.8 - 6.0 % Non diabetic: < 6.0 % Goal: < 7.0 %Additional Action Suggested: > 8.0 %Note: Hemoglobin A1c results are invalid for patients with abnormal amounts of HbF. Blood transfusions may impact the HbA1c concentration in the patient sample. Estimated Average Glucose 117 mg/dL [facility] Comment:eAG = Estimated ave rage glucose which is %A1C expressed asaverage glucose, using the formula of the I6Y-SjvcxcbDbemgrb Glucose study (ADAG), Diabetes Care, Vol.31,#8,Jun. 2007 Blood Venous blood specimen / Unknown 04/14/2024 8:20 AM EDT 04/14/2024 11:42 AM EDT Toyin Mistry MD LAB BLOOD ORDERABLES Final Resul t [facility] [address] [place] [phone] * Colonoscopy (11/07/2021) Colonoscopy Normal Normal [facility] External Provider HEALTH MAINTENANCE Edited Result - Final from Last 3 Months or Most Recently Relevant to Health Maintenance Insurance [facility] INTERMEDIATE OPTIONS (O D-SNP) [facility] INTERMEDIATE OPTIONS (O D-SNP) Care Teams Linoleum Installer Relationship Specialty Start Date End Date Toyin Mistry MD [address] [place] [phone] PCP - General Family Medicine 11/11/18
--- OUTSIDE RECORDS SUMMARY | 2025-03-22 12:41 | XMS_ITS | Encounter Summary ---
Author Organization [employer] Address 75 [facility] 7t [place] [address] Care Team Providers Care Cyber Operator Name Role Phone Toyin Mistry MD Primary Care Provider [phone] Encounter Details Date Type Department Care Team ([facility] st Contact Info) Description 2024 Orders Only [facility] [address] [place], [place] [phone] Toyin Mistry MD [address] [place], [place] [phone] Social History Tobacco Use Types Packs/Day Years [...] Description 04/02/2025 10:00 AM EDT Clinical Support [facility] [address] [place] [address] documented as of this encounter Visit Diagnoses Not on filedocumented in this encounter Additional Health Concerns Assessment Noted Time PHQ-9 Depression Total Score: 4 08/31/20 24 10:34 AM EDT documented as of this encounter Care Teams Cyber Operator Relationship Specialty Start Date End Date Toyin Mistry MD [address] [place] [address] PCP - General Family Medicine 11/11/18 documented as of this encounter
--- OUTSIDE RECORDS SUMMARY | 2025-03-22 12:42 | XMS_ITS | Encounter Summary ---
Author Organization [employer] Address 75 [facility] 7t [place] [address] Care Team Providers Care Sales Specialist Name Role Phone Toyin Mistry MD Primary Care Provider [phone] Encounter Details Date Type Department Care Team (Late Contact Info) Description 01/10/2023 Telephone [facility] [address] [place] [address] [phone] Toyin Mistry MD [address] [place], [place] [phone] Social History Tobacco Use Types Packs/Day Years [...] Description 04/02/2025 10:00 AM EDT Clinical Support [facility] [address] [place] [phone] documented as of this encounter Visit Diagnoses Not on filedocumented in this encounter Care Teams Sales Specialist Relationship Specialty Start Date End Date Toyin Mistry MD [address] [place] [phone] PCP - General Family Medicine 11/11/18 documented as of this encounter
--- OUTSIDE RECORDS SUMMARY | 2025-03-22 12:42 | XMS_ITS | Encounter Summary ---
Author Organization [employer] Address 75 [facility] 7t [place] [address] Care Team Providers Care Household Appliance Repairer Name Role Phone Toyin Mistry MD Primary Care Provider [phone] Reason for Visit * Reason Comments Med Refill Encounter Details Date Type Department Care Team ([facility] st Contact Info) Description 07/17/2024 Refill [facility] 230 [place], [place] [phone] Anthony Nelson MD [address] [place], [place] [phone] Social History Tobacco Use Types Packs/Day Years [...] Description 04/02/2025 10:00 AM EDT Clinical Support [facility] [address] [place] [address] documented as of this encounter Visit Diagnoses Not on filedocumented in this encounter Additional Health Concerns Assessment Noted Time PHQ-9 Depression Total Score: 0 07/24/20 23 9:25 AM EDT documented as of this encounter Care Teams Household Appliance Repairer Relationship Specialty Start Date End Date Toyin Mistry MD [address] [place] [address] PCP - General Family Medicine 11/11/18 documented as of this encounter
--- OUTSIDE RECORDS SUMMARY | 2025-03-22 12:42 | XMS_ITS | Encounter Summary ---
Author Organization [employer] Address 75 [facility] 7t [place] [address] Care Team Providers Care Greenhouse Assistant Name Role Phone Toyin Mistry MD Primary Care Provider [phone] Encounter Details Date Type Department Care Team (Late Contact Info) Description 12/26/[address] [facility] [address] [place] [address] [phone] Toyin Mistry MD [address] [place] [address] [phone] Vitiligo (Primary Dx) Social History Tobacco Use [...] Description 04/02/2025 10:00 AM EDT Clinical Support [facility] [address] [place] [address] [phone] documented as of this encounter Visit Diagnoses Diagnosis Vitiligo- Primary documented in this encounter Care Teams Greenhouse Assistant Relationship Specialty Start Date End Date Toyin Mistry MD [address] [place] [address] PCP - General Family Medicine 11/11/18 documented as of this encounter
--- OUTSIDE RECORDS SUMMARY | 2025-03-22 12:42 | XMS_ITS | Encounter Summary ---
Author Organization [employer] Address 75 [facility] 7t [place] [address] Care Team Providers Care Electronics Teacher Name Role Phone Toyin Mistry MD Primary Care Provider [phone] Reason for Referral * Consultation (Routine) - Closed Specialty Diagnoses / Procedures Referred By Contac t Referred To Contact Pulmonary Disease Diagnoses Moderate persistent asthma without complication Toyin Mistry MD [address] [place] [address] Phone: tel: fax: [facility] Pulmonary [address] Floor [place], [place] Phone: tel: fax: Referral ID Status Reason Start Date Expiration Date V isits Requested Visits Authorized [id number] Closed Specialty Services Required 10/29/2024 10/29/2025 1 1 Encounter Details Date Type Department Care Team (Late st Contact Info) Description 10/29/2024 Orders Only [facility] [address] [place], [place] [phone] Toyin Mistry MD [address] [place] [address] Moderate persistent asthma without complication [...] Description 04/02/2025 10:00 AM EDT Clinical Support [facility] [address] [place] [phone] Scheduled Referrals Name Type Priority Associated Diagnoses [...] documented as of this encounter Care Teams Electronics Teacher Relationship Specialty Start Date End Date Toyin Mistry MD [address] [place] [address] PCP - General Family Medicine 11/11/18 documented as of this encounter
--- OUTSIDE RECORDS SUMMARY | 2025-03-22 12:42 | XMS_ITS | Encounter Summary ---
Author Organization [employer] Address 75 [facility] 7t [place] [address] Care Team Providers Care X Ray Equipment Mechanic Name Role Phone Toyin Mistry MD Primary Care Provider [phone] Encounter Details Date Type Department Care Team (Late st Contact Info) Description 12/06/2022 Orders Only [facility] [address] [place] [phone] Wendie Cochran LPN Social History Tobacco Use [...] Description 04/02/2025 10:00 AM EDT Clinical Support [facility] [address] [place] [phone] documented as of this encounter Visit Diagnoses Not on filedocumented in this encounter Care Teams X Ray Equipment Mechanic Relationship Specialty Start Date End Date Toyin Mistry MD [address] [place] [address] PCP - General Family Medicine 11/11/18 documented as of this encounter
--- OUTSIDE RECORDS SUMMARY | 2025-03-22 12:42 | XMS_ITS | Encounter Summary ---
Author Organization [email or web address] Address [address] [facility] [address] [place] [address] Care Team Providers Care Body Trimmer Upholsterer Name Role Phone Toyin Mistry MD Primary Care Provider [phone] Encounter Details Date Type Department Care Team (Late st Contact Info) Description 08/22/2023 Abstract [facility] [address] [place], [place] [phone] Toyin Mistry MD [address] [place], [place] [phone] Social History Tobacco Use Types Packs/Day Years [...] 10:00 AM EDT Clinical Support [facility] [address] [place] [address] documented as of this encounter Procedures Procedure Name Priority Date/Time Associated Diagnosis Comments COLONOSCOPY Routine 11/07/2021 documented in this encounter Results * Hm Colonoscopy (11/07/2021) Colonoscopy Normal Normal [facility] External Provider HEALTH MAINTENANCE Edited Result - Final documented in this encounter Visit Diagnoses Not on filedocumented in this encounter Additional Health Concerns Assessment Noted Time PHQ-9 Depression Total Score: 0 07/24/20 23 9:25 AM EDT documented as of this encounter Care Teams Body Trimmer Upholsterer Relationship Specialty Start Date End Date Toyin Mistry MD [address] [place] [address] PCP - General Family Medicine 11/11/18 documented as of this encounter
[2025-03-22 12:48] LABS: Appearance Urine Clear; Color Urine Dark Yellow; Glucose Urine UA Negative (Negative); Leukocyte Esterase Urine Small (1+) (Negative); Nitrite Urine Negative (Negative); Specific Gravity - Urine >= 1.030 (1.005-1.025); UMIC TRIGGER UACC YES; Urine Blood Negative (Negative); Urine Ketones Trace mg/dL (Negative); Urine Protein Trace mg/dL (Neg-Trace)
[2025-03-22 12:51] LABS: Bacteria Urine None Seen (None Seen); Hyaline Casts Urine 0-2 /LPF (0-2); RBC Urine 0-2 /HPF (0-2); Squamous Epithelial Cell Urine 0-2 /HPF (0-2); UACC Culture Trigger YES
[2025-03-22 14:00] VITALS: BP 120/80; PULSE 67; RESP 14; TEMP 36.9; O2SAT 94
[2025-03-22] MEDS: Albuterol Sulfate 2.5 MG, Albuterol/Iprat 2.5/0.5MG 3 ML 3 ML INHALE (14:35)
[2025-03-22 14:36] VITALS: PULSE 71; RESP 18; O2SAT 96
[2025-03-22 15:04] VITALS: BP 132/66; PULSE 71; RESP 18; TEMP 36.8; O2SAT 98
== END 2025-03-22 15:05 | disposition home or self-care (01) ==
PROVIDERS: Physician Assistant; Emergency Provider Emergency Medicine Emergency Medical Services; PCP Family Medicine
DX: J44.1 Chronic obstructive pulmonary disease with (acute) exacerbation (principal); R05.9 Cough, unspecified; R06.02 Shortness of breath; Z03.818 Encounter for observation for suspected exposure to other biological agents ruled out; I10 Essential (primary) hypertension; Z79.899 Other long term (current) drug therapy
CPT/HCPCS: 0241U; 71046; 80053; 81001; 83690; 83735; 83880; 85025; 87086; 93005; 94640; 99284; 99285

== ENCOUNTER → 2025-03-22 11:13 | Outpatient (BNV) | payer OTHER, SELFPAY | PROVIDERS: Emergency Provider Emergency Medicine Emergency Medical Services; PCP Family Medicine; Visit Provider Radiology Diagnostic Radiology | DX: R06.02 Shortness of breath (principal) | CPT/HCPCS: 71046 ==

== ENCOUNTER → 2025-03-22 11:13 | Outpatient (BNV) | payer OTHER, SELFPAY | PROVIDERS: Emergency Provider Emergency Medicine Emergency Medical Services; PCP Family Medicine; Visit Provider Internal Medicine Cardiovascular Disease | DX: R94.31 Abnormal electrocardiogram [ECG] [EKG] (principal); R06.02 Shortness of breath | CPT/HCPCS: 93010 ==

== ENCOUNTER 2025-08-06 11:19 | Emergency (ER) | payer OTHER, SELFPAY ==
--- NOTE | ~2025-08-06 | CT_ITS ---
EXAMINATION: CT HEAD WITHOUT CONTRAST CLINICAL INFORMATION: Left-sided headache R/O bleed, stroke, mass effect COMPARISON: December 17, 2019 TECHNIQUE: Contiguous axial imaging was performed from the skull base to vertex without intravenous administration of contrast. This CT examination was performed using dose optimization techniques as appropriate, variously including the following: *Automated exposure control *Adjustment of mA and/or kV according to patient size (this includes techniques or standardized protocols for targeted exams where dose is matched to indication/reason for exam; i.e. extremities or head) *Use of iterative reconstruction technique DLP: 614 mGy-cm FINDINGS: No acute intracranial hemorrhage, mass effect, midline shift, hydrocephalus or herniation. Stallworth-white matter differentiation is normal. Posterior cranial fossa contents demonstrated no acute hemorrhage or mass effect. Normal position of the cerebellar tonsils. Sellar/suprasellar region demonstrated no gross masses. Prominence of the extra-axial CSF spaces vessels is likely central loss pronounced in the frontotemporal lobes. No air-fluid levels in the paranasal sinuses. Tympanic cavities and mastoid cells are aerated. No gross masses or hematoma in the intraconal or extraconal compartments of the orbits. CT/CT head/brain wo IV con IMPRESSION: No acute intracranial hemorrhage or acute brain abnormality by CT. Bifrontal/bitemporal lobe atrophy. Electronically signed by: Memo Longoria MD 08/06/2025 03:01 PM EDT
--- NOTE | ~2025-08-06 | XR_ITS ---
EXAMINATION: XR CHEST CLINICAL INFORMATION: pain COMPARISON: March 22, 2025 TECHNIQUE: 2 views of the chest were obtained. FINDINGS: No significant abnormality is noted involving the heart, lungs, mediastinum, bony thorax or soft tissues. XR/XR chest 2V IMPRESSION: No acute disease Electronically signed by: Andrez Monzon MD 08/06/2025 11:58 AM EDT
--- NOTE | 2025-08-06 11:22 | ECG_ITS ---
Test Reason : cp Blood Pressure : */* mmHG Vent. Rate : 67 BPM Atrial Rate : 67 BPM P-R Int : 134 ms QRS Dur : 76 ms QT Int : 378 ms P-R-T Axes : 65 -5 66 degrees QTcB Int : 399 ms Normal sinus rhythm with sinus arrhythmia T wave abnormality, consider lateral ischemia Abnormal ECG When compared with ECG of 22-Mar-2025 11:28, No significant change was found Referred By: Generic ED Physician Electronically Signed By: Logan Lizarraga
--- NOTE | 2025-08-06 11:37 | ED.GENADULT ---
HPI - General Adult General Chief complaint: Chest Pain Stated complaint: CP, headache Time Seen by Provider: 08/06/25 13:26 Source: patient Mode of arrival: ambulatory Limitations: no limitations History of Present Illness ED Provider: Dr. Tru Mendoza HPI narrative: 74-year-old male past medical history significant for asthma, COPD overlap syndrome presents for evaluation of chest pain, shortness of breath since yesterday. Patient states that last night he had a sudden onset of a burning sensation in his left scalp area. He states that the pain was 10/10 and lasted a proximally 2 hours then resolved. States this morning he again developed the pain but it again resolved after several hours. He denied any associated symptoms such as nausea, vomiting, change in his vision, lightheadedness she dizziness. Patient also states that he developed tightness in his chest. He points to his sternum and states that the pain lasted minutes in his had recurrent episodes that this pain. He had no concerning associated symptoms such as radiation of the pain to his neck, jaw, arms or back. No lightheadedness, dizziness or diaphoresis. The patient did take naproxen for both episodes of pain and this medication did relieve his pain. Related Data Home Medications ?Medication ?Instructions ?Recorded ?Confirmed cholecalciferol (vitamin D3) 25 25 mcg PO DAILY 05/08/21 mcg (1,000 unit) capsule clonazepam 2 mg tablet 2 mg PO BEDTIME 05/08/21 cyanocobalamin (vitamin B-12) 1,000 mcg PO DAILY 05/08/21 1,000 mcg tablet cyanocobalamin (vitamin B-12) 1,000 mcg IM 05/08/21 1,000 mcg/mL injection solution fluoxetine 20 mg capsule 20 mg PO DAILY 05/08/21 fluticasone propionate 220 1 puff PO BID 05/08/21 mcg/actuation HFA aerosol inhaler loratadine 10 mg tablet 10 mg PO DAILY 05/08/21 omeprazole 20 mg capsule,delayed 20 mg PO DAILY PRN 05/08/21 release mirtazapine 15 mg tablet 15 mg PO BEDTIME 08/03/21 Previous Rx's ?Medication ?Instructions ?Recorded hydrocortisone 2.5 % topical cream 1 appl MO BID-QID PRN hemorrhoids 04/13/22 with perineal applicator #30 grams (Proctosol HC) albuterol sulfate 2.5 mg/0.5 mL 5 mg inhalation Q4H PRN shortness 01/31/23 solution for nebulization of breath or wheezing #30 ea albuterol sulfate 90 mcg/actuation 2 inh inhalation Q4-6H PRN 07/22/23 breath activated powder inhaler shortness of breath or wheezing #1 ea erythromycin 5 mg/gram (0.5 %) eye 1 appl ophthalmic (eye) TID 5 days 07/22/23 ointment #3.5 grams lidocaine 5 % topical patch 1 patch topical DAILY #15 ea 12/02/23 naproxen 500 mg tablet 500 mg PO BID PRN pain #20 tabs 12/02/23 tizanidine 2 mg tablet 2 mg PO TID PRN muscle spasticity 06/12/24 30 days #90 tabs budesonide 160 mcg-glycopyr 9 2 inh inhalation BID 30 days #10.7 12/08/24 mcg-formot 4.8 mcg/actuation HFA grams inhaler (Breztri Aerosphere) prednisone 10 mg tablet See Rx Instructions PO DAILY 18 02/15/25 days #63 tabs azithromycin 250 mg tablet See Rx Instructions PO .COMPLEX #6 03/22/25 tabs prednisone 20 mg tablet 20 mg PO DAILY #5 tabs 03/22/25 bisacodyl 5 mg tablet,delayed 20 mg (4 x 5 mg) PO ONCE 04/15/25 release (Dulcolax (bisacodyl)) colonoscopy prep 1 day #4 tabs polyethylene glycol 3350 17 238 g PO ONCE COLONOSCOPY PREP 1 04/15/25 gram/dose oral powder (Miralax) day #238 grams Allergies Allergy/AdvReac Type Severity Reaction Status Date / Time No Known Allergies Allergy Verified 08/06/25 11:40 Review of Systems Review of Systems: Yes all other systems are reviewed and are negative [facility] Past Medical History [facility] Narrative: Social history: He denies tobacco, alcohol and drug use Medical History (Updated 08/06/25 @ 15:49 by Tru Mendoza MD) Asthma-COPD overlap syndrome Pulmonary nodule Asthma Depression Hypertension Surgical History History of hernia surgery Social History Social History Alcohol intake: former Patient Tobacco Use Status: Former Tobacco user Tobacco use type: Cigarette Smoked in Last 30 Days: No Use of substances other than those prescribed or required for medical reasons: No Advance Directives: No Advance Directives Information Provided: Yes Current occupational status: disabled Current occupation: left and right handed Physical Exam ED Vital Signs: Vital Signs - 24 hr 08/06/25 11:38 08/06/25 12:25 Temperature 98.2 F Pulse Rate 76 62 Respiratory Rate 16 16 Blood Pressure 144/94 H 139/81 Pulse Oximetry 98 96 Oxygen Delivery Method Room Air Room Air BMI result Body Mass Index 55.2 Vital signs revealed an elevated blood pressure of 144/94 otherwise unremarkable. Exam: General: Awake, alert in no distress Head: Normocephalic, atraumatic EENT: PERRL, sclera and conjunctiva are normal, mouth with no erythema or exudates Neck: Supple, no adenopathy Lung: breath sounds symmetric, no wheezing, no rales and no rhonchi Chest: symmetric movement, nontender Heart: regular rate and rhythm, normal S1, S2 no murmurs or rubs Abdomen: soft, non-tender, nondistended, normal bowel sounds Back: no vertebral tenderness, no CVAT Extremities: no deformities, moves all extremities symmetrically, no edema Neuro: Awake, alert, oriented, normal speech, cranial nerves 2-12 intact, moves all extremities symmetrically Psych: Pleasant, cooperative Course Course Course Narrative: RME, this is a rapid medical exam performed by Bertrand Wang please refer to primary provider for complete H&P- 74-year-old male past medical history significant for asthma, COPD overlap syndrome presents for evaluation of chest pain, shortness of breath since yesterday. He also describes a burning sensation in his head. Plan for cardiac workup, EKG was performed on arrival. Plan for labs, chest x-ray and viral swabs Medical Decision Making Medical Decision Making MDM Narrative: 74-year-old male past medical history significant for asthma, COPD overlap syndrome presents for evaluation of chest pain, shortness of breath since yesterday. Patient states that last night he had a sudden onset of a burning sensation in his left scalp area. He states that the pain was 10/10 and lasted a proximally 2 hours then resolved. States this morning he again developed the pain but it again resolved after several hours. He denied any associated symptoms such as nausea, vomiting, change in his vision, lightheadedness or dizziness. Patient also states that he developed tightness in his chest. He points to his sternum and states that the pain lasted minutes and he had recurrent episodes of the pain but can not quantify the number. He had no concerning associated symptoms such as radiation of the pain to his neck, jaw, arms or back. No lightheadedness, dizziness or diaphoresis. The pain came on at rest and he has had no chest pain with exertion or dyspnea on exertion. The patient did take naproxen for both episodes of pain and this medication did relieve his pain. Differential diagnosis: ?Includes but is not limited to myocardial infarction, myocardial ischemia, musculoskeletal pain, intracranial bleed, stroke, headache, electrolyte abnormalities, anemia Course: 16:05 CBC was normal. CMP was normal. Troponin was below detectable limits. COVID-19, influenza and RSV tests were negative. CT scan of the brain revealed no acute abnormalities. The patient does have a bifrontal/bitemporal lobe atrophy but I do not think this is related to his presentation. Chest x-ray was unremarkable. Twelve EKG was unremarkable. The patient is pain-free at the time my evaluation. At this time I do not have a clear etiology for his headache and chest pain. The patient did take naproxen with improvement in his pain. He was naproxen as prescribed and Tylenol as needed for pain. He was given printed and verbal instructions and discharged home. Differential Diagnosis Differential Diagnoses: The differential diagnosis associated with the presentation includes (See above) Admission/Observation Consideration of admission/observation: Escalation of care including admission/observation considered (Yes) Lab Data [facility] Lab Attestation statement: I reviewed the patient's lab results. 08/06/25 11:47 08/06/25 11:47 Labs: Lab Results 08/06/25 Range/Units 11:47 WBC 8.5 (4.8-10.8) X10*3/uL RBC 4.73 (4.60-5.80) X10*6/uL Hgb 14.4 (14.0-18.0) g/dl Hct 43.4 (42.0-52.0) % MCV 91.8 (80.0-98.0) fL MCH 30.4 (27.0-33.0) pg MCHC 33.2 (31.0-36.0) g/dl RDW 13.9 (11.0-16.0) % Plt Count 230 D (160-400) X10*3/uL MPV 9.9 (9.4-12.4) fL Immature Gran % (Auto) 0.2 (0.0-0.4) % Neut % (Auto) 70.3 (45-73) % Lymph % (Auto) 20.9 (20-40) % [place] % (Auto) 8.5 (2-11) % Eos % (Auto) 0.0 (0-4) % Baso % (Auto) 0.1 (0-2) % Lymph # (Auto) 1.8 (1.2-4.9) X10*3/uL [place] # (Auto) 0.7 (0.1-1.2) X10*3/uL Eos # (Auto) 0.0 (0.0-0.4) X10*3/uL Baso # (Auto) 0.0 (0.0-0.2) X10*3/uL Abs Immat Gran (auto) 0.02 (0.00-0.03) X10*3/uL Absolute Neuts (auto) 5.9 (2.0-8.3) x10*3/uL Absolute Nucleated RBC 0.000 (0.0-0.012) X10*3/uL Nucleated RBC % (auto) 0.0 (0.0-0.2) /100WBC Sodium 143 (135-145) mmol/L Potassium 4.2 (3.3-5.1) mmol/L Chloride 110 H (96-108) mmol/L Carbon Dioxide 25 (22-29) mmol/L Anion Gap 12 (12-20) BUN 15 (9-16) mg/dL Creatinine 1.05 (0.5-1.4) mg/dL Estim Creat Clear Calc 87.3 Estimated GFR > 60 Random Glucose 97 (60-115) mg/dL Calcium 10.0 D (8.4-10.2) mg/dL Total Bilirubin 0.5 (0.0-1.0) mg/dL AST 27 (5-37) U/L ALT 20 (0-40) U/L Alkaline Phosphatase 75 (39-117) U/L Troponin I High Sens < 2.7 (<3.5-35.0) ng/L Total Protein 7.9 (6.5-8.0) g/dL Albumin 4.4 (3.5-5.0) g/dL Lipase 21 (8-78) U/L COVID-19 ([facility]) Negative (Negative) COVID-19 Clin Com See Note Influenza Type A ([facility]OFF) Negative (Negative) Influenza Type B ([facility]OFF) Negative (Negative) Influenza A & B Note See Note Independent Interpretation I performed an independent interpretation of an: EKG and Plain X-Ray Interpretation: My independent interpretation patient's chest x-ray is as follows: No acute disease Radiology Impression Discussion of test interpretation with radiology: I have reviewed the radiologist's reading. Radiologist Impression: CT head/brain wo IV con IMPRESSION: No acute intracranial hemorrhage or acute brain abnormality by CT. Bifrontal/bitemporal lobe atrophy. Electronically signed by: Memo Longoria MD 08/06/2025 03:01 PM XR chest 2V IMPRESSION: No acute disease Electronically signed by: Andrez Monzon MD 08/06/2025 11:58 AM EDT Independent Historian Clinical information obtained from an independent historian. History obtained from or confirmed by: Other (Partner) Chronic Conditions Patient?s care impacted by: Other (COPD) Discharge Plan Discharge Clinical Impression: Headache Chest pain Qualifiers: Chest pain type: unspecified Qualified Code(s): R07.9 - Chest pain, unspecified Patient Disposition: Home, Self-Care Instructions: Acute Headache (DC), Chest Pain (ED) Additional Instructions: Your blood work was unremarkable. Your EKG (electrical picture of your heart) did not show any significant abnormalities. The CAT scan of your head was normal. At this time I do not have a clear cause for your symptoms, it is possible that you may have a viral infection. Take naproxen (Aleve) 220 mg pills, 1 pill every 12 hours as needed for pain Take Tylenol (acetaminophen) 500 mg pills, 2 pills every 6 hours as needed for pain or fever. Follow-up with your doctor in 2 days. Please return to the emergency department if your symptoms get worse or if you develop any symptoms that are concerning to you. Prescriptions: No Action tizanidine 2 mg tablet 2 mg PO TID PRN (Reason: muscle spasticity) 30 Days Qty: 90 2RF Rx Instructions: may take 1 pill QHS, 1&1/2 pills QHS or even 2 pills QHS to improve night sleep. bisacodyl [Dulcolax (bisacodyl)] 5 mg tablet,delayed release (DR/EC) 20 mg PO ONCE 1 Days Qty: 4 0RF Rx Instructions: take at 12pm the day before colonoscopy with plenty of water polyethylene glycol 3350 [Miralax] 17 gram/dose powder 238 g PO ONCE 1 Days Qty: 238 0RF Rx Instructions: THE DAY BEFORE your procedure mix entire bottle with 64 ounces of Gatorade- no red, blue or purple. AT 5PM Start drinking 1 cup every 15minutes until half is gone. Continue drinking plenty of clear liquids. AT 10PM Finish drinking remaining prep. albuterol sulfate 2.5 mg/0.5 mL solution for nebulization 5 mg inhalation Q4H PRN (Reason: shortness of breath or wheezing) Qty: 30 0RF naproxen 500 mg tablet 500 mg PO BID PRN (Reason: pain) Qty: 20 0RF lidocaine 5 % adhesive patch,medicated 1 patch topical DAILY Qty: 15 0RF Rx Instructions: leave on most painful area for up to 12 hrs prednisone 20 mg tablet 20 mg PO DAILY Qty: 5 0RF azithromycin 250 mg tablet See Rx Instructions .ROUTE .COMPLEX Qty: 6 0RF Rx Instructions: For 250 mg dose pack: take 500 mg today (day 1), then 250 mg for 4 days (days 2-5) erythromycin 5 mg/gram (0.5 %) ointment 1 appl ophthalmic (eye) TID 5 Days Qty: 3.5 0RF albuterol sulfate 90 mcg/actuation aerosol powdr breath activated 2 inh inhalation Q4-6H PRN (Reason: shortness of breath or wheezing) Qty: 1 0RF cyanocobalamin (vitamin B-12) 1,000 mcg/mL solution 1,000 mcg IM clonazepam 2 mg tablet 2 mg PO BEDTIME fluoxetine 20 mg capsule 20 mg PO DAILY fluticasone propionate 220 mcg/actuation HFA aerosol inhaler 1 puff PO BID loratadine 10 mg tablet 10 mg PO DAILY cyanocobalamin (vitamin B-12) 1,000 mcg tablet 1,000 mcg PO DAILY omeprazole 20 mg capsule,delayed release(DR/EC) 20 mg PO DAILY PRN cholecalciferol (vitamin D3) 25 mcg (1,000 unit) capsule 25 mcg PO DAILY mirtazapine 15 mg tablet 15 mg PO BEDTIME hydrocortisone [Proctosol HC] 2.5 % cream with perineal applicator 1 appl MO BID-QID PRN (Reason: hemorrhoids) Qty: 30 3RF Breztri Aerosphere 160-9-4.8 mcg/actuation HFA aerosol inhaler 2 inh inhalation BID 30 Days Qty: 10.7 10RF prednisone 10 mg tablet See Rx Instructions PO DAILY 18 Days Qty: 63 0RF Rx Instructions: PO daily; Take 6 tabs daily x 3 days, then 5 tabs x 3 days, then 4 tabs x 3 days, then 3 tabs x 3 days, then 2 tabs daily x 3 days, then 1 tab x 3 days to complete. Print Language: Frisian
[2025-08-06 11:38] VITALS: BP 144/94; PULSE 76; RESP 16; TEMP 36.8; O2SAT 98; BMI 55.2
[2025-08-06 11:54] LABS: MANUAL DIFF FLAG NO
[2025-08-06 11:56] LABS: Hematocrit 43.4 % (42.0-52.0); Hemoglobin 14.4 g/dl (14.0-18.0); Imm Gran Abs Auto 0.02 X10*3/uL (0.00-0.03); Imm Gran Pct Auto 0.2 % (0.0-0.4); Lymphocytes Absolute Auto 1.8 X10*3/uL (1.2-4.9); Mean Corpuscular HGB Conc 33.2 g/dl (31.0-36.0); Mean Corpuscular Hemoglobin 30.4 pg (27.0-33.0); Mean Corpuscular Volume 91.8 fL (80.0-98.0); NRBC Abs Auto 0.000 X10*3/uL (0.0-0.012); NRBC Pct Auto 0.0 /100WBC (0.0-0.2); Platelet Count 230 X10*3/uL (160-400); Red Blood Count 4.73 X10*6/uL (4.60-5.80); White Blood Count 8.5 X10*3/uL (4.8-10.8)
[2025-08-06 12:11] LABS: IDNOW Serial# 08D9AD1C
[2025-08-06 12:12] LABS: COVID-19 Test Negative (Negative); IDNOW Serial# 6674DD1D; Influenza B2 Negative (Negative)
[2025-08-06 12:13] LABS: Alanine Aminotransferase 20 U/L (0-40); Albumin Level 4.4 g/dL (3.5-5.0); Alkaline Phosphatase 75 U/L (39-117); Anion Gap 12 (12-20); Aspartate Amino Transferase 27 U/L (5-37); Blood Urea Nitrogen 15 mg/dL (9-16); Calcium 10.0 mg/dL (8.4-10.2); Carbon Dioxide 25 mmol/L (22-29); Chloride 110 mmol/L (96-108); Creatinine Clr Calc Pharmacy 87.3; Estimated Glomerular Filt Rate > 60; Lipase 21 U/L (8-78); Potassium 4.2 mmol/L (3.3-5.1); Sodium 143 mmol/L (135-145); Total Protein 7.9 g/dL (6.5-8.0)
[2025-08-06 12:23] LABS: Troponin-I High Sensitivity < 2.7 ng/L (<3.5-35.0)
[2025-08-06 12:25] VITALS: BP 139/81; PULSE 62; RESP 16; O2SAT 96
--- NOTE | 2025-08-06 12:29 | PC.NURSE ---
Addendum entered by Gretchen Petit RN 08/06/25 13:56: Patient is 74-year-old male past medical history significant for asthma, COPD overlap syndrome presents for evaluation of chest pain, shortness of breath since yesterday. He also describes a burning sensation in his head. Patient alert and oriented. desk monitor applied and NSR noted. Patient c/o intermittent substernal chest burning. Lungs clear bilat. Respirations even and non-labored. Abdomen soft, non-tender with positive bowel sounds. Positive pedal pulses with no edema. Original Note: Medical History Asthma-COPD overlap syndrome Pulmonary nodule Asthma Depression Hypertension
--- OUTSIDE RECORDS SUMMARY | 2025-08-06 14:42 | XMS_ITS | Encounter Summary ---
Author Organization [employer] Address [address] [facility] [address] [place] [address] Care Team Providers Care Agricultural Technical Officer Name Role Phone Toyin Mistry MD Primary Care Provider [phone] Encounter Details Date Type Department Care Team (Late Contact Info) Description 12/26/2022 Orders Only [facility] [address] [place] [phone] Toyin Mistry MD [address] [place] [address] [phone] Vitiligo (Primary Dx) Social History Tobacco Use [...] Care Team (Late st Contact Info) Description 08/16/2025 11:30 AM EDT Clinical Support [facility] [address] [place] [phone] documented as of this encounter Visit Diagnoses Diagnosis Vitiligo- Primary documented in this encounter Care Teams Agricultural Technical Officer Relationship Specialty Start Date End Date Toyin Mistry MD [address] [place] [address] PCP - General Family Medicine 11/11/18 documented as of this encounter
--- OUTSIDE RECORDS SUMMARY | 2025-08-06 14:42 | XMS_ITS | Encounter Summary ---
Author Organization [employer] Address [address] [facility] [address] [place] [address] Care Team Providers Care Senior Portfolio Manager Name Role Phone Toyin Mistry MD Primary Care Provider [phone] Encounter Details Date Type Department Care Team (Late st Contact Info) Description 12/06/2022 Orders Only [facility] MED[facility]INE [address] [place] [phone] Wendie Cochran LPN Social History Tobacco Use [...] Description 08/16/2025 11:30 AM EDT Clinical Support [facility] [address] [place] [phone] documented as of this encounter Visit Diagnoses Not on filedocumented in this encounter Care Teams Senior Portfolio Manager Relationship Specialty Start Date End Date Toyin Mistry MD [address] [place] [address] PCP - General Family Medicine 11/11/18 documented as of this encounter
--- OUTSIDE RECORDS SUMMARY | 2025-08-06 14:42 | XMS_ITS | Clinical Summary ---
Author Organization [employer] Address [address] [place] [address] [address] [place] [address] Care Team Providers Care Bsa Officer Name Role Phone Toyin Mistry MD Primary Care Provider [phone] Allergies No known active allergies Medications cholecalciferol (Vitamin D-3) 25 MCG (1000 UT) tablet Take 2 tablets by mouth 1 (one) time each day. 020 Active clonazePAM (KlonoPIN) 2 MG tablet Take 1 tablet by mouth at bed time. Active cyanocobalamin (Vitamin B-12) 1000 MCG tablet Take 1 tablet by mouth 1 (one) time each day. 021 Active mirtazapine (Remeron) 15 MG tablet Take 1 tablet by mouth if needed at bedtime. Active alclometasone (Aclovate) 0.05 % ointment PLEASE SEE ATTACHED FOR DETAILED DIRECTIONS 023 Active betamethasone dipropionate 0.05 % cream PLEASE SEE ATTACHED FOR DETAILED DIRECTIONS 023 Active FLUoxetine (PROzac) 40 MG capsule Take 40 mg by mouth in the morning. 023 Active tacrolimus (Protopic) 0.1 % ointment APPLY TO SCALP, FOREHEAD, AND GROIN TWICE DAILY 023 Active Opzelura 1.5 % cream 023 Active temazepam (Restoril) 15 MG capsule 023 Active Spacer/Aero-Hold ing Chambers (OptiChamber Zoey) misc 1 each every 4 (four) hours if needed (asthma). 1 each 024 Active albuterol 108 (90 Base) MCG/ACT inhaler Inhale 2 puffs every 4 (four) hours. Every 4-6 hours as needed for difficulty breathing, 4 times/day 18 g 3 024 Active naproxen (Naprosyn) 500 MG tabletIndication s:Primary osteoarthritis involving multiple joints TAKE 1 TABLET BT MOUTH TWICE A DAY WITH FOOD IF NEEDED 60 tablet 3 024 Active fluticasone (Flovent) 110 MCG/ACT inhalerIndicatio ns:Acute cough Inhale 1 puff in the morning and at bedtime. Rinse mouth with water after use to reduce aftertaste and incidence of candidiasis. Do not swallow. 12 g 1 024 2024 Active predniSONE (Deltasone) 20 MG tabletIndication s:COVID-19 2 tabs po daily for 5 days 10 tablet 024 Active albuterol (2.5 MG/3ML) 0.083% nebulizer solution Take 3 mL (2.5 mg) by nebulization every 4 (four) hours if needed for wheezing or shortness of breath (Maximum 4 treatments per day). 75 mL 1 025 2025 Active rosuvastatin (Crestor) 5 MG tablet TAKE 1 TABLET (5 MG) BY MOUTH ONCE PER DAY. 90 tablet 3 025 Active montelukast (Singulair) 10 MG tablet TAKE 1 TABLET (10 MG) BY MOUTH ONCE PER DAY. 90 tablet 3 025 Active loratadine (Claritin) 10 MG tabletIndication s:Asthma, unspecified asthma severity, unspecified whether complicated, unspecified whether persistent TAKE 1 TABLET BY MOUTH EVERY DAY 90 tablet 1 025 Active cyanocobalamin (Vitamin B-12) 1000 MCG/ML injectionIndicat ions:Vitamin B12 deficiency INJECT 1 ML INTRAMUSCULARLY EVERY MONTH 1 mL 11 025 Active cyanocobalamin (Vitamin B-12) 1000 MCG/ML injectionIndicat ions:Vitamin B12 deficiency INJECT [address] IN[address]USCULAR ROUTE MONTHLY 5 mL 3 024 2024 Discontinued loratadine (Claritin) 10 MG tabletIndication s:Asthma, unspecified asthma severity, unspecified whether complicated, unspecified whether persistent TOME PALOMA TABLETA TODOS LOS WHYTE 90 tablet 3 024 2024 Discontinued Hospital, Clinic, or Other Facility Administered Medication [...] (04/13/2024 12:09 PM EDT): - following with [facility]o - last MRI in Aug 2022 - last steroid injection right side in Nov 2023. -Evaluated by auto customize painter. 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 Follow up in one month with PCP [...] cuff tear and osteoarthritis - following with [facility], last seen in Aug 2023 - [...] mcg one puff daily. 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 -Cont Albuterol inhaler and [...] Encounters Date Type Department Care Team Description 08/06/2025 Orders Only GENERIC EXTERNAL DATA DEPARTMENT Provider, Generic External Data 07/26/2025 Refill [facility] [address] [place] [address] Toyin Mistry MD Vitamin B12 deficiency 07/22/2025 Telephone [facility] [address] [place] [address] Toyin Mistry MD FYI 07/16/2025 10:00 AM EDT Clinical Support [facility] [address] [place] [address] Moon Stephenson RN Vitamin B12 deficiency 07/16/2025 Travel 07/12/2025 Refill [facility] [address] [place] [address] Toyin Mistry MD Asthma, unspecified asthma severity, unspecified whether complicated, unspecified whether persistent 06/11/2025 10:00 AM EDT Clinical Support [facility] [address] [place] [address] Esther Hicks, JONATHAN Vitamin B12 deficiency 06/11/2025 Travel 05/11/2025 10:00 AM EDT Clinical Support [address] [address] Moon Stephenson, JONATHAN Vitamin B12 deficiency 05/11/2025 Travel from Last 3 Months Immunizations Immunization Administration Dates Next Due Hep B, adult [...] 80 09/29/2024 1:12 PM EST Temperature 36.3 C (97.4 F) 09/29/2024 1:12 PM EST Respiratory Rate 19 09/29/2024 1:12 PM EST [...] Description 08/16/2025 11:30 AM EDT Clinical Support [address] [address] Health Maintenance Due Date Last Done Comments CT Colonography 1950 FIT DNA/Cologuard 1950 FIT 1950 FOBT 1950 Sigmoidoscopy 1950 Alcohol/Substance Use Screening 1964 Hepatitis B Vaccines (3 of 3 - 19+ 3-dose series) 08/18/1999 03/29/1999, 02/16/1999 RSV Patients and Patients Aged 60 years or older (1 - Risk 60-74 years 1-dose series) 2012 Zoster Vaccines (2 of 3) 08/12/2015 06/17/2015 Colonoscopy 11/07/2024 11/07/2021 Colorectal Cancer Screening 11/07/2024 SDOH Screening 04/13/2025 04/13/2024 COVID-19 Vaccine ( season) 2025 11/14/2023, 06/27/2022, 06/27/2022, Additional history exists Influenza Vaccine (#1) 2025 , 11/13/2021, 07/26/2016, Additional history exists Depression Screening 08/31/2025 08/31/2024, 08/31/20 Tobacco Screening 09/29/2025 09/29/2024 Lipid Panel 04/14/2029 04/14/2024, 05/11, 04/18/2022, Additional history exists DTaP/Tdap/Td Vaccines (4 [...] patient's age to complete this topic Meningococcal B Vaccine Aged Out No l onger eligible based on patient's age to complete [...] Procedure Name Priority Date/Time Associated Diagnosis Comments XR CHEST 2 VIEWS Routine 08/06/2025 11:5 0 AM EDT HIGH SENSITIVITY TROPONIN I Routine 08/06/2025 11:47 AM EDT LIPASE Routine 08/06/2025 11:47 AM EDT COMPREHENSIVE METABOLIC PANEL Routine 08/06/2025 11:47 AM EDT COVID-19 ID NOW (DENIS) Routine 08/06/2025 11:47 AM EDT CBC WITH AUTO DIFFERENTIAL Routine 08/06/2025 11:47 AM EDT INFLUENZA A B2 ID NOW (DENIS) Routine 08/06/2025 11:47 AM EDT HEPATITIS C AB W/REFL TO HCV RNA, QN, PCR Routine 09/24/2024 1:57 PM EST Encounter for health-related screening LIPID PANEL WITH REFLEX TO DIRECT LDL Routine 04/14/2024 8:20 AM EDT Essential hypertension HM COLONOSCOPY Routine 11/07/2021 from Last 3 Months or Most Recently Relevant to Health Maintenance Results * XR Chest 2 Views (08/06/2025 11:50 AM EDT) Anatomical Region Laterality Modality Chest Radiographic Tomeka ging 08/06/2025 11:5 0 AM EDT Narrative 08/06/2025 12:15 PM EDT [place] [address] XRay Report Signed Patient: Mark Feliciano MR#: [id number] 5 : 1950 Acct:[id number] Age/Sex: 74 / M ADM Date: 08/06/25 Loc: .ED Attending Dr: Ordering Physician: Quoc Wang Date of Service: 08/06/25 Procedure(s): XR chest 2V Accession Number(s): [id number] cc: Quoc Wang; Toyin Mistry MD Reason for Exam: pain EXAMINATION: XR CHEST CLINICAL INFORMATION: pain COMPARISON: March 22, 2025 TECHNIQUE: 2 views of the chest were obtained. FINDINGS: No significant abnormality is noted involving the heart, lungs, mediastinum, bony thorax or soft tissues. XR/XR chest 2V IMPRESSION: No acute disease Electronically signed by: Andrez Monzon MD 08/06/2025 11:58 AM EDT Dictated By: Andrez Monzon MD Signed By: <Electronically signed by Andrez Monzon MD in OV> 08/06/25 1158 DD/ 1150 TD/TT: 08/06/25 1156 Tilt Wall Supervisor: Procedure Note Donotuseinterpreter, Image - 08/06/2025 [place] [address] [place] [address] XRay Report Signed Patient: Mark FelicianoMR#: [id number] 5 : 3Acct:[id number] Age/Sex: 74 / MADM Date: 08/06/25 Loc: HO.ED Attending Dr: Ordering Physician: Quoc Wang Date of Service: 08/06/25 Procedure(s): XR chest 2V Accession Number(s): [id number] cc: Quoc Wang; Toyin Mistry MD Reason for Exam: pain EXAMINATION: XR CHEST CLINICAL INFORMATION: pain COMPARISON: March 22, 2025 TECHNIQUE: 2 views of the chest were obtained. FINDINGS: No significant abnormality is noted involving the heart, lungs, mediastinum, bony thorax or soft tissues. XR/XR chest 2V IMPRESSION: No acute disease Electronically signed by: Andrez Monzon MD 08/06/2025 11:58 AM EDT Dictated By: Andrze Monzon MD Signed By: <Electronically signed by Andrez Monzon MD in OV> 08/06/25 1158 DD/ 1150 TD/TT: 08/06/25 1156 Tilt Wall Supervisor: [employer] External Provider IMG XR PROCEDURES Final Result * Influenza A B2 ID NOW (Denis) (08/06/2025 11:47 AM EDT) IDNOW SERIAL# [id number] [facility] Influenza A Negative Negative [facility] Influenza B2 Negative Negative [facility] Influenza A B2 Note See Note [facility] Comment:The Denis ID NOW In fluenza A B2 test is used for thequalitative detection of influenza A and B from patientswith signs and symptoms of respiratory infection.Negative results do not preclude influenza virus infectionand should not be used as the sole basis for diagnosis,treatment or other patient management decisions.There is a risk of false negative results due to thepresence of variants in the viral targets of the assay, lowlevels of virus in the specimen and co- infection withRespiratory Syncytial Virus. 08/06/2025 11:4 7 AM EDT 08/06/2025 11:52 AM EDT us Generic External Data Provider LAB MICROBIOLOGY - GENERAL ORDERABLES Final Result [facility] [address] [place] [phone] [phone] * COVID-19 ID NOW (DENIS) (08/06/2025 11:47 AM EDT) IDNOW SERIAL# [id number] [facility] COVID-19 TEST Negative Negative [facility] COVID-19 NOTE See Note [facility] Comment: Results are for the identification of SARS-CoV2 RNA. TheSARS-CoV2 RNA is generally detectable in respiratory samplesduring the acute phase of infection. Positive results areindicative of the presence of SARS-CoV-2 RNA; clinicalcorrelation with patient history and other diagnosticinformation is necessary to determine patient infectionstatus. Positive results do not rule out bacterial infectionor co- infection with other viruses.Testing facilities within the [facility] and [facility] are required to report all positive results tothe appropriate public health authorities.Negative results should be treated as presumptive and, ifinconsistent with clinical signs and symptoms or necessaryfor patient management, should be tested with differentauthorized or cleared molecular tests. Negative results donot preclude SARS-CoV2 RNA infection and should not be usedas the sole basis for patient management decisions. Negativeresults should be considered in the context of a patient'srecent exposures, history and the presence of clinical signsand symptoms consistent with COVID-19.This test has been authorized by the FDA under an EmergencyUse Authorization (EUA) for use by authorized laboratories.Testing performed on the Denis ID NOW utilizing NAAT. 08/06/2025 11:4 7 AM EDT 08/06/2025 11:52 AM EDT Generic External Data Provider LAB MOLECULAR NAMITA GNOSTICS ORDERABLES Final Result Performing Organization Address [facility] Co de Phone Number [facility] [address] [place] [phone] * High Sensitivity Troponin I (08/06/2025 11:47 AM EDT) [facility] TROPONIN I HIGH SENSITIVITY <2.7 <3.5 - 35.0 ng/L [facility] Comment:The Denis high sens itivity Troponin-I results should beused in conjunction with other diagnostic information suchas ECG, clinical observations and information, and patientsymptoms to aid in the diagnosis of OR. 08/06/2025 11:4 7 AM EDT 08/06/2025 11:52 AM EDT Generic External Data Provider LAB BLOOD ORDERAB LES Final Result Performing Organization Address [facility] Co de Phone Number [facility] [address] [place] [phone] * CBC auto differential (08/06/2025 11:47 AM EDT) [facility] White Blood Count 8.5 4.8 - 10.8 X10*3/uL [facility] Red Blood Count 4.73 4.60 - 5.80 X10*6/uL [facility] Hemoglobin 14.4 14.0 - 18.0 g/dl [facility] Hematocrit 43.4 42.0 - 52.0 % [facility] Mean Corpuscular Volume 91.8 80.0 - 98.0 fL [facility] Mean Corpuscular Hemoglobin 30.4 27.0 - 33.0 pg [facility] Mean Corpuscular HGB Conc 33.2 31.0 - 36.0 g/dl [facility] Red Cell Distribution Width 13.9 11.0 - 16.0 % [facility] Platelet Count 230 160 - 400 X10*3/uL [facility] Mean Platelet Volume 9.9 9.4 - 12.4 fL [facility] Neutrophils Percent Auto 70.3 45 - 73 % [facility] Imm Gran Pct Auto 0.2 0.0 - 0.4 % [facility] Lymphocytes Percent Auto 20.9 20 - 40 % [facility] Monocytes Percent Auto 8.5 2 - 11 % [facility] Eosinophils Percent Auto 0.0 0 - 4 % [facility] Basophils Percent Auto 0.1 0 - 2 % [facility] NRBC Pct Auto 0.0 0.0 - 0.2 /100WBC [facility] Neutrophils Absolute Auto 5.9 2.0 - 8.3 x10*3/uL [facility] Imm Gran Abs Auto 0.02 0.00 - 0.03 X10*3/uL [facility] Lymphocytes Absolute Auto 1.8 1.2 - 4.9 X10*3/uL [facility] Monocytes Absolute Auto 0.7 0.1 - 1.2 X10*3/uL [facility] Eosinophils Absolute Auto 0.0 0.0 - 0.4 X10*3/uL [facility] Basophils Absolute Auto 0.0 0.0 - 0.2 X10*3/uL [facility] NRBC Abs Auto 0.000 0.0 - 0.012 X10*3/uL [facility] 08/06/2025 11:4 7 AM EDT 08/06/2025 11:52 AM EDT us Generic External Data Provider LAB BLOOD ORDERAB LES Final Result [facility] [address] [place] [phone] * Lipase (08/06/2025 11:47 AM EDT) Lipase 21 8 - 78 U/L [facility] 08/06/2025 11:4 7 AM EDT 08/06/2025 11:52 AM EDT us Generic External Data Provider LAB BLOOD ORDERAB LES Final Result [facility] [address] [place] [phone] * (ABNORMAL) Comprehensive Metabolic Panel (08/06/2025 11:47 AM EDT) Sodium 143 135 - 145 mmol/L [facility] Potassium 4.2 3.3 - 5.1 mmol/L [facility] Chloride 110(H) 96 - 108 mmol/L [facility] Carbon Dioxide 25 22 - 29 mmol/L [facility] Anion Gap 12 12 - 20 [facility] Urea Nitrogen (BUN) 15 9 - 16 mg/dL [facility] Creatinine, Serum 1.05 0.5 - 1.4 mg/dL [facility] Creatinine Clr Calc Pharmacy 87.3 [facility] Comment:eGFR (calculated fro m the MDRD study equation) and eCrCl(calculated from the Cockcroft-Gault equation) are based ondifferent parameters and may not yield comparable results.If eCrCl result is absurd, please check patient'sheight/weight. Estimated Glomerular Filt Rate >60 [facility] Comment:Chronic Kidney Disea se: Estimated GFR < 60 mL/min/[id number] Kidney Disease: Estimated GFR < 15 mL/min/1.73m2 Glucose 97 60 - 115 mg/dL [facility] Calcium 10.0 8.4 - 10.2 mg/dL [facility] Bilirubin, Total 0.5 0.0 - 1.0 mg/dL [facility] Aspartate Amino Transferase 27 5 - 37 U/L [facility] Alanine Aminotransferase 20 0 - 40 U/L [facility] Total Protein 7.9 6.5 - 8.0 g/dL [facility] Albumin Level 4.4 3.5 - 5.0 g/dL [facility] Alkaline Phosphatase 75 39 - 117 U/L [facility] 08/06/2025 11:4 7 AM EDT 08/06/2025 11:52 AM EDT us Generic External Data Provider LAB BLOOD ORDERAB LES Final Result Performing Organization Address [facility]/ZIP Co de Phone Number [facility] [address] [place] [phone] * Hepatitis C Antibody with Reflex to HCV, RNA, Quantitative, Real-Time PCR (09/24/2024 1:57 PM EST) Hepatitis C Antibody Nonreactive Nonreactive [facility] Comment:Antibodies to HCV no t detected; does not exclude early acuteHCV infection. Blood Venous blood specimen / Unknown 09/24/2024 1:57 PM EST 09/24/2024 4:04 PM EST Vanda Palacios [employer] LAB BLOOD ORDERABLES Final Resu lt Performing Organization Address [facility] Co de Phone Number [facility] [address] [place] [phone] * (ABNORMAL) Lipid Panel with Reflex to Direct LDL (04/14/2024 8:20 AM EDT) Triglycerides 135 <150 mg/dL [facility] Comment:Desirable Triglyceri de: less than 150 mg/dLBorderline High Triglyceride 150-199 mg/dLHigh Triglyceride: 200-499 mg/dLVery High Triglyceride: greater than or equal to 5OO mg/dL Cholesterol 174 <200 mg/dL [facility] Comment:Desirable Cholestero l: less than 200 mg/dLBorderline High Cholesterol: 200-239 mg/dLHigh Cholesterol: greater than 239 mg/dL LDL Cholesterol Calculated 106(H) <100 mg/dL [facility] Comment:Desirable LDL: less than 100 mg/dLNear Optimal/Above Optimal LDL: 110- 129 mg/dLBorderline High LDL: 130-159 mg/dLHigh LDL: 160-189 mg/dLVery High LDL: greater than or equal to 190 mg/dL HDL Cholesterol 41 >40 mg/dL [facility] Comment:Desirable HDL: great er than 40 mg/dL Note: This HDL assay may give artificially low results in patients with liver disease. Blood 04/14/2024 8:20 AM EDT 04/14/2024 11:51 AM EDT Toyin Mistry MD LAB BLOOD ORDERABLES Final Resul t [facility] [address] [place] [phone] * Colonoscopy (11/07/2021) Pathologist [facility] Colonoscopy Normal Normal [employer] External Provider HEALTH MAINTENANCE Edited Result - Final from Last 3 Months or Most Recently Relevant to Health Maintenance Insurance [facility] OPTIONS (O D-SNP) [facility] [employer] Care Teams Bsa Officer Relationship Specialty Start Date End Date Toyin Mistry MD [address] [place] [phone] PCP - General Family Medicine 11/11/18
--- OUTSIDE RECORDS SUMMARY | 2025-08-06 14:42 | XMS_ITS | Encounter Summary ---
Author Organization [employer] Address [address] [facility] 7t [place] [address] Care Team Providers Care Catshovel Driver Name Role Phone Toyin Mistry MD Primary Care Provider [phone] Encounter Details Date Type Department Care Team (Late st Contact Info) Description 08/06/2025 Orders Only GENERIC EXTERNAL DATA DEPARTMENT Provider, Generic External Data Social History Tobacco Use Types Packs/Day Years [...] Description 08/16/2025 11:30 AM EDT Clinical Support [facility] [address] [place] [address] documented as of this encounter Procedures Procedure Name Priority Date/Time Associated Diagnosis Comments XR CHEST 2 VIEWS Routine 08/06/2025 11:5 0 AM EDT INFLUENZA A B2 ID NOW (Bean[employer]ockey) Routine 08/06/2025 11:47 AM EDT COVID-19 ID NOW (DENIS) Routine 08/06/2025 11:47 AM EDT HIGH SENSITIVITY TROPONIN I Routine 08/06/2025 11:47 AM EDT CBC WITH AUTO DIFFERENTIAL Routine 08/06/2025 11:47 AM EDT LIPASE Routine 08/06/2025 11:47 AM EDT COMPREHENSIVE METABOLIC PANEL Routine 08/06/2025 11:47 AM EDT documented in this encounter Results * XR Chest 2 Views (08/06/2025 11:50 AM EDT) Anatomical Region Laterality Modality Chest Radiographic Tomeka ging 08/06/2025 11:5 0 AM EDT Narrative 08/06/2025 12:15 PM EDT [facility] [address] [place] [id number] XRay Report Signed Patient: Mark Feliciano MR#: [id number] 5 : 1950 Acct:[id number] Age/Sex: 74 / M ADM Date: 08/06/25 Loc: HO.ED Attending Dr: Ordering Physician: Quoc aWng Date of Service: 08/06/25 Procedure(s): XR chest 2V Accession Number(s): [id number] cc: Quoc Wang; Toyin Mistry MD Reason for Exam: pain EXAMINATION: XR CHEST CLINICAL INFORMATION: pain COMPARISON: March 22, 2025 TECHNIQUE: 2 views of the chest were obtained. FINDINGS: No significant abnormality is noted involving the heart, lungs, mediastinum, bony thorax or soft tissues. XR/XR chest 2V IMPRESSION: No acute disease Electronically signed by: Andrez Monzon MD 08/06/2025 11:58 AM EDT RP Dictated By: Andrez Monzon MD Signed By: <Electronically signed by Andrez Monzon MD in OV> 08/06/25 1158 DD/ 1150 TD/TT: 08/06/25 1156 Rf Design Engineer: Procedure Note Donotuseinterpreter, Image - 08/06/2025 [place] [id number] XRay Report Signed Patient: Mark FelicianoMR#: [id number] 5 : 1950cct:[id number] Age/Sex: 74 / MADM Date: 08/06/25 Loc: .ED Attending Dr: Ordering Physician: Quoc Wang Date of Service: 08/06/25 Procedure(s): XR chest 2V Accession Number(s): [id number] cc: Quoc Wang; Toyin Mistry MD Reason [...] 08/06/25 1158 DD/ 1150 TD/TT: 08/06/25 1156 Rf Design Engineer: [facility] External Provider IMG XR PROCEDURES Final Result * High Sensitivity Troponin I (08/06/2025 11:47 AM EDT) Pathologist [facility] TROPONIN I HIGH SENSITIVITY <2.7 <3.5 - 35.0 ng/L [facility] Comment:The Denis high sens itivity Troponin-I results should beused in conjunction with other diagnostic information suchas ECG, clinical observations and information, and patientsymptoms to aid in the diagnosis of NE. 08/06/2025 11:4 7 AM EDT 08/06/2025 11:52 AM EDT Generic External Data Provider LAB BLOOD ORDERAB LES Final Result Performing Organization Address City/[facility]/ZIP Co de Phone Number [facility] [address] [place] [phone] * Lipase (08/06/2025 11:47 AM EDT) Pathologist [facility] Lipase 21 8 - 78 U/L [facility] 08/06/2025 11:4 7 AM EDT 08/06/2025 11:52 AM EDT Generic External Data Provider LAB BLOOD ORDERAB LES Final Result Performing Organization Address City/[facility]/ZIP Co de Phone Number [facility] [address] [place] [phone] * (ABNORMAL) Comprehensive Metabolic Panel (08/06/2025 11:47 AM EDT) Pathologist [facility] Sodium 143 135 - 145 mmol/L [facility] Potassium 4.2 3.3 - 5.1 mmol/L [facility] Chloride 110(H) 96 - 108 mmol/L [facility] Carbon Dioxide 25 22 - 29 mmol/L [facility] Anion Gap 12 12 - 20 [facility] Urea Nitrogen (BUN) 15 9 - 16 mg/dL [facility] Creatinine, Serum 1.05 0.5 - 1.4 mg/dL [facility] Creatinine Clr Calc Pharmacy 87.3 [facility] Comment:eGFR (calculated fro m the MDRD study equation) and eCrCl(calculated from the Cockcroft-Gault equation) are based ondifferent parameters and may not yield comparable results.If eCrCl result is absurd, please check patient'sheight/weight. Estimated Glomerular Filt Rate >60 [facility] Comment:Chronic Kidney Disea se: Estimated GFR < 60 mL/min/1.54j2Jfisps Kidney Disease: Estimated GFR < 15 mL/min/1.73m2 Glucose 97 60 - 115 mg/dL [facility] Calcium 10.0 8.4 - 10.2 mg/dL [facility] Bilirubin, Total 0.5 0.0 - 1.0 mg/dL [facility] Aspartate Amino Transferase 27 5 - 37 U/L [facility] Alanine Aminotransferase 20 0 - 40 U/L [facility] Total Protein 7.9 6.5 - 8.0 g/dL [facility] Albumin Level 4.4 3.5 - 5.0 g/dL [facility] Alkaline Phosphatase 75 39 - 117 U/L [facility] 08/06/2025 11:4 7 AM EDT 08/06/2025 11:52 AM EDT us Generic External Data Provider LAB BLOOD ORDERAB LES Final Result [facility] [address] [place] [phone] * COVID-19 ID NOW (DENIS) (08/06/2025 11:47 AM EDT) IDNOW SERIAL# [id number] [facility] COVID-19 TEST Negative Negative [facility] COVID-19 NOTE See Note [facility] Comment: Results are for the identification of SARS-CoV2 RNA. TheSARS-CoV2 RNA is generally detectable in respiratory samplesduring the acute phase of infection. Positive results areindicative of the presence of SARS-CoV-2 RNA; clinicalcorrelation with patient history and other diagnosticinformation is necessary to determine patient infectionstatus. Positive results do not rule out bacterial infectionor co- infection with other viruses.Testing facilities within the [facility] and itsterritories are required to report all positive results [...] LAB MOLECULAR NAMITA GNOSTICS ORDERABLES Final Result [facility] [address] [place] [phone] * Influenza A B2 ID NOW (Denis) (08/06/2025 11:47 AM EDT) IDNOW SERIAL# [id number] [facility] Influenza A Negative Negative [facility] Influenza B2 Negative Negative [facility] Influenza A B2 Note See Note [facility] Comment:The Denis ID NOW [...] LAB MICROBIOLOGY - GENERAL ORDERABLES Final Result [facility] [address] [place] [phone] * CBC auto differential (08/06/2025 11:47 AM EDT) White Blood Count 8.5 4.8 - 10.8 X10*3/uL [facility] Red Blood Count 4.73 4.60 - 5.80 X10*6/uL [facility] Hemoglobin 14.4 14.0 - 18.0 g/dl [facility] Hematocrit 43.4 42.0 - 52.0 % [facility] Mean Corpuscular Volume 91.8 80.0 - 98.0 fL [facility] Mean Corpuscular Hemoglobin 30.4 27.0 - 33.0 pg [facility] Mean Corpuscular HGB Conc 33.2 31.0 - 36.0 g/dl [facility] Red Cell Distribution Width 13.9 11.0 - 16.0 % [facility] Platelet Count 230 160 - 400 X10*3/uL [facility] Mean Platelet Volume 9.9 9.4 - 12.4 fL [facility] Neutrophils Percent Auto 70.3 45 - 73 % [facility] Imm Gran Pct Auto 0.2 0.0 - 0.4 % [facility] Lymphocytes Percent Auto 20.9 20 - 40 % [facility] Monocytes Percent Auto 8.5 2 - 11 % [facility] Eosinophils Percent Auto 0.0 0 - 4 % [facility] Basophils Percent Auto 0.1 0 - 2 % [facility] NRBC Pct Auto 0.0 0.0 - 0.2 /100WBC [facility] Neutrophils Absolute Auto 5.9 2.0 - 8.3 x10*3/uL [facility] Imm Gran Abs Auto 0.02 0.00 - 0.03 X10*3/uL [facility] Lymphocytes Absolute Auto 1.8 1.2 - 4.9 X10*3/uL [facility] Monocytes Absolute Auto 0.7 0.1 - 1.2 X10*3/uL [facility] Eosinophils Absolute Auto 0.0 0.0 - 0.4 X10*3/uL [facility] Basophils Absolute Auto 0.0 0.0 - 0.2 X10*3/uL [facility] NRBC Abs Auto 0.000 0.0 - 0.012 X10*3/uL [facility] 08/06/2025 11:4 7 AM EDT 08/06/2025 11:52 AM EDT us Generic External Data Provider LAB BLOOD ORDERAB LES Final Result [facility] [address] [place] [phone] documented in this encounter Visit Diagnoses Not on filedocumented in this encounter Additional Health Concerns Assessment Noted Time PHQ-9 Depression Total Score: 4 08/31/20 24 10:34 AM EDT documented as of this encounter Care Teams Catshovel Driver Relationship Specialty Start Date End Date Toyin Mistry MD [address] [place] [address] PCP - General Family Medicine 11/11/18 documented as of this encounter
--- OUTSIDE RECORDS SUMMARY | 2025-08-06 14:42 | XMS_ITS | Encounter Summary ---
Author Organization [employer] Address [address] [facility] 7t [place] [address] Care Team Providers Care Wage Analyst Name Role Phone Toyin Mistry MD Primary Care Provider [phone] Encounter Details Date Type Department Care Team (Late Contact Info) Description 01/10/2023 Telephone [facility] [address] [place] [address] [phone] Toyin Mistry MD [address] [place] [address] [phone] Social History Tobacco Use Types Packs/Day Years [...] Description 08/16/2025 11:30 AM EDT Clinical Support [facility] [address] [place] [phone] documented as of this encounter Visit Diagnoses Not on filedocumented in this encounter Care Teams Wage Analyst Relationship Specialty Start Date End Date Toyin Mistry MD [address] [place] [address] PCP - General Family Medicine 11/11/18 documented as of this encounter
--- OUTSIDE RECORDS SUMMARY | 2025-08-06 14:42 | XMS_ITS | Encounter Summary ---
Author Organization [employer] Address [address] [facility] 7t [place] [address] Care Team Providers Care Photocomposing Machine Operator Name Role Phone Toyin Mistry MD Primary Care Provider [phone] Reason for Visit * Reason Onset Date Comments FYI 11/16/2024 Durable Medical Equipment 11/16/2024 Encounter Details Date Type Department Care Team ([facility] st Contact Info) Description 11/16/2024 Telephone [facility] [address] [place], [place] [phone] Toyin Mistry MD [address] [place], [place] [phone] FYI; Durable Medical Equipment Social History Tobacco [...] - 11/16/2024 2:16 PM EST Tc from [facility] with [facility] to report pt was on EM 11/16, has cough and asthma also requesting nebulizer. documented in this encounter Plan of Treatment Upcoming Encounters Date Type Department Care Team (Late st Contact Info) Description 08/16/2025 11:30 AM EDT Clinical Support [facility] [address] [place] [address] documented as of this encounter Visit Diagnoses Not on filedocumented in this encounter Additional Health Concerns Assessment Noted Time PHQ-9 Depression Total Score: 4 08/31/20 24 10:34 AM EDT documented as of this encounter Care Teams Photocomposing Machine Operator Relationship Specialty Start Date End Date Toyin Mistry MD [address] [place] [address] PCP - General Family Medicine 11/11/18 documented as of this encounter
--- OUTSIDE RECORDS SUMMARY | 2025-08-06 14:42 | XMS_ITS | Encounter Summary ---
Author Organization [employer] Address [address] [facility] [address] [place] [address] Care Team Providers Care Statistical Technician Name Role Phone Toyin Mistry MD Primary Care Provider [phone] Encounter Details Date Type Department Care Team (Late st Contact Info) Description 10/12/2022 Orders Only [facility] [address] [place] [address] Esther Hicks, RN [address] [place] [address] Social History Tobacco Use Types Packs/Day Years [...] Description 08/16/2025 11:30 AM EDT Clinical Support [facility] [address] [place] [address] documented as of this encounter Visit Diagnoses Not on filedocumented in this encounter Care Teams Statistical Technician Relationship Specialty Start Date End Date Toyin Mistry MD [address] [place] [address] PCP - General Family Medicine 11/11/18 documented as of this encounter
--- OUTSIDE RECORDS SUMMARY | 2025-08-06 14:42 | XMS_ITS | Encounter Summary ---
Author Organization [employer] Address [address] [facility] 7t [place] [address] Care Team Providers Care Metal Rivet Machine Operator Name Role Phone Toyin Mistry MD Primary Care Provider [phone] Reason for Visit * Reason Comments Med Refill Encounter Details Date Type Department Care Team ([facility] st Contact Info) Description 07/17/2024 Refill [facility] [address] [place], [place] [phone] Anthony Nelson MD [address] [place], [place] [phone] Social History Tobacco Use Types Packs/Day Years [...] Description 08/16/2025 11:30 AM EDT Clinical Support [facility] [address] [place] [address] documented as of this encounter Visit Diagnoses Not on filedocumented in this encounter Additional Health Concerns Assessment Noted Time PHQ-9 Depression Total Score: 0 07/24/20 23 9:25 AM EDT documented as of this encounter Care Teams Metal Rivet Machine Operator Relationship Specialty Start Date End Date Toyin Mistry MD [address] [place] [address] PCP - General Family Medicine 11/11/18 documented as of this encounter
--- OUTSIDE RECORDS SUMMARY | 2025-08-06 14:42 | XMS_ITS | Encounter Summary ---
Author Organization [employer] Address [address] [facility] 7t [place] [address] Care Team Providers Care Marble Worker Name Role Phone Toyin Mistry MD Primary Care Provider [phone] Encounter Details Date Type Department Care Team ([facility] st Contact Info) Description 2024 Orders Only [facility] [address] [place], [place] [phone] Toyin Mistry MD [address] [place], [place] [phone] Social History Tobacco Use Types Packs/Day Years [...] Description 08/16/2025 11:30 AM EDT Clinical Support [facility] [address] [place] [address] documented as of this encounter Visit Diagnoses Not on filedocumented in this encounter Additional Health Concerns Assessment Noted Time PHQ-9 Depression Total Score: 4 08/31/20 24 10:34 AM EDT documented as of this encounter Care Teams Marble Worker Relationship Specialty Start Date End Date Toyin Mistry MD [address] [place] [address] PCP - General Family Medicine 11/11/18 documented as of this encounter
--- OUTSIDE RECORDS SUMMARY | 2025-08-06 14:42 | XMS_ITS | Encounter Summary ---
Author Organization [employer] Address 75 [facility] 7t [place] [address] Care Team Providers Care Rehab Liaison Name Role Phone Toyin Mistry MD Primary Care Provider [phone] Reason for Visit * Reason Onset Date Comments Med Refill 2024 Encounter Details Date Type Department Care Team ([facility] st Contact Info) Description 2024 Telephone [facility] [address] [place], [place] [phone] Toyin Mistry MD [address] [place], [place] [phone] Med Refill Social History Tobacco Use Types [...] 11:30 AM EDT Clinical Support [facility] [address] [place] [address] documented as of this encounter Visit Diagnoses Not on filedocumented in this encounter Additional Health Concerns Assessment Noted Time PHQ-9 Depression Total Score: 4 08/31/20 24 10:34 AM EDT documented as of this encounter Care Teams Rehab Liaison Relationship Specialty Start Date End Date Toyin Mistry MD [address] [place] [address] PCP - General Family Medicine 11/11/18 documented as of this encounter
--- OUTSIDE RECORDS SUMMARY | 2025-08-06 14:43 | XMS_ITS | Encounter Summary ---
Author Organization [employer] Address 75 [facility] 7t [place] [address] Care Team Providers Care Retail Inventory Control Clerk Name Role Phone Toyin Mistry MD Primary Care Provider [phone] Reason for Referral * Consultation (Routine) - Closed Specialty Diagnoses / Procedures Referred By Contac t Referred To Contact Pulmonary Disease Diagnoses Moderate persistent asthma without complication Toyin Mistry MD [address] [place] [address] Phone: tel: fax: [facility] Pulmonary [address] Floor [place], [place] Phone: tel: fax: Referral ID Status Reason Start Date Expiration Date V isits Requested Visits Authorized [id number] Closed Specialty Services Required 10/29/2024 10/29/2025 1 1 Encounter Details Date Type Department Care Team (Late st Contact Info) Description 10/29/2024 Orders Only [facility] [address] [place], [place] [phone] Toyin Mistry MD [address] [place], [place] [phone] Moderate persistent asthma without complication (Primary Dx) [...] Description 08/16/2025 11:30 AM EDT Clinical Support [facility] [address] [place] [phone] Scheduled Referrals Name Type Priority Associated Diagnoses [...] documented as of this encounter Care Teams Retail Inventory Control Clerk Relationship Specialty Start Date End Date Toyin Mistry MD [address] [place] [phone] PCP - General Family Medicine 11/11/18 documented as of this encounter
--- OUTSIDE RECORDS SUMMARY | 2025-08-06 14:43 | XMS_ITS | Encounter Summary ---
Author Organization [employer] Address [address] [facility] 7t [place] [address] Care Team Providers Care Automatic Packer Operator Name Role Phone Toyin Mistry MD Primary Care Provider [phone] Encounter Details Date Type Department Care Team (Late st Contact Info) Description 08/22/2023 Abstract [facility] [address] [place], [place] [phone] Toyin Mistry MD [address] [place], [place] [phone] Social History Tobacco Use Types Packs/Day Years [...] Description 08/16/2025 11:30 AM EDT Clinical Support [facility] [address] [place] [address] documented as of this encounter Procedures Procedure Name Priority Date/Time Associated Diagnosis Comments COLONOSCOPY Routine 11/07/2021 documented in this encounter Results * Colonoscopy (11/07/2021) Colonoscopy Normal Normal [facility] External Provider HEALTH MAINTENANCE Edited Result - Final documented in this encounter Visit Diagnoses Not on filedocumented in this encounter Additional Health Concerns Assessment Noted Time PHQ-9 Depression Total Score: 0 07/24/20 23 9:25 AM EDT documented as of this encounter Care Teams Automatic Packer Operator Relationship Specialty Start Date End Date Toyin Mistry MD [address] [place] [address] PCP - General Family Medicine 11/11/18 documented as of this encounter
--- NOTE | 2025-08-06 15:00 | PC.NURSE ---
Patient refused his second troponin. Provider notified
--- NOTE | 2025-08-06 15:50 | MHC.EDTECH ---
patient refused blood draw
[2025-08-06 15:54] VITALS: BP 139/81; PULSE 62; RESP 16; TEMP 36.7; O2SAT 96
== END 2025-08-06 15:56 | disposition home or self-care (01) ==
PROVIDERS: Physician Assistant; Emergency Provider Emergency Medicine Emergency Medical Services; PCP Family Medicine
DX: R07.9 Chest pain, unspecified (principal); R51.9 Headache, unspecified; I10 Essential (primary) hypertension; J44.9 Chronic obstructive pulmonary disease, unspecified; Z79.899 Other long term (current) drug therapy
CPT/HCPCS: 70450; 71046; 80053; 83690; 84484; 85025; 87502; 87635; 93005; 99284; 99285

== ENCOUNTER → 2025-08-06 11:22 | Outpatient (BNV) | payer OTHER, SELFPAY | PROVIDERS: Emergency Provider Emergency Medicine Emergency Medical Services; PCP Family Medicine; Visit Provider Internal Medicine Cardiovascular Disease | DX: I49.9 Cardiac arrhythmia, unspecified (principal) | CPT/HCPCS: 93010 ==

== ENCOUNTER → 2025-08-06 11:37 | Outpatient (BNV) | payer OTHER, SELFPAY | PROVIDERS: PCP Family Medicine; Visit Provider Radiology Diagnostic Radiology | DX: R51.9 Headache, unspecified (principal); R07.89 Other chest pain | CPT/HCPCS: 70450; 71046 ==

== ENCOUNTER 2025-08-24 14:44 | Outpatient (AMB) | payer OTHER, SELFPAY ==
--- NOTE | 2025-08-24 14:48 | A.OFFVIS_ITS ---
Vital Signs 08/24/25 14:49 Height 5 ft 5 in Weight 153 lb 3.54 oz BMI 25.5 BP 108/56 L Blood Pressure Location Lt brachial Position Sitting Pulse 79 Pulse Source Pulse Oximeter Pulse Oximetry (%) 96 Oxygen Delivery Method Room Air Intake Visit Reasons: asthma Accompanied by: Self / Same As Patient Allergies No Known Allergies Allergy (Verified 08/24/25 14:54) HPI Comments Details: The patient is a 74-year-old gentleman known severe persistent asthma with multiple exacerbations. He is here for evaluation and management. The patient states that he has had frequent exacerbations requiring prednisone. He has come to the ER here. The last time in October he did have blood work demonstrating significant eosinophilia and also had a CT scan of the chest which ruled out pulmonary emboli and did see significant mosaic pattern suggesting of small airways disease in her trapping. The patient does respond to prednisone. In the meantime he has tried multiple inhalers for maintenance in the past. He does not do well with powdered inhalers such as Trelegy because it bothers him. He has also been on Symbicort which does not feel like he works well for him. He has been on in the nebulizer in the seems to work a little better for him. He is open to trying new inhalers. I will send him Breztri to the pharmacy to maximize his respiratory therapy. If he continues to be symptomatic even on maximum respiratory therapy he will be a great candidate for biologics. He has significant chronic rhinitis he also has significant asthma all related to the eosinophilia. Therefore an IL 5 inhibitor will be very effective in improving symptoms if he continues to be symptomatic. Will have him try the breast treat for a month or 2 and have pulmonary function studies and will review the PFTs and discuss any additional therapies then. In regards of pulmonary nodule. The nodules are small and would benefit from a follow-up in a year's time. 02/15/2025 the patient is here for a pulmonary follow-up visit. The patient continues have significant wheezing and chest tightness. He did start the new inhaler, Breztri and is been partially helpful. Although not completely. He still needs a rescue inhaler on a daily basis. He is feeling worsening chest tightness specially now going to the spring. He does have wheezing on exam. He will need additional prednisone. We did talk about his severe asthma in the fact that he has significant eosinophilia on his laboratory suggest that he will be a great candidate for biologic. I do Fasenra be a very good option for him. I did talk to him about the medication he is agreeable to starting the process. In the meantime the patient will need additional prednisone for his ongoing wheezing. He will continue his current respiratory therapy will reassess in 4 months. If he has any issues prior to that he will call for an earlier asses sment. 08/24/2025 the patient is here for pulmonary follow-up visit. Overall he is doing significantly better now Fasenra. The Fasenra injections have been very affecting beneficial. He continues to use his inhalers as prescribed. He has not required any prednisone which is reassuring. He is able to do activities outdoors without any significant limitations. He is still should be able to re treat though before any excessive exercise activity where typically he developed significant bronchospasms. But overall he is doing good he does not need any additional therapies right now. Will follow-up in 8-12 months. If he has any issues prior to this she can always call for an earlier assessment. [facility] Medical History (Updated 08/07/25 @ 00:00 by Mariza Palomares) Asthma-COPD overlap syndrome Pulmonary nodule Asthma Depression Hypertension Surgical History History of hernia surgery Social History Alcohol intake: former Patient Tobacco Use Status: Former Tobacco user Tobacco use type: Cigarette Current occupational status: disabled Current occupation: left and right handed Review of Systems Const Denies fever(s) Eyes Reports no additional complaints ENT Reports nasal congestion and Denies nasal discharge Card Denies chest pain Resp Reports cough and Reports wheezing GI Reports no additional complaints Musc Reports no additional complaints Skin/Breast Denies rash Neuro Reports no additional complaints Ponce/Lymph Reports no additional complaints Aller/Immun Reports wheezing Physical Exam Vital Signs: Last Vital Signs Pulse 79 08/24/25 14:49 BP 108/56 L 08/24/25 14:49 Pulse Ox 96 08/24/25 14:49 Oxygen Delivery Method Room Air 08/24/25 14:49 BMI result Body Mass Index 25.5 Patient is afebrile and hemodynamically stable. Const General: cooperative HEENT Head: Yes normal to inspection and Yes atraumatic Eyes General: appearance normal, both eyes and all related structures Neck Neck: Yes normal visual inspection, Yes full ROM, Yes supple and No tender Chest Chest palpation & inspection: normal inspection of the chest Resp Effort & Inspection: normal respiratory effort Auscultation: clear to auscultation bilaterally and no wheezes Cardio Rate: regular rate Rhythm: regular rhythm GI Palpation (GI): Soft to palpation Back/Spine/Pelvis Back: No back tenderness Skin General skin exam: no rashes or lesions noted Extrem General: Yes no clubbing, cyanosis or edema Assessment & Plan Assessment & Plan (1) Asthma: Code(s): J45.909 - Unspecified asthma, uncomplicated Category: Medical Qualifiers: Asthma complication type: uncomplicated Asthma persistence: persistent Asthma severity: severe Qualified Code(s): J45.50 - Severe persistent asthma, uncomplicated (2) Pulmonary nodule: Code(s): R91.1 - Solitary pulmonary nodule Category: Medical (3) Asthma-COPD overlap syndrome: Code(s): J44.89 - Other specified chronic obstructive pulmonary disease Category: Medical Plan continue Breztri VIKTORIYA as needed continue singulair continue Fasenra F/U 8-12 months Coding Level of Care Code Est Pt Level 4 (54579) Complex EM visit Add On G2211 Diagnoses Severe persistent asthma without complication J45.50 Asthma complication type: uncomplicated Asthma persistence: persistent Asthma severity: severe Pulmonary nodule R91.1 Asthma-COPD overlap syndrome J44.89 Time Spent (min) 16
[2025-08-24 14:49] VITALS: BP 108/56; PULSE 79; O2SAT 96; BMI 25.5
--- OUTSIDE RECORDS SUMMARY | 2025-08-24 17:37 | XMS_ITS | Clinical Summary ---
Author Organization [employer] Address [address] [place] [address] [address] [place] [address] Care Team Providers Care Distribution Dispatcher Name Role Phone Toyin Mistry MD Primary Care Provider [phone] Allergies No known active allergies Medications cholecalciferol [...] MONTHLY 5 mL 3 024 2024 Discontinued Hospital, Clinic, or [...] (04/13/2024 12:09 PM EDT): - following with [facility] - last MRI in Aug 2022 - last steroid injection right side in Nov 2023. -Evaluated by pipe bowl paint trimmer. -Received left scapular nerve block on 12/24/23 -Removal of Sprint PNS left suprascapular notch in March 2024 - Follow up as needed with specialist Assessment & Plan (11/15/2023 4:30 PM EST): - following with [facility] - last MRI in Aug 2022 [...] by psychiatrist - improve sleep hygiene Dementia ([facility]) 10/08/2022 Overview (11/14/2023): Last Assessment & Plan: [...] RECURRENT MAJOR DEPRESSIVE DISORDER, IN PARTIAL REMISSION ([facility]) WRITTEN ON 11/14/2023 9:01 AM [...] seek urgent/emergent care including calling Suicide Hotline (739 or ) or [phone]. Follow up in one month with PCP [...] cuff tear and osteoarthritis - following with [facility], last seen in Aug 2023 - [...] mcg one puff daily. Advised patient to cook pickled meat Arnuity from pharmacy. -Cont Albuterol inhaler and [...] Encounters Date Type Department Care Team Description 08/16/2025 11:30 AM EDT Clinical Support [facility] [address] [place] [address] Karrie Majano RN Vitamin B12 deficiency 08/16/2025 Travel 08/06/2025 Orders Only GENERIC EXTERNAL DATA DEPARTMENT Provider, Generic External Data 07/26/[address] [facility] [address] [place] [address] Toyin Mistry MD Vitamin B12 deficiency 07/22/[address] [facility] [address] [place] [address] Toyin Mistry MD FYI 07/16/2025 10:00 AM EDT Clinical Support [facility] [address] [place] [address] Moon Stephenson RN Vitamin B12 deficiency 07/16/2025 Travel 07/12/2025 Refill [facility] [address] [place] [address] Toyin Mistry MD Asthma, unspecified asthma severity, unspecified whether complicated, unspecified whether persistent 06/11/2025 10:00 AM EDT Clinical Support [facility] [address] [place] [address] Esther Hicks, JONATHAN Vitamin B12 deficiency 06/11/2025 Travel from Last 3 Months Immunizations Immunization [...] Care Team (Late st Contact Info) Description 09/17/2025 11:30 AM EST Clinical Support [address] [address] Health Maintenance Due Date Last [...] history exists Depression Screening 08/31/2025 08/31/2024, 08/31/20 24 Tobacco [...] Procedure Name Priority Date/Time Associated Diagnosis Comments CT HEAD WO CONTRAST Routine 08/06/2025 2 :48 PM EDT XR CHEST 2 VIEWS Routine 08/06/2025 11:5 [...] Recently Relevant to Health Maintenance Results * CT Head w/o Contrast (08/06/2025 2:48 PM EDT) Anatomical Region Laterality Modality Head, Neck Computed Tomogra phy 08/06/2025 2:48 PM EDT Narrative 08/06/2025 3:04 PM EDT [place] [address] CT Scan Report Signed Patient: Mark Feliciano MR#: [id number] 5 : 1950 Acct:[id number] Age/Sex: 74 / M ADM Date: 08/06/25 Loc: HO.ED Attending Dr: Ordering Physician: Tru Mendoza MD Date of Service: 08/06/25 Procedure(s): CT head/brain wo IV con Accession Number(s): [id number] cc: Toyin Mistry MD; Tru Mendoza MD Report Number: [id number]: Total DLP = 614.00 mGy-cm Reason for Exam: Left-sided headache R/O bleed, stroke, mass effect EXAMINATION: CT HEAD WITHOUT CONTRAST CLINICAL INFORMATION: Left-sided headache R/O bleed, stroke, mass effect COMPARISON: December 17, 2019 TECHNIQUE: Contiguous axial imaging was performed from the skull base to vertex without intravenous administration of contrast. This CT examination was performed using dose optimization techniques as appropriate, variously including the following: *Automated exposure control *Adjustment of mA and/or kV according to patient size (this includes techniques or standardized protocols for targeted exams where dose is matched to indication/reason for exam; i.e. extremities or head) *Use of iterative reconstruction technique DLP: 614 mGy-cm FINDINGS: No acute intracranial hemorrhage, mass effect, midline shift, hydrocephalus or herniation. Stallworth-white matter differentiation is normal. Posterior cranial fossa contents demonstrated no acute hemorrhage or mass effect. Normal position of the cerebellar tonsils. Sellar/suprasellar region demonstrated no gross masses. Prominence of the extra-axial CSF spaces vessels is likely central loss pronounced in the frontotemporal lobes. No air-fluid levels in the paranasal sinuses. Tympanic cavities and mastoid cells are aerated. No gross masses or hematoma in the intraconal or extraconal compartments of the orbits. CT/CT head/brain wo IV con IMPRESSION: No acute intracranial hemorrhage or acute brain abnormality by CT. Bifrontal/bitemporal lobe atrophy. Electronically signed by: Memo Longoria MD 08/06/2025 03:01 PM EDT RP Dictated By: Memo De La Rosa MD Signed By: <Electronically signed by Memo Hicks MD in OV> 08/06/25 1501 DD/ 1448 TD/TT: 08/06/25 1457 Water Softener Servicer: Procedure Note Donotuseinterpreter, Image - 08/06/[address] [place] [address] [address] Scan Report Signed Patient: Mark Feliciano#: [id number] 5 : 1950cct:[id number] Age/Sex: 74 / MADM Date: 08/06/25 Loc: HO.ED Attending Dr: Ordering Physician: Tru Mendoza MD Date of Service: 08/06/25 Procedure(s): CT head/brain wo IV con Accession Number(s): [id number] cc: Toyin Mistry MD; Tru Mendoza MD Report Number: [id number]: Total DLP = 614.00 mGy-cm Reason for Exam: Left-sided headache R/O bleed, stroke, mass effect EXAMINATION: CT HEAD WITHOUT CONTRAST CLINICAL INFORMATION: Left-sided headache R/O bleed, stroke, mass effect COMPARISON: December 17, 2019 TECHNIQUE: Contiguous axial imaging was performed from the skull base to vertex without intravenous administration of contrast. This CT examination was performed using dose optimization techniques as appropriate, variously including the following: *Automated exposure control *Adjustment of mA and/or kV according to patient size (this includes techniques or standardized protocols for targeted exams where dose is matched to indication/reason for exam; i.e. extremities or head) *Use of iterative reconstruction technique DLP: 614 mGy-cm FINDINGS: No acute intracranial hemorrhage, mass effect, midline shift, hydrocephalus or herniation. Stallworth-white matter differentiation is normal. Posterior cranial fossa contents demonstrated no acute hemorrhage or mass effect. Normal position of the cerebellar tonsils. Sellar/suprasellar region demonstrated no gross masses. Prominence of the extra-axial CSF spaces vessels is likely central loss pronounced in the frontotemporal lobes. No air-fluid levels in the paranasal sinuses. Tympanic cavities and mastoid cells are aerated. No gross masses or hematoma in the intraconal or extraconal compartments of the orbits. CT/CT head/brain wo IV con IMPRESSION: No acute intracranial hemorrhage or acute brain abnormality by CT. Bifrontal/bitemporal lobe atrophy. Electronically signed by: Memo Longoria MD 08/06/2025 03:01 PM EDT Dictated By: Memo De La Rosa MD Signed By: <Electronically signed by Memo Hicks MDin OV> 08/06/25 1501 DD/ 1448 TD/TT: 08/06/25 1457 Water Softener Servicer: [facility] External Provider IMG CT PROCEDURES Final Result * XR Chest 2 Views (08/06/2025 11:50 AM EDT) Anatomical Region Laterality Modality Chest Radiographic Tomeka ging 08/06/2025 11:5 0 AM EDT Narrative 08/06/2025 12:15 PM EDT [address] [address] XRay Report Signed Patient: Mark Feliciano MR#: [id number] 5 : 1950 Acct:[id number] Age/Sex: 74 / M ADM Date: 08/06/25 Loc: HO.ED Attending Dr: Ordering Physician: Quoc Wang Date of Service: 08/06/25 Procedure(s): XR chest 2V Accession Number(s): [id number] cc: Quoc Wang; Toyin Mistry MD Reason [...] 08/06/25 1158 DD/ 1150 TD/TT: 08/06/25 1156 Water Softener Servicer: Procedure Note Donotuseinterpreter, Image - 08/06/[address] [address] XRay Report Signed Patient: Mark FelicianoMR#: [id number] 5 : 1950cct:[id number] Age/Sex: 74 / MADM Date: 08/06/25 Loc: .ED Attending Dr: Ordering Physician: Quoc Wang Date of Service: 08/06/25 Procedure(s): XR chest 2V Accession Number(s): [id number] cc: Quoc Wang; Toyin Mistry MD Reason [...] 08/06/25 1158 DD/ 1150 TD/TT: 08/06/25 1156 Water Softener Servicer: [facility] External Provider IMG XR PROCEDURES Final Result * Influenza A B2 ID NOW (Denis) (08/06/2025 11:47 AM EDT) IDNOW SERIAL# [id number] [facility] Influenza A Negative Negative [facility] Influenza B2 Negative Negative [facility] Influenza A B2 Note See Note [facility] Comment:The Denis ID NOW In fluenza [...] GENERAL ORDERABLES Final Result Performing Organization Address City/State/[facility] Co de Phone Number [facility] [address] [place] [phone] * COVID-19 ID NOW (DENIS) (08/06/2025 11:47 AM EDT) IDNOW SERIAL# [id number] [facility] COVID-19 TEST Negative Negative [facility] COVID-19 NOTE See Note [facility] Comment: Results are for the identification of SARS-CoV2 RNA. TheSARS-CoV2 RNA is generally detectable in respiratory samplesduring the acute phase of infection. Positive results areindicative of the presence of SARS-CoV-2 RNA; clinicalcorrelation with patient history and other diagnosticinformation is necessary to determine patient infectionstatus. Positive results do not rule out bacterial infectionor co- infection with other viruses.Testing facilities within the [place] and itsterritories are required to report all [...] use by authorized laboratories.Testing performed on the [email or web address] ID NOW utilizing NAAT. 08/06/2025 11:4 7 AM EDT 08/06/2025 11:52 AM EDT Generic External Data Provider LAB MOLECULAR [facility] ORDERABLES Final Result Performing Organization Address [facility] Co de Phone Number [facility] [address] [place] [phone] * High Sensitivity Troponin I (08/06/2025 11:47 AM EDT) TROPONIN I HIGH SENSITIVITY <2.7 <3.5 - 35.0 ng/L [facility] Comment:The Denis high sens itivity Troponin-I results should beused in conjunction with other diagnostic information suchas ECG, clinical observations and information, and patientsymptoms to aid in the diagnosis of MT. 08/06/2025 11:4 7 AM EDT 08/06/2025 11:52 AM EDT Generic External Data Provider LAB BLOOD ORDERAB LES Final Result Performing Organization Address [facility]/ZIP Co de Phone Number [facility] [address] [place] [phone] * CBC auto differential (08/06/2025 11:47 AM EDT) White Blood Count 8.5 4.8 - 10.8 X10*3/uL [facility] Red Blood Count 4.73 4.60 - 5.80 X10*6/uL [facility] Hemoglobin 14.4 14.0 - 18.0 g/dl [facility] Hematocrit 43.4 42.0 - 52.0 % [facility] Mean Corpuscular Volume 91.8 80.0 - 98.0 fL [facility] Mean Corpuscular Hemoglobin 30.4 27.0 - 33.0 pg [facility] Mean Corpuscular HGB Conc 33.2 31.0 - 36.0 g/dl [facility] Red Cell Distribution Width 13.9 11.0 - 16.0 % [facility] Platelet Count 230 160 - 400 X10*3/uL [facility] Mean Platelet Volume 9.9 9.4 - 12.4 fL [facility] Neutrophils Percent Auto 70.3 45 - 73 % [facility] Imm Gran Pct Auto 0.2 0.0 - 0.4 % [facility] Lymphocytes Percent Auto 20.9 20 - 40 % [facility] Monocytes Percent Auto 8.5 2 - 11 % [facility] Eosinophils Percent Auto 0.0 0 - 4 % [facility] Basophils Percent Auto 0.1 0 - 2 % [facility] NRBC Pct Auto 0.0 0.0 - 0.2 /100WBC [facility] Neutrophils Absolute Auto 5.9 2.0 - 8.3 x10*3/uL [facility] Imm Gran Abs Auto 0.02 0.00 - 0.03 X10*3/uL [facility] Lymphocytes Absolute Auto 1.8 1.2 - 4.9 X10*3/uL [facility] Monocytes Absolute Auto 0.7 0.1 - 1.2 X10*3/uL [facility] Eosinophils Absolute Auto 0.0 0.0 - 0.4 X10*3/uL [facility] Basophils Absolute Auto 0.0 0.0 - 0.2 X10*3/uL [facility] NRBC Abs Auto 0.000 0.0 - 0.012 X10*3/uL [facility] 08/06/2025 11:4 7 AM EDT 08/06/2025 11:52 AM EDT us Generic External Data Provider LAB BLOOD ORDERAB LES Final Result Performing Organization Address City/[facility]/ZIP Co de Phone Number [facility] [address] [place] [phone] * Lipase (08/06/2025 11:47 AM EDT) Pathologist [facility] Lipase 21 8 - 78 U/L [facility] 08/06/2025 11:4 7 AM EDT 08/06/2025 11:52 AM EDT Generic External Data Provider LAB BLOOD ORDERAB LES Final Result Performing Organization Address City/[facility]/ZIP Co de Phone Number [facility] [address] [place] [phone] * (ABNORMAL) Comprehensive Metabolic Panel (08/06/2025 11:47 AM EDT) Pathologist [facility] Sodium 143 135 - 145 mmol/L [facility] Potassium 4.2 3.3 - 5.1 mmol/L [facility] Chloride 110(H) 96 - 108 mmol/L [facility] Carbon Dioxide 25 22 - 29 mmol/L [facility] Anion Gap 12 12 - 20 [facility] Urea Nitrogen (BUN) 15 9 - 16 mg/dL [facility] Creatinine, Serum 1.05 0.5 - 1.4 mg/dL [facility] Creatinine Clr Calc Pharmacy 87.3 [facility] Comment:eGFR (calculated fro m the MDRD study equation) and eCrCl(calculated from the Cockcroft-Gault equation) are based ondifferent parameters and may not yield comparable results.If eCrCl result is absurd, please check patient'sheight/weight. Estimated Glomerular Filt Rate >60 [facility] Comment:Chronic Kidney Disea se: Estimated GFR < 60 mL/min/[id number] Kidney Disease: Estimated GFR < 15 mL/min/1.73m2 Glucose 97 60 - 115 mg/dL [facility] Calcium 10.0 8.4 - 10.2 mg/dL [facility] Bilirubin, Total 0.5 0.0 - 1.0 mg/dL [facility] Aspartate Amino Transferase 27 5 - 37 U/L [facility] Alanine Aminotransferase 20 0 - 40 U/L [facility] Total Protein 7.9 6.5 - 8.0 g/dL [facility] Albumin Level 4.4 3.5 - 5.0 g/dL [facility] Alkaline Phosphatase 75 39 - 117 U/L [facility] 08/06/2025 11:4 7 AM EDT 08/06/2025 11:52 AM EDT us Generic External Data Provider LAB BLOOD ORDERAB LES Final Result Performing Organization Address City/[facility]/ZIP Co de Phone Number [facility] [address] [place] [phone] * Hepatitis C Antibody with Reflex to HCV, RNA, Quantitative, Real-Time PCR (09/24/2024 1:57 PM EST) Hepatitis C Antibody Nonreactive Nonreactive [facility] Comment:Antibodies to HCV no t detected; does not exclude early acuteHCV infection. Blood Venous blood specimen / Unknown 09/24/2024 1:57 PM EST 09/24/2024 4:04 PM EST Vanda Palacios NP LAB BLOOD ORDERABLES Final Resu lt Performing Organization Address City/[facility]/ZIP Co de Phone Number [facility] [address] [place] [phone] * (ABNORMAL) Lipid Panel with Reflex to Direct LDL (04/14/2024 8:20 AM EDT) Triglycerides 135 <150 mg/dL [facility] Comment:Desirable Triglyceri de: less than 150 mg/dLBorderline High Triglyceride 150-199 mg/dLHigh Triglyceride: 200-499 mg/dLVery High Triglyceride: greater than or equal to 5OO mg/dL Cholesterol 174 <200 mg/dL [facility] Comment:Desirable Cholestero l: less than 200 mg/dLBorderline High Cholesterol: 200-239 mg/dLHigh Cholesterol: greater than 239 mg/dL LDL Cholesterol Calculated 106(H) <100 mg/dL [facility] Comment:Desirable LDL: less than 100 mg/dLNear Optimal/Above Optimal LDL: 110- 129 mg/dLBorderline High LDL: 130-159 mg/dLHigh LDL: 160-189 mg/dLVery High LDL: greater than or equal to 190 mg/dL HDL Cholesterol 41 >40 mg/dL [facility] Comment:Desirable HDL: great er than 40 mg/dL Note: This HDL assay may give artificially low results in patients with liver disease. Blood 04/14/2024 8:20 AM EDT 04/14/2024 11:51 AM EDT Toyin Mistry MD LAB BLOOD ORDERABLES Final Resul t [facility] [address], [place] [phone] * Colonoscopy (11/07/2021) Colonoscopy Normal Normal [facility] External Provider HEALTH MAINTENANCE Edited Result - Final from Last 3 Months or Most Recently Relevant to Health Maintenance Insurance [employer] (O D-SNP) [facility] Care Teams Distribution Dispatcher Relationship Specialty Start Date End Date Toyin Mistry MD [address] [place] [phone] PCP - General Family Medicine 11/11/18
--- OUTSIDE RECORDS SUMMARY | 2025-08-24 17:37 | XMS_ITS | Encounter Summary ---
Author Organization [employer] Address [address] [facility] 7t [place] [address] Care Team Providers Care Assistant Womens Volleyball Coach Name Role Phone Toyin Mistry MD Primary Care Provider Encounter Details Date Type Department Care Team (Late Contact Info) Description 12/26/[address] [facility] [address] [place] [address] [phone] Toyin Mistry MD [address] [place] [address] [phone] Vitiligo (Primary Dx) Social History Tobacco Use [...] Description 09/17/2025 11:30 AM EST Clinical Support [facility] [address] [place] [address] [phone] documented as of this encounter Visit Diagnoses Diagnosis Vitiligo- Primary documented in this encounter Care Teams Assistant Womens Volleyball Coach Relationship Specialty Start Date End Date Toyin Mistry MD [address] [place] [address] PCP - General Family Medicine 11/11/18 documented as of this encounter
--- OUTSIDE RECORDS SUMMARY | 2025-08-24 17:37 | XMS_ITS | Encounter Summary ---
Author Organization [employer] Address [address] [facility] 7t [place] [address] Care Team Providers Care Horticultural Farm Manager Name Role Phone Toyin Mistry MD Primary Care Provider [phone] Encounter Details Date Type Department Care Team (Late st Contact Info) Description 12/06/2022 Orders Only [facility] [address] [place] [phone] Wendie Cochran LPN Social History Tobacco Use [...] Description 09/17/2025 11:30 AM EST Clinical Support [facility] [address] [place] [phone] documented as of this encounter Visit Diagnoses Not on filedocumented in this encounter Care Teams Horticultural Farm Manager Relationship Specialty Start Date End Date Toyin Mistry MD [address] [place] [address] PCP - General Family Medicine 11/11/18 documented as of this encounter
--- OUTSIDE RECORDS SUMMARY | 2025-08-24 17:37 | XMS_ITS | Encounter Summary ---
Author Organization [employer] Address 75 [facility] 7t [place] [address] Care Team Providers Care Partition Notcher Name Role Phone Toyin Mistry MD Primary Care Provider Reason for Visit * Reason Onset Date Comments Med Refill 2024 Encounter Details Date Type Department Care Team ([facility] st Contact Info) Description 2024 Telephone [facility] [address] [place], [place] [phone] Toyin Mistry MD [address] [place], [place] [phone] Med Refill Social History Tobacco Use Types [...] Description 09/17/2025 11:30 AM EST Clinical Support [facility] [address] [place] [address] documented as of this encounter Visit Diagnoses Not on filedocumented in this encounter Additional Health Concerns Assessment Noted Time PHQ-9 Depression Total Score: 4 08/31/20 24 10:34 AM EDT documented as of this encounter Care Teams Partition Notcher Relationship Specialty Start Date End Date Toyin Mistry MD [address] [place] [address] PCP - General Family Medicine 11/11/18 documented as of this encounter
--- OUTSIDE RECORDS SUMMARY | 2025-08-24 17:37 | XMS_ITS | Encounter Summary ---
Author Organization [employer] Address 75 [facility] 7t [place] [address] Care Team Providers Care Alarm Signal Operator Name Role Phone Toyin Mistry MD Primary Care Provider [phone] Reason for Referral * Consultation (Routine) - Closed Specialty Diagnoses / Procedures Referred By Contac t Referred To Contact Pulmonary Disease Diagnoses Moderate persistent asthma without complication Toyin Mistry MD [address] [place] [address] Phone: tel: fax: [facility] Pulmonary [address] Floor [place], [place] Phone: tel: fax: Referral ID Status Reason Start Date Expiration Date V isits Requested Visits Authorized [id number] Closed Specialty Services Required 10/29/2024 10/29/2025 1 1 Encounter Details Date Type Department Care Team (Late st Contact Info) Description 10/29/2024 Orders Only [facility] [address] [place], [place] [phone] Toyin Mistry MD [address] [place], [place] [phone] Moderate persistent asthma without complication (Primary Dx) [...] Description 09/17/2025 11:30 AM EST Clinical Support [facility] [address] [place] [phone] Scheduled Referrals Name Type Priority Associated Diagnoses [...] documented as of this encounter Care Teams Alarm Signal Operator Relationship Specialty Start Date End Date Toyin Mistry MD [address] [place] [address] PCP - General Family Medicine 11/11/18 documented as of this encounter
--- OUTSIDE RECORDS SUMMARY | 2025-08-24 17:37 | XMS_ITS | Encounter Summary ---
Author Organization [employer] Address [address] [facility] [address] [place] [address] Care Team Providers Care Passenger Service Representative Name Role Phone Toyin Mistry MD Primary Care Provider [phone] Encounter Details Date Type Department Care Team (Late st Contact Info) Description 10/12/2022 Orders Only [facility] [address] [place] [address] Esther Hicks, RN [address] [place] [address] Social History Tobacco Use Types Packs/Day Years [...] EST Clinical Support [facility] [address] [place] [address] documented as of this encounter Visit Diagnoses Not on filedocumented in this encounter Care Teams Passenger Service Representative Relationship Specialty Start Date End Date Toyin Mistry MD [address] [place] [address] PCP - General Family Medicine 11/11/18 documented as of this encounter
--- OUTSIDE RECORDS SUMMARY | 2025-08-24 17:37 | XMS_ITS | Encounter Summary ---
Author Organization [employer] Address [address] [facility] 7t [place] [address] Care Team Providers Care Dry Man Name Role Phone Toyin Mistry MD Primary Care Provider [phone] Encounter Details Date Type Department Care Team ([facility] st Contact Info) Description 2024 Orders Only [facility] [address] [place], [place] [phone] Toyin Mistry MD [address] [place], [place] [phone] Social History Tobacco Use Types Packs/Day Years [...] Description 09/17/2025 11:30 AM EST Clinical Support [facility] [address] [place] [address] documented as of this encounter Visit Diagnoses Not on filedocumented in this encounter Additional Health Concerns Assessment Noted Time PHQ-9 Depression Total Score: 4 08/31/20 24 10:34 AM EDT documented as of this encounter Care Teams Dry Man Relationship Specialty Start Date End Date Toyin Mistry MD [address] [place] [address] PCP - General Family Medicine 11/11/18 documented as of this encounter
--- OUTSIDE RECORDS SUMMARY | 2025-08-24 17:37 | XMS_ITS | Encounter Summary ---
Author Organization [employer] Address 75 [facility] 7t [place] [address] Care Team Providers Care Time Stamp Assembler Name Role Phone Toyin Mistry MD Primary Care Provider [phone] Encounter Details Date Type Department Care Team (Late st Contact Info) Description 08/22/2023 Abstract [facility] [address] [place], [place] [phone] Toyin Mistry MD [address] [place], [place] [phone] Social History Tobacco Use Types Packs/Day Years [...] 09/17/2025 11:30 AM EST Clinical Support [facility] [address] [place] [address] documented as of this encounter Procedures Procedure [...] documented as of this encounter Care Teams Time Stamp Assembler Relationship Specialty Start Date End Date Toyin Mistry MD [address] [place] [address] PCP - General Family Medicine 11/11/18 documented as of this encounter
--- OUTSIDE RECORDS SUMMARY | 2025-08-24 17:37 | XMS_ITS | Encounter Summary ---
Author Organization [employer] Address [address] [facility] 7t [place] [address] Care Team Providers Care Refrigeration Plant Operator Name Role Phone Toyin Mistry MD Primary Care Provider [phone] Encounter Details Date Type Department Care Team (Late Contact Info) Description 01/10/2023 Telephone [facility] [address] [place] [address] [phone] Toyin Mistry MD [address] [place] [address] [phone] Social History Tobacco Use Types Packs/Day Years [...] Description 09/17/2025 11:30 AM EST Clinical Support [facility] [address] [place] [phone] documented as of this encounter Visit Diagnoses Not on filedocumented in this encounter Care Teams Refrigeration Plant Operator Relationship Specialty Start Date End Date Toyin Mistry MD [address] [place] [address] PCP - General Family Medicine 11/11/18 documented as of this encounter
--- OUTSIDE RECORDS SUMMARY | 2025-08-24 17:37 | XMS_ITS | Encounter Summary ---
Author Organization [employer] Address 75 [facility] 7t [place] [address] Care Team Providers Care Net Developer Consultant Name Role Phone Toyin Mistry MD Primary Care Provider Reason for Visit * Reason Onset Date Comments FYI 11/16/2024 Durable Medical Equipment 11/16/2024 Encounter Details Date Type Department Care Team ([facility] st Contact Info) Description 11/16/2024 Telephone [facility] [address] [place], [place] [phone] Toyin Mistry MD [address] [place], [place] [phone] FYI; Durable Medical Equipment Social History Tobacco [...] - 11/16/2024 2:16 PM EST Tc from [facility] with [facility] to report pt was on EM 11/16, has cough and asthma also requesting nebulizer. documented in this encounter Plan of Treatment Upcoming Encounters Date Type Department Care Team (Late st Contact Info) Description 09/17/2025 11:30 AM EST Clinical Support [facility] [address] [place] [address] documented as of this encounter Visit Diagnoses Not on filedocumented in this encounter Additional Health Concerns Assessment Noted Time PHQ-9 Depression Total Score: 4 08/31/20 24 10:34 AM EDT documented as of this encounter Care Teams Net Developer Consultant Relationship Specialty Start Date End Date Toyin Mistry MD [address] [place] [address] PCP - General Family Medicine 11/11/18 documented as of this encounter
--- OUTSIDE RECORDS SUMMARY | 2025-08-24 17:37 | XMS_ITS | Encounter Summary ---
Author Organization [employer] Address [address] [facility] 7t [place] [address] Care Team Providers Care Radial Drill Operator For Plastic Name Role Phone Toyin Mistry MD Primary Care Provider [phone] Reason for Visit * Reason Comments Med Refill Encounter Details Date Type Department Care Team ([facility] st Contact Info) Description 07/17/2024 Refill [facility] [address] [place], [place] [phone] Anthony Nelson MD [address] [place], [place] [phone] Social History Tobacco Use Types Packs/Day Years [...] Description 09/17/2025 11:30 AM EST Clinical Support [facility] [address] [place] [address] documented as of this encounter Visit Diagnoses Not on filedocumented in this encounter Additional Health Concerns Assessment Noted Time PHQ-9 Depression Total Score: 0 07/24/20 23 9:25 AM EDT documented as of this encounter Care Teams Radial Drill Operator For Plastic Relationship Specialty Start Date End Date Toyin Mistry MD [address] [place] [address] PCP - General Family Medicine 11/11/18 documented as of this encounter
== END 2025-08-24 15:38 | disposition home or self-care (01) ==
LOC: HO.HPS 14:45
PROVIDERS: PCP Family Medicine; Visit Provider Hospitalist
DX: J45.50 Severe persistent asthma, uncomplicated (principal); R91.1 Solitary pulmonary nodule; J44.89 Other specified chronic obstructive pulmonary disease
CPT/HCPCS: 99214; G2211

== ENCOUNTER → 2025-08-24 14:44 | Outpatient (BNVA) | payer OTHER, SELFPAY | PROVIDERS: PCP Family Medicine; Visit Provider Hospitalist | DX: J45.50 Severe persistent asthma, uncomplicated (principal); R91.1 Solitary pulmonary nodule; J44.89 Other specified chronic obstructive pulmonary disease | CPT/HCPCS: 99212 ==

== ENCOUNTER 2025-11-05 11:27 | Day surgery (SDC) | payer OTHER, SELFPAY ==
--- OUTSIDE RECORDS SUMMARY | 2025-11-01 11:15 | XMS_ITS | Encounter Summary ---
Author Organization [employer] Address [address] [facility] 7t [place] [address] Care Team Providers Care Packerhead Machine Operator Name Role Phone Toyin Mistry MD Primary Care Provider [phone] Reason for Visit * Reason Comments Med Refill Encounter Details Date Type Department Care Team ([facility] st Contact Info) Description 07/17/2024 Refill [facility] [address] [place], [place] [phone] Anthony Nelson MD [address] [place], [place] [phone] Social History Tobacco Use Types Packs/Day Years [...] Care Team (Late st Contact Info) Description 11/26/2025 10:00 AM EST Nurse Only [facility] [address] [place] [address] documented as of this encounter Visit Diagnoses Not on filedocumented in this encounter Additional Health Concerns Assessment Noted Time PHQ-9 Depression Total Score: 0 07/24/20 23 9:25 AM EDT documented as of this encounter Care Teams Packerhead Machine Operator Relationship Specialty Start Date End Date Toyin Mistry MD [address] [place] [address] PCP - General Family Medicine 11/11/18 documented as of this encounter
--- OUTSIDE RECORDS SUMMARY | 2025-11-01 11:15 | XMS_ITS | Encounter Summary ---
Author Organization [employer] Address [address] [facility] 7t [place] [address] Care Team Providers Care Emergency Service Restorer Name Role Phone Toyin Mistry MD Primary Care Provider [phone] Reason for Visit * Reason Onset Date Comments Med Refill 10/22/2025 Encounter Details Date Type Department Care Team ([facility] st Contact Info) Description 10/22/2025 Telephone [facility] [address] [place], [place] [phone] Toyin Mistry MD [address] [place], [place] [phone] Med Refill Social History Tobacco Use Types [...] Telephone Encounter - Talya Smart LPN - 10/22/2025 9:37 AM EST Script sent to [facility] on 07/26/25 with 11 refills. * Telephone Encounter - Buzz Toure - 10/22/2025 9:35 AM EST TC from pt requesting medication refill. Medications needing refill : cyanocobalamin (Vitamin B-12) 1000 MCG/ML injection To be sent to: [facility] - [place], [place] - [address] [facility] documented in this encounter Plan of Treatment Upcoming Encounters Date Type Department Care Team (Late st Contact Info) Description 11/26/2025 10:00 AM EST Nurse Only [facility] [address] [place] [address] documented as of this encounter Visit Diagnoses Not on filedocumented in this encounter Additional Health Concerns Assessment Noted Time PHQ-9 Depression Total Score: 4 08/31/20 24 10:34 AM EDT documented as of this encounter Care Teams Emergency Service Restorer Relationship Specialty Start Date End Date Toyin Mistry MD [address] [place] [address] PCP - General Family Medicine 11/11/18 documented as of this encounter
--- OUTSIDE RECORDS SUMMARY | 2025-11-01 11:15 | XMS_ITS | Clinical Summary ---
Author Organization [employer] Address [address] [place] [address] 7t [place] [address] Care Team Providers Care Machine Tailer Name Role Phone Toyin Mistry MD Primary Care Provider [phone] Allergies No known active allergies Medications cholecalciferol [...] (Restoril) 15 MG capsule 10/21/20 23 Active Spacer/Aero-Holdi ng Chambers (OptiChamber Zoey) misc 1 each every 4 (four) hours if needed (asthma). 1 each 04/01/20 24 Active albuterol 108 (90 Base) MCG/ACT inhaler Inhale 2 puffs every 4 (four) hours. Every 4-6 hours as needed for difficulty breathing, 4 times/day 18 g 3 04/13/20 24 Active naproxen (Naprosyn) 500 MG tabletIndications :Primary osteoarthritis involving multiple joints TAKE 1 TABLET BT MOUTH TWICE A DAY WITH FOOD IF NEEDED 60 tablet 3 08/31/20 24 Active fluticasone (Flovent) 110 MCG/ACT inhalerIndication s:Acute cough Inhale 1 puff in the morning and at bedtime. Rinse mouth with water after use to reduce aftertaste and incidence of candidiasis. Do not swallow. 12 g 1 09/24/20 24 Active predniSONE (Deltasone) 20 MG tabletIndications :COVID-19 2 tabs po daily for 5 days 10 tablet 09/29/20 24 Active albuterol (2.5 MG/3ML) 0.083% nebulizer solution Take 3 mL (2.5 mg) by nebulization every 4 (four) hours if needed for wheezing or shortness of breath (Maximum 4 treatments per day). 75 mL 1 11/24/19 25 026 Active rosuvastatin (Crestor) 5 MG tablet TAKE 1 TABLET (5 MG) BY MOUTH ONCE PER DAY. 90 tablet 3 04/07/20 25 Active montelukast (Singulair) 10 MG tablet TAKE 1 TABLET (10 MG) BY MOUTH ONCE PER DAY. 90 tablet 3 04/07/20 25 Active loratadine (Claritin) 10 MG tabletIndications :Asthma, unspecified asthma severity, unspecified whether complicated, unspecified whether persistent TAKE 1 TABLET BY MOUTH EVERY DAY 90 tablet 1 07/13/20 25 Active cyanocobalamin (Vitamin B-12) 1000 MCG/ML injectionIndicati ons:Vitamin B12 deficiency INJECT 1 ML INTRAMUSCULARLY EVERY MONTH 1 mL 11 07/26/20 25 Active Hospital, Clinic, or Other Facility Administered Medication Ordered Dose Route Frequency Start Date End Date Status cyanocobalamin (Vitamin B-12) injection 1,000 mcgIndications:Vitamin B12 deficiency 1000 mcg IM Once 10/26/2025 10/26/2025 Ended Active Problems Problem Noted Date Diagnosed Date [...] (04/13/2024 12:09 PM EDT): - following with [facility]o - last MRI in Aug 2022 - last steroid injection right side in Nov 2023. -Evaluated by painter railroad car. 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 Follow up in [...] cuff tear and osteoarthritis - following with [facility] Ortho, last seen in Aug 2023 - [...] mcg one puff daily. Advised patient to pick and shovel man Arnuity from pharmacy. -Cont Albuterol inhaler and [...] Encounters Date Type Department Care Team Description 10/26/2025 9:30 AM EST Nurse Only [facility] [address] [place] [address] Skala, Karrie, RN Vitamin B12 deficiency 10/26/2025 Travel 10/22/[address] [address] Toyin Mistry MD Med Refill 09/17/2025 11:30 AM EST Nurse Only [address] [address] Esther Hicks RN Vitamin B12 deficiency 09/17/2025 Travel 09/07/2025 Orders Only [address] [address] Toyin Mistry MD 09/07/2025 Orders Only [address] [address] Toyin Mistry MD Colon cancer screening (Primary Dx) 09/02/[address] [address] Toyin Mistry MD Referral 08/16/2025 11:30 AM EDT Clinical Support [address] [address] Karrie Majano RN Vitamin B12 deficiency 08/16/2025 Travel 08/06/2025 Orders Only GENERIC EXTERNAL DATA DEPARTMENT Provider, Generic External Data from Last 3 Months Immunizations Immunization Administration [...] Description 11/26/2025 10:00 AM EST Nurse Only [facility] [address] [place] [address] Health Maintenance Due Date Last Done Comments CT Colonography 1950 FIT DNA/Cologuard 1950 FIT 1950 FOBT 1950 Sigmoidoscopy 1950 Alcohol/Substance Use Screening 1964 Hepatitis B Vaccines (3 of 3 - 19+ 3-dose series) 08/18/1999 03/29/1999, 02/16/1999 RSV Patients and Patients Aged 60 years or older (1 - Risk 50-74 years 1-dose series) 2002 Zoster Vaccines (2 of 3) 08/12/2015 06/17/2015 [...] PM EDT Narrative 08/06/2025 3:04 PM EDT [address] [address] [address] Scan Report Signed Patient: Mark Feliciano MR#: [id number] 5 : 1950 Acct:[id number] Age/Sex: 74 / M ADM Date: 08/06/25 Loc: HO.ED Attending Dr: Ordering Physician: Tru Mendoza MD Date of Service: 08/06/25 Procedure(s): CT head/brain wo IV con Accession Number(s): [id number] cc: Toyin Mistry MD; Tru Mendoza MD Report Number: [id number]: Total DLP = 614.00 mGy-cm Reason for [...] 08/06/25 1501 DD/ 1448 TD/TT: 08/06/25 1457 Pigeon Fancier: Procedure Note Donotuseinterpreter, Image - 08/06/[address] [place] [address] [address] Scan Report Signed Patient: Mark FelicianoMR#: [id number] 5 : 1950cct:[id number] Age/Sex: 74 / MADM Date: 08/06/25 Loc: HO.ED Attending Dr: Ordering Physician: Tru Mendoza MD Date of Service: 08/06/25 Procedure(s): CT head/brain wo IV con Accession Number(s): [id number] cc: Toyin Mistry MD; Tru Mendoza MD Report Number: [id number]: Total DLP = 614.00 mGy-cm Reason for [...] 08/06/25 1501 DD/ 1448 TD/TT: 08/06/25 1457 Pigeon Fancier: [facility] External Provider IMG CT PROCEDURES Final Result * XR Chest 2 Views (08/06/2025 11:50 AM EDT) Anatomical Region Laterality Modality Chest Radiographic Tomeka ging 08/06/2025 11:5 0 AM EDT Narrative 08/06/2025 12:15 PM EDT [address] [address] XRay Report Signed Patient: Mark Feliciano MR#: [id number] 5 : 1950 Acct:[id number] Age/Sex: 74 / M ADM Date: 08/06/25 Loc: HO.ED Attending Dr: Ordering Physician: Quoc Wang Date of Service: 08/06/25 Procedure(s): XR chest 2V Accession Number(s): [id number] cc: Quoc Wang; Toyin Mistry MD Reason [...] OV> 08/06/25 1158 DD/ 1150 TD/TT: 08/06/25 115 Pigeon Fancier: Procedure Note Donotuseinterpreter, Image - 08/06/2025 [place] [address] XRay Report Signed Patient: Mark FelicianoMR#: [id number] 5 : 1950cct:[id number] Age/Sex: 74 / MADM Date: 08/06/25 Loc: .ED Attending Dr: Ordering Physician: Quoc Wang Date of Service: 08/06/25 Procedure(s): XR chest 2V Accession Number(s): [id number] cc: Quoc Wang; Toyin Mistry MD Reason [...] 08/06/25 1158 DD/ 1150 TD/TT: 08/06/25 1156 Pigeon Fancier: [facility] External Provider IMG XR PROCEDURES Final Result * Influenza A B2 ID NOW (Denis) (08/06/2025 11:47 AM EDT) IDNOW SERIAL# [id number] [facility] Influenza A Negative Negative [facility] Influenza B2 Negative Negative [facility] Influenza A B2 Note See Note [facility] Comment:The Denis ID NOW In [...] GENERAL ORDERABLES Final Result Performing Organization Address City/State/[facility] Co de Phone Number [facility] [address] [place] [phone] * COVID-19 ID NOW (DENIS) (08/06/2025 11:47 AM EDT) IDNOW SERIAL# [id number] [facility] COVID-19 TEST Negative Negative [facility] COVID-19 NOTE See Note [facility] Comment: Results are for the identification of SARS-CoV2 RNA. TheSARS-CoV2 RNA is generally detectable in respiratory samplesduring the acute phase of infection. Positive results areindicative of the presence of SARS-CoV-2 RNA; clinicalcorrelation with patient history and other diagnosticinformation is necessary to determine patient infectionstatus. Positive results do not rule out bacterial infectionor co- infection with other viruses.Testing facilities within the [place] and itsterritories are required to report [...] use by authorized laboratories.Testing performed on the [employer] ID NOW utilizing NAAT. 08/06/2025 11:4 7 AM EDT 08/06/2025 11:52 AM EDT Generic External Data Provider LAB MOLECULAR NAMITA GNOSTICS ORDERABLES Final Result Performing Organization Address [facility] de Phone Number [facility] [address] [place] [phone] * High Sensitivity Troponin I (08/06/2025 11:47 AM EDT) [facility] TROPONIN I HIGH SENSITIVITY <2.7 <3.5 - 35.0 ng/L [facility] Comment:The Denis high sens itivity Troponin-I results should beused in conjunction with other diagnostic information suchas ECG, clinical observations and information, and patientsymptoms to aid in the diagnosis of [place]. 08/06/2025 11:4 7 AM EDT 08/06/2025 11:52 AM EDT Generic External Data Provider LAB BLOOD ORDERAB LES Final Result Performing Organization Address [facility] Co de Phone Number [facility] [address] [place] [phone] * CBC auto differential (08/06/2025 11:47 AM EDT) Pathologist [facility] White Blood Count 8.5 4.8 - 10.8 X10*3/uL [facility] Red Blood Count 4.73 4.60 - 5.80 X10*6/uL [facility] Hemoglobin 14.4 14.0 - 18.0 g/dl [facility] Hematocrit 43.4 42.0 - 52.0 % [facility] Mean Corpuscular Volume 91.8 80.0 - 98.0 fL [facility] Mean Corpuscular Hemoglobin 30.4 27.0 - 33.0 pg [facility] Mean Corpuscular HGB Conc 33.2 31.0 - 36.0 g/dl [facility] Red Cell Distribution Width 13.9 11.0 - 16.0 % [facility] Platelet Count 230 160 - 400 X10*3/uL [facility] Mean Platelet Volume 9.9 9.4 - 12.4 fL [facility] Neutrophils Percent Auto 70.3 45 - 73 % [facility] Imm Gran Pct Auto 0.2 0.0 - 0.4 % [facility] Lymphocytes Percent Auto 20.9 20 - 40 % [facility] Monocytes Percent Auto 8.5 2 - 11 % [facility] Eosinophils Percent Auto 0.0 0 - 4 % [facility] Basophils Percent Auto 0.1 0 - 2 % [facility] NRBC Pct Auto 0.0 0.0 - 0.2 /100WBC [facility] Neutrophils Absolute Auto 5.9 2.0 - 8.3 x10*3/uL [facility] Imm Gran Abs Auto 0.02 0.00 - 0.03 X10*3/uL [facility] Lymphocytes Absolute Auto 1.8 1.2 - 4.9 X10*3/uL [facility] Monocytes Absolute Auto 0.7 0.1 - 1.2 X10*3/uL [facility] Eosinophils Absolute Auto 0.0 0.0 - 0.4 X10*3/uL [facility] Basophils Absolute Auto 0.0 0.0 - 0.2 X10*3/uL [facility] NRBC Abs Auto 0.000 0.0 - 0.012 X10*3/uL [facility] 08/06/2025 11:4 7 AM EDT 08/06/2025 11:52 AM EDT us Generic External Data Provider LAB BLOOD ORDERAB LES Final Result [facility] [address] [place] [address] [phone] * Lipase (08/06/2025 11:47 AM EDT) Lipase 21 8 - 78 U/L [facility] 08/06/2025 11:4 7 AM EDT 08/06/2025 11:52 AM EDT us Generic External Data Provider LAB BLOOD ORDERAB LES Final Result Performing Organization Address [facility]/ZIP Co de Phone Number [facility] [address] [place] [address] [phone] * (ABNORMAL) Comprehensive Metabolic Panel (08/06/2025 11:47 AM EDT) Sodium 143 135 - 145 mmol/L [facility] Potassium 4.2 3.3 - 5.1 mmol/L [facility] Chloride 110(H) 96 - 108 mmol/L [facility] Carbon Dioxide 25 22 - 29 mmol/L [facility] Anion Gap 12 12 - 20 [facility] Urea Nitrogen (BUN) 15 9 - 16 mg/dL [facility] Creatinine, Serum 1.05 0.5 - 1.4 mg/dL [facility] Creatinine Clr Calc Pharmacy 87.3 [facility] Comment:eGFR (calculated fro m the MDRD study equation) and eCrCl(calculated from the Cockcroft-Gault equation) are based ondifferent parameters and may not yield comparable results.If eCrCl result is absurd, please check patient'sheight/weight. Estimated Glomerular Filt Rate >60 [facility] Comment:Chronic Kidney Disea se: Estimated GFR < 60 mL/min/1.17z1Eleeqt Kidney Disease: Estimated GFR < 15 mL/min/1.73m2 Glucose 97 60 - 115 mg/dL [facility] Calcium 10.0 8.4 - 10.2 mg/dL [facility] Bilirubin, Total 0.5 0.0 - 1.0 mg/dL [facility] Aspartate Amino Transferase 27 5 - 37 U/L [facility] Alanine Aminotransferase 20 0 - 40 U/L [facility] Total Protein 7.9 6.5 - 8.0 g/dL [facility] Albumin Level 4.4 3.5 - 5.0 g/dL [facility] Alkaline Phosphatase 75 39 - 117 U/L [facility] 08/06/2025 11:4 7 AM EDT 08/06/2025 11:52 AM EDT us Generic External Data Provider LAB BLOOD ORDERAB LES Final Result Performing Organization Address [facility]/ZIP Co de Phone Number [facility] [address] [place] [phone] * Hepatitis C Antibody with Reflex to HCV, RNA, Quantitative, Real-Time PCR (09/24/2024 1:57 PM EST) Hepatitis C Antibody Nonreactive Nonreactive [facility] Comment:Antibodies to HCV no t detected; does not exclude early acuteHCV infection. Blood Venous blood specimen / Unknown 09/24/2024 1:57 PM EST 09/24/2024 4:04 PM EST us Vanda Betancourt ASBESTOS HANDLER LAB BLOOD ORDERABLES Final Resu lt Performing Organization Address [facility]/ZIP Co de Phone Number [facility] [address] [place] [phone] * (ABNORMAL) Lipid Panel with Reflex to Direct LDL (04/14/2024 8:20 AM EDT) Triglycerides 135 <150 mg/dL [facility] Comment:Desirable Triglyceri de: less than 150 mg/dLBorderline High Triglyceride 150-199 mg/dLHigh Triglyceride: 200-499 mg/dLVery High Triglyceride: greater than or equal to 5OO mg/dL Cholesterol 174 <200 mg/dL [facility] Comment:Desirable Cholestero l: less than 200 mg/dLBorderline High Cholesterol: 200-239 mg/dLHigh Cholesterol: greater than 239 mg/dL LDL Cholesterol Calculated 106(H) <100 mg/dL [facility] Comment:Desirable LDL: less than 100 mg/dLNear Optimal/Above Optimal LDL: 110- 129 mg/dLBorderline High LDL: 130-159 mg/dLHigh LDL: 160-189 mg/dLVery High LDL: greater than or equal to 190 mg/dL HDL Cholesterol 41 >40 mg/dL [facility] Comment:Desirable HDL: great er than 40 mg/dL Note: This HDL assay may give artificially low results in patients with liver disease. Blood 04/14/2024 8:20 AM EDT 04/14/2024 11:51 AM EDT Toyin Mistry MD LAB BLOOD ORDERABLES Final Resul t [facility] [address] [place] [address] [phone] * Colonoscopy (11/07/2021) Colonoscopy Normal Normal [facility] External Provider HEALTH MAINTENANCE Edited Result - Final from Last 3 Months or Most Recently Relevant to Health Maintenance Insurance [facility] SKILLED NURSING OPTIONS (O D-SNP) [facility] STANDARD * Guarantor: Mark Feliciano Account Type Relation to Patient Date of Phone Billing Address Personal/Family Self [address] [facility] [address] [place] [phone] Care Teams Machine Tailer Relationship Specialty Start Date End Date Toyin Mistry MD [address] [place] [phone] PCP - General Family Medicine 11/11/18
--- OUTSIDE RECORDS SUMMARY | 2025-11-01 11:15 | XMS_ITS | Encounter Summary ---
Author Organization [employer] Address [address] [facility] [address] [place] [address] Care Team Providers Care Burr Sander Name Role Phone Toyin Mistry MD Primary Care Provider [phone] Encounter Details Date Type Department Care Team (Late st Contact Info) Description 12/06/2022 Orders Only [facility] [address] [place] [address] Wendie Cochran LPN Social History Tobacco Use [...] Description 11/26/2025 10:00 AM EST Nurse Only [facility] [address] [place] [address] documented as of this encounter Visit Diagnoses Not on filedocumented in this encounter Care Teams Burr Sander Relationship Specialty Start Date End Date Toyin Mistry MD [address] [place] [address] PCP - General Family Medicine 11/11/18 documented as of this encounter
--- OUTSIDE RECORDS SUMMARY | 2025-11-01 11:15 | XMS_ITS | Encounter Summary ---
Author Organization [employer] Address [address] [facility] 7t [place] [address] Care Team Providers Care Digital Account Coordinator Name Role Phone Toyin Mistry MD Primary Care Provider [phone] Reason for Referral * Consultation (Routine) - Closed Specialty Diagnoses / Procedures Referred By Contac t Referred To Contact Pulmonary Disease Diagnoses Moderate persistent asthma without complication Toyin Mistry MD [address] [place] [address] Phone: tel: fax: [facility] Pulmonary [address] Floor [place], [place] Phone: tel: fax: Referral ID Status Reason Start Date Expiration Date V isits Requested Visits Authorized [id number] Closed Specialty Services Required 10/29/2024 10/29/2025 1 1 Encounter Details Date Type Department Care Team (Late st Contact Info) Description 10/29/2024 Orders Only [facility] [address] [place], [place] [phone] Toyin Mistry MD [address] [place], [place] [phone] Moderate persistent asthma without complication (Primary Dx) [...] Description 11/26/2025 10:00 AM EST Nurse Only [facility] [address] [place] [phone] Scheduled Referrals Name Type Priority Associated Diagnoses [...] documented as of this encounter Care Teams Digital Account Coordinator Relationship Specialty Start Date End Date Toyin Mistry MD [address] [place] [address] PCP - General Family Medicine 11/11/18 documented as of this encounter
--- OUTSIDE RECORDS SUMMARY | 2025-11-01 11:15 | XMS_ITS | Encounter Summary ---
Author Organization [employer] Address [address] [facility] 7t [place] [address] Care Team Providers Care Hat Liner Name Role Phone Toyin Mistry MD Primary Care Provider [phone] Encounter Details Date Type Department Care Team (Late Contact Info) Description 01/10/2023 Telephone [facility] [address] [place] [phone] Toyin Mistry MD [address] [place], [place] [phone] Social History Tobacco Use Types Packs/Day Years [...] Description 11/26/2025 10:00 AM EST Nurse Only [facility] [address] [place] [phone] documented as of this encounter Visit Diagnoses Not on filedocumented in this encounter Care Teams Hat Liner Relationship Specialty Start Date End Date Toyin Mistry MD [address] [place] [address] PCP - General Family Medicine 11/11/18 documented as of this encounter
--- OUTSIDE RECORDS SUMMARY | 2025-11-01 11:15 | XMS_ITS | Encounter Summary ---
Author Organization [employer] Address [address] [facility] [address] [place] [address] Care Team Providers Care Insole Rasper Name Role Phone Toyin Mistry MD Primary Care Provider [phone] Encounter Details Date Type Department Care Team (Late st Contact Info) Description 10/12/2022 Orders Only [facility] [address] [place] [address] Esther Hicks, RN [address] [place] [address] Social History Tobacco Use Types Packs/Day Years [...] Description 11/26/2025 10:00 AM EST Nurse Only [facility] [address] [place] [address] documented as of this encounter Visit Diagnoses Not on filedocumented in this encounter Care Teams Insole Rasper Relationship Specialty Start Date End Date Toyin Mistry MD [address] [place] [address] PCP - General Family Medicine 11/11/18 documented as of this encounter
--- OUTSIDE RECORDS SUMMARY | 2025-11-01 11:15 | XMS_ITS | Encounter Summary ---
Author Organization [employer] Address [address] [facility] 7t [place] [address] Care Team Providers Care Mender Hand Name Role Phone Toyin Mistry MD Primary Care Provider [phone] Encounter Details Date Type Department Care Team ([facility] st Contact Info) Description 09/07/2025 Orders Only [facility] [address] [place], [place] [phone] Toyin Mistry MD [address] [place], [place] [phone] Social History Tobacco Use Types Packs/Day Years [...] Description 11/26/2025 10:00 AM EST Nurse Only [facility] [address] [place] [address] documented as of this encounter Visit Diagnoses Not on filedocumented in this encounter Additional Health Concerns Assessment Noted Time PHQ-9 Depression Total Score: 4 08/31/20 24 10:34 AM EDT documented as of this encounter Care Teams Mender Hand Relationship Specialty Start Date End Date Toyin Mistry MD [address] [place] [address] PCP - General Family Medicine 11/11/18 documented as of this encounter
--- OUTSIDE RECORDS SUMMARY | 2025-11-01 11:15 | XMS_ITS | Encounter Summary ---
Author Organization [employer] Address [address] [facility] 7t [place] [address] Care Team Providers Care Sample Maker Name Role Phone Toyin Mistry MD Primary Care Provider [phone] Encounter Details Date Type Department Care Team (Late st Contact Info) Description 08/22/2023 Abstract [facility] [address] [place], [place] [phone] Toyin Mistry MD [address] [place], [place] [phone] Social History Tobacco Use Types Packs/Day Years [...] Description 11/26/2025 10:00 AM EST Nurse Only [facility] [address] [place] [address] documented as of this encounter Procedures Procedure Name Priority Date/Time Associated Diagnosis Comments COLONOSCOPY Routine 11/07/2021 documented in this encounter Results * Colonoscopy (11/07/2021) Colonoscopy Normal Normal [facility] External Provider HEALTH MAINTENANCE Edited Result - Final documented in this encounter Visit Diagnoses Not on filedocumented in this encounter Additional Health Concerns Assessment Noted Time PHQ-9 Depression Total Score: 0 07/24/20 23 9:25 AM EDT documented as of this encounter Care Teams Sample Maker Relationship Specialty Start Date End Date Toyin Mistry MD [address] [place] [address] PCP - General Family Medicine 11/11/18 documented as of this encounter
--- OUTSIDE RECORDS SUMMARY | 2025-11-01 11:15 | XMS_ITS | Encounter Summary ---
Author Organization [employer] Address [address] [facility] [address] [place] [address] Care Team Providers Care Timber Poisoner Name Role Phone Toyin Mistry MD Primary Care Provider [phone] Reason for Visit * Reason Onset Date Comments Med Refill 2024 Encounter Details Date Type Department Care Team ([facility] st Contact Info) Description 2024 Telephone [facility] MEDICINE [address] [place], [place] [phone] Toyin Mistry MD [address] [place], [place] [phone] Med Refill Social History Tobacco Use Types [...] Description 11/26/2025 10:00 AM EST Nurse Only [facility] MEDICINE [address] [place] [address] documented as of this encounter Visit Diagnoses Not on filedocumented in this encounter Additional Health Concerns Assessment Noted Time PHQ-9 Depression Total Score: 4 08/31/20 24 10:34 AM EDT documented as of this encounter Care Teams Timber Poisoner Relationship Specialty Start Date End Date Toyin Mistry MD [address] [place] [address] PCP - General Family Medicine 11/11/18 documented as of this encounter
--- OUTSIDE RECORDS SUMMARY | 2025-11-01 11:15 | XMS_ITS | Encounter Summary ---
Author Organization [employer] Address [address] [facility] 7[address] [place] [address] Care Team Providers Care Pediatric Anesthesiologist Name Role Phone Toyin Mistry MD Primary Care Provider Encounter Details Date Type Department Care Team (Late Contact Info) Description 12/26/2022 Orders Only [facility] MEDICINE [address] [place] [phone] Toyin Mistry MD [address] [place] [address] [phone] Vitiligo (Primary Dx) Social History Tobacco Use [...] Description 11/26/2025 10:00 AM EST Nurse Only [facility] MEDICINE [address] [place] [phone] documented as of this encounter Visit Diagnoses Diagnosis Vitiligo- Primary documented in this encounter Care Teams Pediatric Anesthesiologist Relationship Specialty Start Date End Date Tyoin Mistry MD [address] [place] [address] PCP - General Family Medicine 11/11/18 documented as of this encounter
--- OUTSIDE RECORDS SUMMARY | 2025-11-01 11:15 | XMS_ITS | Encounter Summary ---
Author Organization [employer] Address [address] [facility] [address] [place] [address] Care Team Providers Care Buffing And Sueding Machine Operator Name Role Phone Toyin Mistry MD Primary Care Provider [phone] Encounter Details Date Type Department Care Team ([facility] st Contact Info) Description 2024 Orders Only [facility] MEDICINE [address] [place], [place] [phone] Toyin Mistry MD [address] [place], [place] [phone] Social History Tobacco Use Types Packs/Day Years [...] Description 11/26/2025 10:00 AM EST Nurse Only [facility] MEDICINE [address] [place] [address] documented as of this encounter Visit Diagnoses Not on filedocumented in this encounter Additional Health Concerns Assessment Noted Time PHQ-9 Depression Total Score: 4 08/31/20 24 10:34 AM EDT documented as of this encounter Care Teams Buffing And Sueding Machine Operator Relationship Specialty Start Date End Date Toyin Mistry MD [address] [place] [address] PCP - General Family Medicine 11/11/18 documented as of this encounter
--- OUTSIDE RECORDS SUMMARY | 2025-11-01 11:15 | XMS_ITS | Encounter Summary ---
Author Organization [employer] Address [address] [facility] [address] [place] [address] Care Team Providers Care Office Machine Punch Operator Name Role Phone Toyin Mistry MD Primary Care Provider [phone] Reason for Visit * Reason Onset Date Comments FYI 11/16/2024 Durable Medical Equipment 11/16/2024 Encounter Details Date Type Department Care Team ([facility] st Contact Info) Description 11/16/2024 Telephone [facility] MEDICINE [address] [place], [place] [phone] Toyin Mistry MD [address] [place], [place] [phone] FYI; Durable Medical Equipment Social History Tobacco [...] - 11/16/2024 2:16 PM EST Tc from [facility] with [facility] to report pt was on EM 11/16, has cough and asthma also requesting nebulizer. documented in this encounter Plan of Treatment Upcoming Encounters Date Type Department Care Team (Late st Contact Info) Description 11/26/2025 10:00 AM EST Nurse Only [facility] MEDICINE [address] [place] [address] documented as of this encounter Visit Diagnoses Not on filedocumented in this encounter Additional Health Concerns Assessment Noted Time PHQ-9 Depression Total Score: 4 08/31/20 24 10:34 AM EDT documented as of this encounter Care Teams Office Machine Punch Operator Relationship Specialty Start Date End Date Toyin Mistry MD [address] [place] [address] PCP - General Family Medicine 11/11/18 documented as of this encounter
--- NOTE | 2025-11-02 12:01 | HO.ANESPROP2 ---
Documented by User: Gwen Eaton NP 11/02/25 12:06 HPI - Anesthesia Eval Consult details Narrative: 74 yr old male for colonoscopy Asthma/COPD: follows [facility] pulmo, last visit Aug 2025 Overall he is doing significantly better now Fasenra. The Fasenra injections have been very affecting beneficial. He continues to use his inhalers as prescribed. He has not required any prednisone which is reassuring. He is able to do activities outdoors without any significant limitations. He is still should be able to retreat though before any excessive exercise activity where typically he developed significant bronchospasms. But overall he is doing good he does not need any additional therapies right now. Will follow-up in 8-12 months . [facility] Active Problems Active Problems: All Active Problems (Updated 08/07/25 @ 00:00 by Mariza Daken) Asthma-COPD overlap syndrome (Acute) Pulmonary nodule (Acute) Asthma (Acute) Cubital tunnel syndrome on left (Acute) Carpal tunnel syndrome of left wrist (Acute) Degenerative arthritis of left shoulder region (Acute) Degenerative arthritis of right shoulder region (Acute) Right shoulder pain (Acute) Chronic pain syndrome (Acute) Left shoulder pain (Acute) Impingement syndrome of right shoulder (Acute) Hemorrhoids (Acute) Tubular adenoma of colon (Acute) Internal impingement of both shoulders (Acute) Hypopigmentation of hair (Acute) Colon cancer screening (Acute) Left lateral epicondylitis (Acute) Rotator cuff tear, right (Acute) Rotator cuff tear, left (Acute) Past Medical History Medical History Asthma-COPD overlap syndrome Pulmonary nodule Asthma Depression Hypertension Family History Family history of problems with anesthesia: No Surgical History Surgical History History of hernia surgery History of Problems with Anesthesia: No Social History Social History Alcohol intake: former Patient Tobacco Use Status: Former Tobacco user Tobacco use type: Cigarette Use of substances other than those prescribed or required for medical reasons: No Advance Directives: No Advance Directives Information Provided: Yes Current occupational status: disabled Current occupation: left and right handed Meds Allergies Allergy/AdvReac Type Severity Reaction Status Date / Time No Known Allergies Allergy Verified 08/24/25 14:54 Home Medications ?Medication ?Instructions ?Recorded ?Confirmed ?Last Taken ?Type cholecalciferol (vitamin D3) 25 25 mcg PO DAILY 05/08/21 11/02/25 Unknown History mcg (1,000 unit) capsule clonazepam 2 mg tablet 2 mg PO BEDTIME 05/08/21 11/05/25 11/05/25 History cyanocobalamin (vitamin B-12) 1,000 mcg IM QMONTH 05/08/21 11/02/25 Unknown History 1,000 mcg/mL injection solution fluoxetine 20 mg capsule 20 mg PO DAILY 05/08/21 11/02/25 Unknown History fluticasone propionate 220 1 puff PO BID 05/08/21 11/02/25 Unknown History mcg/actuation HFA aerosol inhaler loratadine 10 mg tablet 10 mg PO DAILY 05/08/21 11/02/25 Unknown History omeprazole 20 mg capsule,delayed 20 mg PO DAILY 05/08/21 11/02/25 Unknown History release mirtazapine 15 mg tablet 15 mg PO BEDTIME 08/03/21 11/02/25 Unknown History Exam Pertinent Lab Results Pertinent Lab Results: Laboratory Tests 08/06/25 11:47 WBC 8.5 RBC 4.73 Hgb 14.4 Hct 43.4 Plt Count 230 D Sodium 143 Potassium 4.2 BUN 15 Creatinine 1.05 Narrative Narrative: EKG 07/2025 Vent. Rate : 67 BPM Atrial Rate : 67 BPM P-R Int : 134 ms QRS Dur : 76 ms QT Int : 378 ms P-R-T Axes : 65 -5 66 degrees QTcB Int : 399 ms Normal sinus rhythm with sinus arrhythmia T wave abnormality, consider lateral ischemia Abnormal ECG When compared with ECG of 22-Mar-2025 11:28, No significant change was found Assessment and Plan Final Anesthetic Review Family History of Problems with Anesthesia: No History of Problems with Anesthesia: No Documented by User: Kana Gant MD 11/05/25 13:15 PMF Past Medical History Medical History Asthma-COPD overlap syndrome Pulmonary nodule Asthma Depression Hypertension Functional capacity: independent ambulation Surgical History Surgical History History of hernia surgery Social History Social History Alcohol intake: former Patient Tobacco Use Status: Former Tobacco user Tobacco use type: Cigarette Use of substances other than those prescribed or required for medical reasons: No Advance Directives: No Advance Directives Information Provided: Yes Current occupational status: disabled Current occupation: left and right handed Meds Allergies Allergy/AdvReac Type Severity Reaction Status Date / Time No Known Allergies Allergy Verified 08/24/25 14:54 Home Medications ?Medication ?Instructions ?Recorded ?Confirmed ?Last Taken ?Type cholecalciferol (vitamin D3) 25 25 mcg PO DAILY 05/08/21 11/02/25 Unknown History mcg (1,000 unit) capsule clonazepam 2 mg tablet 2 mg PO BEDTIME 05/08/21 11/05/25 11/05/25 History cyanocobalamin (vitamin B-12) 1,000 mcg IM QMONTH 05/08/21 11/02/25 Unknown History 1,000 mcg/mL injection solution fluoxetine 20 mg capsule 20 mg PO DAILY 05/08/21 11/02/25 Unknown History fluticasone propionate 220 1 puff PO BID 05/08/21 11/02/25 Unknown History mcg/actuation HFA aerosol inhaler loratadine 10 mg tablet 10 mg PO DAILY 05/08/21 11/02/25 Unknown History omeprazole 20 mg capsule,delayed 20 mg PO DAILY 05/08/21 11/02/25 Unknown History release mirtazapine 15 mg tablet 15 mg PO BEDTIME 08/03/21 11/02/25 Unknown History Exam Exam Date and Time: 11/05/25 Airway Mallampati Class: II TM Dist: >3cm Denture: Upper Loose/Missing/Broken Teeth: No Heart: ok Lungs: ok Other: ok Assessment and Plan Final Anesthetic Review NPO: Yes ASA Class: II Final Preanesthetic Review: No Changes in Pt Med Stat, Meds/Allgs Chart Reviewed, Consent Obtained/Reviewed and Anes Risks/Benef Reviewed Patient Risk: Low Procedure Risk: Low Anesthetic Plan Anesthetic Plan: MAC: Disposition: Standard PACU
[2025-11-02 14:23] VITALS: BMI 25.5
[2025-11-05 12:26] VITALS: BMI 23.7
[2025-11-05 12:44] VITALS: BP 132/74; PULSE 73; RESP 20; TEMP 36.7; O2SAT 96
--- NOTE | 2025-11-05 13:02 | MHC.SHP ---
Pre-Procedural Eval Section A - 24 Hr Update-Section A only Date of Service: 11/05/25 The patient is an INPATIENT: No The patient has been examined within 24 hours of the surgical procedure. The History & Physical has been completed within 30 days and I have reviewed it.: No Section B - Complete if H&P > 30 days Chief Complaint: Surveillance for colon polyps Relevant Family History (Specify if Yes): No Relevant Social History: Tobacco Use (Former smoker) Present Medications: see Short Stay Collaborative assessment Medical History: Significant History (Asthma Depression Hypertension) History of Previous Operations: Relevant previous surgery/procedure and date(s) (History of hernia surgery) Allergies: Allergies Allergy/AdvReac Type Severity Reaction Status Date / Time No Known Allergies Allergy Verified 08/24/25 14:54 Review of Systems Sugical H&P ROS: Negative: Constitution, Cardiovascular, Respiratory and Gastrointestinal Exam Surgical H&P Exam: Normal: Heart, Normal: Lungs, Normal: Extremities and Normal: Abdomen Plan Diagnosis/Plan: Change (proceed with colonoscopy) I have reviewed the history and physical and performed a pertinent physical examination on my patient. No changes have occurred unless specified. Time Spent With Patient Time: Total time managing care of this patient today ____ minutes.
--- NOTE | 2025-11-05 14:37 | P.OPN-COLO_ITS ---
Colonoscopy Operative Note Operative Note Date of Service: 11/05/25 Narrative: COLONOSCOPY TILL CECUM WITH BIOPSIES, SNARE POLYPECTOMY AND HEMOCLIP PLACEMENT Pre-op diagnosis: Surveillance for colon polyps. Post-op diagnosis:? Colon polyps, Diverticulosis, hemorrhoids Endoscopist:? Barbie Collins MD Anesthesia:?MAC Consent: Indications for the procedure and potential complications of bleeding, perforation, reaction to medications and missed diagnosis were discussed with the patient with the help of an [facility] [employer] habilitation training specialist (Srikanth) and informed consent was obtained. Instrument: Olympus CF H 190 L variable stiffness adult colonoscope Monitoring: Vital signs and clinical assessment, intermittent blood pressure monitoring, continuous EKG monitoring, Pulse oximetry and Carbon Dioxide monitoring were done throughout the procedure. Please see anesthesia flowsheet. Colon withdrawl time was 28 minutes. Procedure: The patient was placed in the left lateral decubitis position and pre-procedure medications were administered. After a digital rectal examination of the ano-rectum, the video colonoscope was inserted into the rectum and advanced through the colon to the cecum. The colonoscope was slowly withdrawn in a retrograde panoramic fashion and the colon mucosa was carefully examined including a retroflexed view of the rectum. Findings and interventions are described below. Procedure Difficulty: Colon was long and tortuous and there was some loop formed. Patient was placed in the supine position and LLQ pressure was applied to intubate the ascending colon Findings: Terminal Ileum: Not evaluated Cecum: A 3-4 mm sessile polyp - removed with a cold biopsy. Ascending Colon: Two 12-15 mm sessile polyps in the distal ascending - removed with a hot snare. Moderate diverticulosis scattered throughout the entire colon. Transverse Colon: A 9-10 mm sessile polyp - removed with a cold snare. Moderate diverticulosis scattered throughout the entire colon. Descending Colon: Moderate diverticulosis scattered throughout the entire colon. Sigmoid Colon: A 4-5 mm sessile polyp - removed with a cold snare. Moderate diverticulosis Rectum: Normal Ano-rectum: Moderate internal hemorrhoids Colon preparation: Good after copious irrigation. [place] Bowel Preparation Scale Right colon; 2 Transverse colon: 2 Left colon; 2 (0 = Unprepared colon segment with mucosa not seen due to solid stool that cannot be cleared. 1 = Portion of mucosa of the colon segment seen, but other areas of the colon segment not well seen due to staining, residual stool and/or opaque liquid. 2 = Minor amount of residual staining, small fragments of stool and/or opaque liquid, but mucosa of colon segment seen well. 3 = Entire mucosa of colon segment seen well with no residual staining, small fragments of stool or opaque liquid) Impression and Post Procedure Diagnosis: Colonoscopy Findings: Five small to medium sized polyps were removed Moderate diverticulosis seen in the entire colon Moderate hemorrhoids on retroflexed exam. Plan: I will send a letter with biopsy results. Repeat Colonoscopy in 3-5 years if polyps are adenomatous and due to history of adenomatous colon polyps. (Miralax split prep and Dulcolax 10 mg daily x 5 days prior to next colon appointment) Above findings were reviewed with the patient and relevant handouts were given and the discharge area.
[2025-11-05 14:39] VITALS: BP 146/84; PULSE 64; RESP 14; TEMP 36.1; O2SAT 100
[2025-11-05 14:54] VITALS: BP 142/87; PULSE 72; RESP 16; TEMP 36.4; O2SAT 99
== END 2025-11-05 16:06 | disposition home or self-care (01) ==
PROVIDERS: PCP Family Medicine; Visit Provider Internal Medicine Gastroenterology
PROC: 0DJD8ZZ Inspection of Lower Intestinal Tract, Via Natural or Artificial Opening Endoscopic (ICD-10-PCS; CPT 45378; principal; 2025-11-05 13:30)
DX: Z12.11 Encounter for screening for malignant neoplasm of colon (principal); K57.30 Diverticulosis of large intestine without perforation or abscess without bleeding; K64.8 Other hemorrhoids; D12.2 Benign neoplasm of ascending colon; D12.0 Benign neoplasm of cecum; D12.5 Benign neoplasm of sigmoid colon; D12.3 Benign neoplasm of transverse colon
CPT/HCPCS: 45380; 45385; 88305; J2003; J2704; J3010

== ENCOUNTER → 2025-11-05 11:27 | Outpatient (BNV) | payer OTHER, SELFPAY | PROVIDERS: PCP Family Medicine; Visit Provider Internal Medicine Gastroenterology | DX: Z12.11 Encounter for screening for malignant neoplasm of colon (principal); K63.5 Polyp of colon; K57.90 Diverticulosis of intestine, part unspecified, without perforation or abscess without bleeding; K64.8 Other hemorrhoids | CPT/HCPCS: 45385 ==